=== PATIENT | female | born 1960 | race Caucasian/White ===

== ENCOUNTER 2017-11-01 07:16 | Emergency (ER) | payer MEDICAID, MEDICARE, SELFPAY ==
[2017-11-01 07:19] VITALS: BP 158/76; PULSE 82; RESP 20; TEMP 36.3; O2SAT 98; BMI 31.1
[2017-11-01 07:41] LABS: Bacteria 0 SEEN /hpf (None Seen); Mucous, Urine 0 SEEN /hpf (<or=2+); Red Blood Cells-Urine 0 SEEN /hpf (0-5)
[2017-11-01 07:51] LABS: Color, Urine Yellow (Yellow); Glucose, Dipstick Normal (Normal); Ketone-Dipstick Negative (Negative); Leukocyte Esterase-Dipstick Negative /ul (Negative); Nitrite-Dipstick Negative (Negative); Occult Blood-Urine Negative /ul (Negative); Protein-Dipstick Negative (Negative); Specific Gravity, Urine 1.015 (1.002-1.030); Urine Bilirubin Dipstick Negative (Negative); Urine Clarity Clear (Clear); Urine Urobilinogen Normal (Normal)
[2017-11-01 07:59] LABS: Squamous Epithelial Cells - UA 0-5 SEEN /hpf (5-10); White Blood Cells 0-5 SEEN /hpf (0-5)
--- NOTE | 2017-11-01 08:03 | CT_ITS ---
STUDY: CT ABDOMEN AND PELVIS WITHOUT CONTRAST REASON FOR EXAM: Female, 57 years old. Left-sided flank pain for one day. RADIATION DOSAGE (If Supplied By Facility): CTDIvol = ( 10.84 ) mGy, DLP = ( 495.73 ) mGycm TECHNIQUE: Transaxial images were obtained from the dome of the diaphragm to the symphysis pubis without oral contrast, and without intravenous contrast. Sagittal and coronal images were reconstructed. Individualized dose optimization techniques were used for this CT. COMPARISON: Prior comparison studies are not available for review at this time. FINDINGS: There is bilateral basilar dependent atelectasis. The visualized portions of the heart are within normal limits. Normal liver. The gallbladder is contracted. Normal spleen. Normal pancreas. Normal bilateral adrenal glands. Normal right kidney. Normal left kidney. Normal visualized stomach. There is no evidence for dilated bowel, ascites or pneumoperitoneum. Small bowel has a grossly normal appearance. Stool is visible throughout the colon with scattered colonic diverticula. There are surgical clips in the region of the appendix consistent with a prior appendectomy. Normal abdominal aorta. Normal inferior vena cava. There is borderline retroperitoneal lymphadenopathy with enlarged nodes no greater than 10mm in the short axis diameter. Urinary bladder is nondistended. There is absence of the uterus consistent with a prior hysterectomy. Normal abdominal wall. Normal osseous structures. CT/Abdomen/Pelvis without Cont IMPRESSION: No CT evidence of acute intra-abdominal disease. Electronically Signed: Stacey Yun MD at 8:50 EDT , Service support ,
[2017-11-01 08:15] LABS: Absolute Lymphocyte Count 0.98 X10^3/ul (0.83-4.51); Absolute Neutrophil Count 2.5 X10^3/uL (2.0-7.7); Basophil# 0.06 X10^3/uL; Basophil% 1.4 % (0-1); Hemoglobin 14.5 g/dl (12.0-15.0); Lymphocyte # 0.98 X10^3/ul (4.0); Lymphocyte % 22.9 % (19-41); Mean Corp Hgb Conc 33.7 g/gl (32-36); Mean Corpuscular Hgb 30.5 pg (27.0-32.0); Mean Corpuscular Volume 90.3 fL (81-99); Mean Platelet Vol. 9.1 fl (6.2-12.0); Monocyte# 0.38 X10^3/uL; Monocyte% 8.9 % (0-10); Neutrophil # 2.54 X10^3/uL (2.7-7.7); Neutrophil % 59.3 % (47-70); Platelet Count 190 K/mm3 (150-450); Red Blood Count 4.76 M/mm3 (4.2-5.4); White Blood Count 4.3 K/mm3 (4.4-11.0)
[2017-11-01 08:20] LABS: POSITIVE COUNT NO; POSITIVE DIFFERENTIAL NO; POSITIVE MORPHOLOGY NO
[2017-11-01 08:28] LABS: ALB/GLOB Ratio 1.4 RATIO (0.9-2.4); AST(SGOT) 15 U/L (15-37); Alanine Aminotransfer ALT/SGPT 22 U/L (13-56); Albumin, Serum 4.1 g/dL (3.2-5.0); Alkaline Phosphatase 115 U/L (45-117); Anion Gap 6 (5-15); BUN 15 mg/dL (7-18); Calcium,Total 8.4 mg/dL (8.5-10.1); Chloride 110 mmol/L (98-107); Creatinine, Serum 0.88 mg/dL (0.55-1.02); EST Glomerular Filtration Rate 70 mL/min (>60); Est Glom Filt Rate - Afr Amer 85 mL/min (>60); Estimated Creatinine Clearance 58.35 ml/min; Glucose 84 mg/dL (74-106); Potassium 3.6 mmol/L (3.5-5.1); Protein, Total 7.1 g/dL (6.4-8.2); Sodium Level 143 mmol/L (136-145)
--- NOTE | 2017-11-01 09:19 | ED.VISSUMM ---
- ER Visit Summary Date of Service: 11/01/17 Chief Complaint: Left flank pain History of Present Illness: The patient is a 57 F states she has a ball of fire in her back since yesterday. It has been constant for about 24 hours. Describes it as severe but not necessarily worse with movement but it does not feel good to move. She states that she has lupus in her kidney. When asked to explain what that means she then tells me that lupus is a blood disorder that can affect organs. Patient denies any history of renal cyst or kidney stones. She notes urinary frequency without dysuria or hematuria. No fevers. She denies any rashes in this area but states that she cannot see her back. Her doctors are at the [facility]. Physical Examination: Afebrile vital signs stable Gen: Well-nourished well-developed Head: Normocephalic atraumatic Eyes: Perrl EOMI ENT: TMs clear no rhinorrhea moist mucous membranes Neck: Supple no lymphadenopathy no JVD nontender CVS: Regular rate rhythm no murmurs normal S1-S2 Respiratory: No distress clear to auscultation bilaterally chest nontender Abdomen: Soft nontender nondistended normal bowel sounds no masses Back: Left flank tenderness to palpation no rashes seen Extremity: Nontender no edema Skin: Normal color no rash Neuro: alert orientated ?3 CN II-XII intact normal strength sensation reflexes gait cerebellar Psych: Normal affect normal mood Test Results: CBC chemistries negative. Urinalysis negative CT the flank negative Emergency Department Course and Treatment: Received a dose of morphine and Zofran. She is sleeping on repeat examination. Oars report is negative. I do not see anything to explain her pain at this time. With 24 hours of constant pain and negative labs I do not suspect a renal infarct. I do not see a need to repeat ct with contrast. I will write for the patient have OxyIR. She is to call her doctor's today and arrange early follow-up. Impression: 1. Left flank pain This note was generated with [employer] dictation software. It may contain incorrect words, spelling, and punctuation that were not noted in review of the chart prior to signing ED Disposition - Plan for ED Patient: Disposition: Home or Assisted Living Chief Complaint: Flank Pain Instructions: ED Flank Pain Uncertain Cause Prescriptions: Oxycodone [Oxyir] 5 - 10 mg PO Q6H PRN PRN 4 Days #20 tab PRN Reason: Pain Referrals: [facility] Doctor,Out of [Primary Care Provider] - (call today to arrange early follow up)
--- NOTE | 2017-11-01 09:24 | ED.DCSUM_ITS ---
- ER Visit Summary Date of Service: 11/01/17 Chief Complaint: Left flank pain History of Present Illness: The patient is a 57 F states she has a ball of fire in her back since yesterday. It has been constant for about 24 hours. Describes it as severe but not necessarily worse with movement but it does not feel good to move. She states that she has lupus in her kidney. When asked to explain what that means she then tells me that lupus is a blood disorder that can affect organs. Patient denies any history of renal cyst or kidney stones. She notes urinary frequency without dysuria or hematuria. No fevers. She denies any rashes in this area but states that she cannot see her back. Her doctors are at the [facility]. Physical Examination: Afebrile vital signs stable Gen: Well-nourished well-developed Head: Normocephalic atraumatic Eyes: Perrl EOMI ENT: TMs clear no rhinorrhea moist mucous membranes Neck: Supple no lymphadenopathy no JVD nontender CVS: Regular rate rhythm no murmurs normal S1-S2 Respiratory: No distress clear to auscultation bilaterally chest nontender Abdomen: Soft nontender nondistended normal bowel sounds no masses Back: Left flank tenderness to palpation no rashes seen Extremity: Nontender no edema Skin: Normal color no rash Neuro: alert orientated ?3 CN II-XII intact normal strength sensation reflexes gait cerebellar Psych: Normal affect normal mood Test Results: CBC chemistries negative. Urinalysis negative CT the flank negative Emergency Department Course and Treatment: Received a dose of morphine and Zofran. She is sleeping on repeat examination. Oars report is negative. I do not see anything to explain her pain at this time. With 24 hours of constant pain and negative labs I do not suspect a renal infarct. I do not see a need to repeat ct with contrast. I will write for the patient have OxyIR. She is to call her doctor's today and arrange early follow-up. Impression: 1. Left flank pain This note was generated with [employer] dictation software. It may contain incorrect words, spelling, and punctuation that were not noted in review of the chart prior to signing ED Disposition - Plan for ED Patient: Disposition: Home or Assisted Living Chief Complaint: Flank Pain Instructions: ED Flank Pain Uncertain Cause Prescriptions: Oxycodone [Oxyir] 5 - 10 mg PO Q6H PRN PRN 4 Days #20 tab PRN Reason: Pain Referrals: [facility] Doctor,Out of [Primary Care Provider] - (call today to arrange early follow up)
[2017-11-01 09:35] VITALS: BP 143/91; PULSE 69; RESP 15; O2SAT 97
== END 2017-11-01 09:39 | disposition home or self-care (01) ==
PROVIDERS: Emergency Provider Emergency Medicine
DX: R10.9 Unspecified abdominal pain (principal); Z79.899 Other long term (current) drug therapy
CPT/HCPCS: 74176; 80053; 81001; 85025; 99285; A4216; J2405

== ENCOUNTER 2017-12-30 10:30 | Emergency (ER) | payer MEDICARE, MEDICAID, SELFPAY ==
[2017-12-30 10:31] VITALS: BP 132/78; PULSE 115; RESP 20; TEMP 38.7; O2SAT 96; BMI 30.1
--- NOTE | 2017-12-30 11:08 | ED.VISSUMM ---
- ER Visit Summary Date of Service: 12/30/17 Chief Complaint: Rash History of Present Illness: The patient is a 57 F with a rash over her right posterior neck and anterior chest region also on the right. She developed pain 4 days ago and a rash 2 days ago. She has a fever. She has lupus and is on 2 different immune modulating agents. She does not have any neck pain other than the rash, she is able to bend her neck up and down. She has no vision changes. She has no headache or confusion or bizarre behavior. She has no chest pain or shortness of breath or cough. She has no urinary symptoms. No abdominal pain. The rash is itchy burning and intense. Physical Examination: Patient appears in some distress Heart is regular lungs are clear abdomen is soft and nontender neck is supple without any signs of meningismus. She has a vesicular rash consistent with herpes zoster posterior neck and anterior chest region. There is no face involvement. No eye involvement. No nose involvement. TMs are clear. Emergency Department Course and Treatment: Patient has herpes simplex zoster, her immune system is decreased secondary to her immune modulating agents want his Plaquenil and the other one she only takes once a month. She is to follow-up with her lupus doctor to see if she should get it again this month. Regardless she will be treated with acyclovir, Neurontin and analgesia. At this time she does not manifest any systemic symptoms, no signs of meningismus TM or eye involvement. She understands that if she feels worse needs to return. There is no signs of superinfection on her skin exam. Discharge stable condition Impression: Herpes zoster This note was generated with [employer] dictation software. It may contain incorrect words, spelling, and punctuation that were not noted in review of the chart prior to signing ED Disposition - Plan for ED Patient: Disposition: Home or Assisted Living Chief Complaint: Rash Instructions: Shingles (Herpes Zoster) Prescriptions: Oxycodone HCl/Acetaminophen [Percocet 5/325] 1 tab PO Q4H PRN PRN 3 Days #18 tab PRN Reason: Pain Acyclovir [Zovirax] 800 mg PO 5X/DAY #35 tab Gabapentin [Neurontin] 300 mg PO TID #90 cap Referrals: [facility] Doctor,Out of [Primary Care Provider] - 3-5 Days
== END 2017-12-30 11:43 | disposition home or self-care (01) ==
PROVIDERS: Emergency Provider Emergency Medicine
DX: B02.9 Zoster without complications (principal); M32.9 Systemic lupus erythematosus, unspecified; Z79.899 Other long term (current) drug therapy
CPT/HCPCS: 99282

== ENCOUNTER 2020-04-08 10:55 | Emergency (ER) | payer MEDICARE, MEDICAID, SELFPAY ==
[2020-04-08] VITALS (7 sets, daily range): BP systolic 141–191; BP diastolic 84–109; PULSE 64–70; RESP 12–20; TEMP 36.6; O2SAT 95–98; BMI 31.8
--- NOTE | 2020-04-08 10:59 | ED.RN ---
SON SEBASTIAN RAMIREZ--[phone]
--- NOTE | 2020-04-08 11:16 | RAD_ITS ---
STUDY: X-RAY CHEST REASON FOR EXAM: Female, 59 years old. Cough, SOB, muscle aches, fatigue TECHNIQUE: Single AP portable view of the chest. COMPARISON: None. FINDINGS: EKG electrodes are seen. Hyperinflation. Surgical sutures are seen in the right upper lobe. No acute abnormality is seen. There is no demonstrated pleural abnormality. Normal size heart. Normal mediastinum and brenda. Normal visualized pulmonary arteries. Normal visualized aortic arch and descending thoracic aorta. Normal visualized thoracic spine. Normal visualized ribs, clavicles, and shoulders. There is no demonstrated abnormality of the visualized soft tissue structures of the upper abdomen. RAD/Chest 1 View (Portable) IMPRESSION: No acute abnormality is seen. Electronically Signed: Ulices Quiroz, at 12:08 EST , Service support ,
--- NOTE | 2020-04-08 11:16 | EKG12_ITS ---
Test Reason : SOB Blood Pressure : / mmHG Vent. Rate : 064 BPM Atrial Rate : 064 BPM P-R Int : 136 ms QRS Dur : 086 ms QT Int : 432 ms P-R-T Axes : 038 038 053 degrees QTc Int : 445 ms Normal sinus rhythm Normal ECG Confirmed by MARINA PRASAD, BENTLEY ([id number]), restaurant expeditor CARA ZUÑIGA ([id number]) on 04/09/2020 2:11:35 PM Referred By: STANLEY/NINO Confirmed By:BENTLEY GRAY MD
--- NOTE | 2020-04-08 11:24 | ED.DCSUM_ITS ---
History of Present Illness Chief Complaint: Shortness of Breath Informant: Patient Narrative: Patient is a 59-year-old female with a past medical history of lupus who presents to the emergency department for cough, shortness of breath, body aches and loss of taste and smell. She does not know of any known positive coronavirus exposures but she does work at a [employer]. She was sent in by her PCP due to the increased work of breathing. Patient does have a former smoking history and quit 11 years ago. She does have bilateral leg swelling but states that this goes along with her lupus. No history of blood clots in her legs or lungs. She has not tried anything for her symptoms. Her symptoms have been going on for the past 4 days. She denies any chest pain. She did have vomiting and diarrhea 3 days ago but this since resolved. No abdominal pain. No fevers. Past Medical History - Allergies and Home Meds Allergies/Adverse Reactions: Allergies prednisone Allergy (Verified 04/08/20 10:58) Rash HIGH DOSES Primary Care Physician: Romeo Deshpande DO [NON CLINICAL AFFILIATE] - 3-5 Days if not [facility] Doctor,Out of [NON-STAFF] - Prior records reviewed: Yes Smoking Status: Never smoker Review of Systems All systems negative except as indicated General: Reports: Malaise. Denies: Chills, Fever, Sweats Eyes: Denies: Visual changes - bilaterally, Diplopia ENT: Denies: Rhinorrhea, Sore throat Cardiovascular: Denies: Chest pain, Palpitations Respiratory: Reports: Dyspnea, Cough, Sputum, Dyspnea on exertion Gastrointestinal: Denies: Abdominal pain, Nausea, Vomiting, Diarrhea Genitourinary: Denies: Dysuria, Hematuria, Frequency Musculoskeletal: Reports: Myalgias. Denies: Back pain, Extremity Pain Skin: Denies: Rash, Wounds Neurological: Denies: Headache, Weakness, Numbness Physical Exam Vital Signs/Narrative: Vital Signs Temp Pulse Resp BP Pulse Ox 04/08/20 10:55 98 F 70 20 H 158/84 H 98 Inital Vital Signs reviewed: Yes General: Well nourished, Well developed, No Acute Distress Head: Normocephalic, Atraumatic Eyes: Perrl, EOMI ENT: Moist mucous membranes, No rhinorrhea Neck: Supple, Nontender Cardiovascular: Regular rate, Regular rhythm, No murmurs Respiratory: CTA bilaterally, Chest nontender, - - Mild increased work of breathing. Able to speak in few word sentences. Abdomen: Soft, Nontender, Nondistended, Normal bowel sounds Back: Nontender, Normal Inspection Extremities: Nontender, No edema. Negative for: Calf Tenderness Skin: Normal color, No rash Neurological: Alert, Oriented x3, Cranial nerves II-XII grossly intact, Normal Strength, Normal Sensation Psychological: Normal affect, Normal Mood Diagnostic/Tx/Re-eval Chest X-Ray - ED: - - Single view chest x-ray interpreted by myself. Clear lung lynn bilaterally. No pleural effusions. Normal cardiac silhouette. Normal mediastinum. Agree with radiologist interpretation. - EKG Initial EKG Interpretation: - - Rate of 64 bpm normal sinus rhythm. Normal intervals. Normal axis. No ST elevations or depressions. No T wave abnormalities. - Medical Decision Making Patient presents to the emergency department for infectious symptoms including cough, shortness of breath, fatigue and body aches. He does have loss of taste and smell most likely has coronavirus infection. Will check basic lab work, EKG, chest x-ray and Covid swab given the fact she does have increased work of breathing. Will check ambulatory pulse ox. Patient's lab work did not reveal any significant acute abnormality. The antigen test was negative and will send for PCR as she is high probability of being positive given her symptoms. X-ray not reveal any acute cardiopulmonary abnormality. She did not desaturate on ambulatory pulse ox. Will recommend symptomatic treatment at home. Warning signs and symptoms which to return to the ED are reviewed. She understands and is agreeable this plan. She is to follow-up with her PCP. All questions answered. ED Disposition - Plan for ED Patient: Disposition: Home or Assisted Living Diagnosis: URI (upper respiratory infection), Cough, Dyspnea Instructions: Preventing the Spread of Infection Understanding Isolation Procedures, ED URI, Viral, No Abx (Adult) Prescriptions: Prednisone [Deltasone] 40 mg PO DAILY 4 Days #8 tab Transmission Status: Received by [id number] Referrals: [facility] Doctor,Out of [NON-STAFF] - Romeo Deshpande, [NON CLINICAL AFFILIATE] - 3-5 Days if not improving
[2020-04-08 11:47] LABS: Absolute Lymphocyte Count 1.08 X10^3/uL (0.83-4.51); Absolute Neutrophil Count 2.8 X10^3/uL (2.0-7.7); Basophil# 0.06 X10^3/uL; Basophil% 1.2 % (0-1); Eosinophil# 0.41 X10^3/uL; Eosinophils% 8.4 % (0-5); Hematocrit 40.7 % (37-47); Hemoglobin 13.8 g/dL (12.0-15.0); Lymphocyte # 1.08 X10^3/ul (4.0); Mean Corp Hgb Conc 33.9 g/dL (32-36); Mean Corpuscular Hgb 30.5 pg (27.0-32.0); Mean Corpuscular Volume 89.8 fL (81-99); Monocyte# 0.49 X10^3/uL; NRBC Flagged by Analyzer 0 % (0-5); Neutrophil # 2.84 X10^3/uL (2.7-7.7); Platelet Count 208 K/mm3 (150-450); RBC Distribution Width CV 12.3 % (11.6-14.6); RBC Distribution Width SD 40.5 fl (35.1-43.9); Red Blood Count 4.53 M/mm3 (4.2-5.4); White Blood Count 4.9 K/mm3 (4.4-11.0)
[2020-04-08 12:05] LABS: ALB/GLOB Ratio 1.3 RATIO (0.9-2.4); AST(SGOT) 9 U/L (15-37); Alanine Aminotransfer ALT/SGPT 26 U/L (13-56); Albumin, Serum 3.9 g/dL (3.2-5.0); Alkaline Phosphatase 100 U/L (45-117); Anion Gap 7 (5-15); BUN 16 mg/dL (7-18); BUN/Creat Ratio 18.1 RATIO (10-20); Calcium,Total 8.8 mg/dL (8.5-10.1); Chloride 107 mmol/L (98-107); Creatinine, Serum 0.88 mg/dL (0.55-1.02); EST Glomerular Filtration Rate 69 mL/min (>60); Est Glom Filt Rate - Afr Amer 84 mL/min (>60); Estimated Creatinine Clearance 56.94 ml/min; Glucose 86 mg/dL (74-106); Potassium 4.1 mmol/L (3.5-5.1); Protein, Total 6.9 g/dL (6.4-8.2); Sodium Level 141 mmol/L (136-145)
[2020-04-08 12:11] LABS: Lactic Acid 1.5 mmol/L (0.4-1.9)
[2020-04-08] MEDS: Ipratropium/Albuterol Sulfate 3 ML AMPUL.NEB INHALATION (14:01)
[2020-04-08] MEDS: predniSONE 20 MG Tablet 40 MG PO (14:31)
== END 2020-04-08 15:30 | disposition home or self-care (01) ==
PROVIDERS: Emergency Provider Emergency Medicine
DX: J06.9 Acute upper respiratory infection, unspecified (principal); R05 Cough; R06.00 Dyspnea, unspecified; M32.9 Systemic lupus erythematosus, unspecified; Z87.891 Personal history of nicotine dependence
CPT/HCPCS: 71045; 80053; 83605; 84484; 85025; 87426; 87635; 93005; 94640; 99285; A4216; U0003

== ENCOUNTER 2021-06-29 06:41 | Outpatient (CLI) | payer MEDICARE, MEDICAID, SELFPAY ==
--- NOTE | 2021-06-29 15:32 | PFTCOMP_ITS ---
COMPLETE PULMONARY FUNCTION TEST INTERPRETATION Brief HPI: Patient is a 60 year old female, currently under the care of Jacey Brooks, who presents to [facility] for complete pulmonary function tests secondary to diagnosis of dyspnea and lupus. Respiratory therapist reports good effort and reproducible results. Interpretation: Forced expiration spirometry shows no large airways obstructive ventilatory defect with an FEV1 of 95% predicted. There is no significant bronchodilator response by strict ATS criteria. Spirograms are of good quality and plateau slowly, indicating slowly emptying areas of the lungs. The respiratory flow volume loop shows decreased expiratory flow rates at high lung volumes consistent with small airways obstruction. Lung volumes by body plethysmography show a normal total lung capacity at 5.36 L, 114% predicted. All other lung volumes are within normal limits. Diffusion capacity by carbon monoxide is decreased at 61% predicted. The airway resistance is slightly elevated. No previous pulmonary function tests were available for review. Impression: Isolated reduction in diffusion capacity consistent with a pulmonary vascular disease. There is some stigmata of possible concomitant small airways disease
== END 2021-06-29 23:59 | disposition home or self-care (01) ==
PROVIDERS: Referring Provider Nurse Practitioner Adult Health; Visit Provider Nurse Practitioner Adult Health
DX: R06.02 Shortness of breath (principal)
CPT/HCPCS: 94060; 94726; 94729

== ENCOUNTER 2021-07-13 08:32 | Outpatient (CLI) | payer MEDICARE, MEDICAID, SELFPAY ==
--- NOTE | 2021-07-13 08:42 | EKG12_ITS ---
Test Reason : HYPERTENSION Blood Pressure : / mmHG Vent. Rate : 085 BPM Atrial Rate : 085 BPM P-R Int : 138 ms QRS Dur : 082 ms QT Int : 390 ms P-R-T Axes : 078 064 081 degrees QTc Int : 464 ms Normal sinus rhythm Normal ECG Confirmed by MARINA PRASAD, BENTLEY ([id number]), editorial director CARA ZUÑIGA ([id number]) on 07/14/2021 9:18:04 AM Referred By: [facility] Confirmed By:BENTLEY GRAY MD
== END 2021-07-13 23:59 | disposition home or self-care (01) ==
LOC: PSN 08:33
DX: I10 Essential (primary) hypertension (principal)
CPT/HCPCS: 93005

== ENCOUNTER 2021-09-22 12:13 | Emergency (ER) | payer MEDICARE, MEDICAID, SELFPAY ==
[2021-09-22 12:13] VITALS: BP 82/60; BP 96/83; PULSE 107; PULSE 94; RESP 18; RESP 20; TEMP 36.3; O2SAT 92; O2SAT 94; BMI 30.8
--- NOTE | 2021-09-22 12:26 | EDS_ITS ---
HPI <JOSÉ MIGUEL Berg - Last Filed: 09/22/21 15:08> History of Present Illness Chief Complaint: Allergic Reaction Narrative Narrative: 61-year-old female with history of lupus, hypertension presents to the emergency department with 1 hour of itching, feeling of skin burning. Patient had some blackberry jam, this is the only thing that was out of the ordinary for her today. She states within 20 minutes he developed full body itching, she states that this made her anxious, and she is itching all over. Patient denies any facial swelling, tongue swelling, difficulty breathing. Patient states that she is just having trouble dealing with a full body itching that is coming in waves as well as her skin feeling hot. PFSH <JOSÉ MIGUEL Berg - Last Filed: 09/22/21 15:08> [facility] Home Medications belimumab [Benlysta] 10 mg IV QWEEK 11/01/17 [History Last Taken Unknown] hydroxychloroquine 200 mg PO DAILYCM 11/01/17 [History Last Taken Unknown] duloxetine 20 mg PO DAILY 09/22/21 [History Last Taken Unknown] irbesartan 75 mg PO DAILY 09/22/21 [History Last Taken Unknown] levothyroxine 50 mcg PO DAILY 09/22/21 [History Last Taken Unknown] prednisone 50 mg PO DAILY #4 tab 09/22/21 [Rx Last Taken Unknown] rosuvastatin mg 09/22/21 [History Last Taken Unknown] Allergy/AdvReac Type Severity Reaction Status Date / Time prednisone Allergy Rash Verified 09/22/21 12:16 Social History Smoking Status: Never smoker ROS <JOSÉ MIGUEL Berg - Last Filed: 09/22/21 15:08> ROS ED ROS Narrative Constitutional: Negative for fever, chills, weight loss, weakness Eyes: Negative for vision loss, vision change, double vision ENT: Negative for any sore throat, ear pain, congestion Cardiovascular: Negative for any chest pain, tightness, palpitations, racing heartbeat Respiratory: Negative for any cough, sputum production, hemoptysis, shortness of breath, shortness of breath on exertion, orthopnea Gastrointestinal: Negative for any abdominal pain, nausea, vomiting, diarrhea, constipation, blood in stool, blood in vomit : Negative for any urinary frequency, incontinence, dysuria, retention, blood in urine Muscle skeletal: Negative for any muscle joint pain, stiffness, myalgias, arthralgias, neck pain, back pain Neurological: Negative for any headache, dizziness, syncope, numbness or tingling Skin: Negative for any rashes, lumps, abrasions, lacerations. Positive for feeling of itching Psychiatric: Negative for any depression, anxiety, stress, suicidal ideation, homicidal ideation Hematologic: Negative for any easy bruising, excessive bruising, easy bleeding Allergies: Negative for any eczema, hives, rash EXAM <JOSÉ MIGUEL Berg - Last Filed: 09/22/21 15:08> Physical Exam Narrative Exam Narrative: Vital signs reviewed. Patient arrives in no respiratory distress, patient is speaking complete senses. Patient is constantly moving all over the bed because she states she is itching so bad. I do not believe the patient is having a anaphylactic reaction however patient is itching full body. HEET: Head normocephalic atraumatic, TMs clear bilaterally. Posterior pharynx is clear, moist mucous membranes. Nares clear bilaterally. Neck: Supple with no lymphadenopathy or tenderness. No signs of meningismus, negative jolt sign. Negative for any stridor, negative for any swelling. Cardiac: Regular rate and rhythm no murmurs gallops or rubs, equal peripheral pulses bilaterally. Respiratory: Lungs clear to auscultation bilaterally. No chest tenderness. Patient is tachypneic however believes she is uncomfortable from the itching. Patient does not appear to be any respiratory stress. Lung sounds are clear. Negative for any stridor negative for any drooling. Abdomen: Soft, nontender, nondistended. No abdominal bruit or pulsatile masses. No hepatosplenomegaly Extremities: No peripheral edema, no signs of gross trauma or deformity. Active full range of motion of all extremities. Neuro: Cranial nerves II through XII intact, no focal neurological deficits. Skin: Clean dry and intact with no rash, purpura, petechiae, vesicles or pustules. Backslash flank: No CVA tenderness, no midline spinal tenderness, no deformity. Psych: Normal mood and affect. No SI, HI or acute psychosis. Const Vital Signs: 09/22/21 12:13 09/22/21 15:08 Temperature 97.4 F L 94 F L Temperature Source Temporal Pulse Rate 94 82 Respiratory Rate 18 16 Blood Pressure 82/60 L 119/72 Blood Pressure Mean 67 Pulse Ox 94 Oxygen Delivery Method Room Air Positive well nourished and well developed General Appearance ED: well developed <Dr. Jose L Pan DO - Last Filed: 09/22/21 15:50> Physical Exam Const Vital Signs: 09/22/21 12:13 09/22/21 15:08 Temperature 97.4 F L 94 F L Temperature Source Temporal Pulse Rate 94 82 Respiratory Rate 18 16 Blood Pressure 82/60 L 119/72 Blood Pressure Mean 67 Pulse Ox 94 Oxygen Delivery Method Room Air MDM <JOSÉ MIGUEL Berg - Last Filed: 09/22/21 15:08> [facility] Narrative Medical decision making narrative: Patient arrives in moderate distress secondary to full body itching, patient never had any respiratory, oral airway swelling. I believe patient was suffering from allergic reaction secondary to the entirety of her body, the itching, and eating blackberry jam. Patient did receive IV fluids, IV Solu-Medrol, Pepcid, Benadryl. Patient's blood pressure did drop however after IV fluids, patient's blood pressure remains normal. After 1 hour, patient felt much better, she was resting. Patient states that the itching is under control and she feels well enough for discharge. Patient be placed on a short course of steroids and instructed to follow-up outpatient. She is given strict return precautions to return for any worsening shortness of breath, angioedema etc. Patient stable for discharge. <Dr. Jose L Pan, - Last Filed: 09/22/21 15:50> [facility] Narrative Medical decision making narrative: This patient was seen with a PA/DIRECTOR OF STRATEGIC SOURCING Individually assessed they patient including history and physical. I have reviewed everything on the chart that is available and agree with the documentation provided by the PA/DIRECTOR OF STRATEGIC SOURCING including discussion about the assessment, treatment plan, discussion, and return precautions. Patient presenting with allergic reaction symptoms. She feels itchy all over. She is concerned that due to some jam that she ate. She does not have any allergy to this and has eaten this in the past. Patient given Solu-Medrol, Pepcid, Benadryl. After treatment she did have a transient drop in her blood pressure to 82/60. She was given a liter of IV fluids and on reevaluation her blood pressure had improved 119/72. Patient feels much better. I do not believe patient needs any further treatment at this time. She is given return precautions. Impression: 1. Allergic reaction 2. Transient hypotension Discharge Plan Triage Chief Complaint: Allergic Reaction ED Midlevel Provider: Emile Leung ED Provider: Jose L Pan Dx/Rx/DC Orders Clinical Impression: Allergic reaction Instructions: ED General Allergic Reactions Prescriptions: New prednisone 50 mg tablet 50 mg PO DAILY Qty: 4 RF: 0 No Action hydroxychloroquine 200 MG tablet 200 mg PO DAILYCM RF: 0 Benlysta 120 MG recon soln 10 mg IV QWEEK RF: 0 levothyroxine 50 mcg tablet 50 mcg PO DAILY RF: 0 irbesartan 75 mg tablet 75 mg PO DAILY RF: 0 rosuvastatin 5 mg tablet RF: 0 duloxetine 20 mg capsule,delayed release(DR/EC) 20 mg PO DAILY RF: 0 Primary Care Provider: [facility] Blanco Referrals: [facility] Blanco [Primary Care Provider] - Activity Restrictions/Additional Instructions: Please take prednisone for the next 4 days. Please return for any worsening symptoms Print Language: [place] Disposition Disposition: Home, Self Care Discharge Date/Time: 09/22/21 15:19
[2021-09-22] MEDS: DiphenhydrAMINE 50 MG/ML Syringe 25 MG IV (12:33)
[2021-09-22] MEDS: MethylPREDNISolone 125 MG/2 ML Vial IV (12:34)
[2021-09-22] MEDS: Ondansetron 4 MG/2 ML Vial IV (12:34)
[2021-09-22] MEDS: 0.9% Normal Saline 1,000 ML 1000 ML IV (12:40)
[2021-09-22] MEDS: Famotidine 200 MG/20 ML MDV 20 MG in 0.9% Normal Saline (Pres. free 8 ML 300 MG IV (13:11)
[2021-09-22 15:08] VITALS: BP 119/72; PULSE 82; RESP 16; TEMP 34.4
== END 2021-09-22 15:19 | disposition home or self-care (01) ==
PROVIDERS: Emergency Provider Student in an Organized Health Care Education/Training Program; Visit Provider Student in an Organized Health Care Education/Training Program
DX: T78.40XA Allergy, unspecified, initial encounter (principal); I10 Essential (primary) hypertension; I95.89 Other hypotension; Z79.899 Other long term (current) drug therapy; X58.XXXA Exposure to other specified factors, initial encounter
CPT/HCPCS: 96361; 96374; 96375; 99282; J7030; A4216; J2405; J3490

== ENCOUNTER 2021-12-28 16:49 | Emergency (ER) | payer MEDICARE, MEDICAID, SELFPAY ==
[2021-12-28 16:50] VITALS: BP 140/76; PULSE 96; RESP 18; TEMP 36.7; O2SAT 93; BMI 31.5
--- NOTE | 2021-12-28 17:07 | ED.VIS.LOWEX ---
HPI History of Present Illness Chief Complaint: Lower Extremity Injury Narrative Narrative: Patient comes in with right hip and groin pain after a fall. Patient was walking her dog. Pulled on her on the steps. She landed on her buttock on the steps. She slid down about 2 steps and then landed on her right hip area. Never hit her head. No loss of consciousness. This was a mechanical fall not syncope. She has hip pain on the right lateral aspect and a little bit in the groin. If she rests and lays down it is better. If she stands its worse. She is able to walk though. She denies any other injuries. She is not on blood thinners. PFSH PFSH Home Medications belimumab 120 mg intravenous solution (Benlysta) 10 mg IV QWEEK 11/01/17 [History Last Taken Unknown] hydroxychloroquine 200 mg tablet 200 mg PO DAILYCM 11/01/17 [History Last Taken Unknown] duloxetine 20 mg capsule,delayed release 20 mg PO DAILY 09/22/21 [History Last Taken Unknown] irbesartan 75 mg tablet 75 mg PO DAILY 09/22/21 [History Last Taken Unknown] levothyroxine 50 mcg tablet 50 mcg PO DAILY 09/22/21 [History Last Taken Unknown] prednisone 50 mg tablet 50 mg PO DAILY #4 tabs 09/22/21 [Rx Last Taken Unknown] rosuvastatin 5 mg tablet 5 mg PO DAILY 09/22/21 [History Last Taken Unknown] oxycodone-acetaminophen 5 mg-325 mg tablet (Percocet) 1 tab PO Q6H PRN pain 3 days #12 tabs 12/28/21 [Rx Last Taken Unknown] Allergy/AdvReac Type Severity Reaction Status Date / Time prednisone Allergy Rash Verified 12/28/21 16:52 Social History Smoking Status: Former smoker ROS ROS ED Constitutional Constitutional ED: Denies fever(s) Eyes Eyes: Denies change in vision ENT ENT ED: Denies sore throat Cardiovascular Cardiovascular: Denies chest pain Respiratory/Chest Respiratory/Chest: Denies dyspnea Gastrointestinal Gastrointestinal: Denies abdominal pain, constipation, diarrhea, nausea or vomiting Genitourinary Genitourinary ED: Denies dysuria or hematuria Musculoskeletal Musculoskeletal: Reports arthralgias; Denies back pain or neck pain Integumentary Denies Abrasions or rash Neurologic Neurologic: Denies headache(s), paresthesias or weakness Hematologic/Lymphatic Hematologic/Lymphatic: Denies easy bleeding or easy bruising Allergic/Immunologic Allergic/Immunologic ED: Denies urticaria EXAM Physical Exam Const Vital Signs: 12/28/21 16:50 Temperature 98.1 F Temperature Source Temporal Pulse Rate 96 Respiratory Rate 18 Blood Pressure 140/76 H Blood Pressure Mean 97 Pulse Ox 93 Oxygen Delivery Method Room Air Positive well nourished and well developed General Appearance ED: well developed HEENT Reports moist mucous membranes Chest Wall inspection of chest normal Resp normal respiratory effort and clear to auscultation bilaterally Cardio regular rate and regular rhythm GI non-tender and non-distended GI Narrative: Abdomen is completely benign. She gets tenderness down below the inguinal ligament on the right and at the anterior superior iliac spine on the right. Back/Spine no CVA tenderness Back/Spine Narrative: No thoracic or lumbar tenderness. Extremity normal to inspection Extremity Narrative: I can actually do internal and external rotation of the hip without any notable pain. However, lifting her legs off the bed actively does cause a fair amount of discomfort. No shortening or rotation noted. I do not see any bruising at developed including none near the anterior superior iliac spine which is her major area of pain. Neuro Sensorium / Orientation: alert Psych mental status grossly normal Skin no wounds MDM MDM MDM Narrative Medical decision making narrative: X-rays of the right hip looked at by me and read by radiology showed no acute process. Patient did not want oxycodone here as she is driving. I will write her some to go. She is mobile. I explained that if it still hurting in a week or so she may need repeat imaging. She should follow-up with her doctor for recheck. If she develops new symptoms, nausea vomiting weakness numbness tingling or any other complaints she should return. Radiography Diagnostic Testing: Clinical Impression(s) from Imaging Studies Hip/Pelvis X-Ray 12/28/21 17:15 IMPRESSION: Right hip intact. Probable surgical sutures bilaterally within the pelvis. Electronically Signed: Oumar Summers MD, ALPA at 17:32 EDT Reading Location ID and State: [facility] / OR Tel , Service support , Discharge Plan Triage Chief Complaint: Lower Extremity Injury ED Provider: Ted Martin Dx/Rx/DC Orders Clinical Impression: Contusion of right hip, Strain of muscle of right hip, Fall at home Instructions: ED Hip Contusion Prescriptions: New oxycodone-acetaminophen [Percocet] 5-325 mg tablet 1 tab PO Q6H PRN (Reason: pain) 3 Days Qty: 12 0RF No Action hydroxychloroquine 200 MG tablet 200 mg PO DAILYCM Benlysta 120 MG recon soln 10 mg IV QWEEK levothyroxine 50 mcg tablet 50 mcg PO DAILY irbesartan 75 mg tablet 75 mg PO DAILY rosuvastatin 5 mg tablet 5 mg PO DAILY duloxetine 20 mg capsule,delayed release(DR/EC) 20 mg PO DAILY prednisone 50 mg tablet 50 mg PO DAILY Qty: 4 0RF Primary Care Provider: [facility] Blanco Referrals: [facility] Beth Blanco [Primary Care Provider] - 1 Week if not improving Disposition Disposition: Home, Self Care
--- NOTE | 2021-12-28 17:15 | RAD_ITS ---
STUDY: X-RAY - PELVIS AND RIGHT HIP REASON FOR EXAM: Female, 61 years old. Trauma TECHNIQUE: 3 views of the pelvis and hip. COMPARISON: None. FINDINGS: There is a non-specific bowel gas pattern. Curvilinear density is seen in the right and left hemipelvis. Findings could represent surgical sutures. Correlation advised. Normal bilateral iliac wings, sacroiliac joints and visualized sacrum. Normal bilateral superior and inferior pubic rami. Normal pubic symphysis. Normal bilateral ischial tuberosities. Normal visualized femoral head. Normal acetabulum. Normal hip joint. RAD/HIP, UNI W/ Pelvis 2-3 Views IMPRESSION: Right hip intact. Probable surgical sutures bilaterally within the pelvis. Electronically Signed: Oumar Summers MD, ALPA at 17:32 EDT ,
[2021-12-28 18:45] VITALS: RESP 16
== END 2021-12-28 18:50 | disposition home or self-care (01) ==
PROVIDERS: Emergency Provider Emergency Medicine; Visit Provider Emergency Medicine
DX: S70.01XA Contusion of right hip, initial encounter (principal); S76.011A Strain of muscle, fascia and tendon of right hip, initial encounter; Z87.891 Personal history of nicotine dependence; Z79.899 Other long term (current) drug therapy; W10.9XXA Fall (on) (from) unspecified stairs and steps, initial encounter
CPT/HCPCS: 73502; 99282

== ENCOUNTER 2022-05-11 17:55 | Emergency (ER) | payer MEDICARE, MEDICAID, SELFPAY ==
[2022-05-11 17:57] VITALS: BP 144/105; PULSE 91; RESP 16; TEMP 36.4; O2SAT 98; BMI 32.5
[2022-05-11 18:49] VITALS: PULSE 88; RESP 18; RESP 20; O2SAT 96
[2022-05-11] MEDS: Ipratropium/Albuterol Sulfate 3 ML AMPUL.NEB INHALATION (18:49)
--- NOTE | 2022-05-11 18:51 | EDS_ITS ---
HPI HPI - URI History of Present Illness Chief Complaint: Cough Informant: patient Onset/Context/Timing Onset: Weeks (1) Context: Gradual Onset Timing: Continuous Quality: Cough, dyspnea with exertion Location: Chest Current Severity: Moderate Maximum Severity: Moderate Worsened by: - (Exertion) Relieved by: - (Right) Associated Symptoms Associated Symptoms: Positive for Nasal Congestion Narrative Narrative: Patient has had respiratory illness for about the past week. She states she has lupus in the lungs, and in the past week since she has been sick she has had dyspnea with exertion. She has an albuterol inhaler to use as needed, it has been helping some when she uses it. She denies any fevers, chills, headaches, sore throat, myalgias, chest pain. No GI symptoms. She has done several COVID tests at home they were both negative. She is vaccinated against it and influenza. She comes today primarily because her blood pressure was elevated at home, 168 systolic. She admits to taking Mucinex as a combination medication with a decongestant lately and she has hypertension, she is compliant with her medications. Prednisone is on her medication list currently but she does not take prednisone daily, that was a short duration burst she was given in the past for her lupus. ROS ROS ED Constitutional Constitutional ED: Denies chills or fever(s) ENT ENT ED: Reports hoarseness, nasal congestion, rhinorrhea and sore throat; Denies headache(s), loss taste/smell or sinus pressure Cardiovascular Cardiovascular: Denies chest pain, orthopnea or palpitations Respiratory/Chest Respiratory/Chest: Reports cough, dyspnea and dyspnea on exertion; Denies orthopnea Gastrointestinal Gastrointestinal: Denies abdominal pain, diarrhea, nausea or vomiting Genitourinary Genitourinary ED: Denies dysuria or hematuria Musculoskeletal Musculoskeletal: Denies myalgias or neck pain Integumentary Denies abscess or rash Neurologic Neurologic: Denies headache(s), paresthesias or weakness Psychiatric Psychiatric: Denies depression or suicidal thoughts Endocrine Endocrinology: Denies polydipsia or polyuria [facility] Medical History (Updated 05/11/22 @ 20:[address] Ronnell Maier MD) Hypertension Hypothyroid Lupus Home Medications belimumab 120 mg intravenous solution (Benlysta) 10 mg IV QWEEK 11/01/17 [History Last Taken Unknown] hydroxychloroquine 200 mg tablet 200 mg PO DAILYCM 11/01/17 [History Last Taken Unknown] duloxetine 20 mg capsule,delayed release 20 mg PO DAILY 09/22/21 [History Last Taken Unknown] irbesartan 75 mg tablet 75 mg PO DAILY 09/22/21 [History Last Taken Unknown] levothyroxine 50 mcg tablet 50 mcg PO DAILY 09/22/21 [History Last Taken Unknown] prednisone 50 mg tablet 50 mg PO DAILY #4 tabs 09/22/21 [Rx Last Taken Unknown] rosuvastatin 5 mg tablet 5 mg PO DAILY 09/22/21 [History Last Taken Unknown] oxycodone-acetaminophen 5 mg-325 mg tablet (Percocet) 1 tab PO Q6H PRN pain 3 days #12 tabs 12/28/21 [Rx Last Taken Unknown] prednisone 20 mg tablet 40 mg PO DAILY #10 TABLETS 05/11/22 [Rx Last Taken Unknown] Allergy/AdvReac Type Severity Reaction Status Date / Time prednisone Allergy Rash Verified 05/11/22 19:16 Social History Smoking Status: Former smoker EXAM Physical Exam Const Vital Signs: 05/11/22 17:57 05/11/22 18:49 05/11/22 18:49 Temperature 97.5 F L Temperature Source Temporal Pulse Rate 91 88 Respiratory Rate 16 18 20 H Respiratory Effort Normal Non-Labored Short of Breath Respiratory Depth Normal Respiratory Pattern Normal Normal Blood Pressure 144/105 H Blood Pressure Mean 118 Pulse Ox 98 96 Oxygen Delivery Method Room Air Room Air 05/11/22 19:14 05/11/22 19:14 05/11/22 19:17 Temperature 98.5 F 98.5 F Temperature Source Temporal Temporal Pulse Rate 85 88 Respiratory Rate 18 18 Respiratory Effort Normal Non-Labored Respiratory Depth Normal Respiratory Pattern Normal Blood Pressure 147/78 H 147/78 H Blood Pressure Mean 101 101 Pulse Ox 93 93 Oxygen Delivery Method Room Air Room Air Room Air 05/11/22 20:36 Temperature 98.4 F Temperature Source Temporal Pulse Rate 85 Respiratory Rate 18 Respiratory Effort Respiratory Depth Respiratory Pattern Blood Pressure 156/90 H Blood Pressure Mean 112 Pulse Ox 95 Oxygen Delivery Method Room Air Positive well nourished and well developed General Appearance ED: well developed and NAD HEENT Reports moist mucous membranes HEENT Narrative: Hoarse voice, no stridor normocephalic and atraumatic Face and Sinus: Negative for sinus tenderness Throat: Negative for posterior oropharynx abnormal Eyes PERRL and EOMs intact bilaterally Neck no lymphadenopathy, supple and no meningeal signs Resp normal respiratory effort and clear to auscultation bilaterally Cardio no murmurs Rate: regular rate Rhythm: regular rhythm GI non-tender and non-distended Auscultation: normoactive bowel sounds Extremity normal to inspection and full ROM Extremity Narrative: No edema Neuro oriented x3, CN's II-XII intact bilaterally and no sensory deficits noted Sensorium / Orientation: alert Motor Exam: strength 5/5 throughout Psych mental status grossly normal Skin Lesions: no lesions Rashes: no rashes MDM MDM MDM Narrative Medical decision making narrative: 2 view chest x-ray showing no signs of pneumonia or pleural effusion on my interpretation. Radiology in agreement. Influenza is negative. She was given a duo nebulizer treatment which did help her breathing. She is not hypoxic and I think stable for discharge home I do not think she needs antibiotics but I think prednisone would probably help her and she is in agreement. Is on her allergy list, she states she is not allergic to it, she just has bad side effects when she is on 50 mg or higher which I do not think she needs. She states she does fine on 40 so she will be started on that here. Radiography Diagnostic Testing: Clinical Impression(s) from Imaging Studies Chest X-Ray 05/11/22 19:26 IMPRESSION: No acute cardiopulmonary pathology. Electronically Signed: Smooth Mera MD at 19:59 EST Reading Location ID and State: [facility] / [place] , Service support , Discharge Plan Triage Chief Complaint: Cough ED Provider: Ronnell Maier Dx/Rx/DC Orders Clinical Impression: Acute bronchitis with wheezing, Lupus disease of lung Instructions: Acute Bronchitis Prescriptions: New prednisone 20 mg tablet 40 mg PO DAILY Qty: 10 0RF No Action hydroxychloroquine 200 MG tablet 200 mg PO DAILYCM Benlysta 120 MG recon soln 10 mg IV QWEEK levothyroxine 50 mcg tablet 50 mcg PO DAILY irbesartan 75 mg tablet 75 mg PO DAILY rosuvastatin 5 mg tablet 5 mg PO DAILY duloxetine 20 mg capsule,delayed release(DR/EC) 20 mg PO DAILY prednisone 50 mg tablet 50 mg PO DAILY Qty: 4 0RF oxycodone-acetaminophen [Percocet] 5-325 mg tablet 1 tab PO Q6H PRN (Reason: pain) 3 Days Qty: 12 0RF Primary Care Provider: [facility] [Primary [facility] Provider] - 1 Week if not improving Disposition Disposition: Home, Self Care
[2022-05-11 19:14] VITALS: BP 147/78; PULSE 85; PULSE 88; RESP 18; TEMP 36.9; O2SAT 93
[2022-05-11 19:17] VITALS: O2SAT 93
--- NOTE | 2022-05-11 19:26 | RAD_ITS ---
INDICATION: cough/sob EXAMINATION/TECHNIQUE: X-RAY - XR Chest 2 Views COMPARISON: April 08, 2020 FINDINGS: LINES/DEVICES: None. LUNGS: Surgical clips are seen within the right upper lobe. Lungs are clear of acute infiltration. There is no pleural effusion. No pneumothorax. MEDIASTINUM AND CARDIOVASCULAR STRUCTURES: Cardiac silhouette not enlarged. Central airways and mediastinal contour are unremarkable. BONES AND SOFT TISSUES: Unremarkable. No significant change since prior exam RAD/Chest PA and Lateral IMPRESSION: No acute cardiopulmonary pathology. Electronically Signed: Smooth Mera MD at 19:59 EST ,
[2022-05-11 20:36] VITALS: BP 156/90; PULSE 85; RESP 18; TEMP 36.9; O2SAT 95
--- NOTE | 2022-05-11 20:47 | ED.RN ---
PT STATES PREDNISONE IS OKAY FOR ME TO TAKE LONG IT IS UNDER 50 MG.
[2022-05-11 20:48] VITALS: BP 139/88; PULSE 86; RESP 18; O2SAT 95
[2022-05-11] MEDS: predniSONE 20 MG Tablet 40 MG PO (20:58)
== END 2022-05-11 21:00 | disposition home or self-care (01) ==
PROVIDERS: Emergency Provider Emergency Medicine; Visit Provider Emergency Medicine
DX: J20.9 Acute bronchitis, unspecified (principal); M32.9 Systemic lupus erythematosus, unspecified; Z87.891 Personal history of nicotine dependence
CPT/HCPCS: 71046; 87804; 94640; 99252; 99283; G0463

== ENCOUNTER → 2022-06-15 | Outpatient (CLI) | payer MEDICARE, MEDICAID, SELFPAY ==
--- NOTE | 2022-06-15 10:37 | RAD_ITS ---
STUDY: X-RAY CHEST REASON FOR EXAM: Female, 61 years old. CHEST PAIN COPD TECHNIQUE: XR Chest 2 Views COMPARISON: 05.11.2022 FINDINGS: There is no demonstrated pleural abnormality. Normal size heart. Normal mediastinum and brenda. Normal visualized pulmonary arteries. Normal visualized aortic arch and descending thoracic aorta. Normal visualized thoracic spine. Normal visualized ribs, clavicles, and shoulders. There is no demonstrated abnormality of the visualized soft tissue structures of the upper abdomen. RAD/Chest PA and Lateral IMPRESSION: There are no acute findings. Electronically Signed: Bryan Car MD at 19:27 EST ,
== END | disposition home or self-care (01) ==
LOC: RAD 10:36
PROVIDERS: Referring Provider Nurse Practitioner Family; Visit Provider Nurse Practitioner Family
DX: J44.1 Chronic obstructive pulmonary disease with (acute) exacerbation (principal)
CPT/HCPCS: 71046

== ENCOUNTER 2022-09-07 16:44 | Emergency (ER) | payer MEDICARE, MEDICAID, SELFPAY ==
[2022-09-07 16:45] VITALS: BP 153/98; PULSE 93; RESP 16; TEMP 36.4; O2SAT 99; BMI 31.8
--- NOTE | 2022-09-07 16:51 | ED.RN ---
AFTER SEEING BP READING IN TRIAGE, PT STATES I REALLY DON'T WANT TO BE SEEN, STATES SHE TOOK A DOSE OF BP MEDS 20 MIN [employer], FEELS LIKE IT'S KICKING IN RIGHT NOW. PT VOICES UNDERSTANDING TO RETURN FOR ANY CONCERNS OR CONTINUED HIGH READING.
== END 2022-09-07 17:55 | disposition left against medical advice (07) ==
LOC: ED 18:00
DX: Z53.21 Procedure and treatment not carried out due to patient leaving prior to being seen by health care provider (principal)

== ENCOUNTER → 2022-10-04 | Outpatient (CLI) | payer MEDICARE, MEDICAID, SELFPAY ==
--- NOTE | 2022-10-04 15:09 | BI_ITS ---
MAMMOGRAPHY - BILATERAL SCREENING REASON FOR EXAM: Female, 62 years old. Routine annual screening examination. PERTINENT HISTORY: Non-contributory. Remote right stereotactic breast biopsy. TECHNIQUE: Digital bilateral breast dilan (3D mammographic acquisition) in the CC and MLO projections. 2-D mediolateral oblique (MLO) and craniocaudad (CC) views of both breasts were obtained. CAD: Full Field Digital Mammography with Computer Added Detection was performed. COMPARISON: Comparison is made with prior outside examination dated October 03, 2021. FINDINGS: Breast Composition: There are scattered areas of fibroglandular density. There are no dominant masses or suspicious calcifications. Stable densely calcified nodule in the deep upper lateral aspect of the left breast suggestive of a calcified fibroadenoma. A tissue clip marker is seen in the deep slightly inferior central portion of the right breast. No other significant abnormalities are identified. There has been no significant change since the prior study. BI/SCRN MAMM (CAD)W/DILAN BILAT IMPRESSION: Stable bilateral screening mammogram. Yearly follow-up mammogram recommended. (A) ASSESSMENT CATEGORY: BIRADS Category 2: Benign. A letter regarding these results will be sent to the patient by the facility within 30 days. Approximately 10% of breast cancers are not detected by mammography. A normal mammogram should not delay biopsy of a clinically suspicious abnormality. [id number] Electronically Signed: Ulices Quiroz MD at 8:31 EDT ,
== END | disposition home or self-care (01) ==
PROVIDERS: Referring Provider Nurse Practitioner Family; Visit Provider Nurse Practitioner Family
DX: Z12.31 Encounter for screening mammogram for malignant neoplasm of breast (principal)
CPT/HCPCS: 77063; 77067

== ENCOUNTER → 2023-02-15 | Outpatient (CLI) | payer MEDICARE, MEDICAID, SELFPAY | END | disposition home or self-care (01) | LOC: EN 13:15 | PROVIDERS: Visit Provider Internal Medicine Gastroenterology | DX: Z00.00 Encounter for general adult medical examination without abnormal findings (principal) ==

== ENCOUNTER → 2023-07-02 | Outpatient (CLI) | payer MEDICARE, MEDICAID, SELFPAY ==
--- NOTE | 2023-07-02 17:23 | RAD_ITS ---
INDICATION: DYSPNEA EXAMINATION: Frontal and lateral views of the chest. COMPARISON: Chest x-ray June 15, 2022. FINDINGS: Frontal and lateral views of the chest were obtained. The cardiac silhouette is not enlarged. No confluent airspace disease. No pleural effusion or pneumothorax. Dextrocurvature of the thoracic spine. RAD/Chest PA and Lateral IMPRESSION: No acute pulmonary disease. Electronically Signed: Leo Johnson MD at 8:00 EST ,
[2023-07-02 18:08] LABS: BNP,B-Type NATRIURETIC PEPTIDE 42.3 pg/mL (0-100)
[2023-07-02 18:11] LABS: Anion Gap 5 (5-15); BUN 25 mg/dL (7-18); BUN/Creat Ratio 19.8 RATIO (10-20); Chloride 115 mmol/L (98-107); Creatinine, Serum 1.26 mg/dL (0.55-1.02); EST Glomerular Filtration Rate 46 mL/min (>60); Est Glom Filt Rate - Afr Amer 55 mL/min (>60); Glucose 94 mg/dL (74-106); Potassium 4.2 mmol/L (3.5-5.1); Sodium Level 142 mmol/L (136-145)
== END | disposition home or self-care (01) ==
LOC: LAB 17:14
PROVIDERS: Referring Provider Nurse Practitioner Family; Visit Provider Nurse Practitioner Family
DX: R06.00 Dyspnea, unspecified (principal)
CPT/HCPCS: 36415; 71046; 80048; 83880

== ENCOUNTER → 2023-07-13 | Outpatient (CLI) | payer MEDICARE, MEDICAID, SELFPAY ==
--- OUTSIDE RECORDS SUMMARY | 2023-07-13 20:01 | XMS RPT_ITS | CCD ---
Author Name Unknown Address [address] [facility] [address] [place] [address] Organization [facility] Care Team Providers Care Butt Maker Name Role Phone LORNA ODELL Attending Unavailable LORNA ODELL Primary Care Unavailable LORNA ODELL Referring Unavailable IMCA Referring Unavailable LORNA ODELL Primary Care Unavailable ZOIE PEDRO Attending Unavailable ADIEL AL ([facility]) Attending Unavailolga e LORNA ODELL Primary Care Unavailable ADIEL AL ([facility]) Referring Unavailabl e ZOIE PEDRO Attending Unavailable IMCA Referring Unavailable LORNA ODELL Primary Care Unavailable Tricia PRASAD, Yohana Unavailable Jose R PRASAD, Lorna Chorpa Primary Care Provider Janet Duke MD Unavailable Yohana Clarke MD Unavailable Jose R PRASAD, Lorna A Primary Care Provider Janet Duke MD Unavailable Cecilia HUYNH, Jacey K Primary Care Provider Cecilia HUYNH, Jacey K Primary Care Provider Lorna Odell MD Primary Care Provider Tricia PRASAD, Yohana Unavailable [phone] Janet Duke MD Unavailable Cecilia HUYNH, Jacey K Primary Care Provider Janet Duke MD Unavailable Ramesh PATEL, Erica Unavailable BROOKS, JACEY K Primary Care Unavailable DIBERNARDO, SUSANNA Attending Unavailable DIBERNARDO, SUSANNA Referring Unavailable BROOKS, JACEY K Primary Care Unavailable BROOKS, JACEY K Primary Care Unavailable DIBERNARDO, SUSANNA Referring Unavailable TRICIA, YOHANA Attending Unavailable BROOKS, JACEY K Primary Care Unavailable BROOKS, JACEY K Referring Unavailable BROOKS, JACEY K Primary Care Unavailable DIBERNARDO, SUSANNA Referring Unavailable BROOKS, JACEY K Primary Care Unavailable DIBERNARDO, SUSANNA Attending Unavailable TRICIA, YOHANA Referring Unavailable BROOKS, JACEY K Primary Care Unavailable BROOKS, JACEY K Primary Care Unavailable BROOKS, JACEY K Primary Care Unavailable DIBERNARDO, SUSANNA Referring Unavailable BROOKS, JACEY K Primary Care Unavailable DIBERNARDO, SUSANNA Referring Unavailable BROOKS, JACEY K Primary Care Unavailable SRIDEVI BUNDY M Referring Unavailable BROOKS, JACEY K Primary Care Unavailable TRICIA, YOHANA Attending Unavailable BROOKS, JACEY K Primary Care Unavailable JANET DUKE Referring Unavailable BROOKS, JACEY K Primary Care Unavailable BROOKS, JACEY K Primary Care Unavailable TRICIA, YOHANA Referring Unavailable Allergies Allergy Classification Reported Allergen(s) Allergy Type Date of Onset Reaction(s) Facility (20 sources) azaTHIOprine; Translations: [AZATHIOPRINE SODIUM] Drug Allergy [address] [facility] Repository (20 sources) Cefuroxime; Translations: [CEFUROXIME] Drug Allergy [address] [facility] Repository (20 sources) predniSONE; Translations: [PREDNISONE] Drug Allergy 2 Mental Status Change [facility] Repository (20 sources) sulfaSALAzine; Translations: [SULFASALAZINE] Drug Allergy [address] [facility] Repository (20 sources) METHOTREXATE ANALOGUES; Translations: [METHOTREXATE ANALOGUES] Propensity to adverse reactions (disorder) [address] [facility] Repository Medications Current Medications Medication Drug Class(es) Dates Sig (Normalized) Sig (Original) icosapent ethyl 1000 mg oral capsule (13 sources) Start: 12-04-2022 End: 08-06-2024 icosapent ethyl (VASCEPA) 1 gram capsule Take 2 capsules by mouth twice daily with meals. 120 capsule 11 12/04/2022 12/04/2023 Active Completed/Discontinued Medications Medication Drug Class(es) Dates Sig (Normalized) Sig (Original) [id number] 200 actuat albuterol 0.09 mg/actuat metered dose inhaler (20 sources) beta2-Adrenergic Agonist Start: 02-06-2021 take 2 puff(s) by inhalation every four hours as needed albuterol HFA (PROVENTIL HFA, VENTOLIN HFA) 90 mcg/actuation inhaler Inhale 2 Puffs as instructed every 4 hours as needed. 18 g 0 02/06/2021 Active Problems Active Problems Problem Classification Problem Date Documented Date Episodic/Chronic Anxiety disorders (20 sources) Generalized anxiety disorder; Translations: [Generalized anxiety disorder] Onset: 02-01-2018 02-01-2018 Chronic Chronic kidney disease (1 source) Chronic kidney disease; Translations: [Chronic kidney disease (CKD) stage G3a/A1, moderately decreased glomerular filtration rate (GFR) between 45-59 mL/min/1.73 square meter and albuminuria creatinine ratio less than 30 mg/g (HCC)] Onset: 02-27-2023 Chronic obstructive pulmonary disease and bronchiectasis (20 sources) Chronic obstructive lung disease; Translations: [Chronic obstructive pulmonary disease, unspecified] Onset: 01-06-2010 01-06-2010 Chronic Disorders of lipid metabolism (8 sources) Mixed hyperlipidemia; Translations: [Mixed hyperlipidemia] Onset: 12-07-2022 Chronic Essential hypertension (20 sources) Essential hypertension; Translations: [Essential (primary) hypertension] Onset: 11-08-2018 11-08-2018 Chronic Headache; including migraine (20 sources) Migraine; Translations: [Migraine, unspecified, not intractable, without status migrainosus] 12-22-2016 Chronic Mood disorders (20 sources) Depressive disorder; Translations: [Other specified depressive episodes] 12-22-2016 Chronic Other aftercare (20 sources) Drug therapy finding; Translations: [Other watermaster (current) drug therapy] Onset: 12-03-2011 09-24-2020 Episodic Other circulatory disease (1 source) Elevated blood pressure; Translations: [Elevated blood-pressure reading, without diagnosis of hypertension] Episodic Other endocrine disorders (20 sources) Hypoadrenalism; Translations: [Unspecified adrenocortical insufficiency] Onset: 12-22-2011 08-23-2018 Chronic Other injuries and conditions due to external causes (1 source) Finding of urine substance level; Translations: [Elevated urine levels of drugs, medicaments and biological substances] Episodic Other lower respiratory disease (20 sources) Snoring; Translations: [Snoring] 12-22-2016 Episodic Other nervous system disorders (20 sources) Chronic pain syndrome; Translations: [Chronic pain syndrome] Onset: 01-04-2017 01-04-2017 Chronic Other non-traumatic joint disorders (1 source) Ankle edema; Translations: [Effusion, right ankle] 12-25-2022 Episodic Other nutritional; endocrine; and metabolic disorders (1 source) Obese class I; Translations: [Obesity, unspecified] 12-04-2022 Chronic Other nutritional; endocrine; and metabolic disorders (1 source) Weight gain; Translations: [Abnormal weight gain] 12-25-2022 Episodic Other upper respiratory disease (20 sources) Seasonal allergy; Translations: [Other seasonal allergic rhinitis] 12-22-2016 Chronic Substance-related disorders (4 sources) Cocaine abuse; Translations: [Cocaine abuse, uncomplicated] Onset: 06-02-2023 06-02-2023 Chronic Systemic lupus erythematosus and connective tissue disorders (20 sources) Systemic lupus erythematosus; Translations: [Systemic lupus erythematosus, unspecified] Onset: 04-30-2009 08-23-2018 Chronic Thyroid disorders (2 sources) Acquired hypothyroidism; Translations: [Hypothyroidism, unspecified] Onset: 02-27-2023 Chronic Past or Other Problems Problem Classification Problem Date Documented Da te Episodic/Chronic Diabetes mellitus without complication (1 source) Glycosuria; Translations: [Glycosuria] Onset: 09-15-2022 Episodic Heart valve disorders (20 sources) Systolic murmur; Translations: [Cardiac murmur, unspecified] Onset: 09-23-2012 Episodic Immunizations and screening for infectious disease (20 sources) Antineutrophil cytoplasmic antibody positive; Translations: [Other specified abnormal immunological findings in serum] Onset: 09-24-2020 09-24-2020 Episodic Other aftercare (20 sources) Long-term current use of belimumab; Translations: [Other jail (current) drug therapy] Onset: 12-21-2021 Episodic Other bone disease and musculoskeletal deformities (20 sources) Osteopenia; Translations: [Other specified disorders of bone density and structure, unspecified site] Onset: 10-05-2010 10-05-2010 Episodic Other gastrointestinal disorders (20 sources) Dysphagia; Translations: [Dysphagia, unspecified] Onset: 11-07-2012 11-07-2012 Episodic Other non-traumatic joint disorders (1 source) Effusion, right ankle; Translations: [Ankle edema, bilateral] Onset: 01-05-2023 Episodic Other non-traumatic joint disorders (1 source) Effusion, left ankle; Translations: [Ankle edema, bilateral] Onset: 01-05-2023 Episodic Other nutritional; endocrine; and metabolic disorders (1 source) Abnormal weight gain; Translations: [Weight gain] Onset: 01-05-2023 Episodic Other skin disorders (20 sources) Disorder of skin of lower limb; Translations: [Disorder of the skin and subcutaneous tissue, unspecified] Onset: 12-21-2011 12-22-2016 Episodic Viral infection (20 sources) Condyloma acuminatum of the anogenital region; Translations: [Anogenital (venereal) warts] Onset: 08-28-2005 08-28-2005 Episodic Results Test Name Value Interpretation Reference Range Facil ity Vital Signs Date Time Vital Sign Value Performing Clinician Faci lity 05-29-2023 15:47-0500 Body height 160 cm Yohana Clarke MD Work Phone: [facility] 05-29-2023 15:47-0500 Body temperature 97.39 [degF] Yohana Clarke MD Work Phone: [facility] 05-29-2023 15:47-0500 Body weight 81.9 kg Yohana Clarke MD Work Phone: [facility] 05-29-2023 15:47-0500 Diastolic blood pressure 80 mm[Hg] Yohana Clarke MD Work Phone: [facility] 05-29-2023 15:47-0500 Heart rate 76 /min Yohana Clarke MD Work Phone: [facility] 05-29-2023 15:47-0500 Systolic blood pressure 143 mm[Hg] Yohana Clarke MD Work Phone: [facility] 12-04-2022 08:23-0400 Diastolic blood pressure 98 mm[Hg] Susanna Gresham METAL RIVETER[employer]CLOTH PRESSER Work Phone: [facility] 12-04-2022 08:23-0400 Systolic blood pressure 150 mm[Hg] Susanna Gresham METAL RIVETER.CLOTH PRESSER Work Phone: [facility] 12-04-2022 08:00-0400 Body weight 83.14 kg Susanna Gresham METAL RIVETER.CLOTH PRESSER Work Phone: [facility] 12-04-2022 08:00-0400 Heart rate 72 /min Susanna Gresham METAL RIVETER[employer]CLOTH PRESSER Work Phone: [facility] 08-28-2022 15:33-0400 Body height 160 cm Yohana Clarke MD Work Phone: [facility] 08-28-2022 15:33-0400 Body temperature 97.5 [degF] Yohana Clarke MD Work Phone: [facility] 08-28-2022 15:33-0400 Body weight 82.24 kg Yohana Clarke MD Work Phone: [facility] 08-28-2022 15:33-0400 Diastolic blood pressure 80 mm[Hg] Yohana Clarke MD Work Phone: [facility] 08-28-2022 15:33-0400 Heart rate 78 /min Yohana Clarke MD Work Phone: [facility] 08-28-2022 15:33-0400 Systolic blood pressure 136 mm[Hg] Yohana Clarke MD Work Phone: [facility] 12-20-2021 16:23-0400 Diastolic blood pressure 85 mm[Hg] Yohana Clarke MD Work Phone: [facility] 12-20-2021 16:23-0400 Heart rate 76 /min Yohana Clarke MD Work Phone: [facility] 12-20-2021 16:23-0400 Systolic blood pressure 140 mm[Hg] Yohana Clarke MD Work Phone: [facility] 10-12-2021 08:09-0400 Body height 160 cm Charlene Brezovec PA-C Work Phone: [facility] 10-12-2021 08:09-0400 Body temperature 97.9 [degF] Charlene Brezovec PA-C Work Phone: [facility] 10-12-2021 08:09-0400 Body weight 80.33 kg Charlene Brezovec PA-C Work Phone: [facility] 10-12-2021 08:09-0400 Diastolic blood pressure 93 mm[Hg] Charlene Brezovec PA-C Work Phone: [facility] 10-12-2021 08:09-0400 Heart rate 70 /min Charlene Brezovec PA-C Work Phone: [facility] 10-12-2021 08:09-0400 Systolic blood pressure 140 mm[Hg] Charlene Brezovec PA-C Work Phone: [facility] 09-14-2021 16:01-0400 Diastolic blood pressure 92 mm[Hg] Janet Duke MD Work Phone: [facility] 09-14-2021 16:01-0400 Heart rate 75 /min Janet Duke MD Work Phone: [facility] 09-14-2021 16:01-0400 Systolic blood pressure 155 mm[Hg] Janet Duke MD Work Phone: [facility] 09-14-2021 15:37-0400 Body height 160 cm Janet Duke MD Work Phone: [facility] 09-14-2021 15:37-0400 Body weight 79.65 kg Janet Duke MD Work Phone: [facility] Encounters Encounter Date Encounter Type Care Provider Facility Start: 07-09-2023 Specialty Pharmacy Nadia [facility] Procedures Date Procedure Procedure Detail Performing Clinician Start: 05-25-2023 Lipid 1996 panel - S danna or Plasma Nadia Jones [facility] Start: 02-27-2023 Lipid 1996 panel - S danna or Plasma Yohana Clarke MD Work Phone: Start: 08-24-2022 Lipid 1996 panel - S danna or Plasma Nadia Jones [facility] Start: 10-03-2021 Mammography Mammograph y Coordinator Start: 08-15-2021 Radex spine lumbosac ral 2/3 views [facility] Provider Start: 04-09-2017 Colonoscopy Asael hines [facility] Start: 04-09-2017 Mammography Asael Nuñezrobbiecheikh flora [facility] Plan of Treatment Date Care Activity Detail Author Start: 05-25-2028 Lipid panel Lipid Screening [facility] Start: 02-28-2028 Lipid 1996 panel - Serum or Plasma Lipid Screening [facility] Start: 2027 Lipid 1996 panel - Serum or Plasma Lipid Screening [facility] Start: 2027 LIPID SCREEN LIPID SCREEN [facility] Start: 05-29-2026 Diabetes Screening Diabetes Screening [facility] Start: 05-05-2026 LIPID SCREEN LIPID SCREEN [facility] Start: 02-27-2026 Diabetes Screening Diabetes Screening [facility] Start: 12-28-2025 Diabetes Screening Diabetes Screening [facility] Start: 12-07-2025 DIABETES SCREEN DIABETES SCREEN [facility] Start: 09-15-2025 DIABETES SCREEN DIABETES SCREEN [facility] Start: 08-28-2025 DIABETES SCREEN DIABETES SCREEN [facility] Start: 07-27-2025 DIABETES SCREEN DIABETES SCREEN [facility] Start: 02-23-2025 DIABETES SCREEN DIABETES SCREEN [facility] Start: 12-20-2024 DIABETES SCREEN DIABETES SCREEN [facility] Start: 09-30-2024 DIABETES SCREEN DIABETES SCREEN [facility] Start: 08-31-2024 DIABETES SCREEN DIABETES SCREEN [facility] Start: 05-17-2024 DIABETES SCREEN DIABETES SCREEN [facility] Start: 02-28-2023 End: 04-30-2023 Comprehensive metabolic 2000 panel - Serum or Plasma COMP METABOLIC PANEL Lab Routine Hyperlipidemia LDL goal <70 Expected: 02/28/2023, Expires: 04/30/2023 [facility] Work Phone: Immunizations Immunization Date Immunization Notes Care Provider Bekah wang 03-09-2020 influenza, injectabl e, quadrivalent, contains preservative Asael Marionakis [facility] 03-09-2020 influenza virus vaccine, unspecified formulation Nadia Jones [facility] 02-01-2018 influenza, injectabl e, quadrivalent, contains preservative Asael Girosakis [facility] 04-03-2017 influenza, injectabl e, quadrivalent, contains preservative Asael Girosakis [facility] 01-25-2016 influenza, injectabl e, quadrivalent, preservative free Asael Moser [facility] 01-25-2016 influenza, seasonal, injectable Asael Moser [facility] 04-29-2015 influenza, seasonal, injectable Asael Moser [facility] 01-30-2014 influenza, seasonal, injectable Asael Moser [facility] 02-19-2012 influenza virus vaccine, unspecified formulation Asael Moser [facility] 04-10-2011 tetanus toxoid, redu nancy diphtheria toxoid, and acellular pertussis vaccine, adsorbed Asael Moser [facility] 02-04-2011 influenza virus vaccine, unspecified formulation Asael Moser [facility] 02-10-2010 influenza virus vaccine, unspecified formulation Asael Moser [facility] 09-07-2009 pneumococcal polysaccharide vaccine, 23 valent Asael Moser [facility] Payers Date Payer Category Payer Medicare [id number] 2018 Medicaid [id number] 2018 Medicaid [employer] [id number] 2018-Present [phone] [address] [place] [address] Medicaid [id number] 2018 Medicare [id number] 2018 Medicare [id number] 2018 Medicare [id number] 1960 Unknown [id number] 1960 Unknown [id number] 1960 Unknown [id number] 1960 Unknown [id number] Unknown [id number] Social History Date Type Detail Facility Start: 07-18-2011 End: 12-20-2021 Tobacco smoking status NHIS Ex-smoker [facility] End: 05-26-2011 History of tobacco use Current smoker [facility] End: 05-26-2011 History of tobacco use Cigarette Smoker [facility] Start: 07-18-2011 End: 05-29-2023 Cigarettes smoked current (pack per day) - Reported 1.5 [facility] Start: 07-18-2011 End: 12-20-2021 Tobacco use and exposure Smokeless tobacco non-user [facility] Start: 05-23-2021 End: 05-29-2023 Alcohol intake Ex-drinker (finding) [facility] Start: 01-07-2019 End: 12-20-2021 Tobacco Comment 1.5 ppd, quit 2011 [facility] Start: 1960 Sex Assigned At Female [facility] Start: 06-04-2021 End: 12-20-2021 Exposure to SARS-CoV-2 (event) Not sure [facility] Start: 08-28-2022 End: 05-29-2023 Tobacco use panel [facility] Adult Depression Scr eening Assessment 3 [facility] Start: 12-04-2022 [facility] Clinical Notes 02-20-2013 to 07-09-2023 Salvador (Benefits Consultant)Janet - 07/09/2023 9:08 AM EDTTelephone Encounter - Ethan Hunt, CASTILLO - 06/22/2023 10:32 AM Janina Tavarez - 06/01/2023 12:51 PM Chika Dumas - 01/18/2023 1:04 PM EDT Note Date & Type Note Facility 07-09-2023 Note HNO ID: [id number] Author: NADIA JONES [facility] Service: ? Author Type: ? Type: Progress Notes Filed: 07/11/2023 12:49 Note Text: [facility] Specialty Refill Assessment Medication(s): Benlysta Patient's current medication list and adherence status to current therapy were reviewed by Specialty Pharmacy clinical pharmacist to identify any new drug interactions or non-compliance to therapy. Therapy continues to be appropriate for disease, patient response, and medical condition. Verification of therapeutic benefit and effectiveness with current therapy was completed. Adverse events, barriers in adherence, and side effects were assessed and addressed if applicable. Will proceed with refill with no changes in therapy - patient progressing towards achieving therapeutic goals based on medication-specific laboratory parameters, disease state markers and outcomes. Fatmata Jones, PharmD Clinical Pharmacist, [employer] [facility] ; Pool: P [facility] Pool #: [id number] W[employer] Specialist Assessment Patient confirmed: Yes Med/dose confirmed: Yes Missed doses: No Estimated days supply on hand: 1 Next cycle/dose due: 07/12/23 Copay amount: 0 Payment confirmed: Yes Delivery method: FedEx Signature required: Waived on patient request [facility] [place] [place] Delivery date: 07/13/23 Questions or concerns for the pharmacist?: No [facility] Visit Assessment - Inflammatory Conditions: Ivent complete: No Assessment to use: Refill Vaccination Assessment: Date of influenza vaccination reminder: 01/22/2023 Date of most recent vaccination assessment: 01/22/2023 Treatment Plan Information: Treatment Plan Information: Benlysta 200mg/mL autoinjector Inject 200mg (1 pen) under the skin one time a week. M32.9 Lupus Estimated Treatment Duration: Until loss of efficacy and/or no longer tolerated. Refill Assessment: Concurrent med therapy and DMARD screening: Yes Assessment of injection issues: Yes Screening for infection: Yes Adverse reactions and mitigation: Yes COPD monitoring (Orencia): N/A Assessment of efficacy: Yes Janet Franco CPhT [facility] [phone] [facility] 07-09-2023 History of Present illness Narrative [facility] Refill Assessment Medication(s): Benlysta Patient's current medication list and adherence status to current therapy were reviewed by Specialty Pharmacy clinical pharmacist to identify any new drug interactions or non-compliance to therapy. Therapy continues to be appropriate for disease, patient response, and medical condition. Verification of therapeutic benefit and effectiveness with current therapy was completed. Adverse events, barriers in adherence, and side effects were assessed and addressed if applicable. Will proceed with refill with no changes in therapy - patient progressing towards achieving therapeutic goals based on medication-specific laboratory parameters, disease state markers and outcomes. Wax Specialist Assessment Patient confirmed: Yes Med/dose confirmed: Yes Missed doses: No Estimated days supply on hand: 1 Next cycle/dose due: 07/12/23 Copay amount: 0 Payment confirmed: Yes Delivery method: FedEx Signature required: Waived on patient request Delivery address: [address] [place] [address]. [place], [place] Delivery date: 07/13/23 Questions or concerns for the pharmacist?: No [facility] Visit Assessment - Inflammatory Conditions: Assessment to use: Refill Vaccination Assessment: Date of influenza vaccination reminder: 01/22/2023 Date of most recent vaccination assessment: 01/22/2023 Treatment Plan Information: Treatment Plan Information: Benlysta 200mg/mL autoinjector Inject 200mg (1 pen) under the skin one time a week. M32.9 Lupus Estimated Treatment Duration: Until loss of efficacy and/or no longer tolerated. Janet Franco CPhT [facility] [phone] documented in this encounter [facility] 06-22-2023 Miscellaneous Notes PA for Benlysta initiated in [facility]. Ethan Hunt RN documented in this encounter [facility] 06-01-2023 Note HNO ID: [id number] Author: NADIA JONES [facility] Service: ? Author Type: ? Type: Progress Notes Filed: 06/05/2023 21:27 Note Text: [facility] Specialty Refill Assessment Medication(s): Benlysta Patient's current medication list and adherence status to current therapy were reviewed by Specialty Pharmacy clinical pharmacist to identify any new drug interactions or non-compliance to therapy. Therapy continues to be appropriate for disease, patient response, and medical condition. Verification of therapeutic benefit and effectiveness with current therapy was completed. Adverse events, barriers in adherence, and side effects were assessed and addressed if applicable. Will proceed with refill with no changes in therapy - patient progressing towards achieving therapeutic goals based on medication-specific laboratory parameters, disease state markers and outcomes. Last Rheum OV: 05/29/2023 (with Yohana Clarke) Recommendations: Will check labs. Continue current medications. Follow up: Please keep appointment in February 2024. Fatmata Jones, PharmD Clinical Pharmacist, [employer] [facility] ; Pool: P [facility] Pool #: [id number] W[employer] Specialist Assessment Patient confirmed: Yes Med/dose confirmed: Yes Missed doses: No Estimated days supply on hand: 2 Copay amount: 0 Payment confirmed: Yes Delivery method: FedEx Signature required: No Delivery address: [address] [place] [id number] Delivery date: 06/08/23 Questions or concerns for the pharmacist?: No [facility] Visit Assessment - Inflammatory Conditions: Ivent complete: No Assessment to use: Refill Vaccination Assessment: Date of influenza vaccination reminder: 01/22/2023 Date of most recent vaccination assessment: 01/22/2023 Treatment Plan Information: Treatment Plan Information: Benlysta 200mg/mL autoinjector Inject 200mg (1 pen) under the skin one time a week. M32.9 Lupus Estimated Treatment Duration: Until loss of efficacy and/or no longer tolerated. Refill Assessment: Concurrent med therapy and DMARD screening: Yes Assessment of injection issues: Yes Screening for infection: Yes Adverse reactions and mitigation: Yes COPD monitoring (Orencia): N/A Assessment of efficacy: Yes Janina Mike [facility] 06-01-2023 History of Present illness Narrative [facility] Refill Assessment Medication(s): Benlysta Patient's current medication list and adherence status to current therapy were reviewed by Specialty Pharmacy clinical pharmacist to identify any new drug interactions or non-compliance to therapy. Therapy continues to be appropriate for disease, patient response, and medical condition. Verification of therapeutic benefit and effectiveness with current therapy was completed. Adverse events, barriers in adherence, and side effects were assessed and addressed if applicable. Will proceed with refill with no changes in therapy - patient progressing towards achieving therapeutic goals based on medication-specific laboratory parameters, disease state markers and outcomes. Wax Specialist Assessment Patient confirmed: Yes Med/dose confirmed: Yes Missed doses: No Estimated days supply on hand: 2 Copay amount: 0 Payment confirmed: Yes Delivery method: FedEx Signature required: No Delivery address: [address] [place] [address], [place] [id number] Delivery date: 06/08/23 Questions or concerns for the pharmacist?: No [facility] Visit Assessment - Inflammatory Conditions: Assessment to use: Refill Vaccination Assessment: Date of influenza vaccination reminder: 01/22/2023 Date of most recent vaccination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 appointment in February 2024. lEsaibe Attestation: By signing my name below, ILinda, attest that this documentation has been prepared under the direction and in the presence of Yohana Clarke MD. Electronically Signed:andria Tinoco, May 28, 2023 10:37 PM IYohana MD, personally performed the services described in this documentation. All medical record entries made by the elsaiboumar were at my direction and in my presence. I have reviewed the chart and agree that the record reflects my personal performance and is accurate and complete 06/02/2023 9:52 PM I spent a total of 30 minutes on the date of the service which included preparing to see the patient, completing clinical documentation, obtaining and/or reviewing separately obtained history, counseling and educating the patient/family/caregiver, ordering medications, tests, or procedures, communicating with other HCPs (not separately reported), independently interpreting results (not separately reported), communicating results to the patient/family/caregiver and care coordination (not separately reported). Yohana Clarke MD documented in this encounter [facility] 04-27-2023 Note HNO ID: [id number] Author: NADIA JONES RPh Service: ? Author Type: ? Type: Progress Notes Filed: 05/04/2023 14:06 Note Text: [facility] Specialty Refill Assessment Medication(s): Benlysta Patient's current medication list and adherence status to current therapy were reviewed by Specialty Pharmacy clinical pharmacist to identify any new drug interactions or non-compliance to therapy. Therapy continues to be appropriate for disease, patient response, and medical condition. Verification of therapeutic benefit and effectiveness with current therapy was completed. Adverse events, barriers in adherence, and side effects were assessed and addressed if applicable. Will proceed with refill with no changes in therapy - patient progressing towards achieving therapeutic goals based on medication-specific laboratory parameters, disease state markers and outcomes. Patient has upcoming Rheum appointment on 05/29/23. Fatmata Jones PharmD Clinical Pharmacist, [employer] [facility] ; Pool: P [facility] Pool #: [id number] Wax Specialist Assessment Patient confirmed: Yes Med/dose confirmed: Yes Supplies needed: No supplies needed Missed doses: No Estimated days supply on hand: 2 Next cycle/dose due: 05/03/23 Copay amount: 0 Payment confirmed: Yes Delivery method: FedEx Signature required: Waived on patient request Delivery address: [address] [place] [address] Delivery date: 05/08/23 Questions or concerns for the pharmacist?: No [facility] Visit Assessment - Inflammatory Conditions: Ivent complete: No Assessment to use: Refill Vaccination Assessment: Date of influenza vaccination reminder: 01/22/2023 Date of most recent vaccination assessment: 01/22/2023 Treatment Plan Information: Treatment Plan Information: Benlysta 200mg/mL autoinjector Inject 200mg (1 pen) under the skin one time a week. M32.9 Lupus Estimated Treatment Duration: Until loss of efficacy and/or no longer tolerated. Refill Assessment: Concurrent med therapy and DMARD screening: Yes Assessment of injection issues: Yes Screening for infection: Yes Adverse reactions and mitigation: Yes COPD monitoring (Orencia): N/A Assessment of efficacy: Yes Crystal Quercioli (Benefits Consultant) [facility] 04-03-2023 Note HNO ID: [id number] Author: Janina Mike Service: ? Author Type: ? Type: Progress Notes Filed: 04/04/2023 6:49 AM Note Text: [facility]ty Refill Assessment Medication(s): Benlysta Patient's current medication list and adherence status to current therapy were reviewed by Specialty Pharmacy clinical pharmacist to identify any new drug interactions or non-compliance to therapy. Therapy continues to be appropriate for disease, patient response, and medical condition. Verification of therapeutic benefit and effectiveness with current therapy was completed. Adverse events, barriers in adherence, and side effects were assessed and addressed if applicable. Will proceed with refill with no changes in therapy - patient progressing towards achieving therapeutic goals based on medication-specific laboratory parameters, disease state markers and outcomes. Date of Yuko Gomez's last Rheumatology office visit: 08/28/22 Next appointment date: 04/13/23 Last labs: 02/27/23 Last TB test: TB Result Date Value Ref Range Status 09/22/2012 Indeterminate (A) NEGAT Final Fatmata Jones, ZoltanD Clinical Pharmacist, [employer] [facility] ; Pool: P [facility] Pool #: [id number] Wax Specialist Assessment Patient confirmed: Yes Med/dose confirmed: Yes Supplies needed: No supplies needed Missed doses: No Estimated days supply on hand: 1 Next cycle/dose due: 04/05/23 Copay amount: 0 Payment confirmed: Yes Delivery method: FedEx Signature required: No [facility] [address] [facility] [address] Delivery date: 04/05/23 Questions or concerns for the pharmacist?: No [facility] Visit Assessment - Inflammatory Conditions: Ivent complete: No Assessment to use: Refill Vaccination Assessment: Date of influenza vaccination reminder: 01/22/2023 Date of most recent vaccination assessment: 01/22/2023 Treatment Plan Information: Treatment Plan Information: Benlysta 200mg/mL autoinjector Inject 200mg (1 pen) under the skin one time a week. M32.9 Lupus Estimated Treatment Duration: Until loss of efficacy and/or no longer tolerated. Refill Assessment: Concurrent med therapy and DMARD screening: Yes Assessment of injection issues: Yes Screening for infection: Yes Adverse reactions and mitigation: Yes COPD monitoring (Orencia): N/A Assessment of efficacy: Yes Janina Mike [facility] 04-03-2023 History of Present illness Narrative [facility] Refill Assessment Medication(s): Benlysta Patient's current medication list and adherence status to current therapy were reviewed by Specialty Pharmacy clinical pharmacist to identify any new drug interactions or non-compliance to therapy. Therapy continues to be appropriate for disease, patient response, and medical condition. Verification of therapeutic benefit and effectiveness with current therapy was completed. Adverse events, barriers in adherence, and side effects were assessed and addressed if applicable. Will proceed with refill with no changes in therapy - patient progressing towards achieving therapeutic goals based on medication-specific laboratory parameters, disease state markers and outcomes. Wax Specialist Assessment Patient confirmed: Yes Med/dose confirmed: Yes Supplies needed: No supplies needed Missed doses: No Estimated days supply on hand: 1 Next cycle/dose due: 04/05/23 Copay amount: 0 Payment confirmed: Yes Delivery method: FedEx Signature required: No Delivery address: [facility] [address] [facility] [address] Delivery date: 04/05/23 Questions or concerns for the pharmacist?: No [facility] Visit Assessment - Inflammatory Conditions: Assessment to use: Refill Vaccination Assessment: Date of influenza vaccination reminder: 01/22/2023 Date of most recent vaccination assessment: 01/22/2023 Treatment Plan Information: Treatment Plan Information: Benlysta 200mg/mL autoinjector Inject 200mg (1 pen) under the skin one time a week. M32.9 Lupus Estimated Treatment Duration: Until loss of efficacy and/or no longer tolerated. Janina Mike documented in this encounter [facility] 04-02-2023 Miscellaneous Notes Patient needs refill of Benlysta 200mg/mL Date of Yuko Gomez's last Rheumatology office visit: 08/28/22 Next appointment date: 04/13/23 Last labs: 02/27/23 Last TB test: TB Result Date Value Ref Range Status 09/22/2012 Indeterminate (A) NEGAT Final Requested Prescriptions Pending Prescriptions Disp Refills belimumab (BENLYSTA) 200 mg/mL auto-injector 4 mL 4 Sig: Inject 200mg (1 pen) under the skin one time a week. Patient prefers: [facility] Thank you! Selene Reynaga PharmD Clinical Pharmacist, [employer] [facility] ; Pool: P [facility] Pool #: [id number] documented in this encounter [facility] 02-16-2023 Note HNO ID: [id number] Author: Chika Krishnan Service: ? Author Type: ? Type: Progress Notes Filed: 03/09/2023 1:49 PM Note Text: [facility] Refill Assessment Medication(s): Benlysta Patient's current medication list and adherence status to current therapy were reviewed by Specialty Pharmacy clinical pharmacist to identify any new drug interactions or non-compliance to therapy. Therapy continues to be appropriate for disease, patient response, and medical condition. Verification of therapeutic benefit and effectiveness with current therapy was completed. Adverse events, barriers in adherence, and side effects were assessed and addressed if applicable. Will proceed with refill with no changes in therapy - patient progressing towards achieving therapeutic goals based on medication-specific laboratory parameters, disease state markers and outcomes. Fatmata Jones PharmD Clinical Pharmacist, [employer] [facility] ; Pool: P [facility] Pool #: [id number] Wax Specialist Assessment Patient confirmed: Yes Med/dose confirmed: Yes Supplies needed: Alcohol swabs, Bandages Missed doses: No Estimated days supply on hand: 1 Next cycle/dose due: 03/08/23 Copay amount: 0 Payment confirmed: Yes Delivery method: FedEx Signature required: No Delivery address: [address] [place] [id number] Delivery date: 03/14/23 Questions or concerns for the pharmacist?: No [facility] Visit Assessment - Inflammatory Conditions: Ivent complete: No Assessment to use: Refill Vaccination Assessment: Date of influenza vaccination reminder: 01/22/2023 Date of most recent vaccination assessment: 01/22/2023 Treatment Plan Information: Treatment Plan Information: Benlysta 200mg/mL autoinjector Inject 200mg (1 pen) under the skin one time a week. M32.9 Lupus Estimated Treatment Duration: Until loss of efficacy and/or no longer tolerated. Refill Assessment: Concurrent med therapy and DMARD screening: Yes Assessment of injection issues: Yes Screening for infection: Yes Adverse reactions and mitigation: Yes COPD monitoring (Orencia): N/A Assessment of efficacy: Yes Chika Krishnan ([facility]) [facility] FAX: [facility] 01-18-2023 Note HNO ID: [id number] Author: Chika Krishnan Service: ? Author Type: ? Type: Progress Notes Filed: 01/22/2023 7:06 AM Note Text: [facility] Refill Assessment Medication(s): Benlysta Patient's current medication list and adherence status to current therapy were reviewed by Specialty Pharmacy clinical pharmacist to identify any new drug interactions or non-compliance to therapy. Therapy continues to be appropriate for disease, patient response, and medical condition. Verification of therapeutic benefit and effectiveness with current therapy was completed. Adverse events, barriers in adherence, and side effects were assessed and addressed if applicable. Will proceed with refill with no changes in therapy - patient progressing towards achieving therapeutic goals based on medication-specific laboratory parameters, disease state markers and outcomes. Fatmata Jones, ZoltanD Clinical Pharmacist, [employer] [facility] ; Pool: P [facility] Pool #: [id number] Wax Specialist Assessment Patient confirmed: Yes Med/dose confirmed: Yes Supplies needed: No supplies needed Estimated days supply on hand: 1 Next cycle/dose due: 01/25/23 Copay amount: 0 Payment confirmed: Yes Delivery method: FedEx Signature required: No Delivery address: [address] [place] [id number] Delivery date: 01/24/23 Questions or concerns for the pharmacist?: No [facility] Visit Assessment - Inflammatory Conditions: Ivent complete: No Assessment to use: Refill Vaccination Assessment: Annual influenza vaccination reminder: Yes Date of influenza vaccination reminder: 01/22/2023 Vaccination assessment completed: Yes Date of most recent vaccination assessment: 01/22/2023 Treatment Plan Information: Treatment Plan Information: Benlysta 200mg/mL autoinjector Inject 200mg (1 pen) under the skin one time a week. M32.9 Lupus Estimated Treatment Duration: Until loss of efficacy and/or no longer tolerated. Refill Assessment: Concurrent med therapy and DMARD screening: Yes Assessment of injection issues: Yes Screening for infection: Yes Adverse reactions and mitigation: Yes COPD monitoring (Orencia): N/A Assessment of efficacy: Yes Chika Krishnan ([facility]) [facility] FAX: [facility] 01-18-2023 History of Present illness Narrative [facility] Refill Assessment Medication(s): Benlysta Patient's current medication list and adherence status to current therapy were reviewed by Specialty Pharmacy clinical pharmacist to identify any new drug interactions or non-compliance to therapy. Therapy continues to be appropriate for disease, patient response, and medical condition. Verification of therapeutic benefit and effectiveness with current therapy was completed. Adverse events, barriers in adherence, and side effects were assessed and addressed if applicable. Will proceed with refill with no changes in therapy - patient progressing towards achieving therapeutic goals based on medication-specific laboratory parameters, disease state markers and outcomes. Wax Specialist Assessment Patient confirmed: Yes Med/dose confirmed: Yes Supplies needed: No supplies needed Estimated days supply on hand: 1 Next cycle/dose due: 01/25/23 Copay amount: 0 Payment confirmed: Yes Delivery method: FedEx Signature required: No Delivery address: [address] [place] [address] Delivery date: 01/24/23 Questions or concerns for the pharmacist?: No [facility] Visit Assessment - Inflammatory Conditions: Assessment to use: Refill Vaccination Assessment: Date of influenza vaccination reminder: 03/21/2022 Date of most recent vaccination assessment: 03/21/2022 Chika Krishnan ([facility]) [facility] FAX: documented in this encounter [facility] 12-25-2022 Note HNO ID: [id number] Author: Susanna Gresham APRN.CLOTH PRESSER Service: ? Author Type: Nurse Practitioner Type: Progress Notes Filed: 12/25/2022 4:40 PM Note Text: [facility] [place] Edwina Farias Department of Cardiovascular Medicine SECTION OF PREVENTIVE CARDIOLOGY TELEPHONE VISIT (audio only) PROGRESS NOTE This is a telephone encounter initiated for an established patient. The patient, parent or guardian is not originating from a related Evaluation AND Management service provided within the previous 7 days nor leading to an Evaluation AND Management service or procedure within the next 24 hours or soonest available appointment. I have communicated my name and active licensure. The patient's identity and physical location were verified at the time of this visit. Either the patient or their legal manufacturer representative has been informed of the risks and benefits of -- and alternatives to -- treatment through a remote evaluation and consents to proceed with the evaluation remotely. Yuko Gomez has consented to this telephone encounter. Persons Present: patient CURRENT MEDS: Current Outpatient Medications Medication Sig rosuvastatin (CRESTOR) 5 mg tablet Take 1 tablet by mouth once daily. hydrOXYchloroQUINE (PLAQUENIL) 200 mg tablet TAKE 2 TABLETS BY MOUTH ON EVEN DAYS AND TAKE ONE TABLET BY MOUTH EVERY DAY ON ODD DAYS irbesartan (AVAPRO) 300 mg tablet Take 1 tablet by mouth daily at bedtime. icosapent ethyl (VASCEPA) 1 gram capsule Take 2 capsules by mouth twice daily with meals. belimumab (BENLYSTA) 200 mg/mL Inject 200mg (1 pen) under the skin one time a week. TRELEGY ELLIPTA 100-62.5-25 mcg inhalation powder fluocinonide (LIDEX) 0.05 % gel Apply 1 application to affected area three times daily as needed. To arm DULoxetine (CYMBALTA) 20 mg capsule TAKE TWO CAPSULES BY MOUTH EVERY DAY ergocalciferol 50,000 unit capsule (VITAMIN D2, DRISDOL) Take 1 capsule by mouth one time a week. levothyroxine (SYNTHROID) 50 mcg tablet Take 1 tablet by mouth daily before breakfast. albuterol HFA (PROVENTIL HFA, VENTOLIN HFA) 90 mcg/actuation inhaler Inhale 2 Puffs as instructed every 4 hours as needed. hydrocortisone 2.5 % cream hydrOXYzine HCl (ATARAX) 25 mg tablet ferrous sulfate 325 mg (65 mg iron) tablet Take 1 tablet by mouth once daily. polyethylene glycol 3350 (MIRALAX, GLYCOLAX) 17 gram/dose powder Take by mouth as needed. Multivitamin ORAL capsule Take 1 capsule by mouth once daily. No current facility-administered medications for this visit. Chief Complaint/Reason: hypertension HPI: 62 year old female with history of hypertension, hyperlipidemia, SLE, RA lung involvement, lupus nephritis. Added on after mychart message with increased BPs at home: 15-169/100s On irbesartan 300 mg At PCP appointment today and BP 128/88. BP at home yesterday SBP 140s. Has not had cuff validated, 2 years old, upper arm cuff. Noticed ankle and foot swelling last night and woke up with it, did resolve by the afternoon. Reports a 5lb weight gain the last month, denies SOB or increased fatigue. PCP increased Cymbalta about a month ago, which she said could cause some fluid retention Chest pain: No Claudication: No SOB: No Orthopnea: No PND: No LE: noticed swelling before bed and woke up with swelling in legs and feet today, first time having swelling, decreased by afternoon Lightheadedness/dizziness: No Palpitations:No Bleeding/bruising: No Data Reviewed: Most recent labs Plan: The results of this assessment were discussed with the patient. We have mutually agreed upon the following plans and goals: Cardiovascular Disease (CVD)/LE: -foot and ankle swelling last night and waking up with swelling, did go down by the afternoon, one incident, 5lb weight gain in last month, denies SOB of increased fatigue, has been making dietary changes and decreasing salt in diet -echo 06/2020 EF 64%, no significant valvular abnormalities Plan: -NT pro BNP -echo Call our office with any new or worsening symptoms. Continue to follow with Dr. Duke Hypertension: Irbesartan was increased after last visit to 300 mg. Reported BPs at home were 159-169/100s. At PCP appointment today BP was 128/88. Cuff about 2 years old, has not had validated, upper arm cuff. -having BMP Sunday Current regimen: irbesartan 300 mg PLAN: -going to PCP office Sunday for BP check and have cuff validated- will mychart me with readings -if still elevated discussed adding on amlodipine (previously tolerated, but had episode of leg swelling last night) or chlorthalidone, await BMP results -BMP this week -Low sodium/DASH diet. [id number] mg per day -24 hour ambulatory BP monitoring- will consider for future if still uncontrolled -Continue efforts with diet, exercise and weight loss. HEALTH MAINTENANCE: Please follow-up with your Primary Card Physician and review yo (more content not included)... [facility] 12-25-2022 History of Present illness Narrative Images from the original note were not included. [facility] [place] Edwina Farias Department of Cardiovascular Medicine SECTION OF PREVENTIVE CARDIOLOGY TELEPHONE VISIT (audio only) PROGRESS NOTE This is a telephone encounter initiated for an established patient. The patient, parent or guardian is not originating from a related Evaluation & Management service provided within the previous 7 days nor leading to an Evaluation & Management service or procedure within the next 24 hours or soonest available appointment. I have communicated my name and active licensure. The patient's identity and physical location were verified at the time of this visit. Either the patient or their legal manufacturer representative has been informed of the risks and benefits of -- and alternatives to -- treatment through a remote evaluation and consents to proceed with the evaluation remotely. Yuko Gomez has consented to this telephone encounter. Persons Present: patient CURRENT MEDS: Current Outpatient Medications Medication Sig rosuvastatin (CRESTOR) 5 mg tablet Take 1 tablet by mouth once daily. hydrOXYchloroQUINE (PLAQUENIL) 200 mg tablet TAKE 2 TABLETS BY MOUTH ON EVEN DAYS AND TAKE ONE TABLET BY MOUTH EVERY DAY ON ODD DAYS irbesartan (AVAPRO) 300 mg tablet Take 1 tablet by mouth daily at bedtime. icosapent ethyl (VASCEPA) 1 gram capsule Take 2 capsules by mouth twice daily with meals. belimumab (BENLYSTA) 200 mg/mL Inject 200mg (1 pen) under the skin one time a week. TRELEGY ELLIPTA 100-62.5-25 mcg inhalation powder fluocinonide (LIDEX) 0.05 % gel Apply 1 application to affected area three times daily as needed. To arm DULoxetine (CYMBALTA) 20 mg capsule TAKE TWO CAPSULES BY MOUTH EVERY DAY ergocalciferol 50,000 unit capsule (VITAMIN D2, DRISDOL) Take 1 capsule by mouth one time a week. levothyroxine (SYNTHROID) 50 mcg tablet Take 1 tablet by mouth daily before breakfast. albuterol HFA (PROVENTIL HFA, VENTOLIN HFA) 90 mcg/actuation inhaler Inhale 2 Puffs as instructed every 4 hours as needed. hydrocortisone 2.5 % cream hydrOXYzine HCl (ATARAX) 25 mg tablet ferrous sulfate 325 mg (65 mg iron) tablet Take 1 tablet by mouth once daily. polyethylene glycol 3350 (MIRALAX, GLYCOLAX) 17 gram/dose powder Take by mouth as needed. Multivitamin ORAL capsule Take 1 capsule by mouth once daily. No current facility-administered medications for this visit. Chief Complaint/Reason: hypertension HPI: 62 year old female with history of hypertension, hyperlipidemia, SLE, RA lung involvement, lupus nephritis. Added on after [employer] message with increased BPs at home: 15-169/100s On irbesartan 300 mg At PCP appointment today and BP 128/88. BP at home yesterday SBP 140s. Has not had cuff validated, 2 years old, upper arm cuff. Noticed ankle and foot swelling last night and woke up with it, did resolve by the afternoon. Reports a 5lb weight gain the last month, denies SOB or increased fatigue. PCP increased Cymbalta about a month ago, which she said could cause some fluid retention Chest pain: No Claudication: No SOB: No Orthopnea: No PND: No LE: noticed swelling before bed and woke up with swelling in legs and feet today, first time having swelling, decreased by afternoon Lightheadedness/dizziness: No Palpitations:No Bleeding/bruising: No Data Reviewed: Most recent labs Plan: The results of this assessment were discussed with the patient. We have mutually agreed upon the following plans and goals: Cardiovascular Disease (CVD)/LE: -foot and ankle swelling last night and waking up with swelling, did go down by the afternoon, one incident, 5lb weight gain in last month, denies SOB of increased fatigue, has been making dietary changes and decreasing salt in diet -echo 06/2020 EF 64%, no significant valvular abnormalities Plan: -NT pro BNP -echo Call our office with any new or worsening symptoms. Continue to follow with Dr. Duke Hypertension: Irbesartan was increased after last visit to 300 mg. Reported BPs at home were 159-169/100s. At PCP appointment today BP was 128/88. Cuff about 2 years old, has not had validated, upper arm cuff. -having BMP Sunday Current regimen: irbesartan 300 mg PLAN: -going to PCP office Sunday for BP check and have cuff validated- will mychart me with readings -if still elevated discussed adding on amlodipine (previously tolerated, but had episode of leg swelling last night) or chlorthalidone, await BMP results -BMP this week -Low sodium/DASH diet. 5590-4936 mg per day -24 hour ambulatory BP monitoring- will consider for future if still uncontrolled -Continue efforts with diet, exercise and weight loss. HEALTH MAINTENANCE: Please follow-up with your Primary Card Physician and review your health maintenance to ensure it is up to date. MEDICATION CHANGES: none, pending labs Physicians and Nurse Practitioners work closely together in Preventive Cardiology. If at any time you would like to see a Physician for a visit, please let us know. Last visit with [facility] physician: Kapil 08/2021 Total Time Spent: 11-20 minutes Susanna Gresham APRN.CLOTH PRESSER documented in this encounter [facility] 12-25-2022 Note HNO ID: [id number] Author: Salvador (Benefits Consultant)Janet Service: ? Author Type: ? Type: Progress Notes Filed: 12/25/2022 11:16 AM Note Text: [facility] Refill Assessment Medication(s): Benlysta Patient's current medication list and adherence status to current therapy were reviewed by Specialty Pharmacy clinical pharmacist to identify any new drug interactions or non-compliance to therapy. Therapy continues to be appropriate for disease, patient response, and medical condition. Verification of therapeutic benefit and effectiveness with current therapy was completed. Adverse events, barriers in adherence, and side effects were assessed and addressed if applicable. Will proceed with refill with no changes in therapy - patient progressing towards achieving therapeutic goals based on medication-specific laboratory parameters, disease state markers and outcomes. Fatmata Jones, ZoltanD Clinical Pharmacist, [employer] [facility] ; Pool: P [facility] Pool #: [id number] Wax Specialist Assessment Patient confirmed: Yes Med/dose confirmed: Yes Missed doses: No Estimated days supply on hand: 1 Next cycle/dose due: 12/28/22 Copay amount: 0 Payment confirmed: Yes Delivery method: FedEx Signature required: Waived on patient request Delivery address: [address] [place], [place] Delivery date: 12/27/22 Questions or concerns for the pharmacist?: No [facility] Visit Assessment - Inflammatory Conditions: Ivent complete: No Assessment to use: Refill Vaccination Assessment: Date of influenza vaccination reminder: 03/21/2022 Date of most recent vaccination assessment: 03/21/2022 Refill Assessment: Concurrent med therapy and DMARD screening: Yes Assessment of injection issues: Yes Screening for infection: Yes Adverse reactions and mitigation: Yes COPD monitoring (Orencia): N/A Assessment of efficacy: Yes Janet Franco CPhT [facility] [phone] [facility] 12-25-2022 History of Present illness Narrative [facility] Refill Assessment Medication(s): Benlysta Patient's current medication list and adherence status to current therapy were reviewed by Specialty Pharmacy clinical pharmacist to identify any new drug interactions or non-compliance to therapy. Therapy continues to be appropriate for disease, patient response, and medical condition. Verification of therapeutic benefit and effectiveness with current therapy was completed. Adverse events, barriers in adherence, and side effects were assessed and addressed if applicable. Will proceed with refill with no changes in therapy - patient progressing towards achieving therapeutic goals based on medication-specific laboratory parameters, disease state markers and outcomes. Fatmata Jones PharmD Clinical Pharmacist, [employer] [facility] ; Pool: P [facility] Pool #: [id number] Wax Specialist Assessment Patient confirmed: Yes Med/dose confirmed: Yes Missed doses: No Estimated days supply on hand: 1 Next cycle/dose due: 12/28/22 Copay amount: 0 Payment confirmed: Yes Delivery method: FedEx Signature required: Waived on patient request Delivery address: [address] [place], [place] Delivery date: 12/27/22 Questions or concerns for the pharmacist?: No [facility] Visit Assessment - Inflammatory Conditions: Ivent complete: No Assessment to use: Refill Vaccination Assessment: Date of influenza vaccination reminder: 03/21/2022 Date of most recent vaccination assessment: 03/21/2022 Refill Assessment: Concurrent med therapy and DMARD screening: Yes Assessment of injection issues: Yes Screening for infection: Yes Adverse reactions and mitigation: Yes COPD monitoring (Orencia): N/A Assessment of efficacy: Yes Janet Franco CPhT [facility] [phone] documented in this encounter [facility] 12-18-2022 Miscellaneous Notes Call from patient requesting refill. Requested Prescriptions Pending Prescriptions Disp Refills rosuvastatin (CRESTOR) 5 mg tablet 90 tablet 3 Sig: Take 1 tablet by mouth once daily. Patient last seen 09/14/2021 next appt. 03/12/2023 Tessa Godoy documented in this encounter [facility] 12-08-2022 Miscellaneous Notes Addended by: SUSANNA GRESHAM on: 12/08/2022 02:04 PM Modules accepted: Orders documented in this encounter [facility] 12-04-2022 Note HNO ID: [id number] Author: Susanna Gresham APRN.CNP Service: ? Author Type: Nurse Practitioner Type: Progress Notes Filed: 12/04/2022 1:02 PM Note Text: [facility] [place] [facility] Department of Cardiovascular Medicine SECTION OF PREVENTIVE CARDIOLOGY 12/04/2022 Yuko Gomez CURRENT MEDS: Current Outpatient Medications Medication Sig belimumab (BENLYSTA) 200 mg/mL Inject 200mg (1 pen) under the skin one time a week. TRELEGY ELLIPTA 100-62.5-25 mcg inhalation powder fluocinonide (LIDEX) 0.05 % gel Apply 1 application to affected area three times daily as needed. To arm irbesartan (AVAPRO) 75 mg tablet Take 1 tablet by mouth once daily. hydrOXYchloroQUINE (PLAQUENIL) 200 mg tablet TAKE 2 TABLETS BY MOUTH ON EVEN DAYS AND TAKE ONE TABLET BY MOUTH EVERY DAY ON ODD DAYS DULoxetine (CYMBALTA) 20 mg capsule TAKE TWO CAPSULES BY MOUTH EVERY DAY rosuvastatin (CRESTOR) 5 mg tablet Take 1 tablet by mouth once daily. ergocalciferol 50,000 unit capsule (VITAMIN D2, DRISDOL) Take 1 capsule by mouth one time a week. levothyroxine (SYNTHROID) 50 mcg tablet Take 1 tablet by mouth daily before breakfast. albuterol HFA (PROVENTIL HFA, VENTOLIN HFA) 90 mcg/actuation inhaler Inhale 2 Puffs as instructed every 4 hours as needed. hydrocortisone 2.5 % cream hydrOXYzine HCl (ATARAX) 25 mg tablet ferrous sulfate 325 mg (65 mg iron) tablet Take 1 tablet by mouth once daily. polyethylene glycol 3350 (MIRALAX, GLYCOLAX) 17 gram/dose powder Take by mouth as needed. Multivitamin ORAL capsule Take 1 capsule by mouth once daily. No current facility-administered medications for this visit. ALLERGIES: ALLERGIES Allergen Reactions Ceftin [Cefuroxime] Itching Intense pruritis 4-5days in tx, no hives or rash Imuran [Azathioprin* Intolerance thrombocytopenia,neutropenia Methotrexate Analog* Hives Prednisone Mental Status Change in high doses patient becomes aggressive and mean Sulfasalazine Rash thrombocytopenia CHIEF COMPLAINT: Yuko Gomez is a 62 year old White female seen today. Patient presents with: Follow Up Hyperlipidemia High blood pressure HISTORY OF PRESENT CARDIOVASCULAR ILLNESS: 62 year old female with history of hypertension, hyperlipidemia, SLE, RA lung involvement, lupus nephritis. Patient presents for ongoing management of cardiovascular risk factors. Seen last year by Dr. Duke. Saw PCP a little over a month ago and reported that her BPs have been elevated around 179/114 so irbesartan was increased to 150 mg. Has not checked her BP since then, does have a home cuff that is new and upper arm. No repeat labs were drawn since increase of medication. Dietary indiscretion, eats sandwiches everyday and does not cook. Does not quantify sodium. Does some swimming for exercise but not consistent and no structured exercise. 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 PCP follows COPD Rheumatology follows SLE Has noticed brain fog recently, feels she is more depressed because not able to work, duloxetine was increased by PCP. Does not follow with psychiatry or see therapy. Has support from family. Chest pain: No Claudication: No SOB: yes, unchanged, from COPD, on trelegy Orthopnea: No PND: No LE: swelling towards the end of the day and from her Lupus Lightheadedness/dizziness: No Palpitations:No CARDIAC RISK FACTORS: History question Answer Diagnosis Date Comment Hypertension : Hypertension 2019 Exercise: One to two per week Family History of CAD: Negative walking 2-3 miles during course of work shift at [employer] denies limitations to activity other than mild lower extremity weakness Avg. Sleep Hours Per Night?: 7.5 STATIN INTOLERANCE: Adverse Effect History of Statin Intolerance:: Yes Current Statin Freq: Every Day Intolerance to Rosuvastatin: Yes 2019 Crestor 10 mg daily - dizziness/lightheadedness started 1.5 weeks after starting it. Symptoms resolved upon discontinuing Crestor. Crestor 5 mg every other day - nausea after 1-2 weeks. rosuvastatin 5 mg qday (2021-)--tolerated FAMILY AND SOCIAL HISTORY Lifestyle Tobacco Use: 1.5 packs/day, for 30 years. Quit 05/26/2011. Types: Cigarettes Alcohol Use: Not Currently PHYSICAL EXAMINATION Vital Signs and General Appearance BP 150/98 (BP Site: Left Arm, BP Position: Sitting) Pulse 72 Wt 83.1 kg (183 lb 4.8 oz) LMP (LMP Unknown) BMI 32.47 kg/m? BMI 32.47 kg/(m2) PHYSICAL EXAMINATION: General appearance: well appearing, alert, in no acute distress, and well-hydrated, well nourished Carotid Pulses: Left:2+, Right: 2+, Bruit: No Lungs: lungs clear to auscultation no wheezing or rhonchi Heart: regular rate and rythm without murmur, normal S1 and S2 Lower Extremities Pulses: Right Posterior Tibial: 2+, L (more content not included)... [facility] 12-04-2022 History of Present illness Narrative Images from the original note were not included. [facility] [place] [facility] Department of Cardiovascular Medicine SECTION OF PREVENTIVE CARDIOLOGY 12/04/2022 Yuko Gomez CURRENT MEDS: Current Outpatient Medications Medication Sig belimumab (BENLYSTA) 200 mg/mL Inject 200mg (1 pen) under the skin one time a week. TRELEGY ELLIPTA 100-62.5-25 mcg inhalation powder fluocinonide (LIDEX) 0.05 % gel Apply 1 application to affected area three times daily as needed. To arm irbesartan (AVAPRO) 75 mg tablet Take 1 tablet by mouth once daily. hydrOXYchloroQUINE (PLAQUENIL) 200 mg tablet TAKE 2 TABLETS BY MOUTH ON EVEN DAYS AND TAKE ONE TABLET BY MOUTH EVERY DAY ON ODD DAYS DULoxetine (CYMBALTA) 20 mg capsule TAKE TWO CAPSULES BY MOUTH EVERY DAY rosuvastatin (CRESTOR) 5 mg tablet Take 1 tablet by mouth once daily. ergocalciferol 50,000 unit capsule (VITAMIN D2, DRISDOL) Take 1 capsule by mouth one time a week. levothyroxine (SYNTHROID) 50 mcg tablet Take 1 tablet by mouth daily before breakfast. albuterol HFA (PROVENTIL HFA, VENTOLIN HFA) 90 mcg/actuation inhaler Inhale 2 Puffs as instructed every 4 hours as needed. hydrocortisone 2.5 % cream hydrOXYzine HCl (ATARAX) 25 mg tablet ferrous sulfate 325 mg (65 mg iron) tablet Take 1 tablet by mouth once daily. polyethylene glycol 3350 (MIRALAX, GLYCOLAX) 17 gram/dose powder Take by mouth as needed. Multivitamin ORAL capsule Take 1 capsule by mouth once daily. No current facility-administered medications for this visit. ALLERGIES: ALLERGIES Allergen Reactions Ceftin [Cefuroxime] Itching Intense pruritis 4-5days in tx, no hives or rash Imuran [Azathioprin* Intolerance thrombocytopenia,neutropenia Methotrexate Analog* Hives Prednisone Mental Status Change in high doses patient becomes aggressive and mean Sulfasalazine Rash thrombocytopenia CHIEF COMPLAINT: Yuko Gomez is a 62 year old White female seen today. Patient presents with: Follow Up Hyperlipidemia High blood pressure HISTORY OF PRESENT CARDIOVASCULAR ILLNESS: 62 year old female with history of hypertension, hyperlipidemia, SLE, RA lung involvement, lupus nephritis. Patient presents for ongoing management of cardiovascular risk factors. Seen last year by Dr. Duke. Saw PCP a little over a month ago and reported that her BPs have been elevated around 179/114 so irbesartan was increased to 150 mg. Has not checked her BP since then, does have a home cuff that is new and upper arm. No repeat labs were drawn since increase of medication. Dietary indiscretion, eats sandwiches everyday and does not cook. Does not quantify sodium. Does some swimming for exercise but not consistent and no structured exercise. 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 PCP follows COPD Rheumatology follows SLE Has noticed brain fog recently, feels she is more depressed because not able to work, duloxetine was increased by PCP. Does not follow with psychiatry or see therapy. Has support from family. 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 Sleep Hours Per Night?: 7.5 STATIN INTOLERANCE: Adverse Effect History of Statin Intolerance:: Yes Current Statin Freq: Every Day Intolerance to Rosuvastatin: Yes 2019 Crestor 10 mg daily - dizziness/lightheadedness started 1.5 weeks after starting it. Symptoms resolved upon discontinuing Crestor. Crestor 5 mg every other day - nausea after 1-2 weeks. rosuvastatin 5 mg qday (2021-present)--tolerated FAMILY AND SOCIAL HISTORY Lifestyle Tobacco Use: 1.5 packs/day, for 30 years. Quit 05/26/2011. Types: Cigarettes Alcohol Use: Not Currently PHYSICAL EXAMINATION Vital Signs and General Appearance BP 150/98 (BP Site: Left Arm, BP Position: Sitting) Pulse 72 Wt 83.1 kg (183 lb 4.8 oz) LMP (LMP Unknown) BMI 32.47 kg/m BMI 32.47 kg/(m^2) PHYSICAL EXAMINATION: General appearance: well appearing, alert, in no acute distress, and well-hydrated, well nourished Carotid Pulses: Left:2+, Right: 2+, Bruit: No Lungs: lungs clear to auscultation no wheezing or rhonchi Heart: regular rate and rythm without murmur, normal S1 and S2 Lower Extremities Pulses: Right Posterior Tibial: 2+, Left Posterior Tibial: 2+, Right Dorsalis Pedis: 2+, Left Dorsalis Pedis:2+, Edema: No significant edema Clinical Test Results Ejection Fraction: Ejection Fraction: Normal (>50%) Lab Results: Lipoprotein (a) Date Value Ref Range Status 05/05/2021 114 (H) <30 mg/dL Final Fib Clot Date Value Ref Range Status 09/24/2012 395 200 - 400 mg/dL Final Cholesterol, Total Date Value Ref Range Status 08/24/2022 137 <200 mg/dL Final Comment: <200 mg/dL, Desirable 200-239 mg/dL, Borderline high >239 mg/dL, High Triglyceride Date Value Ref Range Status 08/24/2022 322 (H) <150 mg/dL Final Comment: <150 mg/dL, Normal 150-199 mg/dL, Borderline high 200-499 mg/dL, High >499 mg/dL, Very high HDL Cholesterol Date Value Ref Range Status 08/24/2022 47 >39 mg/dL Final Comment: 40-59 mg/dL, Acceptable >59 mg/dL, High: Negative risk factor for coronary heart disease <40 mg/dL, Low: Positive risk factor for coronary heart disease LDL Cholesterol Date Value Ref Range Status 08/24/2022 26 <100 mg/dL Final Comment: <100 mg/dL, Optimal 100-129 mg/dL, Near optimal/above optimal 130-159 mg/dL, Borderline high 160-189 mg/dL, High >189 mg/dL, Very high Secondary prevention optimal LDL Cholesterol levels are recommended to be < 70 mg/dL Hemoglobin A1C Date Value Ref Range Status 09/15/2022 5.1 4.3 - 5.6 % Final Comment: [place] Diabetes Association guidelines indicate that patients with HgbA1c in the range 5.7-6.4% are at increased risk for development of diabetes, and intervention by lifestyle modification may be beneficial. HgbA1c greater or equal to 6.5% is considered diagnostic of diabetes. ALT Date Value Ref Range Status 08/28/2022 16 7 - 38 U/L Final Glucose Date Value Ref Range Status 08/28/2022 99 74 - 99 mg/dL Final Comment: The [place] Diabetes Association (ADA) provides guidance for cutoff values for fasting glucose and random glucose. The ADA defines fasting as no caloric intake for at least 8 hours. Fasting plasma glucose results between 100 to 125 mg/dL indicate increased risk for diabetes (prediabetes). Fasting plasma glucose results greater than or equal to 126 mg/dL meet the criteria for diagnosis of diabetes. In the absence of unequivocal hyperglycemia, results should be confirmed by repeat testing. In a patient with classic symptoms of hyperglycemia or hyperglycemic crisis, random plasma glucose results greater than or equal to 200 mg/dL meet the criteria for diagnosis of diabetes. Reference: Standards of Medical Care in Diabetes 2016, [place] Diabetes Association. Diabetes Care. 2016.39(Suppl 1). TSH Date Value Ref Range Status 12/01/2022 4.760 (H) 0.270 - 4.200 mIU/L Final Albumin/Creat Ratio Date Value Ref Range Status 07/27/2022 34 (H) <30 mg/g Final Comment: Adult Male and Female Nephrotic Criteria: <30 mg/g is considered normal to mildly increased 30-300 mg/g is considered moderately increased >300 mg/g is considered severely increased KDIGO. (2013). KDIGO 2012 Clinical Practice Guideline for the Evaluation and Management of Chronic Kidney Disease. Official Journal of the International Society of Nephrology, 3(1), 1-150. Creatinine Date Value Ref Range Status 08/28/2022 1.30 (H) 0.58 - 0.96 mg/dL Final Potassium Date Value Ref Range Status 08/28/2022 4.3 3.7 - 5.1 mmol/L Final NT Pro BNP Date Value Ref Range Status 09/23/2020 87 <125 pg/mL Final Patient Entered Questionnaire Scores PHQ-9 08/24/2022 04/08/2019 11/04/2018 Score 8 17 8 PROMIS Global Health - (T-Scores - the mean of general population = 50. Five points is a clinically meaningful difference.) 08/24/2022 12/13/2021 05/17/2021 Physical T-Score 39.8 32.4 32.4 Mental T-Score 38.8 41.1 33.8 IMPRESSION: In summary, Ms. Gomez is a 62 year old female who was referred to the [facility] because of Hypertension and Dyslipidemia PLAN: The results of this assessment were discussed with the patient. We have mutually agreed upon the following plans and goals: Cardiovascular Disease (CVD): -primary prevention, no new symptoms of concern today -has SOB that is unchanged and related to COPD, follows with PCP and is on trelegy Call our office with any new or worsening symptoms. Continue to follow with Dr. Duke Hyperlipidemia: LDL goal <70. On rosuvastatin 5 mg, tolerating well. TG elevated. Cholesterol, Total (mg/dL) Date Value 08/24/2022 137 05/05/2021 177 06/07/2020 197 HDL Cholesterol (mg/dL) Date Value 08/24/2022 47 05/05/2021 49 06/07/2020 48 LDL Cholesterol (mg/dL) Date Value 08/24/2022 26 05/05/2021 96 06/07/2020 97 Triglyceride (mg/dL) Date Value 08/24/2022 322 05/05/2021 161 06/07/2020 261 PLAN: -continue rosuvastatin 5 mg -start Vascepa 2 g BID -recheck labs in 3 months Anti-platelet / Anti-coagulant: N/A Hypertension: Irbesartan was increased at PCP appt about a month ago for BP averaging 170s/100. Elevated in office today 140-150/98-100. Current regimen: irbesartan 150 mg PLAN: -check BMP and screen for aldosterone/renin -if BMP stable will increase irbesartan to 300 mg -Home blood pressure monitoring, [facility] -Low sodium/DASH diet. 5645-6895 mg per day -24 hour ambulatory BP monitoring- will consider for future if still uncontrolled -Continue efforts with diet, exercise and weight loss. Exercise: Does occasional swimming for exercises, but not structured routine. Has a stationary bike at home. PLAN: -Increase exercise frequency and duration as tolerating -Exercise prescription for weight loss and guidelines with having SOB from COPD -AHA recommends 150 minutes of moderately intense activity per week Nutrition: Eating sandwiches everyday with lunch meat, does not quantify sodium, isha not cook, finds it hard to since lives alone and only cooking for one person. BMI 32.47 kg/(m^2) PLAN: -We discussed the cardiovascular benefits of a Mediterranean dietary pattern. This includes plenty of whole or plant based foods-fruit, vegetables, whole grains, and nuts. It also includes choosing monounsaturated fat from olive oil, olives, nuts, and avocado. [place]-3 fats are another heart healthy fat found in tuna, salmon, flaxseed, and walnuts. Limit foods high in sodium, saturated fat, and cholesterol. -Recommend BMI less than 27 -Lowfat, low cholesterol diet -Low sodium diet - Declined dietitian Depressive Mood: PCP increased duloxetine. Feels more depressed lately since unable to work. She has family support. Does not follow with pysch or see therapist. Additional resources offered for psychiatry in our department, but prefers to wait and revisit at follow up appt HEALTH MAINTENANCE: Please follow-up with your Primary Card Physician and review your health maintenance to ensure it is up to date. Follow up: 3 months with repeat labs Possibly 1 month if BP still uncontrolled MEDICATION CHANGES: none, pending labs If BMP stable, will increase irbesartan to 300 mg Physicians and Nurse Practitioners work closely together in Preventive Cardiology. If at any time you would like to see a Physician for a visit, please let us know. Last visit with [facility] physician: Kapil 08/2021 AMBULATORY PATIENT EDUCATION Topic: Education on risk factors and medications. Instruction Provided To: Patient Cognitive Ability: Alert/Oriented Barriers: None Motivation to Learn: Interested Methods of Instruction: Verbal instruction and/or handouts. Patient Leans Best By: Multiple Methods Patient Verbalized: Understanding I personally spent 35 minutes in total time involved in the management and care of this patient. Susanna Gresham APRN.BRENDAN documented in this encounter [facility] 12-01-2022 Miscellaneous Notes Spoke with patient, reminder given for upcoming appointment on 12/04/22 and need to have lab work completed prior to visit. Selena Viera Ma documented in this encounter [facility] 11-17-2022 Note HNO ID: [id number] Author: Krista Sanchez Service: ? Author Type: ? Type: Progress Notes Filed: 11/27/2022 9:58 AM Note Text: [facility] Refill Assessment Medication(s): Benlysta Patient's current medication list and adherence status to current therapy were reviewed by Specialty Pharmacy clinical pharmacist to identify any new drug interactions or non-compliance to therapy. Therapy continues to be appropriate for disease, patient response, and medical condition. Verification of therapeutic benefit and effectiveness with current therapy was completed. Adverse events, barriers in adherence, and side effects were assessed and addressed if applicable. Will proceed with refill with no changes in therapy - patient progressing towards achieving therapeutic goals based on medication-specific laboratory parameters, disease state markers and outcomes. Fatmata Jones PharmD Clinical Pharmacist, [employer] [facility] ; Pool: P [facility] Pool #: [id number] Wax Specialist Assessment Patient confirmed: Yes Med/dose confirmed: Yes Supplies needed: No supplies needed Missed doses: No Estimated days supply on hand: 6 (one on hand for next dose) Next cycle/dose due: 11/30/22 Copay amount: 0 Payment confirmed: Yes Delivery method: FedEx Signature required: Waived on patient request Delivery address: [address] [place] [address] Delivery date: 11/29/22 Questions or concerns for the pharmacist?: No [facility] Visit Assessment - Inflammatory Conditions: Ivent complete: No Assessment to use: Refill Vaccination Assessment: Date of influenza vaccination reminder: 03/21/2022 Date of most recent vaccination assessment: 03/21/2022 Refill Assessment: Concurrent med therapy and DMARD screening: Yes Assessment of injection issues: Yes Screening for infection: Yes Adverse reactions and mitigation: Yes COPD monitoring (Orencia): N/A Assessment of efficacy: Yes Krista Sanchez CPhT [facility] Special[facility] Pharmacy, Inflammatory P: [phone] F: [phone] [facility] 11-15-2022 Note HNO ID: [id number] Author: Krista Sanchez Service: ? Author Type: ? Type: Progress Notes Filed: 11/15/2022 10:32 AM Note Text: [facility] has been servicing patient for refills of Benlysta. Benefits investigation was conducted, indicating that a prior authorization renewal is required by patients plan with [employer]. Encounter will be updated once prior authorization has been submitted by [facility]. Krista Sanchez CPhT [facility], Inflammatory P: [phone] F: [phone] [facility] 11-15-2022 Note HNO ID: [id number] Author: Rashid (Benefits Consultant)Janina Service: ? Author Type: ? Type: Progress Notes Filed: 11/16/2022 3:10 PM Note Text: Benlysta PA renewal was initiated and pending review. Plan Name: [employer] Plan Agent/Duncan: CMM / [id number] Phone/ / - Case: [id number] Timeline: urgent Janina Mike CPhT, Worldwide Chief Creative Officer, Inflammatory/Allergy [facility] P: [phone] F: [phone] [facility] 11-15-2022 Note HNO ID: [id number] Author: Rashid HaywoodBenefits ConsultantJanina Castellano Service: ? Author Type: ? Type: Progress Notes Filed: 11/17/2022 9:18 AM Note Text: [facility] has been servicing patient for cycles/refills of Benlysta. Plan Name: [employer] Phone/ / - PA reference number: [id number] Approval Dates: 10/17/22 through 11/16/23 [facility] will continue to service order accordingly. Janina Mike CPhT, Worldwide Chief Creative Officer, Inflammatory/Allergy [facility] P: [phone] F: [phone] [facility] 11-15-2022 History of Present illness Narrative [facility] has been servicing patient for refills of Benlysta. Benefits investigation was conducted, indicating that a prior authorization renewal is required by patients plan with [employer]. Encounter will be updated once prior authorization has been submitted by [facility]. Krista Sanchez CPhT [facility], Inflammatory P: [phone] F: [phone] documented in this encounter [facility] 10-23-2022 Note HNO ID: [id number] Author: Janina Mike (Photoblog) Service: ? Author Type: ? Type: Progress Notes Filed: 10/23/2022 2:19 PM Note Text: [facility] Refill Assessment Medication(s): Benlysta Patient's current medication list and adherence status to current therapy were reviewed by Specialty Pharmacy clinical pharmacist to identify any new drug interactions or non-compliance to therapy. Therapy continues to be appropriate for disease, patient response, and medical condition. Verification of therapeutic benefit and effectiveness with current therapy was completed. Adverse events, barriers in adherence, and side effects were assessed and addressed if applicable. Will proceed with refill with no changes in therapy - patient progressing towards achieving therapeutic goals based on medication-specific laboratory parameters, disease state markers and outcomes. Fatmata Jones, ZoltanD Clinical Pharmacist, [employer] [facility] ; Pool: P [facility] Pool #: [id number] Wax Specialist Assessment Patient confirmed: Yes Med/dose confirmed: Yes Supplies needed: No supplies needed Missed doses: No Estimated days supply on hand: 1 Copay amount: 0 Payment confirmed: Yes Delivery method: FedEx Signature required: No Delivery address: [address] [place] [address] Delivery date: 10/25/22 Questions or concerns for the pharmacist?: No [facility] Visit Assessment - Inflammatory Conditions: Ivent complete: No Assessment to use: Refill Vaccination Assessment: Date of influenza vaccination reminder: 03/21/2022 Date of most recent vaccination assessment: 03/21/2022 Refill Assessment: Concurrent med therapy and DMARD screening: Yes Assessment of injection issues: Yes Screening for infection: Yes Adverse reactions and mitigation: Yes COPD monitoring (Orencia): N/A Assessment of efficacy: Yes Janina Mike (Benefits Consultant) [facility] 10-23-2022 History of Present illness Narrative [facility] Assessment Medication(s): Benlysta Patient's current medication list and adherence status to current therapy were reviewed by Specialty Pharmacy clinical pharmacist to identify any new drug interactions or non-compliance to therapy. Therapy continues to be appropriate for disease, patient response, and medical condition. Verification of therapeutic benefit and effectiveness with current therapy was completed. Adverse events, barriers in adherence, and side effects were assessed and addressed if applicable. Will proceed with refill with no changes in therapy - patient progressing towards achieving therapeutic goals based on medication-specific laboratory parameters, disease state markers and outcomes. Fatmata Jones PharmD Clinical Pharmacist, [employer] [facility] ; Pool: P [facility] Pool #: [id number] Wax Specialist Assessment Patient confirmed: Yes Med/dose confirmed: Yes Supplies needed: No supplies needed Missed doses: No Estimated days supply on hand: 1 Copay amount: 0 Payment confirmed: Yes Delivery method: FedEx Signature required: No Delivery address: [address] [place] [address], [place] [address] Delivery date: 10/25/22 Questions or concerns for the pharmacist?: No [facility] Visit Assessment - Inflammatory Conditions: Ivent complete: No Assessment to use: Refill Vaccination Assessment: Date of influenza vaccination reminder: 03/21/2022 Date of most recent vaccination assessment: 03/21/2022 Refill Assessment: Concurrent med therapy and DMARD screening: Yes Assessment of injection issues: Yes Screening for infection: Yes Adverse reactions and mitigation: Yes COPD monitoring (Orencia): N/A Assessment of efficacy: Yes Janina Mike (Benefits Consultant) documented in this encounter [facility] 10-16-2022 Miscellaneous Notes Patient needs refill of Benlysta Date of patients last office visit: 08/28/22 Next appointment date: 05/29/23 Last labs: 08/28/22 Requested Prescriptions Pending Prescriptions Disp Refills belimumab (BENLYSTA) 200 mg/mL 4 mL 4 Sig: Inject 200mg (1 pen) under the skin one time a week. Patient prefers: [facility] Thank you! Fatmata Jones PharmD Clinical Pharmacist, Biologics, Neurology, and Hepatology [facility] ; Pool: P [facility] Pool #: [id number] documented in this encounter [facility] 09-22-2022 Note HNO ID: [id number] Author: Nemo Ortiz Service: ? Author Type: ? Type: Progress Notes Filed: 09/26/2022 8:35 PM Note Text: [facility] Refill Assessment Medication(s): Benlysta Patient's current medication list and adherence status to current therapy were reviewed by Specialty Pharmacy clinical pharmacist to identify any new drug interactions or non-compliance to therapy. Therapy continues to be appropriate for disease, patient response, and medical condition. Verification of therapeutic benefit and effectiveness with current therapy was completed. Adverse events, barriers in adherence, and side effects were assessed and addressed if applicable. Will proceed with refill with no changes in therapy - patient progressing towards achieving therapeutic goals based on medication-specific laboratory parameters, disease state markers and outcomes. Last Rheum OV: 08/28/2022 (with Yohana Clarke) Recommendations: Will check labs. Continue current medications, including hydroxychloroquine (204 100 mg on alternate days) and belimumab 200 mg subcutaneous injection weekly. Please continue annual Plaquenil eye exam. Fatmata Jones, ZoltanD Clinical Pharmacist, [employer] [facility] ; Pool: P [facility] Pool #: [id number] Wax Specialist Assessment Patient confirmed: Yes Med/dose confirmed: Yes Supplies needed: No supplies needed Missed doses: No Estimated days supply on hand: 1 Next cycle/dose due: 09/28/22 Copay amount: 0 Payment confirmed: Yes Delivery method: FedEx Signature required: Waived on patient request Delivery address: [address] [place] [address] Delivery date: 09/28/22 Questions or concerns for the pharmacist?: No [facility] Visit Assessment - Inflammatory Conditions: Ivent complete: No Assessment to use: Refill Vaccination Assessment: Date of influenza vaccination reminder: 03/21/2022 Date of most recent vaccination assessment: 03/21/2022 Refill Assessment: Concurrent med therapy and DMARD screening: Yes Assessment of injection issues: Yes Screening for infection: Yes Adverse reactions and mitigation: Yes COPD monitoring (Orencia): N/A Assessment of efficacy: Yes Nemo Ortiz CPhT Financial Adviser, Specialty Pharmacy [facility] [id number] [place] [address] Email:[email or web address] [facility] 08-27-2022 Note HNO ID: [id number] Author: Yohana Clarke MD Service: ? Author Type: Physician Type: Progress Notes Filed: 08/29/2022 6:35 AM Note Text: Ms. Yuko Gomez is a 62-year-old female who presents today for continued evaluation and management of systemic lupus erythematosus. 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 Pertinent updates since her last visit with me: Ms. Yuko Gomez was last seen on December 20, 2021. Her condition is reasonably stable. She continues to be on Benlysta injections every week. It has kept her lupus under reasonable control. She has not had any major lupus related problems since her last visit. She denies any history of significant joint pain or morning stiffness, pleurisy, pericarditis, renal disease, or central nervous system involvement from lupus. However, she has severe fatigue which is an ongoing problem for her. She has elevated creatinine (1.17) in June 2022. She has chronic kidney disease (was told that it is stage II) given 10 years ago. It is thought that her renal function, though impaired, is stable. For her lupus she continues to be on belimumab (Benlysta) 200 mg subcutaneous injection weekly and hydroxychloroquine (Plaquenil) 200 mg and 400 mg on alternate days. She just had her Plaquenil eye exam about 6 weeks ago ([facility]). There was no evidence of Plaquenil retinal toxicity. She still gets intermittent oral ulcers, for which she uses topical Lidex. It takes care of her oral ulcers. She needs a refill today. She complains of shortness of breath. Had primary care provider prescribes Trelegy Ellipta, which is helping her. She has quit smoking in 2010 (12 years ago). Recent Blood Work and Pertinent Serology: Component Latest Ref Rng AND Units 07/27/2022 08/24/2022 Glucose 74 - 99 mg/dL 80 BUN 7 - 21 mg/dL 21 Creatinine 0.58 - 0.96 mg/dL 1.17 (H) Sodium 136 - 144 mmol/L 141 Potassium 3.7 - 5.1 mmol/L 4.3 Chloride 97 - 105 mmol/L 106 (H) CO2 22 - 30 mmol/L 25 Anion Gap 9 - 18 mmol/L 10 Calcium 8.5 - 10.2 mg/dL 9.5 eGFR >=60 mL/min/1.73mA? 53 (L) Cholesterol, Total <200 mg/dL 137 Triglyceride <150 mg/dL 322 (H) HDL Cholesterol >39 mg/dL 47 Non HDL Cholesterol <130 mg/dL 90 Fasting Time hrs 12 VLDL Cholesterol <30 mg/dL 64 (H) TC:HDL Ratio <5.10 2.91 LDL Cholesterol <100 mg/dL 26 LDL:HDL Ratio <2.54 0.55 Creatinine, Ur Random (UCRR) 20.0 - 300.0 mg/dL 243.5 Albumin, Urine Random mg/L 82.7 Albumin/Creat Ratio <30 mg/g 34 (H) Proteinase 3 Antibody <1.0 AI <0.2 Myeloperoxidase AutoAb <1.0 AI 1.2 (H) ALT 7 - 38 U/L 11 TSH 0.270 - 4.200 mIU/L 2.960 Free T4 0.9 - 1.7 ng/dL 1.2 Component Creatinine Latest Ref Rng AND Units 0.58 - 0.96 mg/dL 08/05/2009 0.77 09/02/2009 0.69 (L) 02/07/2010 0.71 03/14/2010 0.66 (L) 04/26/2010 0.82 07/04/2010 0.75 10/05/2010 0.85 01/04/2011 1.27 04/10/2011 1.22 08/15/2011 0.84 09/04/2011 1.02 09/19/2011 0.89 11/15/2011 0.80 11/17/2011 0.83 11/27/2011 0.98 12/04/2011 0.92 12/19/2011 1.12 12/21/2011 1.03 12/22/2011 0.74 12/23/2011 0.76 12/24/2011 0.80 12/25/2011 0.90 01/31/2012 0.94 02/07/2012 1.08 02/19/2012 0.91 03/04/2012 0.90 04/12/2012 0.95 05/21/2012 0.99 06/20/2012 1.06 07/25/2012 1.23 08/08/2012 1.23 08/26/2012 1.05 09/20/2012 1.13 09/22/2012 1.28 09/23/2012 1.39 09/24/2012 1.31 09/25/2012 1.11 09/26/2012 1.21 09/27/2012 1.00 09/28/2012 1.03 09/29/2012 0.99 10/05/2012 1.09 10/10/2012 1.05 10/17/2012 1.08 10/28/2012 1.02 11/06/2012 1.27 11/28/2012 1.21 12/09/2012 1.08 12/19/2012 1.15 12/26/2012 1.19 01/02/2013 1.09 01/16/2013 1.20 01/24/2013 1.16 01/29/2013 1.19 02/05/2013 1.01 02/13/2013 1.14 02/19/2013 1.06 02/26/2013 1.04 03/05/2013 1.13 03/11/2013 1.07 03/25/2013 0.99 04/03/2013 1.50 (H) 04/04/2013 1.08 04/14/2013 1.22 04/21/2013 1.26 05/19/2013 1.04 06/06/2013 1.06 06/13/2013 0.99 07/03/2013 0.95 08/01/2013 0.99 08/08/2013 1.03 08/15/2013 0.95 08/19/2013 0.99 09/04/2013 1.27 09/11/2013 Specimen collected in wrong container type. 09/23/2013 0.99 09/30/2013 1.09 10/08/2013 1.09 10/24/2013 1.07 10/28/2013 1.08 11/19/2013 1.10 11/27/2013 1.22 12/12/2013 1.08 12/30/2013 1.01 01/15/2014 1.06 01/30/2014 (more content not included)... [facility] 08-27-2022 History of Present illness Narrative Ms. Yuko Gomez is a 62-year-old female who presents today for continued evaluation and management of systemic lupus erythematosus. 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 Pertinent updates since her last visit with me: Ms. Yuko Gomez was last seen on December 20, 2021. Her condition is reasonably stable. She continues to be on Benlysta injections every week. It has kept her lupus under reasonable control. She has not had any major lupus related problems since her last visit. She denies any history of significant joint pain or morning stiffness, pleurisy, pericarditis, renal disease, or central nervous system involvement from lupus. However, she has severe fatigue which is an ongoing problem for her. She has elevated creatinine (1.17) in June 2022. She has chronic kidney disease (was told that it is stage II) given 10 years ago. It is thought that her renal function, though impaired, is stable. For her lupus she continues to be on belimumab (Benlysta) 200 mg subcutaneous injection weekly and hydroxychloroquine (Plaquenil) 200 mg and 400 mg on alternate days. She just had her Plaquenil eye exam about 6 weeks ago ([facility]). There was no evidence of Plaquenil retinal toxicity. She still gets intermittent oral ulcers, for which she uses topical Lidex. It takes care of her oral ulcers. She needs a refill today. She complains of shortness of breath. Had primary care provider prescribes Trelegy Ellipta, which is helping her. She has quit smoking in 2010 (12 years ago). Recent Blood Work and Pertinent Serology: Component Latest Ref Rng & Units 07/27/2022 08/24/2022 Glucose 74 - 99 mg/dL 80 BUN 7 - 21 mg/dL 21 Creatinine 0.58 - 0.96 mg/dL 1.17 (H) Sodium 136 - 144 mmol/L 141 Potassium 3.7 - 5.1 mmol/L 4.3 Chloride 97 - 105 mmol/L 106 (H) CO2 22 - 30 mmol/L 25 Anion Gap 9 - 18 mmol/L 10 Calcium 8.5 - 10.2 mg/dL 9.5 eGFR >=60 mL/min/1.73m 53 (L) Cholesterol, Total <200 mg/dL 137 Triglyceride <150 mg/dL 322 (H) HDL Cholesterol >39 mg/dL 47 Non HDL Cholesterol <130 mg/dL 90 Fasting Time hrs 12 VLDL Cholesterol <30 mg/dL 64 (H) TC:HDL Ratio <5.10 2.91 LDL Cholesterol <100 mg/dL 26 LDL:HDL Ratio <2.54 0.55 Creatinine, Ur Random (UCRR) 20.0 - 300.0 mg/dL 243.5 Albumin, Urine Random mg/L 82.7 Albumin/Creat Ratio <30 mg/g 34 (H) Proteinase 3 Antibody <1.0 AI <0.2 Myeloperoxidase AutoAb <1.0 AI 1.2 (H) ALT 7 - 38 U/L 11 TSH 0.270 - 4.200 mIU/L 2.960 Free T4 0.9 - 1.7 ng/dL 1.2 Component Creatinine Latest Ref Rng & Units 0.58 - 0.96 mg/dL 08/05/2009 0.77 09/02/2009 0.69 (L) 02/07/2010 0.71 03/14/2010 0.66 (L) 04/26/2010 0.82 07/04/2010 0.75 10/05/2010 0.85 01/04/2011 1.27 04/10/2011 1.22 08/15/2011 0.84 09/04/2011 1.02 09/19/2011 0.89 11/15/2011 0.80 11/17/2011 0.83 11/27/2011 0.98 12/04/2011 0.92 12/19/2011 1.12 12/21/2011 1.03 12/22/2011 0.74 12/23/2011 0.76 12/24/2011 0.80 12/25/2011 0.90 01/31/2012 0.94 02/07/2012 1.08 02/19/2012 0.91 03/04/2012 0.90 04/12/2012 0.95 05/21/2012 0.99 06/20/2012 1.06 07/25/2012 1.23 08/08/2012 1.23 08/26/2012 1.05 09/20/2012 1.13 09/22/2012 1.28 09/23/2012 1.39 09/24/2012 1.31 09/25/2012 1.11 09/26/2012 1.21 09/27/2012 1.00 09/28/2012 1.03 09/29/2012 0.99 10/05/2012 1.09 10/10/2012 1.05 10/17/2012 1.08 10/28/2012 1.02 11/06/2012 1.27 11/28/2012 1.21 12/09/2012 1.08 12/19/2012 1.15 12/26/2012 1.19 01/02/2013 1.09 01/16/2013 1.20 01/24/2013 1.16 01/29/2013 1.19 02/05/2013 1.01 02/13/2013 1.14 02/19/2013 1.06 02/26/2013 1.04 03/05/2013 1.13 03/11/2013 1.07 03/25/2013 0.99 04/03/2013 1.50 (H) 04/04/2013 1.08 04/14/2013 1.22 04/21/2013 1.26 05/19/2013 1.04 06/06/2013 1.06 06/13/2013 0.99 07/03/2013 0.95 08/01/2013 0.99 08/08/2013 1.03 08/15/2013 0.95 08/19/2013 0.99 09/04/2013 1.27 09/11/2013 Specimen collected in wrong container type. 09/23/2013 0.99 09/30/2013 1.09 10/08/2013 1.09 10/24/2013 1.07 10/28/2013 1.08 11/19/2013 1.10 11/27/2013 1.22 12/12/2013 1.08 12/30/2013 1.01 01/15/2014 1.06 01/30/2014 1.03 02/16/2014 1.06 02/26/2014 1.06 03/31/2014 1.03 04/14/2014 1.05 05/07/2014 1.15 05/19/2014 1.04 08/06/2014 1.01 09/15/2014 1.09 10/08/2014 1.12 11/06/2014 1.07 12/09/2014 0.97 01/16/2015 1.10 04/29/2015 1.01 06/15/2015 1.02 07/13/2015 1.02 08/17/2015 0.87 10/20/2015 0.92 11/19/2015 1.13 12/22/2015 1.01 03/27/2016 1.06 (H) 06/13/2016 0.97 (H) 10/06/2016 0.93 12/12/2016 0.96 (H) 03/12/2017 1.04 (H) 05/29/2017 0.88 08/02/2017 0.92 10/24/2017 0.87 12/19/2017 0.84 02/14/2018 0.79 05/14/2018 0.79 08/23/2018 0.93 11/04/2018 0.89 04/01/2019 0.76 12/01/2019 0.82 12/30/2019 0.82 03/04/2020 1.15 (H) 03/09/2020 1.02 (H) 06/07/2020 0.99 (H) 08/16/2020 1.33 (H) 09/23/2020 1.09 (H) 05/05/2021 0.89 05/17/2021 0.90 08/31/2021 1.09 (H) 09/30/2021 1.33 (H) 12/01/2021 1.00 (H) 12/20/2021 1.15 (H) 02/23/2022 1.09 (H) 07/27/2022 1.17 (H) Current Outpatient Medications Medication Sig TRELEGY ELLIPTA 100-62.5-25 mcg inhalation powder irbesartan (AVAPRO) 75 mg tablet Take 1 tablet by mouth once daily. hydrOXYchloroQUINE (PLAQUENIL) 200 mg tablet TAKE 2 TABLETS BY MOUTH ON EVEN DAYS AND TAKE ONE TABLET BY MOUTH EVERY DAY ON ODD DAYS belimumab (BENLYSTA) 200 mg/mL Inject 200mg (1 pen) under the skin one time a week. DULoxetine (CYMBALTA) 20 mg capsule TAKE TWO CAPSULES BY MOUTH EVERY DAY rosuvastatin (CRESTOR) 5 mg tablet Take 1 tablet by mouth once daily. ergocalciferol 50,000 unit capsule (VITAMIN D2, DRISDOL) Take 1 capsule by mouth one time a week. levothyroxine (SYNTHROID) 50 mcg tablet Take 1 tablet by mouth daily before breakfast. fluocinonide (LIDEX) 0.05 % gel Apply 1 application to affected area three times daily as needed. To arm albuterol HFA (PROVENTIL HFA, VENTOLIN HFA) 90 mcg/actuation inhaler Inhale 2 Puffs as instructed every 4 hours as needed. hydrocortisone 2.5 % cream Use as directed hydrOXYzine HCl (ATARAX) 25 mg tablet Use as needed ferrous sulfate 325 mg (65 mg iron) tablet Take 1 tablet by mouth once daily. polyethylene glycol 3350 (MIRALAX, GLYCOLAX) 17 gram/dose powder Take by mouth as needed. Multivitamin ORAL capsule Take 1 capsule by mouth once daily. Review of Systems CONSTITUTION: Negative for: Fever and Recent weight change HEENT: Positive for: Mouth sores and Dry mouth Negative for: Nosebleeds and Trouble swallowing RESPIRATORY: Positive for: Shortness of breath Negative for: Cough and Pain with breathing GASTROINTESTINAL: Negative for: Melena, Diarrhea, Heartburn and Abdominal pain MUSCULOSKELETAL: Positive for: Arthralgias, Muscle weakness, Joint swelling and Morning Joint Stiffness Negative for: Myalgias NEUROLOGICAL: Positive for: Numbness and Memory loss Negative for: Headaches SKIN: Positive for: Nail changes Negative for: Rash, Skin changes and Hair loss EYES: Negative for: Eye pain, Eye redness, Eye dryness and visual disturbance CARDIOVASCULAR: Negative for: Chest pain and Leg swelling GENITOURINARY: Negative for: Dysuria and Hematuria HEMATOLOGIC/LYMPHATIC: Negative for: Swollen glands PAST MEDICAL HISTORY Diagnosis Date Chronic obstructive pulmonary disease (COPD) (FORM[facility]) Not diagnosed with PFT's. Depressive disorder, not elsewhere classified Essential hypertension Fracture Hemoptysis 09/22/2012 Right VATS lung biopsy, right VATS wedge resection x3. Plan: - continue Bactrim DS qMWF for PCP prophylaxis - Albuterol/ipratropium nebs prn - Regular diet - f/u bx results . Hypertension 2019 Hypothyroidism Kidney disease lupus nephritis Lupus (systemic lupus erythematosus) ([facility]) 04/2009 Lupus (systemic lupus erythematosus) ([facility]) 04/30/2009 Lupus disease of the lung 09/28/2012 Migraine headache Neutropenia ([facility]) 12/20/2011 WBC count 1.08 on presentation on 12/20/11 Likely secondary to Imuran initiation about 3 weeks ago. Neutropenic precautions for ANC < 500 today. Discussed with Heme; they can see her as an outpatient. Resolved at time of discharge; thought secondary to Imuran. Repeat CBC 1 day after discharge. PNA (pneumonia) 12/20/2011 CAP pna Initially treated with ceftriaxone / azithro, now on levofloxacin, as it is less likely to cause leukopenia. Treating for 10-14 days; CXR 4-6 weeks after discharge to document resolution. Seasonal allergies Skin lesion of left leg 12/21/2011 1 cm hyperkeratotic plaque on left elias Derm does not believe this is related to SLE or infection Snoring Systemic lupus ([facility]) 2009 PAST SURGICAL HISTORY Procedure Laterality Date SALPINGO-OOPHORECTOMY COMPL/PRTL UNI/BI SPX Salpingo-oophorectomy B/L TOTAL ABDOMINAL HYSTERECT W/WO RMVL TUBE OVARY 1996 Hysterectomy, ЕКАТЕРИНА WEDGE RESECT LUNG 2013 Social History Tobacco Use Smoking status: Former Packs/day: 1.50 Years: 30.00 Pack years: 45.00 Types: Cigarettes Quit date: 05/26/2011 Years since quittin.2 Smokeless tobacco: Never Tobacco comments: 1.5 ppd, quit 2012 Vaping Use Vaping Use: Never used Substance Use Topics Alcohol use: Not Currently Drug use: No FAMILY HISTORY Problem Relation Age of Onset Hypertension Mother Ischemic Heart Disease Mother stroke age late 60's, [place] age 70's Diabetes Mother COPD Mother age 75 COPD other (Depression/Anxiety) Mother Ischemic Heart Disease Maternal Grandmother CAD age 70's? Diabetes Maternal Grandmother other (Other) Maternal Grandmother other (udguc-6-mgujnuncpms deficiency) Son Cataract Father other (Parkinsons) Father Physical Exam: Vitals: BP 136/80 Pulse 78 Temp 36.4 C (97.5 F) (Temporal) Ht 160 cm (5' 3 ) Wt 82.2 kg (181 lb 4.8 oz) LMP (LMP Unknown) BMI 32.12 kg/m General appearance: Well appearing, alert, in no acute distress, well-hydrated, well nourished. Skin: No malar rash, truncal rash, discoid rash, alopecia, or oral ulcers seen today. Head: Normocephalic, no masses, lesions, tenderness or abnormalities Eyes: Anicteric sclera. Pupils are equally round and reactive to light. Extraocular movements are intact. Ears: External ears normal, canals clear Nose/Sinuses: Nares normal, septum midline, mucosa normal, no drainage or sinus tenderness Oropharynx: Lips, mucosa, and tongue normal, teeth and gums normal, oropharynx normal Neck: Supple, no adenopathy; thyroid symmetric, normal size, no bruits Back: Normal exam Lungs: lungs clear to auscultation. No wheezing, rhonchi, rales Heart: RRR without murmur, gallop, or rubs. No ectopy Abdomen: Normal abdominal exam, Abdomen soft, non-tender. Bowel sounds normal. No masses, organomegaly Extremities: No deformities, edema, skin discoloration, clubbing or cyanosis. Good capillary refill. Musculoskeletal: No active clinical synovitis or joint deformity detected today. Peripheral pulses: Normal Neuro: Gait normal. Reflexes normal and symmetric. Sensation grossly intact. Assessment: Systemic lupus erythematosus -under reasonable control on Benlysta 200 mg subcutaneous injection weekly and Plaquenil 300 mg (average) daily Azotemia (impaired kidney function) - stable Recommendations: Will check labs. Continue current medications, including hydroxychloroquine (204 100 mg on alternate days) and belimumab 200 mg subcutaneous injection weekly. Please continue annual Plaquenil eye exam. Refilled Lidex. Follow up in 6 months. I spent a total of 30 minutes on the date of the service which included preparing to see the patient, completing clinical documentation, obtaining and/or reviewing separately obtained history, counseling and educating the patient/family/caregiver, ordering medications, tests, or procedures, communicating with other HCPs (not separately reported), independently interpreting results (not separately reported), communicating results to the patient/family/caregiver and care coordination (not separately reported). Yohana Clarke MD documented in this encounter [facility] 08-24-2022 Note HNO ID: [id number] Author: Dang Tavarez (Benefits Consultant) Service: ? Author Type: ? Type: Progress Notes Filed: 08/24/2022 2:12 PM Note Text: [facility] Refill Assessment Medication(s): benlysta Patient's current medication list and adherence status to current therapy were reviewed by Specialty Pharmacy clinical pharmacist to identify any new drug interactions or non-compliance to therapy. Therapy continues to be appropriate for disease, patient response, and medical condition. Verification of therapeutic benefit and effectiveness with current therapy was completed. Adverse events, barriers in adherence, and side effects were assessed and addressed if applicable. Will proceed with refill with no changes in therapy - patient progressing towards achieving therapeutic goals based on medication-specific laboratory parameters, disease state markers and outcomes. Wax Specialist Assessment Patient confirmed: Yes Med/dose confirmed: Yes Supplies needed: Alcohol swabs, Bandages Missed doses: No Estimated days supply on hand: 2 Next cycle/dose due: 08/24/22 Copay amount: 0 Copay form of payment: Credit card on file Payment confirmed: Yes Delivery method: FedEx Signature required: No Delivery address: [address] [place], [place] Delivery date: 08/29/22 Questions or concerns for the pharmacist?: No [facility] Visit Assessment - Inflammatory Conditions: Assessment to use: Refill Vaccination Assessment: Date of influenza vaccination reminder: 03/21/2022 Date of most recent vaccination assessment: 03/21/2022 Refill Assessment: Concurrent med therapy and DMARD screening: Yes Assessment of injection issues: Yes Screening for infection: Yes Adverse reactions and mitigation: Yes COPD monitoring (Orencia): N/A Assessment of efficacy: Yes Dang Danyellech (Benefits Consultant) ALLERGIES Allergen Reactions Ceftin [Cefuroxime] Itching Intense pruritis 4-5days in tx, no hives or rash Imuran [Azathioprin* Intolerance thrombocytopenia,neutropenia Methotrexate Analog* Hives Prednisone Mental Status Change in high doses patient becomes aggressive and mean Sulfasalazine Rash thrombocytopenia Layla Carrizales [facility] Clinical Pharmacist, Hepatology AND HCV [facility] P: ; F: Pool: P [facility] 08-24-2022 History of Present illness Narrative [facility] Refill Assessment Medication(s): benlysta Patient's current medication list and adherence status to current therapy were reviewed by Specialty Pharmacy clinical pharmacist to identify any new drug interactions or non-compliance to therapy. Therapy continues to be appropriate for disease, patient response, and medical condition. Verification of therapeutic benefit and effectiveness with current therapy was completed. Adverse events, barriers in adherence, and side effects were assessed and addressed if applicable. Will proceed with refill with no changes in therapy - patient progressing towards achieving therapeutic goals based on medication-specific laboratory parameters, disease state markers and outcomes. Wax Specialist Assessment Patient confirmed: Yes Med/dose confirmed: Yes Supplies needed: Alcohol swabs, Bandages Missed doses: No Estimated days supply on hand: 2 Next cycle/dose due: 08/24/22 Copay amount: 0 Copay form of payment: Credit card on file Payment confirmed: Yes Delivery method: FedEx Signature required: No Delivery address: [facility] [address] [place], [place] Delivery date: 08/29/22 Questions or concerns for the pharmacist?: No [facility] Visit Assessment - Inflammatory Conditions: Assessment to use: Refill Vaccination Assessment: Date of influenza vaccination reminder: 03/21/2022 Date of most recent vaccination assessment: 03/21/2022 Refill Assessment: Concurrent med therapy and DMARD screening: Yes Assessment of injection issues: Yes Screening for infection: Yes Adverse reactions and mitigation: Yes COPD monitoring (Orencia): N/A Assessment of efficacy: Yes Dang Tavarez (Benefits Consultant) ALLERGIES Allergen Reactions Ceftin [Cefuroxime] Itching Intense pruritis 4-5days in tx, no hives or rash Imuran [Azathioprin* Intolerance thrombocytopenia,neutropenia Methotrexate Analog* Hives Prednisone Mental Status Change in high doses patient becomes aggressive and mean Sulfasalazine Rash thrombocytopenia Layla Carrizales RPh Clinical Pharmacist, Hepatology & HCV [facility] P: ; F: Pool: P [facility] documented in this encounter [facility] 08-11-2022 Miscellaneous Notes eRx irbesartan 75 mg qday #90, R 1 sent to pharmacy reminder to pt to make followup appt Recent Labs 05/05/21 1457 06/07/20 1059 03/04/20 1622 12/01/19 1406 CHOL 177 197 195 193 TG 161* 261* 207* 203* HDL 49 48 46 46 LDL 96 97 108* 106* Creatinine Date Value Ref Range Status 07/27/2022 1.17 (H) 0.58 - 0.96 mg/dL Final 02/23/2022 1.09 (H) 0.58 - 0.96 mg/dL Final 12/20/2021 1.15 (H) 0.58 - 0.96 mg/dL Final 12/01/2021 1.00 (H) 0.58 - 0.96 mg/dL Final ALT Date Value Ref Range Status 12/20/2021 18 7 - 38 U/L Final order for followup lipids, labs placed August 11, 2022 Patient Contact Number: [phone] Patient last seen within the last year: Yes Last office visit: 09-14-[address] Duke Next appt: note: NO SHOW 03-14-22 Reason For Call: Medication Issue/Question: Physician: Janet Duke MD Patient was informed that non-urgent calls may be returned within the next three business days. Yes Olya Nino documented in this encounter [facility] 08-01-2022 Note HNO ID: [id number] Author: Janina Mike (Photoblog) Service: ? Author Type: ? Type: Progress Notes Filed: 08/01/2022 4:22 PM Note Text: [facility] Refill Assessment Medication(s): Benlysta Patient's current medication list and adherence status to current therapy were reviewed by Specialty Pharmacy clinical pharmacist to identify any new drug interactions or non-compliance to therapy. Therapy continues to be appropriate for disease, patient response, and medical condition. Verification of therapeutic benefit and effectiveness with current therapy was completed. Adverse events, barriers in adherence, and side effects were assessed and addressed if applicable. Will proceed with refill with no changes in therapy - patient progressing towards achieving therapeutic goals based on medication-specific laboratory parameters, disease state markers and outcomes. Zoltan IglesiasD Clinical Pharmacist, Biologics [facility] ; Pool: P [facility] Pool #: [id number] Wax Specialist Assessment Patient confirmed: Yes Med/dose confirmed: Yes Supplies needed: No supplies needed Missed doses: No Estimated days supply on hand: 1 Next cycle/dose due: 08/03/22 Copay amount: 0 Payment confirmed: Yes Delivery method: FedEx Signature required: No [facility] [address] Delivery date: 08/04/22 Questions or concerns for the pharmacist?: No [facility] Visit Assessment - Inflammatory Conditions: Ivent complete: No Assessment to use: Refill Vaccination Assessment: Date of influenza vaccination reminder: 03/21/2022 Date of most recent vaccination assessment: 03/21/2022 Refill Assessment: Concurrent med therapy and DMARD screening: Yes Assessment of injection issues: Yes Screening for infection: Yes Adverse reactions and mitigation: Yes COPD monitoring (Orencia): N/A Assessment of efficacy: Yes Janina Mike (Photoblog) [facility] 08-01-2022 History of Present illness Narrative [facility] Refill Assessment Medication(s): Benlysta Patient's current medication list and adherence status to current therapy were reviewed by Specialty Pharmacy clinical pharmacist to identify any new drug interactions or non-compliance to therapy. Therapy continues to be appropriate for disease, patient response, and medical condition. Verification of therapeutic benefit and effectiveness with current therapy was completed. Adverse events, barriers in adherence, and side effects were assessed and addressed if applicable. Will proceed with refill with no changes in therapy - patient progressing towards achieving therapeutic goals based on medication-specific laboratory parameters, disease state markers and outcomes. Wax Specialist Assessment Patient confirmed: Yes Med/dose confirmed: Yes Supplies needed: No supplies needed Missed doses: No Estimated days supply on hand: 1 Next cycle/dose due: 08/03/22 Copay amount: 0 Payment confirmed: Yes Delivery method: FedEx Signature required: No Delivery address: [facility] [address] , [place] [id number] Delivery date: 08/04/22 Questions or concerns for the pharmacist?: No [facility] Visit Assessment - Inflammatory Conditions: Assessment to use: Refill Vaccination Assessment: Date of influenza vaccination reminder: 03/21/2022 Date of most recent vaccination assessment: 03/21/2022 Janina Mike (Benefits Consultant) documented in this encounter [facility] 07-04-2022 Miscellaneous Notes Most recent Rheumatology visit: 12/20/2021 (with Yohana Clarke) Recent Office Visits - This Specialty 12/20/2021 Other forms of systemic lupus erythematosus, unspecified organ involvement status (HCC) Rheumatology Yohana Clarke MD 10/12/2021 Other systemic lupus erythematosus with other organ involvement (HCC) Rheumatology Charlene Segura PA-C 05/17/2021 Lupus (HCC) Rheumatology Yohana Clarke MD Upcoming Rheumatology Appointments - Next 365 Days Visit Type Date Time Department [facility] 08/28/2022 4:00 PM [facility] MAIN A50 Last Ophthalmology Check for Plaquenil (Hydroxychloroquine) Last OCT Macula Exam OCT MACULA CIRRUS OU (BOTH EYES) Exam End: 10/18/2020 10:19 AM (Final result) Narrative: Date of Procedure 10/18/2020. Wax Specialist Information Machine Stapler: KIKO. Start time: 10:19 AM. Stop time: 10:19 AM. Interpretation Right Eye Normal foveal contour. Left Eye Normal foveal contour. Last Visual Field Exam VISUAL FIELD 10-2 OU (BOTH EYES) Exam End: 10/18/2020 10:11 AM (Final result) Narrative: Date of Procedure 10/18/2020. Wax Specialist Information Machine Stapler: YULISSA. Start time: 9:47 AM. Stop time: 10:11 AM. Reliability Right Eye Good. Left Eye Poor. Interpretation Left Eye Non-specific defect. CBC: None on file in the last 6 months Vitamin D: Vitamin D Latest Ref Rng & Units 05/17/2021 02/23/2022 VITAMIN D 25 HYDROXY 31.0 - 80.0 ng/mL 13.5(L) - VIT D1, 25 DIHYDROXY 19.9 - 79.3 pg/mL - 43.3 LFT: CMP Latest Ref Rng & Units 12/20/2021 02/23/2022 SODIUM 136 - 144 mmol/L 141 140 SODIUM, MICHELL 132 - 148 mmol/L - - SODIUM, MICHELL 132 - 148 mmol/L - - POTASSIUM 3.7 - 5.1 mmol/L 4.6 4.3 POTASSIUM, MICHELL 3.5 - 5.0 mmol/L - - CHLORIDE 97 - 105 mmol/L 107(H) 105 CHLORIDE, MICHELL 98 - 110 mmol/L - - CO2 22 - 30 mmol/L 21(L) 22 CO2, MICHELL 23.0 - 32.0 mmol/L - - GLUCOSE 74 - 99 mg/dL 90 96 GLUCOSE, MICHELL 65 - 100 mg/dL - - BUN 7 - 21 mg/dL 24(H) 27(H) BUN, MICHELL 10 - 25 mg/dL - - CREATININE 0.58 - 0.96 mg/dL 1.15(H) 1.09(H) CREATININE, MICHELL 0.7 - 1.4 mg/dL - - CALCIUM, MICHELL 8.5 - 10.5 mg/dL - - CALCIUM, TOTAL 8.5 - 10.2 mg/dL 9.9 9.9 AST 13 - 35 U/L 17 - AST, MICHELL 7 - 40 U/L - - ALT 7 - 38 U/L 18 - ALT, MICHELL 0 - 45 U/L - - ALKALINE PHOSPHATASE 34 - 123 U/L 100 - Creatinine: Creatinine Latest Ref Rng & Units 12/20/2021 02/23/2022 CREAT 0.58 - 0.96 mg/dL 1.15(H) 1.09(H) NTX 14.4 - 75.0 nM/mM Creat - - ESR/CRP: None on file in the last 6 months Uric Acid: None on file in the last 6 months Open Standing (Multiple Instance) Lab Orders None Open Future (Single Instance) Lab Orders None Patient had eye exam on 03-27. Called [place] at [phone] for them to fax us the office note. See scanned docs for the office note. documented in this encounter [facility] 06-07-2022 History of Present illness Narrative [facility] Refill Assessment Medication(s): Benlysta Patient's current medication list and adherence status to current therapy were reviewed by Specialty Pharmacy clinical pharmacist to identify any new drug interactions or non-compliance to therapy. Therapy continues to be appropriate for disease, patient response, and medical condition. Verification of therapeutic benefit and effectiveness with current therapy was completed. Adverse events, barriers in adherence, and side effects were assessed and addressed if applicable. Will proceed with refill with no changes in therapy - patient progressing towards achieving therapeutic goals based on medication-specific laboratory parameters, disease state markers and outcomes. Wax Specialist Assessment Patient confirmed: Yes Med/dose confirmed: Yes Supplies needed: Alcohol swabs Missed doses: No Estimated days supply on hand: 1 Next cycle/dose due: 06/08/22 Copay amount: 0 Payment confirmed: Yes Delivery method: FedEx Signature required: No Delivery address: [address] [place] [address] Delivery date: 06/14/22 Questions or concerns for the pharmacist?: No [facility] Visit Assessment - Inflammatory Conditions: Assessment to use: Refill Vaccination Assessment: Date of influenza vaccination reminder: 03/21/2022 Date of most recent vaccination assessment: 03/21/2022 Jennifer Alberto CPhT [facility] [phone] documented in this encounter [facility] 06-02-2022 Miscellaneous Notes Patient needs refill of Benlysta Date of patients last office visit: 12/20/21 Next appointment date: 08/28/22 Last labs: 02/23/22 Requested Prescriptions Pending Prescriptions Disp Refills belimumab (BENLYSTA) 200 mg/mL 4 mL 4 Sig: Inject 200mg (1 pen) under the skin one time a week. Patient prefers: [facility] Thank you! Fatmata Jones, PharmD Clinical Pharmacist, Biologics, Neurology, and Hepatology [facility] ; Pool: P [facility] Pool #: [id number] documented in this encounter [facility] 04-12-2022 Miscellaneous Notes Most recent Rheumatology visit: 12/20/2021 (with Yohana Clarke) Recent Office Visits - This Specialty 12/20/2021 Other forms of systemic lupus erythematosus, unspecified organ involvement status (HCC) Rheumatology Yohana Clarke MD 10/12/2021 Other systemic lupus erythematosus with other organ involvement (HCC) Rheumatology Charlene Segura PA-C 05/17/2021 Lupus (HCC) Rheumatology Yohana Clarke MD Upcoming Rheumatology Appointments - Next 365 Days Visit Type Date Time Department [facility] Last Ophthalmology Check for Plaquenil (Hydroxychloroquine) Last OCT Macula Exam OCT MACULA CIRRUS OU (BOTH EYES) Exam End: 10/18/2020 10:19 AM (Final result) Narrative: Date of Procedure 10/18/2020. Wax Specialist Information Machine Stapler: KIKO. Start time: 10:19 AM. Stop time: 10:19 AM. Interpretation Right Eye Normal foveal contour. Left Eye Normal foveal contour. Last Visual Field Exam VISUAL FIELD 10-2 OU (BOTH EYES) Exam End: 10/18/2020 10:11 AM (Final result) Narrative: Date of Procedure 10/18/2020. Wax Specialist Information Machine Stapler: YULISSA. Start time: 9:47 AM. Stop time: 10:11 AM. Reliability Right Eye Good. Left Eye Poor. Interpretation Left Eye Non-specific defect. CBC: CBC Latest Ref Rng & Units 12/01/2021 12/20/2021 WBC 3.70 - 11.00 k/uL 5.39 7.12 HGB 11.7 - 14.7 g/dL - - HEMOGLOBIN 11.5 - 15.5 g/dL 13.8 14.8 HEMOGLOBIN TOTAL, WHOLE BLOOD 11.5 - 15.5 g/dL - - HEMOGLOBIN, MICHELL 12.0 - 16.0 g/dL - - HEMATOCRIT 36.0 - 46.0 % 40.7 44.0 PLATELETS 150 - 400 k/uL 190 242 ABS NEUT (ANC) 1.45 - 7.50 k/uL 3.03 4.38 ABS NEUT, MICHELL 2 - 8 k/uL - - ABS LYMP, MICHELL 1 - 6 k/uL - - ABS LYMPH 1.00 - 4.00 k/uL 1.13 1.45 Vitamin D: Vitamin D Latest Ref Rng & Units 05/17/2021 02/23/2022 VITAMIN D 25 HYDROXY 31.0 - 80.0 ng/mL 13.5(L) - VIT D1, 25 DIHYDROXY 19.9 - 79.3 pg/mL - 43.3 LFT: CMP Latest Ref Rng & Units 12/20/2021 02/23/2022 SODIUM 136 - 144 mmol/L 141 140 SODIUM, MICHELL 132 - 148 mmol/L - - SODIUM, MICHELL 132 - 148 mmol/L - - POTASSIUM 3.7 - 5.1 mmol/L 4.6 4.3 POTASSIUM, MICHELL 3.5 - 5.0 mmol/L - - CHLORIDE 97 - 105 mmol/L 107(H) 105 CHLORIDE, MICHELL 98 - 110 mmol/L - - CO2 22 - 30 mmol/L 21(L) 22 CO2, MICHELL 23.0 - 32.0 mmol/L - - GLUCOSE 74 - 99 mg/dL 90 96 GLUCOSE, MICHELL 65 - 100 mg/dL - - BUN 7 - 21 mg/dL 24(H) 27(H) BUN, MICHELL 10 - 25 mg/dL - - CREATININE 0.58 - 0.96 mg/dL 1.15(H) 1.09(H) CREATININE, MICHELL 0.7 - 1.4 mg/dL - - CALCIUM, MICHELL 8.5 - 10.5 mg/dL - - CALCIUM, TOTAL 8.5 - 10.2 mg/dL 9.9 9.9 AST 13 - 35 U/L 17 - AST, MICHELL 7 - 40 U/L - - ALT 7 - 38 U/L 18 - ALT, MICHELL 0 - 45 U/L - - ALKALINE PHOSPHATASE 34 - 123 U/L 100 - Creatinine: Creatinine Latest Ref Rng & Units 12/20/2021 02/23/2022 CREAT 0.58 - 0.96 mg/dL 1.15(H) 1.09(H) NTX 14.4 - 75.0 nM/mM Creat - - ESR/CRP: ESR, WSR Latest Ref Rng & Units 12/01/2021 12/20/2021 WSR 0 - 20 mm/hr 8 13 SED RATE, MICHELL 0 - 20 mm/hr - - CRP Latest Ref Rng & Units 12/01/2021 12/20/2021 CRP <0.9 mg/dL <0.3 <0.3 Uric Acid: None on file in the last 6 months Open Standing (Multiple Instance) Lab Orders None Open Future (Single Instance) Lab Orders Expected Expires Ordered LIPID PANEL BASIC [SQLIPB] 03/07/22 05/07/22 03/07/22 Auth. provider: Tammy Su APRN.CNP Assoc. diagnoses: Hyperlipidemia, unspecified hyperlipidemia type ALT/SGPT [SQALT] 03/07/22 05/07/22 03/07/22 Auth. provider: Tamym Su APRN.CNP Assoc. diagnoses: Hyperlipidemia, unspecified hyperlipidemia type BASIC METABOLIC PNL [SQBMP] 03/07/22 05/07/22 03/07/22 Auth. provider: Tammy Su APRN.CNP Assoc. diagnoses: Hyperlipidemia, unspecified hyperlipidemia type Requested Prescriptions Pending Prescriptions Disp Refills DULoxetine (CYMBALTA) 20 mg capsule [Pharmacy Med Name: DULOXETINE HCL 20MG CPEP] 180 capsule 3 Sig: TAKE TWO CAPSULES BY MOUTH EVERY DAY Thank you, Elizabeth Conway RN documented in this encounter [facility] 03-15-2022 History of Present illness Narrative [facility] Specialty Refill Assessment Medication(s): Benlysta Patient's current medication list and adherence status to current therapy were reviewed by Specialty Pharmacy clinical pharmacist to identify any new drug interactions or non-compliance to therapy. Therapy continues to be appropriate for disease, patient response, and medical condition. Verification of therapeutic benefit and effectiveness with current therapy was completed. Adverse events, barriers in adherence, and side effects were assessed and addressed if applicable. Will proceed with refill with no changes in therapy - patient progressing towards achieving therapeutic goals based on medication-specific laboratory parameters, disease state markers and outcomes. Wax Specialist Assessment Patient confirmed: Yes Med/dose confirmed: Yes Supplies needed: (bandages) Missed doses: Yes Count of missed doses: 1 Reason for missed doses: pt forgot Estimated days supply on hand: 14 Copay amount: 0 Copay form of payment: Credit card on file Payment confirmed: Yes Delivery method: FedEx Signature required: No Delivery address: [address] [place] [address] Delivery date: 03/28/22 Questions or concerns for the pharmacist?: No [facility] Visit Assessment - Inflammatory Conditions: Assessment to use: Refill Vaccination Assessment: Date of influenza vaccination reminder: 12/27/2021 Date of most recent vaccination assessment: 12/27/2021 Krista Sanchez CPhT [facility] Specialty Pharmacy, Inflammatory P: [phone] F: [phone] documented in this encounter [facility] 01-18-2022 History of Present illness Narrative [facility] Specialty Refill Assessment Medication(s): Benlysta Patient's current medication list and adherence status to current therapy were reviewed by Specialty Pharmacy clinical pharmacist to identify any new drug interactions or non-compliance to therapy. Therapy continues to be appropriate for disease, patient response, and medical condition. Verification of therapeutic benefit and effectiveness with current therapy was completed. Adverse events, barriers in adherence, and side effects were assessed and addressed if applicable. Will proceed with refill with no changes in therapy - patient progressing towards achieving therapeutic goals based on medication-specific laboratory parameters, disease state markers and outcomes. Wax Specialist Assessment Patient confirmed: Yes Missed doses: No Estimated days supply on hand: 1 Next cycle/dose due: 01/19/22 Copay amount: 0 Payment confirmed: Yes Delivery method: FedEx Signature required: No Delivery address: [facility] [address] [place], [place] Delivery date: 01/24/22 Questions or concerns for the pharmacist?: No [facility] Visit Assessment - Inflammatory Conditions: Assessment to use: Refill Vaccination Assessment: Date of influenza vaccination reminder: 12/27/2021 Date of most recent vaccination assessment: 12/27/2021 Janet Franco CPhT [facility] [phone] documented in this encounter [facility] 01-09-2022 Miscellaneous Notes Most recent Rheumatology visit: 12/20/2021 (with Yohana Clarke) Recent Office Visits - This Specialty 12/20/2021 Other forms of systemic lupus erythematosus, unspecified organ involvement status (HCC) Rheumatology Yohana Clarke MD 10/12/2021 Other systemic lupus erythematosus with other organ involvement (HCC) Rheumatology Charlene Segura PA-C 05/17/2021 Lupus (HCC) Rheumatology Yohana Clarke MD Upcoming Rheumatology Appointments - Next 365 Days No appointments to display Last Ophthalmology Check for Plaquenil (Hydroxychloroquine) Last OCT Macula Exam OCT MACULA CIRRUS OU (BOTH EYES) Exam End: 10/18/2020 10:19 AM (Final result) Narrative: Date of Procedure 10/18/2020. Wax Specialist Information Machine Stapler: [email or web address]. Start time: 10:19 AM. Stop time: 10:19 AM. Interpretation Right Eye Normal foveal contour. Left Eye Normal foveal contour. Last Visual Field Exam VISUAL FIELD 10-2 OU (BOTH EYES) Exam End: 10/18/2020 10:11 AM (Final result) Narrative: Date of Procedure 10/18/2020. Wax Specialist Information Machine Stapler: [email or web address]. Start time: 9:47 AM. Stop time: 10:11 AM. Reliability Right Eye Good. Left Eye Poor. Interpretation Left Eye Non-specific defect. CBC: CBC Latest Ref Rng & Units 12/01/2021 12/20/2021 WBC 3.70 - 11.00 k/uL 5.39 7.12 HGB 11.7 - 14.7 g/dL - - HEMOGLOBIN 11.5 - 15.5 g/dL 13.8 14.8 HEMOGLOBIN TOTAL, WHOLE BLOOD 11.5 - 15.5 g/dL - - HEMOGLOBIN, MICHELL 12.0 - 16.0 g/dL - - HEMATOCRIT 36.0 - 46.0 % 40.7 44.0 PLATELETS 150 - 400 k/uL 190 242 ABS NEUT (ANC) 1.45 - 7.50 k/uL 3.03 4.38 ABS NEUT, MICHELL 2 - 8 k/uL - - ABS LYMP, MICHELL 1 - 6 k/uL - - ABS LYMPH 1.00 - 4.00 k/uL 1.13 1.45 Vitamin D: None on file in the last 6 months LFT: CMP Latest Ref Rng & Units 12/01/2021 12/20/2021 SODIUM 136 - 144 mmol/L 141 141 SODIUM, MICHELL 132 - 148 mmol/L - - SODIUM, MICHELL 132 - 148 mmol/L - - POTASSIUM 3.7 - 5.1 mmol/L 4.4 4.6 POTASSIUM, MICHELL 3.5 - 5.0 mmol/L - - CHLORIDE 97 - 105 mmol/L 110(H) 107(H) CHLORIDE, MICHELL 98 - 110 mmol/L - - CO2 22 - 30 mmol/L 21(L) 21(L) CO2, MICHELL 23.0 - 32.0 mmol/L - - GLUCOSE 74 - 99 mg/dL 95 90 GLUCOSE, MICHELL 65 - 100 mg/dL - - BUN 7 - 21 mg/dL 13 24(H) BUN, MICHELL 10 - 25 mg/dL - - CREATININE 0.58 - 0.96 mg/dL 1.00(H) 1.15(H) CREATININE, MICHELL 0.7 - 1.4 mg/dL - - CALCIUM, MICHELL 8.5 - 10.5 mg/dL - - CALCIUM, TOTAL 8.5 - 10.2 mg/dL 8.6 9.9 AST 13 - 35 U/L 14 17 AST, MICHELL 7 - 40 U/L - - ALT 7 - 38 U/L 13 18 ALT, MICHELL 0 - 45 U/L - - ALKALINE PHOSPHATASE 34 - 123 U/L 99 100 Creatinine: Creatinine Latest Ref Rng & Units 12/01/2021 12/20/2021 CREAT 0.58 - 0.96 mg/dL 1.00(H) 1.15(H) NTX 14.4 - 75.0 nM/mM Creat - - ESR/CRP: ESR, WSR Latest Ref Rng & Units 12/01/2021 12/20/2021 WSR 0 - 20 mm/hr 8 13 SED RATE, MICHELL 0 - 20 mm/hr - - CRP Latest Ref Rng & Units 12/01/2021 12/20/2021 CRP <0.9 mg/dL <0.3 <0.3 Uric Acid: None on file in the last 6 months Open Standing (Multiple Instance) Lab Orders None Open Future (Single Instance) Lab Orders None Requested Prescriptions Pending Prescriptions Disp Refills DULoxetine (CYMBALTA) 20 mg capsule 180 capsule 3 Jesenia Britt RN documented in this encounter [facility] 12-21-2021 History of Present illness Narrative [facility] Specialty Refill Assessment Medication(s): Benlysta Patient's current medication list and adherence status to current therapy were reviewed by Specialty Pharmacy clinical pharmacist to identify any new drug interactions or non-compliance to therapy. Therapy continues to be appropriate for disease, patient response, and medical condition. Verification of therapeutic benefit and effectiveness with current therapy was completed. Adverse events, barriers in adherence, and side effects were assessed and addressed if applicable. Will proceed with refill with no changes in therapy - patient progressing towards achieving therapeutic goals based on medication-specific laboratory parameters, disease state markers and outcomes. [facility] Visit Assessment - Inflammatory Conditions: Assessment to use: Refill Non-Clinical Assessment: Patient confirmed: Yes Med/dose confirmed: Yes Missed doses: No Estimated days supply on hand: 1 Next cycle/dose due: 12/22/2021 Copay amount: 0 Payment confirmed: Yes Address confirmed: Yes Delivery method: FedEx Delivery address: [address] [place], [place] Delivery date: 12/28/2021 Patient has questions: No Janet Franco CPhT [facility] [phone] documented in this encounter [facility] 12-21-2021 Miscellaneous Notes Patient is in need of a new prescription as follows: Requested Prescriptions Pending Prescriptions Disp Refills belimumab (BENLYSTA) 200 mg/mL 4 mL 4 Sig: Inject 200mg (1 pen) under the skin one time a week. Last office visit yesterday Please review and advise. Bryan Joseph RPh documented in this encounter [facility] 12-20-2021 History of Present illness Narrative Ms. Yuko Gomez is a 61-year-old female who presents today for continued evaluation and management of systemic lupus erythematosus. PCP: [facility] [address] [place] [address] PROBLEM LIST WARTS CONDYLOMA ACUMINATUM Sle (Systemic Lupus Erythematosus) (Hcc) Copd (Chronic Obstructive Pulmonary Disease) ([facility]) Osteopenia Long-Term Use of Plaquenil Adrenal Insufficiency (Hcc) Systolic Murmur Dysphagia Depressive Disorder, Not Elsewhere Classified Lupus (Systemic Lupus Erythematosus) ([facility]) Migraine Headache Seasonal Allergies Skin Lesion of Left Leg Snoring Chronic Pain Syndrome [place]on (Generalized Anxiety Disorder) Essential Hypertension Lupus (Hcc) Perinuclear Anti-Neutrophil Cytoplasmic Antibodies (P-Anca) Positive Chief Complaint: Continued evaluation and management of systemic lupus erythematosus. UPDATE: Ms. Yuko Gomez was last seen on May 17, 2021 Her lupus is under reasonable control with a combination of hydroxychloroquine and belimumab (Benlysta). On most days her joint pains are under control. She denies any rashes, but some oral ulcers intermittently. The oral ulcers are painful (oral ulcers are usually painless and lupus). She was told that she has an abnormal urine analysis, showing blood and protein. Hence she is being referred to a reclamation worker in [place], [place]. She has to make an appointment to see this reclamation worker. Component Latest Ref Rng & Units 08/02/2017 10/24/2017 02/14/2018 05/14/2018 11/04/2018 Color Yellow Yellow Yellow Yellow Yellow Yellow Clarity Clear Clear Clear Clear Clear Cloudy (A) Glucose, Urine Negative mg/dL Negative Negative Negative Negative Negative Bilirubin, Urine Negative Negative Negative Negative Negative Negative Ketones, Urine Negative Negative Negative Negative Negative Negative Specific [place], Ur 1.005 - 1.030 1.021 1.023 1.020 1.016 1.018 Hemoglobin/Blood,Ur Negative Negative Negative Negative Negative Negative pH, Urine 4.5 - 8.0 5.0 5.0 6.0 5.0 6.0 Protein, Urine Negative mg/dL Negative Negative Negative Negative Negative Urobilinogen Normal Normal Normal Normal Normal Normal Nitrites Negative Negative Negative Negative Positive (A) Negative Leukest Negative Negative Negative Negative 1+ (A) 2+ (A) WBC, Urine 0 - 5 /HPF 11-25 (A) 6-10 (A) RBC, Urine 0 - 3 /HPF 0-3 0-3 She denies any hair loss. 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 She has received the COVID-vaccine ([employer]). However, she has not received any COVID booster yet. She denies any other notable symptoms today; she states that she is taking all medications compliantly with no notable side effect or changes; she feels that her current rheumatologic condition is well managed at this time. Patient does not feel that she needs to increase, decrease or otherwise adjust her therapy at this time; she states she would be willing to do so if other findings during her visit today indicated a needed adjustment in her treatment. Pertinent updates since her last visit with me: Rheum 10/12/21 ASSESSMENT & PLAN Yuko Gomez is a pleasant 61 year old White female who presents on 10/12/2021 for an in-person visit for follow-up of SLE. SLE very well controlled on hydroxychloroquine and belimumab. History of lupus nephritis class III treated with IVMP and PO cyclophosphamide. Patient recently having issues with optimizing thyroid and BP management. Having transient dizziness when she changes positions also blurriness in her left eye periphery occasionally. Dizziness has caused her to fall off the toilet and fall in the shower before. She has osteopenia on recent DEXA, FRAX major osteoporotic 11% and hip fracture 1.9%. PLAN: 1. Other systemic lupus erythematosus with other organ involvement (HCC) - ICD9: 710.0, ICD10: M32.19 (primary diagnosis) - COMP METABOLIC PANEL - C3 COMPLEMENT BLD - DNA AB DS + CONF BLD - C4 COMPLEMENT BLD - CBC + DIFF - C-REACTIVE PROTEIN (CRP) - SED RATE WESTERGREN - PROTEIN CREATININE RATIO - URINALYSIS, DIPSTICK ONLY - continue current medications - patient may be without belimumab for 3 weeks, hopefully not, if she flares, can give Medrol dose pack 2. Long-term use of Plaquenil - ICD9: V58.69, ICD10: Z79.899 - needs updated JAN, patient aware and will schedule 3. Acquired hypothyroidism - ICD9: 244.9, ICD10: E03.9 - TSH done 12 days ago elevated, patient will make PCP aware so levothyroxine dose can be adjusted accordingly 4. Transient elevated blood pressure - ICD9: 796.2, ICD10: R03.0 - BP fluctuates - patient is to continue monitoring BP at home - explained to patient to sit for 10-15 minutes with uncrossed legs prior to taking BP - next appointment with cardiology is in 6 months, suggested if BP remains uncontrolled once thyroid levels are within normal range then get in sooner with cardiology 5. Osteopenia of left hip - ICD9: 733.90, ICD10: M85.852 - FRAX score does not require tx but will message Dr. Gotti about her thoughts since patient is having falls - no chronic steroid use - not a current smoker but lives with tobacco smokers Follow-up with Dr. Clarke in April Charlene Segura PA-C Cardio 09/14/21 IMPRESSION: 61 year old female jamie last seen by myself in 12/2018 for initial consultation on referral from Rheumatology Dr. Clarke for hypertension management, primary prevention in setting of SLE. Since the initial visit, pt has followed regularly in [facility] with AMANDA Su and AMANDA Bundy, last VV 04/2021. Since the last visit, pt denied significant interim medical events 1. SLE, lupus nephritis, RA lung involvement (2009)--on hydroxychloroquine 200-400 qday, belimimab (Benlysta) injection 2. ?COPD; smoking 1.5 ppd quit 2011 3. hypertension (2018)(initial consult 12/2018)--elevated BP's noted over past few yrs, not formally diagnosed as hypertension until this year; never previously treated. 12/2018 initiation irbesartan 75 qday 08/2021 on amlodipine 2.5 qday; irbesartan previously on 300 mg qday, however recent orthostasis, low BP's associated with dizziness; d/c'ed amlodipine 4. lipids--baseline TC 190-210, LDL 90-120's, HDL 30-50's, never treated Adverse Effect History of Statin Intolerance:: Yes Current Statin Freq: Every Day Intolerance to Rosuvastatin: Yes 2019 Crestor 10 mg daily - dizziness/lightheadedness started 1.5 weeks after starting it. Symptoms resolved upon discontinuing Crestor. Crestor 5 mg every other day - nausea after 1-2 weeks. rosuvastatin 5 mg qday (2021-present)--tolerated 04/2021 TC 177/LDL 96 ?prior to re-trial of rosuvastatin PLAN: 1. again reviewed principles of high risk primary prevention (SLE), role of lifestyle and statin therapy, goal LDL < 70 2. check updated lipids on rosuvastatin 5 3. ok to stay off amlodipine; resume irbesartan 75 mg qday 4. encouraged low fat diet, exercise, weight loss 5. RTC 6 mos recheck Janet Duke MD Recent Blood Work and Pertinent Serology: Component Latest Ref Rng & Units 12/01/2021 WBC 3.70 - 11.00 k/uL 5.39 RBC 3.90 - 5.20 m/uL 4.54 Hemoglobin 11.5 - 15.5 g/dL 13.8 Hematocrit 36.0 - 46.0 % 40.7 MCV 80.0 - 100.0 fL 89.6 MCH 26.0 - 34.0 pg 30.4 MCHC 30.5 - 36.0 g/dL 33.9 RDW-CV 11.5 - 15.0 % 11.9 Platelet Count 150 - 400 k/uL 190 MPV 9.0 - 12.7 fL 9.0 Neut% % 56.1 Abs Neut (ANC) 1.45 - 7.50 k/uL 3.03 Lymph% % 21.0 Abs Lymph 1.00 - 4.00 k/uL 1.13 [place]% % 10.4 Abs [place] <0.87 k/uL 0.56 Eosin% % 10.6 Abs Eosin <0.46 k/uL 0.57 (H) Baso% % 1.5 Abs Baso <0.11 k/uL 0.08 Immature Gran % % 0.4 IMMATURE GRANS (ABS) <0.10 k/uL <0.03 NRBC /100 WBC 0.0 Absolute nRBC <0.01 k/uL <0.01 DTYPE Auto Protein, Total 6.3 - 8.0 g/dL 6.5 Albumin 3.9 - 4.9 g/dL 4.5 Calcium 8.5 - 10.2 mg/dL 8.6 Bilirubin, Total 0.2 - 1.3 mg/dL 0.3 Alkaline Phosphatase 34 - 123 U/L 99 AST 13 - 35 U/L 14 ALT 7 - 38 U/L 13 Glucose 74 - 99 mg/dL 95 BUN 7 - 21 mg/dL 13 Creatinine 0.58 - 0.96 mg/dL 1.00 (H) Sodium 136 - 144 mmol/L 141 Potassium 3.7 - 5.1 mmol/L 4.4 Chloride 97 - 105 mmol/L 110 (H) CO2 22 - 30 mmol/L 21 (L) Anion Gap 9 - 18 mmol/L 10 eGFR >=60 mL/min/1.73m 64 C3 86 - 166 mg/dL 91 DNA Antibody w/Confirmation <30 IU/mL 19.45 C4 13 - 46 mg/dL 30 CRP <0.9 mg/dL <0.3 WSR 0 - 20 mm/hr 8 TSH 0.270 - 4.200 mIU/L 1.200 Current Outpatient Medications Medication Sig ergocalciferol 50,000 unit capsule (VITAMIN D2, DRISDOL) Take 1 capsule by mouth one time a week. levothyroxine (SYNTHROID) 50 mcg tablet Take 1 tablet by mouth daily before breakfast. rosuvastatin (CRESTOR) 5 mg tablet Take 1 tablet by mouth once daily. irbesartan (AVAPRO) 75 mg tablet Take 1 tablet by mouth once daily. hydrOXYchloroQUINE (PLAQUENIL) 200 mg tablet TAKE 2 TABLETS BY MOUTH ON EVEN DAYS AND TAKE ONE TABLET BY MOUTH EVERY DAY ON ODD DAYS belimumab (BENLYSTA) 200 mg/mL Inject 200mg (1 pen) under the skin one time a week. fluocinonide (LIDEX) 0.05 % gel Apply 1 application to affected area three times daily as needed. To arm DULoxetine (CYMBALTA) 20 mg capsule TAKE TWO CAPSULES BY MOUTH ONCE DAILY albuterol HFA (PROVENTIL HFA, VENTOLIN HFA) 90 mcg/actuation inhaler Inhale 2 Puffs as instructed every 4 hours as needed. hydrocortisone 2.5 % cream Use as directed hydrOXYzine HCl (ATARAX) 25 mg tablet Use as necessary ferrous sulfate (IRON) 325 mg (65 mg iron) tablet Take 1 tablet by mouth once daily. polyethylene glycol 3350 (MIRALAX) 17 gram/dose powder Take by mouth as needed. Multivitamin ORAL capsule Take 1 capsule by mouth once daily. Review of Systems CONSTITUTION: Positive for: Recent weight change Negative for: Fever HEENT: Positive for: Mouth sores and Dry mouth Negative for: Nosebleeds and Trouble swallowing RESPIRATORY: Positive for: Shortness of breath Negative for: Cough and Pain with breathing GASTROINTESTINAL: Positive for: Abdominal pain Negative for: Melena, Diarrhea and Heartburn MUSCULOSKELETAL: Positive for: Arthralgias, Myalgias, Muscle weakness, Joint swelling and Morning Joint Stiffness NEUROLOGICAL: Positive for: Headaches, Numbness and Memory loss SKIN: Negative for: Rash, Skin changes, Hair loss and Nail changes EYES: Positive for: Visual disturbance Negative for: Eye pain, Eye redness and Eye dryness CARDIOVASCULAR: Positive for: Leg swelling Negative for: Chest pain GENITOURINARY: Negative for: Dysuria and Hematuria HEMATOLOGIC/LYMPHATIC: Negative for: Swollen glands PAST MEDICAL HISTORY Diagnosis Date Chronic obstructive pulmonary disease (COPD) ([facility]) Not diagnosed with PFT's. Depressive disorder, not elsewhere classified Essential hypertension Fracture Hemoptysis 09/22/2012 Right VATS lung biopsy, right VATS wedge resection x3. Plan: - continue Bactrim DS qMWF for PCP prophylaxis - Albuterol/ipratropium nebs prn - Regular diet - f/u bx results . Hypertension 2019 Hypothyroidism Kidney disease lupus nephritis Lupus (systemic lupus erythematosus) ([facility]) 04/2009 Lupus (systemic lupus erythematosus) ([facility]) 04/30/2009 Lupus disease of the lung 09/28/2012 Migraine headache Neutropenia (HCC) 12/20/2011 WBC count 1.08 on presentation on 12/20/11 Likely secondary to Imuran initiation about 3 weeks ago. Neutropenic precautions for ANC < 500 today. Discussed with Heme; they can see her as an outpatient. Resolved at time of discharge; thought secondary to Imuran. Repeat CBC 1 day after discharge. PNA (pneumonia) 12/20/2011 CAP pna Initially treated with ceftriaxone / azithro, now on levofloxacin, as it is less likely to cause leukopenia. Treating for 10-14 days; CXR 4-6 weeks after discharge to document resolution. Seasonal allergies Skin lesion of left leg 12/21/2011 1 cm hyperkeratotic plaque on left elias Derm does not believe this is related to SLE or infection Snoring Systemic lupus ([facility]) 2009 PAST SURGICAL HISTORY Procedure Laterality Date SALPINGO-OOPHORECTOMY COMPL/PRTL UNI/BI SPX Salpingo-oophorectomy B/L TOTAL ABDOMINAL HYSTERECT W/WO RMVL TUBE OVARY 1996 Hysterectomy, ЕКАТЕРИНА WEDGE RESECT LUNG 2012 Social History Tobacco Use Smoking status: Former Packs/day: 1.50 Years: 30.00 Pack years: 45.00 Types: Cigarettes Quit date: 05/26/2011 Years since quittin.5 Smokeless tobacco: Never Tobacco comments: 1.5 ppd, quit 2011 Vaping Use Vaping Use: Never used Substance Use Topics Alcohol use: Not Currently Drug use: No FAMILY HISTORY Problem Relation Age of Onset Hypertension Mother Ischemic Heart Disease Mother stroke age late 60's, [place] age 70's Diabetes Mother COPD Mother age 75 COPD other (Depression/Anxiety) Mother Ischemic Heart Disease Maternal Grandmother CAD age 70's? Diabetes Maternal Grandmother other (Other) Maternal Grandmother other (icuxn-2-vehpkjisoee deficiency) Son Cataract Father other (Parkinsons) Father Physical Exam: Vitals: BP 140/85 Pulse 76 LMP (LMP Unknown) General appearance: Well appearing, alert, in no acute distress, well-hydrated, well nourished. Skin: Skin color, texture, turgor normal, no suspicious rashes or lesions today Head: Normocephalic, no masses, lesions, tenderness or abnormalities Eyes: Anicteric sclera. Pupils are equally round and reactive to light. Extraocular movements are intact. Ears: External ears normal, canals clear Nose/Sinuses: Nares normal, septum midline, mucosa normal, no drainage or sinus tenderness Oropharynx: Lips, mucosa, and tongue normal, teeth and gums normal, oropharynx normal Neck: Supple, no adenopathy; thyroid symmetric, normal size, no bruits Back: Normal exam Lungs: lungs clear to auscultation. No wheezing, rhonchi, rales Heart: RRR without murmur, gallop, or rubs. No ectopy Abdomen: Normal abdominal exam, Abdomen soft, non-tender. Bowel sounds normal. No masses, organomegaly Extremities: No deformities, edema, skin discoloration, clubbing or cyanosis. Good capillary refill. Musculoskeletal: No joint swelling, deformity, or tenderness today Peripheral pulses: Normal Neuro: Gait normal. Reflexes normal and symmetric. Sensation grossly intact. Assessment: Systemic lupus erythematosus (controlled on hydroxychloroquine and Benlysta) Fatigue Brain fog Impaired sleep quality and quantity Abnormal urinalysis BMI today is 31.37 kg/m Recommendations: Will check labs. Continue current medications. Patient will forward me the results and recommendations from the nephrology visit in [place]. Follow up in 6 months. Scribe Attestation: By signing my name below, I, Garima Fay, attest that this documentation has been prepared under the direction and in the presence of Yohana Clarke MD. Electronically Signed:andria Perez, December 20, 2021 11:34 AM IYohana MD, personally performed the services described in this documentation. All medical record entries made by the scribe were at my direction and in my presence. I have reviewed the chart and agree that the record reflects my personal performance and is accurate and complete 12/20/2021 4:41 PM I spent a total of 30 minutes on the date of the service which included preparing to see the patient, completing clinical documentation, obtaining and/or reviewing separately obtained history, counseling and educating the patient/family/caregiver, ordering medications, tests, or procedures, communicating with other HCPs (not separately reported), independently interpreting results (not separately reported), communicating results to the patient/family/caregiver and care coordination (not separately reported). Yohana Clarke MD documented in this encounter [facility] 10-12-2021 History of Present illness Narrative Images from the original note were not included. Rheumatology Outpatient Clinic [place] Patient [place] Date of Service: 10/12/2021 Patient: Yuko Gomez Medical Record: [id number] Primary Care Physician: Lorna Odell MD Last Rheumatology visit: 05/17/2021 (with Yohana Clarke) SUBJECTIVE HISTORY OF PRESENT ILLNESS SLE - diagnosed ~ 2009 (+CHANA, dsDNA, crithidia, chromatin, p-ANCA, skin, oral ulcers, arthritis, leukopenia, proteinuria) had renal biopsy 01/2011 showing Class II mesangial proliferative, pulmonary capillaritis (BAL and open lung Bx 09/09) treated with IVMP and 3 months of PO cytoxan. No specific treatment was recommended for her renal disease at time of renal biopsy Treatment:Received 4 weekly doses of RTX in December 2013 to reduce steroid therapy HCQ 200 mg BID Methylprednisolone 8 mg BID Benlysta 04/2015 due to fatigue, joint pain and dependence on medrol. Weaned off Medrol summer 2015. Transitioned to SQ Benlysta February 2018 INTERVAL HISTORY Yuko Gomez is a 61 year old White female with a PMH of adrenal insufficiency, systolic murmur, hypertension, generalized anxiety disorder, depression, dysphagia, osteopenia, COPD who presents on 10/12/2021 for an in-person visit for follow-up of SLE. Patient begin visit by telling me that a year ago she stated to have issues with her blood pressure. Elevated blood pressure so she started to see cardiology, she was start on irbesartan 300mg and amlodipine 2.5mg. Then, 3 months ago, she discovered that she has hypothyroidism. She was started on levothyroxine by her PCP. Since thyroid medication was started, her BP dropped and she was having dizziness which caused her to fall a few times. Amlodipine was discontinued and irbesartan dose has been decreased to 75mg. She continues to have fluctuations in her BP and continues to have occasional dizziness. She also notes blurred vision in the periphery of her left eye sometimes. Sometime the blurriness and dizziness go together and other times not. BP elevated today, 140/93, but patient states she has not taken her BP medication yet today. As far as her lupus goes, she is doing well. However, there may be an issue with her belimumab. She has been without power now for a few days and the 3 beliumumab pens she has may not be damaged. Insurance may replace these but she is not sure yet. Patient is also on hydroxychloroquine. OCT needs up dated soon, last on was 10/18/2020. Patient not chronically on steroids, takes Medrol dose pack as needed for flares. Review of Systems for autoimmune rheumatic diseases (Lupus/MCTD/PSS) (+)Fatigue (-)Fever: night sweats, thinks related to BP (-)Rash (+)Photosensitivity: stays out of the sun, SPF if she is (-)Alopecia (+)Mucosal Ulcers (-)Sicca symptoms (-)Raynaud's (-)Lymphadenopathy (-)GERD (+)Bowel:(constipation) (+)Cognitive difficulties: brain fog (-)Seizure (-)Emotional problems (+)Visual Disturbances- blurriness in left eye periphery (-)Headache (-)CVA (-)Vasculitis (+)Arthritis (+)Arthralgias: knees, wrists, fingers (+)Myalgias: deep ache (+)Muscle weakness (-)Hematuria (-)Proteinuria (+)Pleurisy- stable (-)Pericarditis- 10-12 years ago (-)Thrombocytopenia (-)Chest pain (+)Trouble breathing/SOB: albuterol prn which is not often (+)Leukopenia (-)Thrombotic events (-)Miscarriages Denies nose bleeds, hemoptysis, hematuria, ear pain, hearing loss Bone health: patient supplements 3,000IU vitamin D and 600mg calcium daily. She denies history of fracture, family history of osteoporosis, parents breaking a hip, smoking. Patient quit smoking 12 years ago but does live in a house with active tobacco users. Current Outpatient Medications on File Prior to Visit Medication Sig levothyroxine (SYNTHROID) 50 mcg tablet Take 1 tablet by mouth daily before breakfast. rosuvastatin (CRESTOR) 5 mg tablet Take 1 tablet by mouth once daily. irbesartan (AVAPRO) 75 mg tablet Take 1 tablet by mouth once daily. hydrOXYchloroQUINE (PLAQUENIL) 200 mg tablet TAKE 2 TABLETS BY MOUTH ON EVEN DAYS AND TAKE ONE TABLET BY MOUTH EVERY DAY ON ODD DAYS belimumab (BENLYSTA) 200 mg/mL Inject 200mg (1 pen) under the skin one time a week. fluocinonide (LIDEX) 0.05 % gel Apply 1 application to affected area three times daily as needed. To arm DULoxetine (CYMBALTA) 20 mg capsule TAKE TWO CAPSULES BY MOUTH ONCE DAILY albuterol HFA (PROVENTIL HFA, VENTOLIN HFA) 90 mcg/actuation inhaler Inhale 2 Puffs as instructed every 4 hours as needed. hydrocortisone 2.5 % cream hydrOXYzine HCl (ATARAX) 25 mg tablet ferrous sulfate (IRON) 325 mg (65 mg iron) tablet Take 1 tablet by mouth once daily. polyethylene glycol 3350 (MIRALAX) 17 gram/dose powder Take by mouth as needed. Multivitamin ORAL capsule Take 1 capsule by mouth once daily. No current facility-administered medications on file prior to visit. Last Ophthalmology Check for Plaquenil (Hydroxychloroquine) Last OCT Macula Exam OCT MACULA CIRRUS OU (BOTH EYES) Exam End: 10/18/2020 10:19 AM (Final result) Narrative: Date of Procedure 10/18/2020. Wax Specialist Information Machine Stapler: KIKO. Start time: 10:19 AM. Stop time: 10:19 AM. Interpretation Right Eye Normal foveal contour. Left Eye Normal foveal contour. Complete Results Last Visual Field Exam VISUAL FIELD 10-2 OU (BOTH EYES) Exam End: 10/18/2020 10:11 AM (Final result) Narrative: Date of Procedure 10/18/2020. Wax Specialist Information Machine Stapler: YULISSA. Start time: 9:47 AM. Stop time: 10:11 AM. Reliability Right Eye Good. Left Eye Poor. Interpretation Left Eye Non-specific defect. Complete Results Review of Systems CONSTITUTION: Negative for: Weight loss or gain, Fever. Chills, Night sweats HEENT: Negative for: Nosebleeds, Mouth sores, Trouble swallowing, Dry mouth RESPIRATORY: Positive for: Shortness of breath Negative for: Cough and Pain with breathing GASTROINTESTINAL: Negative for: Melena, Diarrhea, Abdominal pain, Heartburn, MUSCULOSKELETAL: Positive for: Arthralgias, Myalgias, Muscle weakness and Joint swelling Negative for: Morning Joint Stiffness NEUROLOGICAL: Positive for: Memory loss Negative for: Headaches and Numbness SKIN: Negative for: Rashes, Sun sensitive rashes, Skin color changes, Hair loss, Nail changes EYES: Positive for: Visual disturbance Negative for: Eye pain, Eye redness and Eye dryness CARDIOVASCULAR: Negative for: Chest pain, Leg swelling, Arrhythmia, Presyncope GENITOURINARY: Negative for: Dysuria, Hematuria, Ulceration HEMATOLOGIC/LYMPHATIC: Negative for: Swollen glands All other reviewed and negative other than HPI. PAST MEDICAL HISTORY Diagnosis Date Chronic obstructive pulmonary disease (COPD) ([facility]) Not diagnosed with PFT's. Depressive disorder, not elsewhere classified Essential hypertension Fracture Hemoptysis 09/22/2012 Right VATS lung biopsy, right VATS wedge resection x3. Plan: - continue Bactrim DS qMWF for PCP prophylaxis - Albuterol/ipratropium nebs prn - Regular diet - f/u bx results . Hypertension 2018 Hypothyroidism Kidney disease lupus nephritis Lupus (systemic lupus erythematosus) ([facility]) 04/2009 Lupus (systemic lupus erythematosus) ([facility]) 04/30/2009 Lupus disease of the lung 09/28/2012 Migraine headache Neutropenia ([facility]) 12/20/2011 WBC count 1.08 on presentation on 12/20/11 Likely secondary to Imuran initiation about 3 weeks ago. Neutropenic precautions for ANC < 500 today. Discussed with Heme; they can see her as an outpatient. Resolved at time of discharge; thought secondary to Imuran. Repeat CBC 1 day after discharge. PNA (pneumonia) 12/20/2011 CAP pna Initially treated with ceftriaxone / azithro, now on levofloxacin, as it is less likely to cause leukopenia. Treating for 10-14 days; CXR 4-6 weeks after discharge to document resolution. Seasonal allergies Skin lesion of left leg 12/21/2011 1 cm hyperkeratotic plaque on left elias Derm does not believe this is related to SLE or infection Snoring Systemic lupus ([facility]) 2009 PAST SURGICAL HISTORY Procedure Laterality Date SALPINGO-OOPHORECTOMY COMPL/PRTL UNI/BI SPX Salpingo-oophorectomy B/L TOTAL ABDOMINAL HYSTERECT W/WO RMVL TUBE OVARY 1995 Hysterectomy, ЕКАТЕРИНА WEDGE RESECT LUNG 2013 FAMILY HISTORY Problem Relation Age of Onset Hypertension Mother Ischemic Heart Disease Mother stroke age late 60's, [place] age 70's Diabetes Mother COPD Mother age 75 COPD other (Depression/Anxiety) Mother Ischemic Heart Disease Maternal Grandmother CAD age 70's? Diabetes Maternal Grandmother other (Other) Maternal Grandmother other ([id number] deficiency) Son Cataract Father other (Parkinsons) Father Social History Tobacco Use Smoking status: Former Smoker Packs/day: 1.50 Years: 30.00 Pack years: 45.00 Types: Cigarettes Quit date: 05/26/2011 Years since quittin.3 Smokeless tobacco: Never Used Tobacco comment: 1.5 ppd, quit 2011 Vaping Use Vaping Use: Never used Substance Use Topics Alcohol use: Not Currently Drug use: No PAIN EVALUATION No data found in the last 1 encounters. PROMIS Assessments PROMIS Assessments 08/23/2018 04/08/2019 05/17/2021 Physical Health Percentile 10.38 % 10.38 % 4 % Mental Health Percentile 18.67 % 33.72 % 5 % Pain Score 7 8 2 Pain Interference Percentile - - 4 % Fatigue Percentile - - 1 % Physical Function Percentile - - 7 % RAPID 3 Duncan Activities of Daily Living No Data Dress self? - Get in and out of bed? - Walk outdoors? - Wash and dry body? - Get in and out of car? - RAPID 3 Disease Activity Weighed Score Levels: 0 - 1: Near Remission 1.3 - 2.0: Low Severity 2.3 - 4.0: Moderate Severity 4.3 - 10.0: High Severity RAPID-3 Weighed Score 08/23/2018 11/04/2018 04/08/2019 RAPID 3 Weighed Score 5.2 3.8 4.4 OBJECTIVE BP 140/93 Pulse 70 Temp (Src) 97.9 (Temporal) Ht 5' 3 (1.60m) Wt 177 lb 1.6 oz (80.3kg) BMI 31.38 kg/(m^2). Physical Exam Constitutional: General: She is not in acute distress. Appearance: Normal appearance. She is not ill-appearing, toxic-appearing or diaphoretic. HENT: Head: Normocephalic and atraumatic. Eyes: Extraocular Movements: Extraocular movements intact. Conjunctiva/sclera: Conjunctivae normal. Neurological: Mental Status: She is alert and oriented to person, place, and time. Psychiatric: Behavior: Behavior normal. Weight 10/12/2021 09/14/2021 02/06/2021 09/23/2020 06/08/2020 WEIGHT 177 lb 1.6 oz 175 lb 9.6 oz 178 lb 179 lb 177 lb 3.2 oz Some recent data might be hidden Blood Pressure 10/12/2021 09/14/2021 02/06/2021 09/23/2020 06/08/2020 Systolic 140 155 132 136 104 Diastolic 93 92 84 88 70 Some recent data might be hidden LABS CBC Latest Ref Rng & Units 08/16/2020 09/23/2020 05/17/2021 WBC 3.70 - 11.00 k/uL 5.38 5.84 2.80(L) HGB 11.7 - 14.7 g/dL - - - HEMOGLOBIN 11.5 - 15.5 g/dL 14.0 13.6 14.2 HEMOGLOBIN TOTAL, WHOLE BLOOD 11.5 - 15.5 g/dL - - - HEMOGLOBIN, MICHELL 12.0 - 16.0 g/dL - - - HEMATOCRIT 36.0 - 46.0 % 42.7 42.4 43.1 PLATELETS 150 - 400 k/uL 225 208 173 ABS NEUT (ANC) 1.45 - 7.50 k/uL 2.94 3.59 1.31(L) ABS NEUT, MICHELL 2 - 8 k/uL - - - ABS LYMP, MICHELL 1 - 6 k/uL - - - ABS LYMPH 1.00 - 4.00 k/uL 1.12 1.06 0.76(L) CMP Latest Ref Rng & Units 05/17/2021 08/31/2021 09/30/2021 SODIUM 136 - 144 mmol/L 140 143 142 SODIUM, MICHELL 132 - 148 mmol/L - - - SODIUM, MICHELL 132 - 148 mmol/L - - - POTASSIUM 3.7 - 5.1 mmol/L 4.6 4.4 4.5 POTASSIUM, MICHELL 3.5 - 5.0 mmol/L - - - CHLORIDE 97 - 105 mmol/L 109(H) 111(H) 107(H) CHLORIDE, MICHELL 98 - 110 mmol/L - - - CO2 22 - 30 mmol/L 19(L) 22 22 CO2, MICHELL 23.0 - 32.0 mmol/L - - - GLUCOSE 74 - 99 mg/dL 97 136(H) 89 GLUCOSE, MICHELL 65 - 100 mg/dL - - - BUN 7 - 21 mg/dL 15 26(H) 24(H) BUN, MICHELL 10 - 25 mg/dL - - - CREATININE 0.58 - 0.96 mg/dL 0.90 1.09(H) 1.33(H) CREATININE, MICHELL 0.7 - 1.4 mg/dL - - - CALCIUM, MICHELL 8.5 - 10.5 mg/dL - - - CALCIUM, TOTAL 8.5 - 10.2 mg/dL 9.2 9.2 9.6 AST 13 - 35 U/L 17 - - AST, MICHELL 7 - 40 U/L - - - ALT 7 - 38 U/L 17 - - ALT, MICHELL 0 - 45 U/L - - - ALKALINE PHOSPHATASE 34 - 123 U/L 97 - - ESR, WSR Latest Ref Rng & Units 03/09/2020 08/16/2020 05/17/2021 WSR 0 - 20 mm/hr 8 12 10 SED RATE, MICHELL 0 - 20 mm/hr - - - CRP Latest Ref Rng & Units 08/16/2020 05/17/2021 08/15/2021 CRP <0.9 mg/dL 0.9(H) <0.3 <0.3 C3, C4 Latest Ref Rng & Units 11/04/2018 03/09/2020 08/16/2020 C3 86 - 166 mg/dL 94 97 96 C4 13 - 46 mg/dL 27 25 29 CK Latest Ref Rng & Units 06/07/2020 05/05/2021 08/15/2021 CK 42 - 196 U/L 70 46 57 RF and CCP Latest Ref Rng & Units 04/26/2009 05/03/2009 04/12/2012 RHEUMATOID FACTOR <20 IU/mL 7 - 8 CCP ANTIBODY, IGG Units - <15 - Hepatitis Screen Latest Ref Rng & Units 05/10/2009 03/13/2012 04/12/2012 HEPBCOTOL NEGAT Negative Negative - HEPSABQ NEGAT Positive(A) Positive(A) - HEPCABEIA NEGAT Negative Negative Negative HBSAGR NEGAT Negative Negative Negative TB Screen Latest Ref Rng & Units 12/20/2011 09/22/2012 TBGINT - A valid QuantiFERON result cannot be determined. Patient sample showed insufficient response to control stimulant. This can be seen in patients with drug or disease induced immunosuppression, but can also be caused by inadequate shaking of samples at time of collection. If clinically indicated, suggest recollecting sample with sufficient agitation. A valid QuantiFERON result cannot be determined. Patient sample showed insufficient response to control stimulant. This can be seen in patients with drug or disease induced immunosuppression, but can also be caused by inadequate shaking of samples at time of collection. If clinically indicated, suggest recollecting sample with sufficient agitation. TBGRES NEGAT Indeterminate(A) Indeterminate(A) Antibodies Latest Ref Rng & Units 09/23/2020 05/05/2021 05/17/2021 CHANA Negative - Negative - CHANA BY EIA <1.5 OD Ratio - - - CHANA TITER Negative - Negative - CHANA PATTERN - - Not applicable for negative result. - DSDNA AUTOABS - - - - DNA ANTIBODY <30 IU/mL - - - DNA ANTIBODY W/CONFIRMATION <30 IU/mL - - 16 TALENT DEVELOPMENT DIRECTOR ANTIBODY <1.0 AI - - - SSA ANTIBODY <1.0 AI - - - SSB ANTIBODY <1.0 AI - - - JEAN-PAUL 1 ANTIBODY <1.0 AI - - - RIBOSOMAL TALENT DEVELOPMENT DIRECTOR <1.0 AI - - - SM ANTIBODY <1.0 AI - - - SCLERODERMA AB, IGG <1.0 AI - - - CENTROMERE AB <1.0 AI - - - CHROMATIN ANTIBODY <1.0 AI - - - PT SEC 9.7 - 13.0 sec 10.1 10.1 - PT INR 0.9 - 1.3 0.9 1.0 - PTT 23.0 - 32.4 sec - 26.4 - PLATELET NEUT Negative - Negative - DRVVT SCREEN 32.0 - 45.7 sec - 44.5 - DRVVT CONFIRM RATIO <1.32 - 1.26 - DRVVT 1 TO 1 MIX 32.0 - 45.7 sec - 39.5 - HEX PHASE SCREEN 34.0 - 51.8 sec - 40.9 - HEX PHASE CONFIRM 34.2 - 47.9 sec - 37.7 - HEX PHASE DELTA <7.1 delta sec - 3.2 - APTT SCREEN 24.0 - 35.1 sec 26.8 31.1 - IMMEDIATE PTT 1 TO 1 MIX <33.2 sec - - - INCUBATED PTT 1 TO 1 MIX <35.0 sec - - - THROMBIN TIME <18.6 sec <16.8 <16.8 - ANTI XA INHIB ASSAY - - - - CARDIOLIPIN AB, IGG <15.0 GPL - <9.0 - CARDIOLIPIN AB, IGM <12.5 MPL - <9.0 - CARDIOLIPIN AB, IGA <12.0 APL - <9.0 - ANCA Latest Ref Rng & Units 09/23/2012 05/05/2021 05/17/2021 ANTI-NEUTROPHIL AB - - - - MYELOPEROXIDASE ANTIBODY (MPO) <1.0 AI 28(H) 1.2(H) 1.2(H) PROTEINASE-3 ANTIBODY <1.0 AI 6 <0.2 <0.2 P-ANCA FLUORESCENCE Negative Positive(A) Positive(A) Positive(A) C-ANCA FLUORESCENCE Negative Negative Negative Negative PANCA <1.0 AI 28(H) 1.2(H) 1.2(H) CANCA <1.0 AI 6 <0.2 <0.2 Urinalysis Latest Ref Rng & Units 03/09/2020 08/16/2020 09/23/2020 PROTEIN, URINE Negative Negative 2+(A) Negative PROTEIN UA (POCT) Neg mg/dL - - - RBC, URINE 0 - 3 /HPF - 0-3 0-3 PROTEIN/CREATININE RATIO <0.2 - - - TPMT amd G6PD 11/17/2011 TPMT GENETICS View results in Scanned Documents link when available. IMAGING XR Bilateral Hands 05/14/2018 IMPRESSION: MODERATE DEGENERATIVE CHANGES Mild to moderate degenerative changes at multiple IP joints and first CMC joints, most prominent in the left second digit index finger DIP joint, with joint space narrowing marginal osteophytes and subchondral sclerosis. No erosions. No fractures. No focal soft tissue abnormalities. No other significant abnormality. XR Chest 02/07/2021 IMPRESSION: Blunting of the right costophrenic angle due to pleural fluid or pleural thickening. Lines, tubes, and devices: None. Lungs and pleura: Stable blunting of the right costophrenic angle. No confluent infiltrate or pneumothorax. Cardiomediastinal silhouette: Normal cardiomediastinal silhouette. Bones and soft tissues: Unremarkable. DXA 10/03/2021 IMPRESSION: THE LOWEST T-SCORE IS -2.4 IN THE LEFT HIP 1) DIAGNOSIS (based on BMD alone): OSTEOPENIA ASSESSMENT & PLAN Yuko K Hodapp is a pleasant 61 year old White female who presents on 10/12/2021 for an in-person visit for follow-up of SLE. SLE very well controlled on hydroxychloroquine and belimumab. History of lupus nephritis class III treated with IVMP and PO cyclophosphamide. Patient recently having issues with optimizing thyroid and BP management. Having transient dizziness when she changes positions also blurriness in her left eye periphery occasionally. Dizziness has caused her to fall off the toilet and fall in the shower before. She has osteopenia on recent DEXA, FRAX major osteoporotic 11% and hip fracture 1.9%. PLAN: 1. Other systemic lupus erythematosus with other organ involvement (HCC) - ICD9: 710.0, ICD10: M32.19 (primary diagnosis) - COMP METABOLIC PANEL - C3 COMPLEMENT BLD - DNA AB DS + CONF BLD - C4 COMPLEMENT BLD - CBC + DIFF - C-REACTIVE PROTEIN (CRP) - SED RATE WESTERGREN - PROTEIN CREATININE RATIO - URINALYSIS, DIPSTICK ONLY - continue current medications - patient may be without belimumab for 3 weeks, hopefully not, if she flares, can give Medrol dose pack 2. Long-term use of Plaquenil - ICD9: V58.69, ICD10: Z79.899 - needs updated JAN, patient aware and will schedule 3. Acquired hypothyroidism - ICD9: 244.9, ICD10: E03.9 - TSH done 12 days ago elevated, patient will make PCP aware so levothyroxine dose can be adjusted accordingly 4. Transient elevated blood pressure - ICD9: 796.2, ICD10: R03.0 - BP fluctuates - patient is to continue monitoring BP at home - explained to patient to sit for 10-15 minutes with uncrossed legs prior to taking BP - next appointment with cardiology is in 6 months, suggested if BP remains uncontrolled once thyroid levels are within normal range then get in sooner with cardiology 5. Osteopenia of left hip - ICD9: 733.90, ICD10: M85.852 - FRAX score does not require tx but will message Dr. Gotti about her thoughts since patient is having falls - no chronic steroid use - not a current smoker but lives with tobacco smokers Follow-up with Dr. Clarke in April Charlene Segura PA-C Rheumatology Date: October 12, 2021 CC: Dr. Clarke Medical Decision Making: Problems: Low: Stable chronic illness Moderate: 1+ chronic illnesses with change Risk: Moderate: Moderate risk from testing/treatment Medical Decision Making Level: 4 - Moderate documented in this encounter [facility] 10-03-2021 Miscellaneous Notes October 03, 2021 PID: [id number] Yuko Hylton Paula [address] [place] [address] Dear Ms. Gomez, We are pleased to inform you that the results of your recent breast imaging exam on 10/03/2021 are normal. Your mammogram demonstrates that you have dense breast tissue, which could hide abnormalities. Dense breast tissue, in and of itself, is a relatively common condition. Therefore, this information is not provided to cause undue concern; rather, it is to ra ise your awareness and promote discussion with your health care provider regarding the presence of dense breast tissue in addition to other risk factors. Early detection of cancer is very important. We also understand recommendations regarding breast cancer screening are controversial. Please discuss with your primary care provider which strategy is best for you and whether a mammogram is right for you. Your imaging studies and report will be kept on file at [facility] as part of your permanent medical record and are available for your continuing care. Thank you for allowing us to help in meeting your health care needs. Sincerely, Dr. Hester Interpreting Radiologist [facility] (Normal over 40) documented in this encounter [facility] 09-30-2021 Miscellaneous Notes Pt reports that she was on Amlodipine and irbesartan 300 mg daily. Her BP decreased after her thyroid became better controlled so BP regimen was decreased. At last visit she was taking Irbesartan 1/2 of a 300 mg tab. She had been having low readings so the dose was reduced to 75 mg. Pt went to the ED on 09/22 for itching, allergic reaction and her BP was 82/60. She was dizzy. Her lupus can also also cause itching. She was on irbesartan 75 mg at the time. Repeat labs are in process. Cr slightly elevated on 08/31/21, 1.09. She does not have a lot of sodium in her diet. Her BP machine is a new, brachial cuff. She has only been taking her BP at home for 2 days. SBP yesterday and today was 150's. Irbesartan is taken at 8-10am. She takes it 2 hours after synthroid. BP is checked at 12-1pm Low BP's have been happening for a month. PLAN: -Pt has had both high and low BP's in the last month. She only started checking her BP at home 2 days ago. Increase home monitoring and keep a log. -Continue Irbesartan at current dose of 75 mg. If BP increases over the weekend, can increase Irbesartan to 75 mg twice daily. -Telephone visit on Sunday at 10:45am with Reyna Bundy. Pt will upload her BP log to [employer] for review. Pt expressed agreement and understanding of plan. Tammy Su APRN.BRENDAN BP 155/92 at last visit on 09/14/21 Irbesartan 75 mg daily was started. Phoned Pt and left voice mail requesting return call. Would next increase Irbesartan to 150 mg daily. Tammy Su APRN.BRENDAN September 30, 2021 Patient Contact Number: [phone] Patient last seen within the last year: Yes Date of last office visit: 09/14/21 Reason For Call: Blood Pressure Changes Patient reporting elevated BPs since PCP made medication changes. BPs are constant in 150/90 range Patient taking 75mg irbesartan Seeking direction on changes or adjustments Physician: Janet Duke MD Pss documented in this encounter [facility] 09-29-2021 History of Present illness Narrative [facility] Refill Assessment Medication(s): Benlysta Therapy continues to be appropriate for disease, patient response, and medical condition. Verification of therapeutic benefit and effectiveness with current therapy. Adverse events, barriers in adherence, and side effects assessed and addressed. Will proceed with refill with no changes. [facility] Visit Assessment - Inflammatory Conditions: Assessment to use: Refill Non-Clinical Assessment: Patient confirmed: Yes Med/dose confirmed: Yes Missed doses: No Estimated days supply on hand: 1 Next cycle/dose due: 09/29/2021 Copay amount: 0 Payment confirmed: Yes Address confirmed: Yes Delivery method: FedEx Delivery address: [address] [place], [place] Delivery date: 10/05/2021 Patient has questions: No Vaccination Assessment: Date of influenza vaccination reminder: 01/21/2021 Date of most recent vaccination assessment: 01/21/2021 Janet Franco CPhT [facility] [phone] documented in this encounter [facility] 09-14-2021 History of Present illness Narrative Images from the original note were not included. [facility] [place] Edwina Farias Department of Cardiovascular Medicine SECTION OF PREVENTIVE CARDIOLOGY Yuko Gomez 09/14/2021 CHIEF COMPLAINT: Patient presents with: Follow Up HISTORY OF PRESENT CARDIOVASCULAR ILLNESS: Yuko Gomez is a 61 year old female who presents for routine followup. --Since the last visit, pt denied significant interim medical events, other than... from telephone call 08/31/2021-- Patient calling at the direction of her PCP to report BP medication changes made by PCP today. Patient went to PCP with dizziness and loss of balance. BP taken while in office: 120/80 laying down 100/68 sitting up 94/68 standing PCP directed to stop amlodipine and decrease irbesartan by 1/2 Denies chest pain, shortness of breath, dyspnea on exertion, activity limitations, PND, orthopnea, LE edema, palpitations or history of syncope or near-syncope. CARDIAC RISK FACTORS: History question Answer Diagnosis Date Comment Hypertension : Hypertension 2019 Not specified Exercise: One to two per week Family History of CAD: Negative walking 2-3 miles during course of work shift at [employer] denies limitations to activity other than mild lower extremity weakness Avg. Sleep Hours Per Night?: 7.5 STATIN INTOLERANCE: Adverse Effect History of Statin Intolerance:: Yes Current Statin Freq: Every Day Intolerance to Rosuvastatin: Yes 2019 Crestor 10 mg daily - dizziness/lightheadedness started 1.5 weeks after starting it. Symptoms resolved upon discontinuing Crestor. Crestor 5 mg every other day - nausea after 1-2 weeks. rosuvastatin 5 mg qday (2021-present)--tolerated USE OF PCSK9 INHIBITORS: CARDIOVASCULAR DISEASE HISTORY: Valve Disease: Arrhythmias: HEART FAILURE/CARDIOMYOPATHY: RELATED DISEASE HISTORY: History question Answer Diagnosis Date Comment Kidney diease : Kidney disease lupus nephritis Psychiatric Disease : History question Answer Diagnosis Date Comment SLE : Systemic lupus (FORM[facility]) 2009 PAST MEDICAL HISTORY: PAST MEDICAL HISTORY Diagnosis Date Chronic obstructive pulmonary disease (COPD) (FORM[facility]) Not diagnosed with PFT's. Depressive disorder, not elsewhere classified Essential hypertension Fracture Hemoptysis 09/22/2012 Right VATS lung biopsy, right VATS wedge resection x3. Plan: - continue Bactrim DS qMWF for PCP prophylaxis - Albuterol/ipratropium nebs prn - Regular diet - f/u bx results . Hypertension 2019 Hypothyroidism Kidney disease lupus nephritis Lupus (systemic lupus erythematosus) (FORM[facility]) 04/2009 Lupus (systemic lupus erythematosus) ([facility]) 04/30/2009 Lupus disease of the lung 09/28/2012 Migraine headache Neutropenia (HCC) 12/20/2011 WBC count 1.08 on presentation on 12/20/11 Likely secondary to Imuran initiation about 3 weeks ago. Neutropenic precautions for ANC < 500 today. Discussed with Heme; they can see her as an outpatient. Resolved at time of discharge; thought secondary to Imuran. Repeat CBC 1 day after discharge. PNA (pneumonia) 12/20/2011 CAP pna Initially treated with ceftriaxone / azithro, now on levofloxacin, as it is less likely to cause leukopenia. Treating for 10-14 days; CXR 4-6 weeks after discharge to document resolution. Seasonal allergies Skin lesion of left leg 12/21/2011 1 cm hyperkeratotic plaque on left elias Derm does not believe this is related to SLE or infection Snoring Systemic lupus (HCC) 2009 CURRENT MEDS: Current Outpatient Medications Medication Sig rosuvastatin (CRESTOR) 5 mg tablet Take 1 tablet by mouth twice per week. Will advance to daily as tolerated hydrOXYchloroQUINE (PLAQUENIL) 200 mg tablet TAKE 2 TABLETS BY MOUTH ON EVEN DAYS AND TAKE ONE TABLET BY MOUTH EVERY DAY ON ODD DAYS belimumab (BENLYSTA) 200 mg/mL Inject 200mg (1 pen) under the skin one time a week. fluocinonide (LIDEX) 0.05 % gel Apply 1 application to affected area three times daily as needed. To arm DULoxetine (CYMBALTA) 20 mg capsule TAKE TWO CAPSULES BY MOUTH ONCE DAILY albuterol HFA (PROVENTIL HFA, VENTOLIN HFA) 90 mcg/actuation inhaler Inhale 2 Puffs as instructed every 4 hours as needed. hydrocortisone 2.5 % cream hydrOXYzine HCl (ATARAX) 25 mg tablet ferrous sulfate (IRON) 325 mg (65 mg iron) tablet Take 1 tablet by mouth once daily. polyethylene glycol 3350 (MIRALAX) 17 gram/dose powder Take by mouth as needed. Multivitamin ORAL capsule Take 1 capsule by mouth once daily. levothyroxine (SYNTHROID) 50 mcg tablet Take 1 tablet by mouth daily before breakfast. irbesartan (AVAPRO) 300 mg tablet Take 1 tablet by mouth once daily. (Patient not taking: Reported on 09/14/2021 ) No current facility-administered medications for this visit. ALLERGIES: ALLERGIES Allergen Reactions Ceftin [Cefuroxime] Itching Intense pruritis 4-5days in tx, no hives or rash Imuran [Azathioprin* Intolerance thrombocytopenia,neutropenia Methotrexate Analog* Hives Prednisone Mental Status Change in high doses patient becomes aggressive and mean Sulfasalazine Rash thrombocytopenia FAMILY HISTORY: FAMILY HISTORY Problem Relation Age of Onset Hypertension Mother Ischemic Heart Disease Mother stroke age late 60's, [place] age 70's Diabetes Mother COPD Mother age 75 COPD other (Depression/Anxiety) Mother Ischemic Heart Disease Maternal Grandmother CAD age 70's? 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) Years Of Education Completed: 14 years Marital Status: with 2 children Tobacco use in the last year: No Alcohol Use: Not Currently REVIEW OF SYSTEMS: positives appear in bold denies fevers, chills, heat/cold intolerance, cough, abdominal pain, change in bowel movements, extremity weakness or numbness PHYSICAL EXAMINATION: BP 155/92 (BP Site: Right Arm, BP Position: Sitting, BP Cuff Size: Regular Adult) Pulse 75 Ht 160 cm (5' 3 ) Wt 79.7 kg (175 lb 9.6 oz) LMP (LMP Unknown) BMI 31.11 kg/m Gen: pleasant WDWN WF, NARD HEENT: PERRL, conj pink, OP benign neck: 2+ carotids, no bruits, JVP 7 chest: CTA B CV: RRR normal S1, S2 abd: soft, NTND, normal BS's ext: no edema; 2+ DP/PT pulses neuro: alert, oriented X 3; normal gait CLINICAL TESTING RESULTS: EKG January 07, 2019--NSR [address] change, QTc 482 echo 06/2020-- CONCLUSIONS: - Technically difficult exam due to body habitus. - Exam indication: Shortness of Breath - The left ventricle is normal in size. There is mild concentric left ventricular hypertrophy. Left ventricular systolic function is normal. EF = 64 5% (2D biplane) Grade I left ventricular diastolic dysfunction. - The right ventricle is normal in size. Right ventricular systolic function is normal. - Estimated right ventricular systolic pressure is not reported due to an insufficient tricuspid regurgitation signal. Estimated right atrial pressure is 3 mmHg based on IVC assessment. - There are no significant valvular abnormalities. - Exam was compared with the prior echocardiographic exam performed on 09/24/12. CIRILO WINSTON's 06/2020-- IMPRESSION Of note: Patient did not complete full exercise protocol. Had onset of symptoms at 30 seconds, stopped walking at 1min 30sec. RIGHT SIDE Resting right ankle brachial index: 1.26 Post exercise right ankle brachial index: 1.16 Normal ankle brachial index at rest in the right leg. Right ankle: Normal at rest. No significant change in pressure and/or ankle-brachial index with exercise. LEFT SIDE Resting left ankle brachial index: 1.31 Post exercise left ankle brachial index: 1.22 Normal ankle brachial index at rest in the left leg. Left ankle: Normal at rest. No significant change in pressure and/or ankle-brachial index with exercise. echo 08/2012-- CONCLUSIONS: Technically difficult parasternal images. - Exam indication: Heart murmur - The left ventricle is normal in size. Left ventricular systolic function is normal. EF = 55 5% (visual est.) Baseline left ventricular diastolic function is normal. - The right ventricle is normal in size. Right ventricular systolic function is normal. - The left atrial cavity is severely dilated. - Mild MR. - Mild TR. - Prior echocardiogram performed on 12/22/2011 with no significant change. echo 11/2011-- CONCLUSIONS: - Exam indication: H/o Pericarditis - The left ventricle is normal in size. Left ventricular systolic function is normal. EF = 57 5% (2D biplane) - The right ventricle is normal in size. Right ventricular systolic function is normal. - The left atrial cavity is moderately dilated. - There are no significant valvular abnormalities. - There is moderate (2+) mitral valve regurgitation. - There is moderate (2+) tricuspid valve regurgitation. - No prior echocardiographic exam available for comparison. LABS: Component Latest Ref Rng & Units 12/01/2019 03/04/2020 06/07/2020 05/05/2021 Triglyceride <150 mg/dL 203 (H) 207 (H) 261 (H) 161 (H) Cholesterol, Total <200 mg/dL 193 195 197 177 HDL Cholesterol >39 mg/dL 46 46 48 49 VLDL Cholesterol <30 mg/dL 41 (H) 41 (H) 52 (H) 32 (H) LDL Cholesterol <100 mg/dL 106 (H) 108 (H) 97 96 Fasting Time hrs 12 10 12 10 TC:HDL Ratio <5.10 4.20 4.24 4.10 3.61 LDL:HDL Ratio <2.54 2.30 2.35 2.02 1.96 Non HDL Cholesterol <130 mg/dL 147 (H) 149 (H) 149 (H) 128 Hemoglobin (g/dL) Date Value 05/17/2021 14.2 Hematocrit (%) Date Value 05/17/2021 43.1 WBC (k/uL) Date Value 05/17/2021 2.80 Platelet Count Date Value Ref Range Status 05/17/2021 173 150 - 400 k/uL Final Creatinine Date Value Ref Range Status 08/31/2021 1.09 (H) 0.58 - 0.96 mg/dL Final 05/17/2021 0.90 0.58 - 0.96 mg/dL Final 05/05/2021 0.89 0.58 - 0.96 mg/dL Final 09/23/2020 1.09 (H) 0.58 - 0.96 mg/dL Final AST Date Value Ref Range Status 05/17/2021 17 13 - 35 U/L Final ALT Date Value Ref Range Status 05/17/2021 17 7 - 38 U/L Final Glucose (mg/dL) Date Value 08/31/2021 136 05/17/2021 97 05/05/2021 88 09/23/2020 82 08/16/2020 97 06/07/2020 97 Hemoglobin A1C (%) Date Value 06/06/2013 5.3 TSH Date Value Ref Range Status 08/31/2021 3.580 0.270 - 4.200 mIU/L Final SF 36 Quality of Life Assessment: Physical Component Summary: 31.8 Mental Component Summary: 54.6 Interested in learning about research?: Yes AMBULATORY PATIENT EDUCATION Topic: Hyperlipidemia, Hypertension, Exercise, Nutrition, Weight Loss and Novel Risk Markers Instruction Provided To: Patient Barriers: None Motivation to Learn: Interested Methods of Instruction: Verbal instruction and/or handouts. Patient Leans Best By: Multiple Methods Patient Verbalized: Understanding IMPRESSION: 61 year old female jamie last seen by myself in 12/2018 for initial consultation on referral from Rheumatology Dr. Clarke for hypertension management, primary prevention in setting of SLE. Since the initial visit, pt has followed regularly in Prevention with AMANDA Su and AMANDA Bundy, last VV 04/2021. Since the last visit, pt denied significant interim medical events 1. SLE, lupus nephritis, RA lung involvement (2009)--on hydroxychloroquine 200-400 qday, belimimab (Benlysta) injection 2. ?COPD; smoking 1.5 ppd quit 2011 3. hypertension (2018)(initial consult 12/2018)--elevated BP's noted over past few yrs, not formally diagnosed as hypertension until this year; never previously treated. 12/2018 initiation irbesartan 75 qday 08/2021 on amlodipine 2.5 qday; irbesartan previously on 300 mg qday, however recent orthostasis, low BP's associated with dizziness; d/c'ed amlodipine 4. lipids--baseline TC 190-210, LDL 90-120's, HDL 30-50's, never treated Adverse Effect History of Statin Intolerance:: Yes Current Statin Freq: Every Day Intolerance to Rosuvastatin: Yes 2020 Crestor 10 mg daily - dizziness/lightheadedness started 1.5 weeks after starting it. Symptoms resolved upon discontinuing Crestor. Crestor 5 mg every other day - nausea after 1-2 weeks. rosuvastatin 5 mg qday (2021-present)--tolerated 04/2021 TC 177/LDL 96 ?prior to re-trial of rosuvastatin PLAN: 1. again reviewed principles of high risk primary prevention (SLE), role of lifestyle and statin therapy, goal LDL < 70 2. check updated lipids on rosuvastatin 5 3. ok to stay off amlodipine; resume irbesartan 75 mg qday 4. encouraged low fat diet, exercise, weight loss 5. RTC 6 mos recheck Janet Duke MD Department of Cardiovascular Medicine documented in this encounter [facility] 08-31-2021 Miscellaneous Notes Call from patient requesting refill. Pending Prescriptions Disp Refills ROSUVASTATIN 5 MG TABLET 90 tablet 3 Sig: Take 1 tablet by mouth twice per week. Will advance to daily as tolerated GENIE: No Patient last seen Apr 2021 Marianna Vinson Pss documented in this encounter [facility] 08-31-2021 Miscellaneous Notes Most recent Rheumatology visit: 05/17/2021 (with Yohana Clarke) Upcoming Rheumatology Appointments - Next 365 Days Visit Type Date Time Department [facility] 11/18/2021 1:30 PM RHEU MAIN A50 Last Ophthalmology Check for Plaquenil (Hydroxychloroquine) Last OCT Macula Exam OCT MACULA CIRRUS OU (BOTH EYES) Exam End: 10/18/2020 10:19 AM (Final result) Narrative: Date of Procedure 10/18/2020. Wax Specialist Information Machine Stapler: KIKO. Start time: 10:19 AM. Stop time: 10:19 AM. Interpretation Right Eye Normal foveal contour. Left Eye Normal foveal contour. Complete Results Last Visual Field Exam VISUAL FIELD 10-2 OU (BOTH EYES) Exam End: 10/18/2020 10:11 AM (Final result) Narrative: Date of Procedure 10/18/2020. Wax Specialist Information Machine Stapler: YULISSA. Start time: 9:47 AM. Stop time: 10:11 AM. Reliability Right Eye Good. Left Eye Poor. Interpretation Left Eye Non-specific defect. Complete Results CBC: CBC Latest Ref Rng & Units 09/23/2020 05/17/2021 WBC 3.70 - 11.00 k/uL 5.84 2.80(L) HGB 11.7 - 14.7 g/dL - - HEMOGLOBIN 11.5 - 15.5 g/dL 13.6 14.2 HEMOGLOBIN TOTAL, WHOLE BLOOD 11.5 - 15.5 g/dL - - HEMOGLOBIN, MICHELL 12.0 - 16.0 g/dL - - HEMATOCRIT 36.0 - 46.0 % 42.4 43.1 PLATELETS 150 - 400 k/uL 208 173 ABS NEUT (ANC) 1.45 - 7.50 k/uL 3.59 1.31(L) ABS NEUT, MICHELL 2 - 8 k/uL - - ABS LYMP, MICHELL 1 - 6 k/uL - - ABS LYMPH 1.00 - 4.00 k/uL 1.06 0.76(L) Vitamin D: Vitamin D Latest Ref Rng & Units 03/09/2020 05/17/2021 VITAMIN D 25 HYDROXY 31.0 - 80.0 ng/mL 18.7(L) 13.5(L) LFT: CMP Latest Ref Rng & Units 05/05/2021 05/17/2021 SODIUM 136 - 144 mmol/L 142 140 SODIUM, MICHELL 132 - 148 mmol/L - - SODIUM, MICHELL 132 - 148 mmol/L - - POTASSIUM 3.7 - 5.1 mmol/L 4.4 4.6 POTASSIUM, MICHELL 3.5 - 5.0 mmol/L - - CHLORIDE 97 - 105 mmol/L 110(H) 109(H) CHLORIDE, MICHELL 98 - 110 mmol/L - - CO2 22 - 30 mmol/L 21(L) 19(L) CO2, MICHELL 23.0 - 32.0 mmol/L - - GLUCOSE 74 - 99 mg/dL 88 97 GLUCOSE, MICHELL 65 - 100 mg/dL - - BUN 7 - 21 mg/dL 14 15 BUN, MICHELL 10 - 25 mg/dL - - CREATININE 0.58 - 0.96 mg/dL 0.89 0.90 CREATININE, MICHELL 0.7 - 1.4 mg/dL - - CALCIUM, MICHELL 8.5 - 10.5 mg/dL - - CALCIUM, TOTAL 8.5 - 10.2 mg/dL 9.5 9.2 AST 13 - 35 U/L - 17 AST, MICHELL 7 - 40 U/L - - ALT 7 - 38 U/L 13 17 ALT, MICHELL 0 - 45 U/L - - ALKALINE PHOSPHATASE 34 - 123 U/L - 97 Creatinine: Creatinine Latest Ref Rng & Units 05/05/2021 05/17/2021 CREAT 0.58 - 0.96 mg/dL 0.89 0.90 NTX 14.4 - 75.0 nM/mM Creat - - ESR/CRP: ESR, WSR Latest Ref Rng & Units 08/16/2020 05/17/2021 WSR 0 - 20 mm/hr 12 10 SED RATE, MICHELL 0 - 20 mm/hr - - CRP Latest Ref Rng & Units 05/17/2021 08/15/2021 CRP <0.9 mg/dL <0.3 <0.3 Uric Acid: None on file in the last 6 months Open Standing (Multiple Instance) Lab Orders None Open Future (Single Instance) Lab Orders Expected Expires Ordered T3 FREE BLD [SQFREET3] 07/11/21 09/10/21 07/11/21 Auth. provider: Jacey Brooks CNP Assoc. diagnoses: Unspecified hypothyroidism T4 FREE/FREE THYROX [SQFT4] 07/11/21 09/10/21 07/11/21 Auth. provider: Jacey Brooks CNP Assoc. diagnoses: Unspecified hypothyroidism TSH BLD [SQTSH] 07/11/21 09/10/21 07/11/21 Auth. provider: Jacey Brooks CNP Assoc. diagnoses: Unspecified hypothyroidism THYROID PEROXIDASE ANTIBODY BLOOD [SQMICRO] 07/11/21 09/10/21 07/11/21 Auth. provider: Jacey Brooks CNP Assoc. diagnoses: Unspecified hypothyroidism documented in this encounter [facility] 08-31-2021 History of Present illness Narrative [facility] Refill Assessment Medication(s): Benlysta Therapy continues to be appropriate for disease, patient response, and medical condition. Verification of therapeutic benefit and effectiveness with current therapy. Adverse events, barriers in adherence, and side effects assessed and addressed. Will proceed with refill with no changes. [facility] Visit Assessment - Inflammatory Conditions: Assessment to use: Refill Non-Clinical Assessment: Patient confirmed: Yes Med/dose confirmed: Yes Supplies needed: No Missed doses: No Estimated days supply on hand: 1 Next cycle/dose due: 09/01/2021 Copay amount: 0 Payment confirmed: Yes Address confirmed: Yes Delivery method: FedEx Delivery address: [address] [facility] [address] [facility] [address] Delivery date: 09/07/2021 Patient has questions: No Additional questions, comments, concerns: No sig. Doses on , has one syringe on hand for 5/5 dose and then prefers refill be delivered on Thursday 09/07. Vaccination Assessment: Date of influenza vaccination reminder: 01/21/2021 Date of most recent vaccination assessment: 01/21/2021 Lyubov Martinez RPh documented in this encounter [facility] 08-15-2021 History of Present illness Narrative Radiology Service Progress Note PATIENT NAME: Yuko Gomez DATE OF SERVICE: August 15, 2021 TIME: 9:59 AM PATIENT IDENTITY VERIFICATION COMPLETED USING TWO (2) IDENTIFIERS: Name and Date of confirmed by patient verbally. FALL SCREENING: Has the patient had 2 falls in the last year or 1 fall with injury or currently using an Ambulatory Assistive Device (Walker, Cane, Wheelchair, Crutches, etc.)? No PATIENT GENDER DATA: Female. status: : No status: NO. PATIENT RELEVANT IMPLANT DATA REVIEWED: Not Applicable RADIOLOGY DEPARTMENT: General X-ray: Exam(s) Completed: Spine X-Ray(s): Lumbar AP / LAT / L5-S1 PERIPHERAL IV DATA: Not applicable SIGNED BY: RT Jonathan(R) August 15, 2021 9:59 AM documented in this encounter [facility] 08-03-2021 History of Present illness Narrative [facility] Refill Assessment Medication(s): Benlysta Therapy continues to be appropriate for disease, patient response, and medical condition. Verification of therapeutic benefit and effectiveness with current therapy. Adverse events, barriers in adherence, and side effects assessed and addressed. Will proceed with refill with no changes. [facility] Visit Assessment - Inflammatory Conditions: Assessment to use: Refill Non-Clinical Assessment: Patient confirmed: Yes Med/dose confirmed: Yes Missed doses: No Estimated days supply on hand: 1 Next cycle/dose due: 08/04/2021 Copay amount: 0 Payment confirmed: Yes Address confirmed: Yes Delivery method: FedEx Delivery address: [address] [place] [address] Delivery date: 08/10/2021 Patient has questions: No Vaccination Assessment: Date of influenza vaccination reminder: 01/21/2021 Date of most recent vaccination assessment: 01/21/2021 Janet Franco CPhT [facility] [phone] documented in this encounter [facility] 04-09-2020 Note HNO ID: [id number] Author: Kaci Stephenson Service: ? Author Type: [employer] Tanker Driver Type: Progress Notes Filed: 04/09/2020 1:17 PM Note Text: ED Follow Up: Patient discharged from [facility] ED on 04/08/20 1. How are you feeling since your ED visit? Improved. BP increased- has message in with bolt machine operator. Advised to go to ED if symptoms worsen. Have your symptoms improved or resolved? Yes 2. Were you prescribed any medications while in the ED or advised to stop any medication? Yes - If yes, were you able to fill your prescriptions? Yes -if stopped medication, what was the medication? n/a 3. Were you advised to schedule a follow up appointment with your provider? Yes - If no, Do you feel like you need an appointment scheduled? Not applicable - If yes, Do you need this scheduled now or has this already been scheduled? No 4. Were you able to contact the office or supervisor dimension warehouse provider prior to your ED visit? Yes 5. Is there anything else I can do for you today? No [facility] 04-09-2020 Note Patient Outreach ([facility]) YUKO GOMEZ ([id number]) 1960 F Date Time Provider Department 04/09/20 LORNA ODELL During your visit today, we recorded the following information about you: Kaci Stephenson CMA 04/09/2020 9:36 AM Signed ED Follow Up: Patient discharged from [facility] ED on 04/08/20. Left message to call the office. ARELY Turcios 04/09/2020 9:47 AM Signed Patient returned call to office. She may be reached at [phone] Thank you Yanira Stephenson CMA 04/09/2020 1:17 PM Signed ED Follow Up: Patient discharged from [facility] ED on 04/08/20 1. How are you feeling since your ED visit? Improved. BP increased- has message in with bolt machine operator. Advised to go to ED if symptoms worsen. Have your symptoms improved or resolved? Yes 2. Were you prescribed any medications while in the ED or advised to stop any medication? Yes - If yes, were you able to fill your prescriptions? Yes -if stopped medication, what was the medication? n/a 3. Were you advised to schedule a follow up appointment with your provider? Yes - If no, Do you feel like you need an appointment scheduled? Not applicable - If yes, Do you need this scheduled now or has this already been scheduled? No 4. Were you able to contact the office or supervisor dimension warehouse provider prior to your ED visit? Yes 5. Is there anything else I can do for you today? No Allergies As of Date: 04/09/2020 Noted Allergy Reaction CEFTIN (CEFUROXIME) 04/06/2009 9 - Itching Comments: Intense pruritis 4-5days in tx, no hives or rash IMURAN (AZATHIOPRINE SODIUM) 08/26/2012 5 - Intolerance Comments: thrombocytopenia,neutropenia METHOTREXATE ANALOGUES 02/09/2011 4 - Hives PREDNISONE 11/27/2011 1 - Mental Status Change Comments: in high doses patient becomes aggressive and mean SULFASALAZINE 08/27/2013 2 - Rash Comments: thrombocytopenia Date Reviewed: 03/14/2020 Reviewed by: Tammy Su - Fully Assessed Reason for Visit: Transition Of Care [4074] Cmt: Michell ED Prescriptions as of 04/09/2020 Sig: ROSUVASTATIN 5 MG TABLET Take 1 tablet by mouth once p* DULOXETINE 20 MG CAPSULE,MELLISSA* Take 2 capsules by mouth once* HYDROXYCHLOROQUINE 200 MG TAB* Take 2 tablets on even days a* BENLYSTA 200 MG/ML SUBCUTANEO* Inject 200mg (1 pen) under th* IRBESARTAN 300 MG TABLET Take 1 tablet by mouth once d* HYDROCORTISONE 2.5 % TOPICAL * HYDROXYZINE HCL 25 MG TABLET FERROUS SULFATE 325 MG (65 MG* Take 1 tablet by mouth once d* KETOCONAZOLE 2 % SHAMPOO ZOLPIDEM 5 MG TABLET Take 1 tablet by mouth at bed* ALBUTEROL SULFATE HFA 90 MCG/* Inhale 2 Puffs as instructed * FLUOCINONIDE 0.05 % TOPICAL G* Apply 1 application to affect* POLYETHYLENE GLYCOL 3350 17 G* Take by mouth as needed. 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 Elevated antinuclear antibody (CHANA) level [R76.*04/28/2009 06/12/2014 More... SLE (systemic lupus erythematosus) (HCC) [M32.9]08/05/2009 More... COPD (Chronic Obstructive Pulmonary Disease) [J*01/06/2010 Neutropenia associated with autoimmune disease *02/18/2010 08/23/2018 Proteinuria [R80.9] 03/16/2010 08/23/2018 Osteopenia [M85.80] 10/05/2010 Steroid long-term use [EHS1281] 10/05/2010 08/23/2018 Anemia [D64.9] 12/16/2010 08/23/2018 More... Encounter for long-term (current) use of other *12/03/2011 06/12/2014 SUMMARY [V999.95] 12/20/2011 09/27/2012 More... Neutropenia (HCC) [D70.9] 12/20/2011 06/12/2014 More... PNA (pneumonia) [J18.9] 12/20/2011 06/12/2014 More... Urinary retention vs. urgency [R33.9] 12/20/2011 12/22/2011 More... Abdominal pain [R10.9] 12/20/2011 06/12/2014 More... Back pain [M54.9] 12/20/2011 06/12/2014 More... Skin lesion of left leg [L98.9] 12/21/2011 06/12/2014 More... Adrenal insufficiency (HCC) [E27.40] 12/22/2011 DVT prophylaxis [Z29.9] 12/23/2011 09/27/2012 More... Glomerulitis [N05.9] 07/29/2012 08/23/2018 Flank pain [R10.9] 09/22/2012 09/27/2012 More... Hemoptysis [R04.2] 09/22/2012 06/12/2014 More... Systolic murmur [R01.1] 09/23/2012 More... Lung nodule [R91.1] 09/26/2012 09/27/2012 More... DISPOSITION AND FOLLOW-UP [V999.01] 09/27/2012 09/28/2012 More... Depressive disorder [F32.9] 09/27/2012 08/23/2018 More... SUMMARY [V999.95] 09/27/2012 06/12/2014 More... Lupus disease of the lung [M32.13] 09/28/2012 08/23/2018 Dysphagia [R13.10] 11/07/2012 Cough [R05] 02/20/2013 06/12/2014 Sinusitis, acute [J01.90] 02/20/2013 06/12/2014 Chronic obstructive pulmonary disease (COPD) (H* 08/23/2018 Depressive disorder, not elsewhere classified [* Fracture [T14.8XXA] more content not included)... [facility] 04-09-2020 Note HNO ID: [id number] Author: Yanira Mai Service: ? Author Type: ? Type: Progress Notes Filed: 04/09/2020 9:47 AM Note Text: Patient returned call to office. She may be reached at [phone] Thank you Yanira Mai [facility] 04-09-2020 Note HNO ID: [id number] Author: [facility]aci [facility]En[facility] Health [facility] Service: ? Author Type: [employer] Type: Progress Notes Filed: 04/09/2020 9:36 AM Note Text: ED Follow Up: Patient discharged from [facility] ED on 04/08/20. Left message to call the office. Kaci Stephenson [facility] 04-08-2020 Note HNO ID: [id number] Author: Buddy Parr (Construction Rigger Brendan) BRENDAN Stanley Service: ? Author Type: Nurse Practitioner Type: Progress Notes Filed: 04/08/2020 10:28 AM Note Text: AMBULATORY TELEPHONE VISIT Yuko Gomez has consented to this telephone encounter. Persons Present: patient Chief Complaint/Reason: SOB, covid-19 concern HPI: Pt states she became really sick Sunday with nausea, vomiting, fatigue, sore throat, no smell/taste, breathing labored at rest, SOB, wheezing. Pt does have hx of Lupus, COPD. She does have Albuterol inhaler at home, has not been improving symptoms ( using 2-3 times per day). 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 She is former smoker, quit 11 years ago. While talking to pt on phone breathing is labored. Advised pt to go to ER for further evaluation. She states she will have someone drive her to ER [place]. Data Reviewed: No new labs Assessment: (R06.02) SOB (shortness of breath) (primary encounter diagnosis) (R06.4) Labored breathing Plan: - due to symptoms, labored breathing over phone I advised pt that she needs to go to ER for further workup and assesment. Pt states that she will go to [facility] ER after phone call. I called [place] [facility] and advised them of pt arrival. Pt agreeable to plan. Total Time Spent: 15 minutes Buddy Stanley APRN.[facility] documented as of this encounter (statuses as of 08/03/2021) [facility]10-24-2013 History of Past illness Narrative* Problem Noted Date Resolved Date Cough 02/20/2013 06/12/2014 Sinusitis, acute 02/20/2013 06/12/2014 Lupus disease of the lung 09/28/20122018 DISPOSITION AND FOLLOW-UP 09/27/20122012 Overview: Yuko Lino is single and lives in [place], [place]. At this time, we anticipate that the patient will be discharged home once clinically stable Plan: - Discuss needs with patient. - Collaborate with Case management to facilitate DC process - Will continue to evaluate during the post op period. . Depressive disorder 09/27/2012 08/23/2018 Overview: PMH of depressive disorder. Patient takes Lexapro 10mg daily Plan - resume Lexapro . SUMMARY 09/27/2012 06/12/2014 Overview: 52 year old female with SLE who came in for hemoptysis. Lung nodule 09/26/2012 09/27/2012 Overview: s/p Right VATS lung biopsy of nodules in RUL, RML, RLL. 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 Cr now 1.28 - 09/23: renal US negative - 09/23: pt states flank pain resolved - 09/24: UA 3+ blood, urine csx negative Plan: - pain control Hemoptysis 09/22/2012 06/12/2014 Overview: Right VATS lung biopsy, right VATS wedge resection x3. Plan: - continue Bactrim DS qMWF for PCP prophylaxis - Albuterol/ipratropium nebs prn - Regular diet - f/u bx results . Hemoptysis 09/22/2012 08/23/2018 Overview: Right VATS lung biopsy, right VATS wedge resection x3. Plan: - continue Bactrim DS qMWF for PCP prophylaxis - Albuterol/ipratropium nebs prn - Regular diet - f/u bx results . Glomerulitis 07/29/2012 08/23/2018 DVT prophylaxis 12/23/2011 09/27/2012 Overview: Heparin SC BID Skin lesion of left leg 12/21/2011 06/12/19 15 Overview: 1 cm hyperkeratotic plaque on left elias Derm does not believe this is related to SLE or infection SUMMARY 12/20/2011 09/27/2012 Overview: 51 yo F with recent diagnosis SLE who presents with 3 day hx of hemoptysis. Pt initally presented to OSH, CXR found bilat. Pneumonia, started on levoquin. Recent hx of travel with bilat LE edema. CT chest w/ contrast 09/22 showed no acute PE w/o exclusion of pulm infarct. Neutropenia 12/20/2011 06/12/2014 Overview: WBC count 1.08 on presentation on 12/20/11 Likely secondary to Imuran initiation about 3 weeks ago. Neutropenic precautions for ANC < 500 today. Discussed with Heme; they can see her as an outpatient. Resolved at time of discharge; thought secondary to Imuran. Repeat CBC 1 day after discharge. PNA (pneumonia) 12/20/2011 06/12/2014 Overview: CAP pna Initially treated with ceftriaxone / azithro, now on levofloxacin, as it is less likely to cause leukopenia. Treating for 10-14 days; CXR 4-6 weeks after discharge to document resolution. Urinary retention vs. urgency 12/20/2011 Overview: Bladder scan showed 65 cc of urine Pt voiding currently UA showed hematuria and proteinuria (chronic issue) U Cx NGTD Abdominal pain 12/20/2011 06/12/2014 Overview: Last BM 5 days ago. KUB shows large amount of stool in colon. Improved - Colace, lactulose Resolved at time of discharge. Back pain 12/20/2011 06/12/2014 Overview: Upper back pain/posterior shoulder pain Most likely related to PNA XR spine normal Much improved Neutropenia 12/20/2011 08/23/2018 Overview: WBC count 1.08 on presentation on 12/20/11 Likely secondary to Imuran initiation about 3 weeks ago. Neutropenic precautions for ANC < 500 today. Discussed with Heme; they can see her as an outpatient. Resolved at time of discharge; thought secondary to Imuran. Repeat CBC 1 day after discharge. PNA (pneumonia) 12/20/2011 08/23/2018 Overview: CAP pna Initially treated with ceftriaxone / azithro, now on levofloxacin, as it is less likely to cause leukopenia. Treating for 10-14 days; CXR 4-6 weeks after discharge to document resolution. Anemia 12/16/2010 08/23/2018 Overview: Haptoglobin nl, ferritin high, LDH nl, retic count nl, Kingsley negative - unlikely hemolytic anemia Stable at time of discharge; labs to be rechecked and followed. Steroid long-term use 10/05/2010 08/23/2018 Proteinuria 03/16/2010 08/23/2018 Neutropenia associated with autoimmune disease 1 08/23/2018 Elevated antinuclear antibody (CHANA) level 200806/12/2014 Overview: 04/26/2009 CHANA by EIA: 5.3 (H) Polyarthralgia 04/27/2009 06/12/2014 Overview: CHANA 5.3 on 04/26/09 RF neg on 04/26/09 Depressive disorder, not elsewhere classified 06/12/2014 Chronic obstructive pulmonary disease (COPD) 08/23/2018 Fracture 08/23/2018 documented as of this encounter (statuses as of 08/16/2021) [facility] History of Past illness Narrative* Problem Noted Date Resolved Date Cough 02/20/2013 06/12/2014 Sinusitis, acute 02/20/2013 06/12/2014 Lupus disease of the lung 09/28/20122018 DISPOSITION AND FOLLOW-UP 09/27/20122012 Overview: Yuko Lino is single and lives in [place], [place]. At this time, we anticipate that the patient will be discharged home once clinically stable Plan: - Discuss needs with patient. - Collaborate with Case management to facilitate DC process - Will continue to evaluate during the post op period. . Depressive disorder 09/27/2012 08/23/2018 Overview: PMH of depressive disorder. Patient takes Lexapro 10mg daily Plan - resume Lexapro . SUMMARY 09/27/2012 06/12/2014 Overview: 52 year old female with SLE who came in for hemoptysis. Lung nodule 09/26/2012 09/27/2012 Overview: s/p Right VATS lung biopsy of nodules in RUL, RML, RLL. 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 Cr now 1.28 - 09/23: renal US negative - 09/23: pt states flank pain resolved - 09/24: UA 3+ blood, urine csx negative Plan: - pain control Hemoptysis 09/22/2012 06/12/2014 Overview: Right VATS lung biopsy, right VATS wedge resection x3. Plan: - continue Bactrim DS qMWF for PCP prophylaxis - Albuterol/ipratropium nebs prn - Regular diet - f/u bx results . Hemoptysis 09/22/2012 08/23/2018 Overview: Right VATS lung biopsy, right VATS wedge resection x3. Plan: - continue Bactrim DS qMWF for PCP prophylaxis - Albuterol/ipratropium nebs prn - Regular diet - f/u bx results . Glomerulitis 07/29/2012 08/23/2018 DVT prophylaxis 12/23/2011 09/27/2012 Overview: Heparin SC BID Skin lesion of left leg 12/21/2011 06/12/19 15 Overview: 1 cm hyperkeratotic plaque on left elias Derm does not believe this is related to SLE or infection SUMMARY 12/20/2011 09/27/2012 Overview: 51 yo F with recent diagnosis SLE who presents with 3 day hx of hemoptysis. Pt initally presented to OSH, CXR found bilat. Pneumonia, started on levoquin. Recent hx of travel with bilat LE edema. CT chest w/ contrast 09/22 showed no acute PE w/o exclusion of pulm infarct. Neutropenia 12/20/2011 06/12/2014 Overview: WBC count 1.08 on presentation on 12/20/11 Likely secondary to Imuran initiation about 3 weeks ago. Neutropenic precautions for ANC < 500 today. Discussed with Heme; they can see her as an outpatient. Resolved at time of discharge; thought secondary to Imuran. Repeat CBC 1 day after discharge. PNA (pneumonia) 12/20/2011 06/12/2014 Overview: CAP pna Initially treated with ceftriaxone / azithro, now on levofloxacin, as it is less likely to cause leukopenia. Treating for 10-14 days; CXR 4-6 weeks after discharge to document resolution. Urinary retention vs. urgency 12/20/2011 Overview: Bladder scan showed 65 cc of urine Pt voiding currently UA showed hematuria and proteinuria (chronic issue) U Cx NGTD Abdominal pain 12/20/2011 06/12/2014 Overview: Last BM 5 days ago. KUB shows large amount of stool in colon. Improved - Colace, lactulose Resolved at time of discharge. Back pain 12/20/2011 06/12/2014 Overview: Upper back pain/posterior shoulder pain Most likely related to PNA XR spine normal Much improved Neutropenia 12/20/2011 08/23/2018 Overview: WBC count 1.08 on presentation on 12/20/11 Likely secondary to Imuran initiation about 3 weeks ago. Neutropenic precautions for ANC < 500 today. Discussed with Heme; they can see her as an outpatient. Resolved at time of discharge; thought secondary to Imuran. Repeat CBC 1 day after discharge. PNA (pneumonia) 12/20/2011 08/23/2018 Overview: CAP pna Initially treated with ceftriaxone / azithro, now on levofloxacin, as it is less likely to cause leukopenia. Treating for 10-14 days; CXR 4-6 weeks after discharge to document resolution. Anemia 12/16/2010 08/23/2018 Overview: Haptoglobin nl, ferritin high, LDH nl, retic count nl, Kingsley negative - unlikely hemolytic anemia Stable at time of discharge; labs to be rechecked and followed. Steroid long-term use 10/05/2010 08/23/2018 Proteinuria 03/16/2010 08/23/2018 Neutropenia associated with autoimmune disease 1 08/23/2018 Elevated antinuclear antibody (CHANA) level 200806/12/2014 Overview: 04/26/2009 CHANA by EIA: 5.3 (H) Polyarthralgia 04/27/2009 06/12/2014 Overview: CHANA 5.3 on 04/26/09 RF neg on 04/26/09 Depressive disorder, not elsewhere classified 06/12/2014 Chronic obstructive pulmonary disease (COPD) 08/23/2018 Fracture 08/23/2018 documented as of this encounter (statuses as of 08/31/2021) [facility] History of Past illness Narrative* Problem Noted Date Resolved Date Cough 02/20/2013 06/12/2014 Sinusitis, acute 02/20/2013 06/12/2014 Lupus disease of the lung 09/28/20122018 DISPOSITION AND FOLLOW-UP 09/27/20122012 Overview: Yuko Lino is single and lives in [place], [place]. At this time, we anticipate that the patient will be discharged home once clinically stable Plan: - Discuss needs with patient. - Collaborate with Case management to facilitate DC process - Will continue to evaluate during the post op period. . Depressive disorder 09/27/2012 08/23/2018 Overview: PMH of depressive disorder. Patient takes Lexapro 10mg daily Plan - resume Lexapro . SUMMARY 09/27/2012 06/12/2014 Overview: 52 year old female with SLE who came in for hemoptysis. Lung nodule 09/26/2012 09/27/2012 Overview: s/p Right VATS lung biopsy of nodules in RUL, RML, RLL. 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 Cr now 1.28 - 09/23: renal US negative - 09/23: pt states flank pain resolved - 09/24: UA 3+ blood, urine csx negative Plan: - pain control Hemoptysis 09/22/2012 06/12/2014 Overview: Right VATS lung biopsy, right VATS wedge resection x3. Plan: - continue Bactrim DS qMWF for PCP prophylaxis - Albuterol/ipratropium nebs prn - Regular diet - f/u bx results . Hemoptysis 09/22/2012 08/23/2018 Overview: Right VATS lung biopsy, right VATS wedge resection x3. Plan: - continue Bactrim DS qMWF for PCP prophylaxis - Albuterol/ipratropium nebs prn - Regular diet - f/u bx results . Glomerulitis 07/29/2012 08/23/2018 DVT prophylaxis 12/23/2011 09/27/2012 Overview: Heparin SC BID Skin lesion of left leg 12/21/2011 06/12/19 15 Overview: 1 cm hyperkeratotic plaque on left elias Derm does not believe this is related to SLE or infection SUMMARY 12/20/2011 09/27/2012 Overview: 51 yo F with recent diagnosis SLE who presents with 3 day hx of hemoptysis. Pt initally presented to OSH, CXR found bilat. Pneumonia, started on levoquin. Recent hx of travel with bilat LE edema. CT chest w/ contrast 09/22 showed no acute PE w/o exclusion of pulm infarct. Neutropenia 12/20/2011 06/12/2014 Overview: WBC count 1.08 on presentation on 12/20/11 Likely secondary to Imuran initiation about 3 weeks ago. Neutropenic precautions for ANC < 500 today. Discussed with Heme; they can see her as an outpatient. Resolved at time of discharge; thought secondary to Imuran. Repeat CBC 1 day after discharge. PNA (pneumonia) 12/20/2011 06/12/2014 Overview: CAP pna Initially treated with ceftriaxone / azithro, now on levofloxacin, as it is less likely to cause leukopenia. Treating for 10-14 days; CXR 4-6 weeks after discharge to document resolution. Urinary retention vs. urgency 12/20/2011 Overview: Bladder scan showed 65 cc of urine Pt voiding currently UA showed hematuria and proteinuria (chronic issue) U Cx NGTD Abdominal pain 12/20/2011 06/12/2014 Overview: Last BM 5 days ago. KUB shows large amount of stool in colon. Improved - Colace, lactulose Resolved at time of discharge. Back pain 12/20/2011 06/12/2014 Overview: Upper back pain/posterior shoulder pain Most likely related to PNA XR spine normal Much improved Neutropenia 12/20/2011 08/23/2018 Overview: WBC count 1.08 on presentation on 12/20/11 Likely secondary to Imuran initiation about 3 weeks ago. Neutropenic precautions for ANC < 500 today. Discussed with Heme; they can see her as an outpatient. Resolved at time of discharge; thought secondary to Imuran. Repeat CBC 1 day after discharge. PNA (pneumonia) 12/20/2011 08/23/2018 Overview: CAP pna Initially treated with ceftriaxone / azithro, now on levofloxacin, as it is less likely to cause leukopenia. Treating for 10-14 days; CXR 4-6 weeks after discharge to document resolution. Anemia 12/16/2010 08/23/2018 Overview: Haptoglobin nl, ferritin high, LDH nl, retic count nl, Kingsley negative - unlikely hemolytic anemia Stable at time of discharge; labs to be rechecked and followed. Steroid long-term use 10/05/2010 08/23/2018 Proteinuria 03/16/2010 08/23/2018 Neutropenia associated with autoimmune disease 1 08/23/2018 Elevated antinuclear antibody (CHANA) level 200806/12/2014 Overview: 04/26/2009 CHANA by EIA: 5.3 (H) Polyarthralgia 04/27/2009 06/12/2014 Overview: CHANA 5.3 on 04/26/09 RF neg on 04/26/09 Depressive disorder, not elsewhere classified 06/12/2014 Chronic obstructive pulmonary disease (COPD) 08/23/2018 Fracture 08/23/2018 documented as of this encounter (statuses as of 08/31/2021) [facility] History of Past illness Narrative* Problem Noted Date Resolved Date Cough 02/20/2013 06/12/2014 Sinusitis, acute 02/20/2013 06/12/2014 Lupus disease of the lung 09/28/20122018 DISPOSITION AND FOLLOW-UP 09/27/20122012 Overview: Yuko Lino is single and lives in [place], [place]. At this time, we anticipate that the patient will be discharged home once clinically stable Plan: - Discuss needs with patient. - Collaborate with Case management to facilitate DC process - Will continue to evaluate during the post op period. . Depressive disorder 09/27/2012 08/23/2018 Overview: PMH of depressive disorder. Patient takes Lexapro 10mg daily Plan - resume Lexapro . SUMMARY 09/27/2012 06/12/2014 Overview: 52 year old female with SLE who came in for hemoptysis. Lung nodule 09/26/2012 09/27/2012 Overview: s/p Right VATS lung biopsy of nodules in RUL, RML, RLL. 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 Cr now 1.28 - 09/23: renal US negative - 09/23: pt states flank pain resolved - 09/24: UA 3+ blood, urine csx negative Plan: - pain control Hemoptysis 09/22/2012 06/12/2014 Overview: Right VATS lung biopsy, right VATS wedge resection x3. Plan: - continue Bactrim DS qMWF for PCP prophylaxis - Albuterol/ipratropium nebs prn - Regular diet - f/u bx results . Hemoptysis 09/22/2012 08/23/2018 Overview: Right VATS lung biopsy, right VATS wedge resection x3. Plan: - continue Bactrim DS qMWF for PCP prophylaxis - Albuterol/ipratropium nebs prn - Regular diet - f/u bx results . Glomerulitis 07/29/2012 08/23/2018 DVT prophylaxis 12/23/2011 09/27/2012 Overview: Heparin SC BID Skin lesion of left leg 12/21/2011 06/12/19 15 Overview: 1 cm hyperkeratotic plaque on left elias Derm does not believe this is related to SLE or infection SUMMARY 12/20/2011 09/27/2012 Overview: 51 yo F with recent diagnosis SLE who presents with 3 day hx of hemoptysis. Pt initally presented to OSH, CXR found bilat. Pneumonia, started on levoquin. Recent hx of travel with bilat LE edema. CT chest w/ contrast 09/22 showed no acute PE w/o exclusion of pulm infarct. Neutropenia 12/20/2011 06/12/2014 Overview: WBC count 1.08 on presentation on 12/20/11 Likely secondary to Imuran initiation about 3 weeks ago. Neutropenic precautions for ANC < 500 today. Discussed with Heme; they can see her as an outpatient. Resolved at time of discharge; thought secondary to Imuran. Repeat CBC 1 day after discharge. PNA (pneumonia) 12/20/2011 06/12/2014 Overview: CAP pna Initially treated with ceftriaxone / azithro, now on levofloxacin, as it is less likely to cause leukopenia. Treating for 10-14 days; CXR 4-6 weeks after discharge to document resolution. Urinary retention vs. urgency 12/20/2011 Overview: Bladder scan showed 65 cc of urine Pt voiding currently UA showed hematuria and proteinuria (chronic issue) U Cx NGTD Abdominal pain 12/20/2011 06/12/2014 Overview: Last BM 5 days ago. KUB shows large amount of stool in colon. Improved - Colace, lactulose Resolved at time of discharge. Back pain 12/20/2011 06/12/2014 Overview: Upper back pain/posterior shoulder pain Most likely related to PNA XR spine normal Much improved Neutropenia 12/20/2011 08/23/2018 Overview: WBC count 1.08 on presentation on 12/20/11 Likely secondary to Imuran initiation about 3 weeks ago. Neutropenic precautions for ANC < 500 today. Discussed with Heme; they can see her as an outpatient. Resolved at time of discharge; thought secondary to Imuran. Repeat CBC 1 day after discharge. PNA (pneumonia) 12/20/2011 08/23/2018 Overview: CAP pna Initially treated with ceftriaxone / azithro, now on levofloxacin, as it is less likely to cause leukopenia. Treating for 10-14 days; CXR 4-6 weeks after discharge to document resolution. Anemia 12/16/2010 08/23/2018 Overview: Haptoglobin nl, ferritin high, LDH nl, retic count nl, Kingsley negative - unlikely hemolytic anemia Stable at time of discharge; labs to be rechecked and followed. Steroid long-term use 10/05/2010 08/23/2018 Proteinuria 03/16/2010 08/23/2018 Neutropenia associated with autoimmune disease 1 08/23/2018 Elevated antinuclear antibody (CHANA) level 200806/12/2014 Overview: 04/26/2009 CHANA by EIA: 5.3 (H) Polyarthralgia 04/27/2009 06/12/2014 Overview: CHANA 5.3 on 04/26/09 RF neg on 04/26/09 Depressive disorder, not elsewhere classified 06/12/2014 Chronic obstructive pulmonary disease (COPD) 08/23/2018 Fracture 08/23/2018 documented as of this encounter (statuses as of 09/02/2021) [facility] History of Past illness Narrative* Problem Noted Date Resolved Date Cough 02/20/2013 06/12/2014 Sinusitis, acute 02/20/2013 06/12/2014 Lupus disease of the lung 09/28/20122018 DISPOSITION AND FOLLOW-UP 09/27/20122012 Overview: Yuko Lino is single and lives in [place], [place]. At this time, we anticipate that the patient will be discharged home once clinically stable Plan: - Discuss needs with patient. - Collaborate with Case management to facilitate DC process - Will continue to evaluate during the post op period. . Depressive disorder 09/27/2012 08/23/2018 Overview: PMH of depressive disorder. Patient takes Lexapro 10mg daily Plan - resume Lexapro . SUMMARY 09/27/2012 06/12/2014 Overview: 52 year old female with SLE who came in for hemoptysis. Lung nodule 09/26/2012 09/27/2012 Overview: s/p Right VATS lung biopsy of nodules in RUL, RML, RLL. 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 Cr now 1.28 - 09/23: renal US negative - 09/23: pt states flank pain resolved - 09/24: UA 3+ blood, urine csx negative Plan: - pain control Hemoptysis 09/22/2012 06/12/2014 Overview: Right VATS lung biopsy, right VATS wedge resection x3. Plan: - continue Bactrim DS qMWF for PCP prophylaxis - Albuterol/ipratropium nebs prn - Regular diet - f/u bx results . Hemoptysis 09/22/2012 08/23/2018 Overview: Right VATS lung biopsy, right VATS wedge resection x3. Plan: - continue Bactrim DS qMWF for PCP prophylaxis - Albuterol/ipratropium nebs prn - Regular diet - f/u bx results . Glomerulitis 07/29/2012 08/23/2018 DVT prophylaxis 12/23/2011 09/27/2012 Overview: Heparin SC BID Skin lesion of left leg 12/21/2011 06/12/19 15 Overview: 1 cm hyperkeratotic plaque on left elias Derm does not believe this is related to SLE or infection SUMMARY 12/20/2011 09/27/2012 Overview: 51 yo F with recent diagnosis SLE who presents with 3 day hx of hemoptysis. Pt initally presented to OSH, CXR found bilat. Pneumonia, started on levoquin. Recent hx of travel with bilat LE edema. CT chest w/ contrast 09/22 showed no acute PE w/o exclusion of pulm infarct. Neutropenia 12/20/2011 06/12/2014 Overview: WBC count 1.08 on presentation on 12/20/11 Likely secondary to Imuran initiation about 3 weeks ago. Neutropenic precautions for ANC < 500 today. Discussed with Heme; they can see her as an outpatient. Resolved at time of discharge; thought secondary to Imuran. Repeat CBC 1 day after discharge. PNA (pneumonia) 12/20/2011 06/12/2014 Overview: CAP pna Initially treated with ceftriaxone / azithro, now on levofloxacin, as it is less likely to cause leukopenia. Treating for 10-14 days; CXR 4-6 weeks after discharge to document resolution. Urinary retention vs. urgency 12/20/2011 Overview: Bladder scan showed 65 cc of urine Pt voiding currently UA showed hematuria and proteinuria (chronic issue) U Cx NGTD Abdominal pain 12/20/2011 06/12/2014 Overview: Last BM 5 days ago. KUB shows large amount of stool in colon. Improved - Colace, lactulose Resolved at time of discharge. Back pain 12/20/2011 06/12/2014 Overview: Upper back pain/posterior shoulder pain Most likely related to PNA XR spine normal Much improved Neutropenia 12/20/2011 08/23/2018 Overview: WBC count 1.08 on presentation on 12/20/11 Likely secondary to Imuran initiation about 3 weeks ago. Neutropenic precautions for ANC < 500 today. Discussed with Heme; they can see her as an outpatient. Resolved at time of discharge; thought secondary to Imuran. Repeat CBC 1 day after discharge. PNA (pneumonia) 12/20/2011 08/23/2018 Overview: CAP pna Initially treated with ceftriaxone / azithro, now on levofloxacin, as it is less likely to cause leukopenia. Treating for 10-14 days; CXR 4-6 weeks after discharge to document resolution. Anemia 12/16/2010 08/23/2018 Overview: Haptoglobin nl, ferritin high, LDH nl, retic count nl, Kingsley negative - unlikely hemolytic anemia Stable at time of discharge; labs to be rechecked and followed. Steroid long-term use 10/05/2010 08/23/2018 Proteinuria 03/16/2010 08/23/2018 Neutropenia associated with autoimmune disease 1 08/23/2018 Elevated antinuclear antibody (CHANA) level 200806/12/2014 Overview: 04/26/2009 CHANA by EIA: 5.3 (H) Polyarthralgia 04/27/2009 06/12/2014 Overview: CHANA 5.3 on 04/26/09 RF neg on 04/26/09 Depressive disorder, not elsewhere classified 06/12/2014 Chronic obstructive pulmonary disease (COPD) 08/23/2018 Fracture 08/23/2018 documented as of this encounter (statuses as of 09/29/2021) [facility]10-24-2013 History of Past illness Narrative* Problem Noted Date Resolved Date Cough 02/20/2013 06/12/2014 Sinusitis, acute 02/20/2013 06/12/2014 Lupus disease of the lung 09/28/20122018 DISPOSITION AND FOLLOW-UP 09/27/20122012 Overview: Yuko Lino is single and lives in [place], [place]. At this time, we anticipate that the patient will be discharged home once clinically stable Plan: - Discuss needs with patient. - Collaborate with Case management to facilitate DC process - Will continue to evaluate during the post op period. . Depressive disorder 09/27/2012 08/23/2018 Overview: PMH of depressive disorder. Patient takes Lexapro 10mg daily Plan - resume Lexapro . SUMMARY 09/27/2012 06/12/2014 Overview: 52 year old female with SLE who came in for hemoptysis. Lung nodule 09/26/2012 09/27/2012 Overview: s/p Right VATS lung biopsy of nodules in RUL, RML, RLL. 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 Cr now 1.28 - 09/23: renal US negative - 09/23: pt states flank pain resolved - 09/24: UA 3+ blood, urine csx negative Plan: - pain control Hemoptysis 09/22/2012 06/12/2014 Overview: Right VATS lung biopsy, right VATS wedge resection x3. Plan: - continue Bactrim DS qMWF for PCP prophylaxis - Albuterol/ipratropium nebs prn - Regular diet - f/u bx results . Hemoptysis 09/22/2012 08/23/2018 Overview: Right VATS lung biopsy, right VATS wedge resection x3. Plan: - continue Bactrim DS qMWF for PCP prophylaxis - Albuterol/ipratropium nebs prn - Regular diet - f/u bx results . Glomerulitis 07/29/2012 08/23/2018 DVT prophylaxis 12/23/2011 09/27/2012 Overview: Heparin SC BID Skin lesion of left leg 12/21/2011 06/12/19 15 Overview: 1 cm hyperkeratotic plaque on left elias Derm does not believe this is related to SLE or infection SUMMARY 12/20/2011 09/27/2012 Overview: 51 yo F with recent diagnosis SLE who presents with 3 day hx of hemoptysis. Pt initally presented to OSH, CXR found bilat. Pneumonia, started on levoquin. Recent hx of travel with bilat LE edema. CT chest w/ contrast 09/22 showed no acute PE w/o exclusion of pulm infarct. Neutropenia 12/20/2011 06/12/2014 Overview: WBC count 1.08 on presentation on 12/20/11 Likely secondary to Imuran initiation about 3 weeks ago. Neutropenic precautions for ANC < 500 today. Discussed with Heme; they can see her as an outpatient. Resolved at time of discharge; thought secondary to Imuran. Repeat CBC 1 day after discharge. PNA (pneumonia) 12/20/2011 06/12/2014 Overview: CAP pna Initially treated with ceftriaxone / azithro, now on levofloxacin, as it is less likely to cause leukopenia. Treating for 10-14 days; CXR 4-6 weeks after discharge to document resolution. Urinary retention vs. urgency 12/20/2011 Overview: Bladder scan showed 65 cc of urine Pt voiding currently UA showed hematuria and proteinuria (chronic issue) U Cx NGTD Abdominal pain 12/20/2011 06/12/2014 Overview: Last BM 5 days ago. KUB shows large amount of stool in colon. Improved - Colace, lactulose Resolved at time of discharge. Back pain 12/20/2011 06/12/2014 Overview: Upper back pain/posterior shoulder pain Most likely related to PNA XR spine normal Much improved Neutropenia 12/20/2011 08/23/2018 Overview: WBC count 1.08 on presentation on 12/20/11 Likely secondary to Imuran initiation about 3 weeks ago. Neutropenic precautions for ANC < 500 today. Discussed with Heme; they can see her as an outpatient. Resolved at time of discharge; thought secondary to Imuran. Repeat CBC 1 day after discharge. PNA (pneumonia) 12/20/2011 08/23/2018 Overview: CAP pna Initially treated with ceftriaxone / azithro, now on levofloxacin, as it is less likely to cause leukopenia. Treating for 10-14 days; CXR 4-6 weeks after discharge to document resolution. Anemia 12/16/2010 08/23/2018 Overview: Haptoglobin nl, ferritin high, LDH nl, retic count nl, Kingsley negative - unlikely hemolytic anemia Stable at time of discharge; labs to be rechecked and followed. Steroid long-term use 10/05/2010 08/23/2018 Proteinuria 03/16/2010 08/23/2018 Neutropenia associated with autoimmune disease 1 08/23/2018 Elevated antinuclear antibody (CHANA) level 200806/12/2014 Overview: 04/26/2009 CHANA by EIA: 5.3 (H) Polyarthralgia 04/27/2009 06/12/2014 Overview: CHANA 5.3 on 04/26/09 RF neg on 04/26/09 Depressive disorder, not elsewhere classified 06/12/2014 Chronic obstructive pulmonary disease (COPD) 08/23/2018 Fracture 08/23/2018 documented as of this encounter (statuses as of 09/30/2021) [facility]10-24-2013 History of Past illness Narrative* Problem Noted Date Resolved Date Cough 02/20/2013 06/12/2014 Sinusitis, acute 02/20/2013 06/12/2014 Lupus disease of the lung 09/28/20122018 DISPOSITION AND FOLLOW-UP 09/27/20122012 Overview: Yuko Lino is single and lives in [place], [place]. At this time, we anticipate that the patient will be discharged home once clinically stable Plan: - Discuss needs with patient. - Collaborate with Case management to facilitate DC process - Will continue to evaluate during the post op period. . Depressive disorder 09/27/2012 08/23/2018 Overview: PMH of depressive disorder. Patient takes Lexapro 10mg daily Plan - resume Lexapro . SUMMARY 09/27/2012 06/12/2014 Overview: 52 year old female with SLE who came in for hemoptysis. Lung nodule 09/26/2012 09/27/2012 Overview: s/p Right VATS lung biopsy of nodules in RUL, RML, RLL. 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 Cr now 1.28 - 09/23: renal US negative - 09/23: pt states flank pain resolved - 09/24: UA 3+ blood, urine csx negative Plan: - pain control Hemoptysis 09/22/2012 06/12/2014 Overview: Right VATS lung biopsy, right VATS wedge resection x3. Plan: - continue Bactrim DS qMWF for PCP prophylaxis - Albuterol/ipratropium nebs prn - Regular diet - f/u bx results . Hemoptysis 09/22/2012 08/23/2018 Overview: Right VATS lung biopsy, right VATS wedge resection x3. Plan: - continue Bactrim DS qMWF for PCP prophylaxis - Albuterol/ipratropium nebs prn - Regular diet - f/u bx results . Glomerulitis 07/29/2012 08/23/2018 DVT prophylaxis 12/23/2011 09/27/2012 Overview: Heparin SC BID Skin lesion of left leg 12/21/2011 06/12/19 15 Overview: 1 cm hyperkeratotic plaque on left elias Derm does not believe this is related to SLE or infection SUMMARY 12/20/2011 09/27/2012 Overview: 51 yo F with recent diagnosis SLE who presents with 3 day hx of hemoptysis. Pt initally presented to OSH, CXR found bilat. Pneumonia, started on levoquin. Recent hx of travel with bilat LE edema. CT chest w/ contrast 09/22 showed no acute PE w/o exclusion of pulm infarct. Neutropenia 12/20/2011 06/12/2014 Overview: WBC count 1.08 on presentation on 12/20/11 Likely secondary to Imuran initiation about 3 weeks ago. Neutropenic precautions for ANC < 500 today. Discussed with Heme; they can see her as an outpatient. Resolved at time of discharge; thought secondary to Imuran. Repeat CBC 1 day after discharge. PNA (pneumonia) 12/20/2011 06/12/2014 Overview: CAP pna Initially treated with ceftriaxone / azithro, now on levofloxacin, as it is less likely to cause leukopenia. Treating for 10-14 days; CXR 4-6 weeks after discharge to document resolution. Urinary retention vs. urgency 12/20/2011 Overview: Bladder scan showed 65 cc of urine Pt voiding currently UA showed hematuria and proteinuria (chronic issue) U Cx NGTD Abdominal pain 12/20/2011 06/12/2014 Overview: Last BM 5 days ago. KUB shows large amount of stool in colon. Improved - Colace, lactulose Resolved at time of discharge. Back pain 12/20/2011 06/12/2014 Overview: Upper back pain/posterior shoulder pain Most likely related to PNA XR spine normal Much improved Neutropenia 12/20/2011 08/23/2018 Overview: WBC count 1.08 on presentation on 12/20/11 Likely secondary to Imuran initiation about 3 weeks ago. Neutropenic precautions for ANC < 500 today. Discussed with Heme; they can see her as an outpatient. Resolved at time of discharge; thought secondary to Imuran. Repeat CBC 1 day after discharge. PNA (pneumonia) 12/20/2011 08/23/2018 Overview: CAP pna Initially treated with ceftriaxone / azithro, now on levofloxacin, as it is less likely to cause leukopenia. Treating for 10-14 days; CXR 4-6 weeks after discharge to document resolution. Anemia 12/16/2010 08/23/2018 Overview: Haptoglobin nl, ferritin high, LDH nl, retic count nl, Kingsley negative - unlikely hemolytic anemia Stable at time of discharge; labs to be rechecked and followed. Steroid long-term use 10/05/2010 08/23/2018 Proteinuria 03/16/2010 08/23/2018 Neutropenia associated with autoimmune disease 1 08/23/2018 Elevated antinuclear antibody (CHANA) level 200806/12/2014 Overview: 04/26/2009 CHANA by EIA: 5.3 (H) Polyarthralgia 04/27/2009 06/12/2014 Overview: CHANA 5.3 on 04/26/09 RF neg on 04/26/09 Depressive disorder, not elsewhere classified 06/12/2014 Chronic obstructive pulmonary disease (COPD) 08/23/2018 Fracture 08/23/2018 documented as of this encounter (statuses as of 10/05/2021) [facility]10[facility] History of Past illness Narrative* Problem Noted Date Resolved Date Cough 02/20/2013 06/12/2014 Sinusitis, acute 02/20/2013 06/12/2014 Lupus disease of the lung 09/28/20122018 DISPOSITION AND FOLLOW-UP 09/27/20122012 Overview: Yuko Lino is single and lives in [place], [place]. At this time, we anticipate that the patient will be discharged home once clinically stable Plan: - Discuss needs with patient. - Collaborate with Case management to facilitate DC process - Will continue to evaluate during the post op period. . Depressive disorder 09/27/2012 08/23/2018 Overview: PMH of depressive disorder. Patient takes Lexapro 10mg daily Plan - resume Lexapro . SUMMARY 09/27/2012 06/12/2014 Overview: 52 year old female with SLE who came in for hemoptysis. Lung nodule 09/26/2012 09/27/2012 Overview: s/p Right VATS lung biopsy of nodules in RUL, RML, RLL. 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 Cr now 1.28 - 09/23: renal US negative - 09/23: pt states flank pain resolved - 09/24: UA 3+ blood, urine csx negative Plan: - pain control Hemoptysis 09/22/2012 06/12/2014 Overview: Right VATS lung biopsy, right VATS wedge resection x3. Plan: - continue Bactrim DS qMWF for PCP prophylaxis - Albuterol/ipratropium nebs prn - Regular diet - f/u bx results . Hemoptysis 09/22/2012 08/23/2018 Overview: Right VATS lung biopsy, right VATS wedge resection x3. Plan: - continue Bactrim DS qMWF for PCP prophylaxis - Albuterol/ipratropium nebs prn - Regular diet - f/u bx results . Glomerulitis 07/29/2012 08/23/2018 DVT prophylaxis 12/23/2011 09/27/2012 Overview: Heparin SC BID Skin lesion of left leg 12/21/2011 06/12/19 15 Overview: 1 cm hyperkeratotic plaque on left elias Derm does not believe this is related to SLE or infection SUMMARY 12/20/2011 09/27/2012 Overview: 51 yo F with recent diagnosis SLE who presents with 3 day hx of hemoptysis. Pt initally presented to OSH, CXR found bilat. Pneumonia, started on levoquin. Recent hx of travel with bilat LE edema. CT chest w/ contrast 09/22 showed no acute PE w/o exclusion of pulm infarct. Neutropenia 12/20/2011 06/12/2014 Overview: WBC count 1.08 on presentation on 12/20/11 Likely secondary to Imuran initiation about 3 weeks ago. Neutropenic precautions for ANC < 500 today. Discussed with Heme; they can see her as an outpatient. Resolved at time of discharge; thought secondary to Imuran. Repeat CBC 1 day after discharge. PNA (pneumonia) 12/20/2011 06/12/2014 Overview: CAP pna Initially treated with ceftriaxone / azithro, now on levofloxacin, as it is less likely to cause leukopenia. Treating for 10-14 days; CXR 4-6 weeks after discharge to document resolution. Urinary retention vs. urgency 12/20/2011 Overview: Bladder scan showed 65 cc of urine Pt voiding currently UA showed hematuria and proteinuria (chronic issue) U Cx NGTD Abdominal pain 12/20/2011 06/12/2014 Overview: Last BM 5 days ago. KUB shows large amount of stool in colon. Improved - Colace, lactulose Resolved at time of discharge. Back pain 12/20/2011 06/12/2014 Overview: Upper back pain/posterior shoulder pain Most likely related to PNA XR spine normal Much improved Neutropenia 12/20/2011 08/23/2018 Overview: WBC count 1.08 on presentation on 12/20/11 Likely secondary to Imuran initiation about 3 weeks ago. Neutropenic precautions for ANC < 500 today. Discussed with Heme; they can see her as an outpatient. Resolved at time of discharge; thought secondary to Imuran. Repeat CBC 1 day after discharge. PNA (pneumonia) 12/20/2011 08/23/2018 Overview: CAP pna Initially treated with ceftriaxone / azithro, now on levofloxacin, as it is less likely to cause leukopenia. Treating for 10-14 days; CXR 4-6 weeks after discharge to document resolution. Anemia 12/16/2010 08/23/2018 Overview: Haptoglobin nl, ferritin high, LDH nl, retic count nl, Kingsley negative - unlikely hemolytic anemia Stable at time of discharge; labs to be rechecked and followed. Steroid long-term use 10/05/2010 08/23/2018 Proteinuria 03/16/2010 08/23/2018 Neutropenia associated with autoimmune disease 1 08/23/2018 Elevated antinuclear antibody (CHANA) level 200806/12/2014 Overview: 04/26/2009 CHANA by EIA: 5.3 (H) Polyarthralgia 04/27/2009 06/12/2014 Overview: CHANA 5.3 on 04/26/09 RF neg on 04/26/09 Depressive disorder, not elsewhere classified 06/12/2014 Chronic obstructive pulmonary disease (COPD) 08/23/2018 Fracture 08/23/2018 documented as of this encounter (statuses as of 10/12/2021) [facility] History of Past illness Narrative* Problem Noted Date Resolved Date Cough 02/20/2013 06/12/2014 Sinusitis, acute 02/20/2013 06/12/2014 Lupus disease of the lung 09/28/20122018 DISPOSITION AND FOLLOW-UP 09/27/20122012 Overview: Yuko Lino is single and lives in [place], [place]. At this time, we anticipate that the patient will be discharged home once clinically stable Plan: - Discuss needs with patient. - Collaborate with Case management to facilitate DC process - Will continue to evaluate during the post op period. . Depressive disorder 09/27/2012 08/23/2018 Overview: PMH of depressive disorder. Patient takes Lexapro 10mg daily Plan - resume Lexapro . SUMMARY 09/27/2012 06/12/2014 Overview: 52 year old female with SLE who came in for hemoptysis. Lung nodule 09/26/2012 09/27/2012 Overview: s/p Right VATS lung biopsy of nodules in RUL, RML, RLL. 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 Cr now 1.28 - 09/23: renal US negative - 09/23: pt states flank pain resolved - 09/24: UA 3+ blood, urine csx negative Plan: - pain control Hemoptysis 09/22/2012 06/12/2014 Overview: Right VATS lung biopsy, right VATS wedge resection x3. Plan: - continue Bactrim DS qMWF for PCP prophylaxis - Albuterol/ipratropium nebs prn - Regular diet - f/u bx results . Hemoptysis 09/22/2012 08/23/2018 Overview: Right VATS lung biopsy, right VATS wedge resection x3. Plan: - continue Bactrim DS qMWF for PCP prophylaxis - Albuterol/ipratropium nebs prn - Regular diet - f/u bx results . Glomerulitis 07/29/2012 08/23/2018 DVT prophylaxis 12/23/2011 09/27/2012 Overview: Heparin SC BID Skin lesion of left leg 12/21/2011 06/12/19 15 Overview: 1 cm hyperkeratotic plaque on left elias Derm does not believe this is related to SLE or infection SUMMARY 12/20/2011 09/27/2012 Overview: 51 yo F with recent diagnosis SLE who presents with 3 day hx of hemoptysis. Pt initally presented to OSH, CXR found bilat. Pneumonia, started on levoquin. Recent hx of travel with bilat LE edema. CT chest w/ contrast 09/22 showed no acute PE w/o exclusion of pulm infarct. Neutropenia 12/20/2011 06/12/2014 Overview: WBC count 1.08 on presentation on 12/20/11 Likely secondary to Imuran initiation about 3 weeks ago. Neutropenic precautions for ANC < 500 today. Discussed with Heme; they can see her as an outpatient. Resolved at time of discharge; thought secondary to Imuran. Repeat CBC 1 day after discharge. PNA (pneumonia) 12/20/2011 06/12/2014 Overview: CAP pna Initially treated with ceftriaxone / azithro, now on levofloxacin, as it is less likely to cause leukopenia. Treating for 10-14 days; CXR 4-6 weeks after discharge to document resolution. Urinary retention vs. urgency 12/20/2011 Overview: Bladder scan showed 65 cc of urine Pt voiding currently UA showed hematuria and proteinuria (chronic issue) U Cx NGTD Abdominal pain 12/20/2011 06/12/2014 Overview: Last BM 5 days ago. KUB shows large amount of stool in colon. Improved - Colace, lactulose Resolved at time of discharge. Back pain 12/20/2011 06/12/2014 Overview: Upper back pain/posterior shoulder pain Most likely related to PNA XR spine normal Much improved Neutropenia 12/20/2011 08/23/2018 Overview: WBC count 1.08 on presentation on 12/20/11 Likely secondary to Imuran initiation about 3 weeks ago. Neutropenic precautions for ANC < 500 today. Discussed with Heme; they can see her as an outpatient. Resolved at time of discharge; thought secondary to Imuran. Repeat CBC 1 day after discharge. PNA (pneumonia) 12/20/2011 08/23/2018 Overview: CAP pna Initially treated with ceftriaxone / azithro, now on levofloxacin, as it is less likely to cause leukopenia. Treating for 10-14 days; CXR 4-6 weeks after discharge to document resolution. Anemia 12/16/2010 08/23/2018 Overview: Haptoglobin nl, ferritin high, LDH nl, retic count nl, Kingsley negative - unlikely hemolytic anemia Stable at time of discharge; labs to be rechecked and followed. Steroid long-term use 10/05/2010 08/23/2018 Proteinuria 03/16/2010 08/23/2018 Neutropenia associated with autoimmune disease 1 08/23/2018 Elevated antinuclear antibody (CHANA) level 200806/12/2014 Overview: 04/26/2009 CHANA by EIA: 5.3 (H) Polyarthralgia 04/27/2009 06/12/2014 Overview: CHANA 5.3 on 04/26/09 RF neg on 04/26/09 Depressive disorder, not elsewhere classified 06/12/2014 Chronic obstructive pulmonary disease (COPD) 08/23/2018 Fracture 08/23/2018 documented as of this encounter (statuses as of 10/12/2021) [facility] History of Past illness Narrative* Problem Noted Date Resolved Date Cough 02/20/2013 06/12/2014 Sinusitis, acute 02/20/2013 06/12/2014 Lupus disease of the lung 09/28/20122018 DISPOSITION AND FOLLOW-UP 09/27/20122012 Overview: Yuko Lino is single and lives in [place], [place]. At this time, we anticipate that the patient will be discharged home once clinically stable Plan: - Discuss needs with patient. - Collaborate with Case management to facilitate DC process - Will continue to evaluate during the post op period. . Depressive disorder 09/27/2012 08/23/2018 Overview: PMH of depressive disorder. Patient takes Lexapro 10mg daily Plan - resume Lexapro . SUMMARY 09/27/2012 06/12/2014 Overview: 52 year old female with SLE who came in for hemoptysis. Lung nodule 09/26/2012 09/27/2012 Overview: s/p Right VATS lung biopsy of nodules in RUL, RML, RLL. 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 Cr now 1.28 - 09/23: renal US negative - 09/23: pt states flank pain resolved - 09/24: UA 3+ blood, urine csx negative Plan: - pain control Hemoptysis 09/22/2012 06/12/2014 Overview: Right VATS lung biopsy, right VATS wedge resection x3. Plan: - continue Bactrim DS qMWF for PCP prophylaxis - Albuterol/ipratropium nebs prn - Regular diet - f/u bx results . Hemoptysis 09/22/2012 08/23/2018 Overview: Right VATS lung biopsy, right VATS wedge resection x3. Plan: - continue Bactrim DS qMWF for PCP prophylaxis - Albuterol/ipratropium nebs prn - Regular diet - f/u bx results . Glomerulitis 07/29/2012 08/23/2018 DVT prophylaxis 12/23/2011 09/27/2012 Overview: Heparin SC BID Skin lesion of left leg 12/21/2011 06/12/19 15 Overview: 1 cm hyperkeratotic plaque on left elias Derm does not believe this is related to SLE or infection SUMMARY 12/20/2011 09/27/2012 Overview: 51 yo F with recent diagnosis SLE who presents with 3 day hx of hemoptysis. Pt initally presented to OSH, CXR found bilat. Pneumonia, started on levoquin. Recent hx of travel with bilat LE edema. CT chest w/ contrast 09/22 showed no acute PE w/o exclusion of pulm infarct. Neutropenia 12/20/2011 06/12/2014 Overview: WBC count 1.08 on presentation on 12/20/11 Likely secondary to Imuran initiation about 3 weeks ago. Neutropenic precautions for ANC < 500 today. Discussed with Heme; they can see her as an outpatient. Resolved at time of discharge; thought secondary to Imuran. Repeat CBC 1 day after discharge. PNA (pneumonia) 12/20/2011 06/12/2014 Overview: CAP pna Initially treated with ceftriaxone / azithro, now on levofloxacin, as it is less likely to cause leukopenia. Treating for 10-14 days; CXR 4-6 weeks after discharge to document resolution. Urinary retention vs. urgency 12/20/2011 Overview: Bladder scan showed 65 cc of urine Pt voiding currently UA showed hematuria and proteinuria (chronic issue) U Cx NGTD Abdominal pain 12/20/2011 06/12/2014 Overview: Last BM 5 days ago. KUB shows large amount of stool in colon. Improved - Colace, lactulose Resolved at time of discharge. Back pain 12/20/2011 06/12/2014 Overview: Upper back pain/posterior shoulder pain Most likely related to PNA XR spine normal Much improved Neutropenia 12/20/2011 08/23/2018 Overview: WBC count 1.08 on presentation on 12/20/11 Likely secondary to Imuran initiation about 3 weeks ago. Neutropenic precautions for ANC < 500 today. Discussed with Heme; they can see her as an outpatient. Resolved at time of discharge; thought secondary to Imuran. Repeat CBC 1 day after discharge. PNA (pneumonia) 12/20/2011 08/23/2018 Overview: CAP pna Initially treated with ceftriaxone / azithro, now on levofloxacin, as it is less likely to cause leukopenia. Treating for 10-14 days; CXR 4-6 weeks after discharge to document resolution. Anemia 12/16/2010 08/23/2018 Overview: Haptoglobin nl, ferritin high, LDH nl, retic count nl, Kingsley negative - unlikely hemolytic anemia Stable at time of discharge; labs to be rechecked and followed. Steroid long-term use 10/05/2010 08/23/2018 Proteinuria 03/16/2010 08/23/2018 Neutropenia associated with autoimmune disease 1 08/23/2018 Elevated antinuclear antibody (CHANA) level 200806/12/2014 Overview: 04/26/2009 CHANA by EIA: 5.3 (H) Polyarthralgia 04/27/2009 06/12/2014 Overview: CHANA 5.3 on 04/26/09 RF neg on 04/26/09 Depressive disorder, not elsewhere classified 06/12/2014 Chronic obstructive pulmonary disease (COPD) 08/23/2018 Fracture 08/23/2018 documented as of this encounter (statuses as of 10/27/2021) [facility]10-24-2013 History of Past illness Narrative* Problem Noted Date Resolved Date Cough 02/20/2013 06/12/2014 Sinusitis, acute 02/20/2013 06/12/2014 Lupus disease of the lung 09/28/20122018 DISPOSITION AND FOLLOW-UP 09/27/20122012 Overview: Yuko Lino is single and lives in [place], [place]. At this time, we anticipate that the patient will be discharged home once clinically stable Plan: - Discuss needs with patient. - Collaborate with Case management to facilitate DC process - Will continue to evaluate during the post op period. . Depressive disorder 09/27/2012 08/23/2018 Overview: PMH of depressive disorder. Patient takes Lexapro 10mg daily Plan - resume Lexapro . SUMMARY 09/27/2012 06/12/2014 Overview: 52 year old female with SLE who came in for hemoptysis. Lung nodule 09/26/2012 09/27/2012 Overview: s/p Right VATS lung biopsy of nodules in RUL, RML, RLL. 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 Cr now 1.28 - 09/23: renal US negative - 09/23: pt states flank pain resolved - 09/24: UA 3+ blood, urine csx negative Plan: - pain control Hemoptysis 09/22/2012 06/12/2014 Overview: Right VATS lung biopsy, right VATS wedge resection x3. Plan: - continue Bactrim DS qMWF for PCP prophylaxis - Albuterol/ipratropium nebs prn - Regular diet - f/u bx results . Hemoptysis 09/22/2012 08/23/2018 Overview: Right VATS lung biopsy, right VATS wedge resection x3. Plan: - continue Bactrim DS qMWF for PCP prophylaxis - Albuterol/ipratropium nebs prn - Regular diet - f/u bx results . Glomerulitis 07/29/2012 08/23/2018 DVT prophylaxis 12/23/2011 09/27/2012 Overview: Heparin SC BID Skin lesion of left leg 12/21/2011 06/12/19 15 Overview: 1 cm hyperkeratotic plaque on left elias Derm does not believe this is related to SLE or infection SUMMARY 12/20/2011 09/27/2012 Overview: 51 yo F with recent diagnosis SLE who presents with 3 day hx of hemoptysis. Pt initally presented to OSH, CXR found bilat. Pneumonia, started on levoquin. Recent hx of travel with bilat LE edema. CT chest w/ contrast 09/22 showed no acute PE w/o exclusion of pulm infarct. Neutropenia 12/20/2011 06/12/2014 Overview: WBC count 1.08 on presentation on 12/20/11 Likely secondary to Imuran initiation about 3 weeks ago. Neutropenic precautions for ANC < 500 today. Discussed with Heme; they can see her as an outpatient. Resolved at time of discharge; thought secondary to Imuran. Repeat CBC 1 day after discharge. PNA (pneumonia) 12/20/2011 06/12/2014 Overview: CAP pna Initially treated with ceftriaxone / azithro, now on levofloxacin, as it is less likely to cause leukopenia. Treating for 10-14 days; CXR 4-6 weeks after discharge to document resolution. Urinary retention vs. urgency 12/20/2011 Overview: Bladder scan showed 65 cc of urine Pt voiding currently UA showed hematuria and proteinuria (chronic issue) U Cx NGTD Abdominal pain 12/20/2011 06/12/2014 Overview: Last BM 5 days ago. KUB shows large amount of stool in colon. Improved - Colace, lactulose Resolved at time of discharge. Back pain 12/20/2011 06/12/2014 Overview: Upper back pain/posterior shoulder pain Most likely related to PNA XR spine normal Much improved Neutropenia 12/20/2011 08/23/2018 Overview: WBC count 1.08 on presentation on 12/20/11 Likely secondary to Imuran initiation about 3 weeks ago. Neutropenic precautions for ANC < 500 today. Discussed with Heme; they can see her as an outpatient. Resolved at time of discharge; thought secondary to Imuran. Repeat CBC 1 day after discharge. PNA (pneumonia) 12/20/2011 08/23/2018 Overview: CAP pna Initially treated with ceftriaxone / azithro, now on levofloxacin, as it is less likely to cause leukopenia. Treating for 10-14 days; CXR 4-6 weeks after discharge to document resolution. Anemia 12/16/2010 08/23/2018 Overview: Haptoglobin nl, ferritin high, LDH nl, retic count nl, Kingsley negative - unlikely hemolytic anemia Stable at time of discharge; labs to be rechecked and followed. Steroid long-term use 10/05/2010 08/23/2018 Proteinuria 03/16/2010 08/23/2018 Neutropenia associated with autoimmune disease 1 08/23/2018 Elevated antinuclear antibody (CHANA) level 200806/12/2014 Overview: 04/26/2009 CHANA by EIA: 5.3 (H) Polyarthralgia 04/27/2009 06/12/2014 Overview: CHANA 5.3 on 04/26/09 RF neg on 04/26/09 Depressive disorder, not elsewhere classified 06/12/2014 Chronic obstructive pulmonary disease (COPD) 08/23/2018 Fracture 08/23/2018 documented as of this encounter (statuses as of 11/15/2021) [facility]10-24-2013 History of Past illness Narrative* Problem Noted Date Resolved Date Cough 02/20/2013 06/12/2014 Sinusitis, acute 02/20/2013 06/12/2014 Lupus disease of the lung 09/28/20122018 DISPOSITION AND FOLLOW-UP 09/27/20122012 Overview: Yuko Lino is single and lives in [place], [place]. At this time, we anticipate that the patient will be discharged home once clinically stable Plan: - Discuss needs with patient. - Collaborate with Case management to facilitate DC process - Will continue to evaluate during the post op period. . Depressive disorder 09/27/2012 08/23/2018 Overview: PMH of depressive disorder. Patient takes Lexapro 10mg daily Plan - resume Lexapro . SUMMARY 09/27/2012 06/12/2014 Overview: 52 year old female with SLE who came in for hemoptysis. Lung nodule 09/26/2012 09/27/2012 Overview: s/p Right VATS lung biopsy of nodules in RUL, RML, RLL. 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 Cr now 1.28 - 09/23: renal US negative - 09/23: pt states flank pain resolved - 09/24: UA 3+ blood, urine csx negative Plan: - pain control Hemoptysis 09/22/2012 06/12/2014 Overview: Right VATS lung biopsy, right VATS wedge resection x3. Plan: - continue Bactrim DS qMWF for PCP prophylaxis - Albuterol/ipratropium nebs prn - Regular diet - f/u bx results . Hemoptysis 09/22/2012 08/23/2018 Overview: Right VATS lung biopsy, right VATS wedge resection x3. Plan: - continue Bactrim DS qMWF for PCP prophylaxis - Albuterol/ipratropium nebs prn - Regular diet - f/u bx results . Glomerulitis 07/29/2012 08/23/2018 DVT prophylaxis 12/23/2011 09/27/2012 Overview: Heparin SC BID Skin lesion of left leg 12/21/2011 06/12/19 15 Overview: 1 cm hyperkeratotic plaque on left elias Derm does not believe this is related to SLE or infection SUMMARY 12/20/2011 09/27/2012 Overview: 51 yo F with recent diagnosis SLE who presents with 3 day hx of hemoptysis. Pt initally presented to OSH, CXR found bilat. Pneumonia, started on levoquin. Recent hx of travel with bilat LE edema. CT chest w/ contrast 09/22 showed no acute PE w/o exclusion of pulm infarct. Neutropenia 12/20/2011 06/12/2014 Overview: WBC count 1.08 on presentation on 12/20/11 Likely secondary to Imuran initiation about 3 weeks ago. Neutropenic precautions for ANC < 500 today. Discussed with Heme; they can see her as an outpatient. Resolved at time of discharge; thought secondary to Imuran. Repeat CBC 1 day after discharge. PNA (pneumonia) 12/20/2011 06/12/2014 Overview: CAP pna Initially treated with ceftriaxone / azithro, now on levofloxacin, as it is less likely to cause leukopenia. Treating for 10-14 days; CXR 4-6 weeks after discharge to document resolution. Urinary retention vs. urgency 12/20/2011 Overview: Bladder scan showed 65 cc of urine Pt voiding currently UA showed hematuria and proteinuria (chronic issue) U Cx NGTD Abdominal pain 12/20/2011 06/12/2014 Overview: Last BM 5 days ago. KUB shows large amount of stool in colon. Improved - Colace, lactulose Resolved at time of discharge. Back pain 12/20/2011 06/12/2014 Overview: Upper back pain/posterior shoulder pain Most likely related to PNA XR spine normal Much improved Neutropenia 12/20/2011 08/23/2018 Overview: WBC count 1.08 on presentation on 12/20/11 Likely secondary to Imuran initiation about 3 weeks ago. Neutropenic precautions for ANC < 500 today. Discussed with Heme; they can see her as an outpatient. Resolved at time of discharge; thought secondary to Imuran. Repeat CBC 1 day after discharge. PNA (pneumonia) 12/20/2011 08/23/2018 Overview: CAP pna Initially treated with ceftriaxone / azithro, now on levofloxacin, as it is less likely to cause leukopenia. Treating for 10-14 days; CXR 4-6 weeks after discharge to document resolution. Anemia 12/16/2010 08/23/2018 Overview: Haptoglobin nl, ferritin high, LDH nl, retic count nl, Kingsley negative - unlikely hemolytic anemia Stable at time of discharge; labs to be rechecked and followed. Steroid long-term use 10/05/2010 08/23/2018 Proteinuria 03/16/2010 08/23/2018 Neutropenia associated with autoimmune disease 1 08/23/2018 Elevated antinuclear antibody (CHANA) level 200806/12/2014 Overview: 04/26/2009 CHANA by EIA: 5.3 (H) Polyarthralgia 04/27/2009 06/12/2014 Overview: CHANA 5.3 on 04/26/09 RF neg on 04/26/09 Depressive disorder, not elsewhere classified 06/12/2014 Chronic obstructive pulmonary disease (COPD) 08/23/2018 Fracture 08/23/2018 documented as of this encounter (statuses as of 11/24/2021) [facility]10[facility] History of Past illness Narrative* Problem Noted Date Resolved Date Cough 02/20/2013 06/12/2014 Sinusitis, acute 02/20/2013 06/12/2014 Lupus disease of the lung 09/28/20122018 DISPOSITION AND FOLLOW-UP 09/27/20122012 Overview: Yuko Lino is single and lives in [place], [place]. At this time, we anticipate that the patient will be discharged home once clinically stable Plan: - Discuss needs with patient. - Collaborate with Case management to facilitate DC process - Will continue to evaluate during the post op period. . Depressive disorder 09/27/2012 08/23/2018 Overview: PMH of depressive disorder. Patient takes Lexapro 10mg daily Plan - resume Lexapro . SUMMARY 09/27/2012 06/12/2014 Overview: 52 year old female with SLE who came in for hemoptysis. Lung nodule 09/26/2012 09/27/2012 Overview: s/p Right VATS lung biopsy of nodules in RUL, RML, RLL. 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 Cr now 1.28 - 09/23: renal US negative - 09/23: pt states flank pain resolved - 09/24: UA 3+ blood, urine csx negative Plan: - pain control Hemoptysis 09/22/2012 06/12/2014 Overview: Right VATS lung biopsy, right VATS wedge resection x3. Plan: - continue Bactrim DS qMWF for PCP prophylaxis - Albuterol/ipratropium nebs prn - Regular diet - f/u bx results . Hemoptysis 09/22/2012 08/23/2018 Overview: Right VATS lung biopsy, right VATS wedge resection x3. Plan: - continue Bactrim DS qMWF for PCP prophylaxis - Albuterol/ipratropium nebs prn - Regular diet - f/u bx results . Glomerulitis 07/29/2012 08/23/2018 DVT prophylaxis 12/23/2011 09/27/2012 Overview: Heparin SC BID Skin lesion of left leg 12/21/2011 06/12/19 15 Overview: 1 cm hyperkeratotic plaque on left elias Derm does not believe this is related to SLE or infection SUMMARY 12/20/2011 09/27/2012 Overview: 51 yo F with recent diagnosis SLE who presents with 3 day hx of hemoptysis. Pt initally presented to OSH, CXR found bilat. Pneumonia, started on levoquin. Recent hx of travel with bilat LE edema. CT chest w/ contrast 09/22 showed no acute PE w/o exclusion of pulm infarct. Neutropenia 12/20/2011 06/12/2014 Overview: WBC count 1.08 on presentation on 12/20/11 Likely secondary to Imuran initiation about 3 weeks ago. Neutropenic precautions for ANC < 500 today. Discussed with Heme; they can see her as an outpatient. Resolved at time of discharge; thought secondary to Imuran. Repeat CBC 1 day after discharge. PNA (pneumonia) 12/20/2011 06/12/2014 Overview: CAP pna Initially treated with ceftriaxone / azithro, now on levofloxacin, as it is less likely to cause leukopenia. Treating for 10-14 days; CXR 4-6 weeks after discharge to document resolution. Urinary retention vs. urgency 12/20/2011 Overview: Bladder scan showed 65 cc of urine Pt voiding currently UA showed hematuria and proteinuria (chronic issue) U Cx NGTD Abdominal pain 12/20/2011 06/12/2014 Overview: Last BM 5 days ago. KUB shows large amount of stool in colon. Improved - Colace, lactulose Resolved at time of discharge. Back pain 12/20/2011 06/12/2014 Overview: Upper back pain/posterior shoulder pain Most likely related to PNA XR spine normal Much improved Neutropenia 12/20/2011 08/23/2018 Overview: WBC count 1.08 on presentation on 12/20/11 Likely secondary to Imuran initiation about 3 weeks ago. Neutropenic precautions for ANC < 500 today. Discussed with Heme; they can see her as an outpatient. Resolved at time of discharge; thought secondary to Imuran. Repeat CBC 1 day after discharge. PNA (pneumonia) 12/20/2011 08/23/2018 Overview: CAP pna Initially treated with ceftriaxone / azithro, now on levofloxacin, as it is less likely to cause leukopenia. Treating for 10-14 days; CXR 4-6 weeks after discharge to document resolution. Anemia 12/16/2010 08/23/2018 Overview: Haptoglobin nl, ferritin high, LDH nl, retic count nl, Kingsley negative - unlikely hemolytic anemia Stable at time of discharge; labs to be rechecked and followed. Steroid long-term use 10/05/2010 08/23/2018 Proteinuria 03/16/2010 08/23/2018 Neutropenia associated with autoimmune disease 1 08/23/2018 Elevated antinuclear antibody (CHANA) level 200806/12/2014 Overview: 04/26/2009 CHANA by EIA: 5.3 (H) Polyarthralgia 04/27/2009 06/12/2014 Overview: CHANA 5.3 on 04/26/09 RF neg on 04/26/09 Depressive disorder, not elsewhere classified 06/12/2014 Chronic obstructive pulmonary disease (COPD) 08/23/2018 Fracture 08/23/2018 documented as of this encounter (statuses as of 12/21/2021) [facility] History of Past illness Narrative* Problem Noted Date Resolved Date Cough 02/20/2013 06/12/2014 Sinusitis, acute 02/20/2013 06/12/2014 Lupus disease of the lung 09/28/20122018 DISPOSITION AND FOLLOW-UP 09/27/20122012 Overview: Yuko Lino is single and lives in [place], [place]. At this time, we anticipate that the patient will be discharged home once clinically stable Plan: - Discuss needs with patient. - Collaborate with Case management to facilitate DC process - Will continue to evaluate during the post op period. . Depressive disorder 09/27/2012 08/23/2018 Overview: PMH of depressive disorder. Patient takes Lexapro 10mg daily Plan - resume Lexapro . SUMMARY 09/27/2012 06/12/2014 Overview: 52 year old female with SLE who came in for hemoptysis. Lung nodule 09/26/2012 09/27/2012 Overview: s/p Right VATS lung biopsy of nodules in RUL, RML, RLL. 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 Cr now 1.28 - 09/23: renal US negative - 09/23: pt states flank pain resolved - 09/24: UA 3+ blood, urine csx negative Plan: - pain control Hemoptysis 09/22/2012 06/12/2014 Overview: Right VATS lung biopsy, right VATS wedge resection x3. Plan: - continue Bactrim DS qMWF for PCP prophylaxis - Albuterol/ipratropium nebs prn - Regular diet - f/u bx results . Hemoptysis 09/22/2012 08/23/2018 Overview: Right VATS lung biopsy, right VATS wedge resection x3. Plan: - continue Bactrim DS qMWF for PCP prophylaxis - Albuterol/ipratropium nebs prn - Regular diet - f/u bx results . Glomerulitis 07/29/2012 08/23/2018 DVT prophylaxis 12/23/2011 09/27/2012 Overview: Heparin SC BID Skin lesion of left leg 12/21/2011 06/12/19 15 Overview: 1 cm hyperkeratotic plaque on left elias Derm does not believe this is related to SLE or infection SUMMARY 12/20/2011 09/27/2012 Overview: 51 yo F with recent diagnosis SLE who presents with 3 day hx of hemoptysis. Pt initally presented to OSH, CXR found bilat. Pneumonia, started on levoquin. Recent hx of travel with bilat LE edema. CT chest w/ contrast 09/22 showed no acute PE w/o exclusion of pulm infarct. Neutropenia 12/20/2011 06/12/2014 Overview: WBC count 1.08 on presentation on 12/20/11 Likely secondary to Imuran initiation about 3 weeks ago. Neutropenic precautions for ANC < 500 today. Discussed with Heme; they can see her as an outpatient. Resolved at time of discharge; thought secondary to Imuran. Repeat CBC 1 day after discharge. PNA (pneumonia) 12/20/2011 06/12/2014 Overview: CAP pna Initially treated with ceftriaxone / azithro, now on levofloxacin, as it is less likely to cause leukopenia. Treating for 10-14 days; CXR 4-6 weeks after discharge to document resolution. Urinary retention vs. urgency 12/20/2011 Overview: Bladder scan showed 65 cc of urine Pt voiding currently UA showed hematuria and proteinuria (chronic issue) U Cx NGTD Abdominal pain 12/20/2011 06/12/2014 Overview: Last BM 5 days ago. KUB shows large amount of stool in colon. Improved - Colace, lactulose Resolved at time of discharge. Back pain 12/20/2011 06/12/2014 Overview: Upper back pain/posterior shoulder pain Most likely related to PNA XR spine normal Much improved Neutropenia 12/20/2011 08/23/2018 Overview: WBC count 1.08 on presentation on 12/20/11 Likely secondary to Imuran initiation about 3 weeks ago. Neutropenic precautions for ANC < 500 today. Discussed with Heme; they can see her as an outpatient. Resolved at time of discharge; thought secondary to Imuran. Repeat CBC 1 day after discharge. PNA (pneumonia) 12/20/2011 08/23/2018 Overview: CAP pna Initially treated with ceftriaxone / azithro, now on levofloxacin, as it is less likely to cause leukopenia. Treating for 10-14 days; CXR 4-6 weeks after discharge to document resolution. Anemia 12/16/2010 08/23/2018 Overview: Haptoglobin nl, ferritin high, LDH nl, retic count nl, Kingsley negative - unlikely hemolytic anemia Stable at time of discharge; labs to be rechecked and followed. Steroid long-term use 10/05/2010 08/23/2018 Proteinuria 03/16/2010 08/23/2018 Neutropenia associated with autoimmune disease 1 08/23/2018 Elevated antinuclear antibody (CHANA) level 200806/12/2014 Overview: 04/26/2009 CHANA by EIA: 5.3 (H) Polyarthralgia 04/27/2009 06/12/2014 Overview: CHANA 5.3 on 04/26/09 RF neg on 04/26/09 Depressive disorder, not elsewhere classified 06/12/2014 Chronic obstructive pulmonary disease (COPD) 08/23/2018 Fracture 08/23/2018 documented as of this encounter (statuses as of 12/21/2021) [facility] History of Past illness Narrative* Problem Noted Date Resolved Date Cough 02/20/2013 06/12/2014 Sinusitis, acute 02/20/2013 06/12/2014 Lupus disease of the lung 09/28/20122018 DISPOSITION AND FOLLOW-UP 09/27/20122012 Overview: Yuko Lino is single and lives in [place], [place]. At this time, we anticipate that the patient will be discharged home once clinically stable Plan: - Discuss needs with patient. - Collaborate with Case management to facilitate DC process - Will continue to evaluate during the post op period. . Depressive disorder 09/27/2012 08/23/2018 Overview: PMH of depressive disorder. Patient takes Lexapro 10mg daily Plan - resume Lexapro . SUMMARY 09/27/2012 06/12/2014 Overview: 52 year old female with SLE who came in for hemoptysis. Lung nodule 09/26/2012 09/27/2012 Overview: s/p Right VATS lung biopsy of nodules in RUL, RML, RLL. 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 Cr now 1.28 - 09/23: renal US negative - 09/23: pt states flank pain resolved - 09/24: UA 3+ blood, urine csx negative Plan: - pain control Hemoptysis 09/22/2012 06/12/2014 Overview: Right VATS lung biopsy, right VATS wedge resection x3. Plan: - continue Bactrim DS qMWF for PCP prophylaxis - Albuterol/ipratropium nebs prn - Regular diet - f/u bx results . Hemoptysis 09/22/2012 08/23/2018 Overview: Right VATS lung biopsy, right VATS wedge resection x3. Plan: - continue Bactrim DS qMWF for PCP prophylaxis - Albuterol/ipratropium nebs prn - Regular diet - f/u bx results . Glomerulitis 07/29/2012 08/23/2018 DVT prophylaxis 12/23/2011 09/27/2012 Overview: Heparin SC BID Skin lesion of left leg 12/21/2011 06/12/19 15 Overview: 1 cm hyperkeratotic plaque on left elias Derm does not believe this is related to SLE or infection SUMMARY 12/20/2011 09/27/2012 Overview: 51 yo F with recent diagnosis SLE who presents with 3 day hx of hemoptysis. Pt initally presented to OSH, CXR found bilat. Pneumonia, started on levoquin. Recent hx of travel with bilat LE edema. CT chest w/ contrast 09/22 showed no acute PE w/o exclusion of pulm infarct. Neutropenia 12/20/2011 06/12/2014 Overview: WBC count 1.08 on presentation on 12/20/11 Likely secondary to Imuran initiation about 3 weeks ago. Neutropenic precautions for ANC < 500 today. Discussed with Heme; they can see her as an outpatient. Resolved at time of discharge; thought secondary to Imuran. Repeat CBC 1 day after discharge. PNA (pneumonia) 12/20/2011 06/12/2014 Overview: CAP pna Initially treated with ceftriaxone / azithro, now on levofloxacin, as it is less likely to cause leukopenia. Treating for 10-14 days; CXR 4-6 weeks after discharge to document resolution. Urinary retention vs. urgency 12/20/2011 Overview: Bladder scan showed 65 cc of urine Pt voiding currently UA showed hematuria and proteinuria (chronic issue) U Cx NGTD Abdominal pain 12/20/2011 06/12/2014 Overview: Last BM 5 days ago. KUB shows large amount of stool in colon. Improved - Colace, lactulose Resolved at time of discharge. Back pain 12/20/2011 06/12/2014 Overview: Upper back pain/posterior shoulder pain Most likely related to PNA XR spine normal Much improved Neutropenia 12/20/2011 08/23/2018 Overview: WBC count 1.08 on presentation on 12/20/11 Likely secondary to Imuran initiation about 3 weeks ago. Neutropenic precautions for ANC < 500 today. Discussed with Heme; they can see her as an outpatient. Resolved at time of discharge; thought secondary to Imuran. Repeat CBC 1 day after discharge. PNA (pneumonia) 12/20/2011 08/23/2018 Overview: CAP pna Initially treated with ceftriaxone / azithro, now on levofloxacin, as it is less likely to cause leukopenia. Treating for 10-14 days; CXR 4-6 weeks after discharge to document resolution. Anemia 12/16/2010 08/23/2018 Overview: Haptoglobin nl, ferritin high, LDH nl, retic count nl, Kingsley negative - unlikely hemolytic anemia Stable at time of discharge; labs to be rechecked and followed. Steroid long-term use 10/05/2010 08/23/2018 Proteinuria 03/16/2010 08/23/2018 Neutropenia associated with autoimmune disease 1 08/23/2018 Elevated antinuclear antibody (CHANA) level 200806/12/2014 Overview: 04/26/2009 CHANA by EIA: 5.3 (H) Polyarthralgia 04/27/2009 06/12/2014 Overview: CHANA 5.3 on 04/26/09 RF neg on 04/26/09 Depressive disorder, not elsewhere classified 06/12/2014 Chronic obstructive pulmonary disease (COPD) 08/23/2018 Fracture 08/23/2018 documented as of this encounter (statuses as of 12/22/2021) [facility]10-24-2013 History of Past illness Narrative* Problem Noted Date Resolved Date Cough 02/20/2013 06/12/2014 Sinusitis, acute 02/20/2013 06/12/2014 Lupus disease of the lung 09/28/20122018 DISPOSITION AND FOLLOW-UP 09/27/20122012 Overview: Yuko Lino is single and lives in [place], [place]. At this time, we anticipate that the patient will be discharged home once clinically stable Plan: - Discuss needs with patient. - Collaborate with Case management to facilitate DC process - Will continue to evaluate during the post op period. . Depressive disorder 09/27/2012 08/23/2018 Overview: PMH of depressive disorder. Patient takes Lexapro 10mg daily Plan - resume Lexapro . SUMMARY 09/27/2012 06/12/2014 Overview: 52 year old female with SLE who came in for hemoptysis. Lung nodule 09/26/2012 09/27/2012 Overview: s/p Right VATS lung biopsy of nodules in RUL, RML, RLL. 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 Cr now 1.28 - 09/23: renal US negative - 09/23: pt states flank pain resolved - 09/24: UA 3+ blood, urine csx negative Plan: - pain control Hemoptysis 09/22/2012 06/12/2014 Overview: Right VATS lung biopsy, right VATS wedge resection x3. Plan: - continue Bactrim DS qMWF for PCP prophylaxis - Albuterol/ipratropium nebs prn - Regular diet - f/u bx results . Hemoptysis 09/22/2012 08/23/2018 Overview: Right VATS lung biopsy, right VATS wedge resection x3. Plan: - continue Bactrim DS qMWF for PCP prophylaxis - Albuterol/ipratropium nebs prn - Regular diet - f/u bx results . Glomerulitis 07/29/2012 08/23/2018 DVT prophylaxis 12/23/2011 09/27/2012 Overview: Heparin SC BID Skin lesion of left leg 12/21/2011 06/12/19 15 Overview: 1 cm hyperkeratotic plaque on left elias Derm does not believe this is related to SLE or infection SUMMARY 12/20/2011 09/27/2012 Overview: 51 yo F with recent diagnosis SLE who presents with 3 day hx of hemoptysis. Pt initally presented to OSH, CXR found bilat. Pneumonia, started on levoquin. Recent hx of travel with bilat LE edema. CT chest w/ contrast 09/22 showed no acute PE w/o exclusion of pulm infarct. Neutropenia 12/20/2011 06/12/2014 Overview: WBC count 1.08 on presentation on 12/20/11 Likely secondary to Imuran initiation about 3 weeks ago. Neutropenic precautions for ANC < 500 today. Discussed with Heme; they can see her as an outpatient. Resolved at time of discharge; thought secondary to Imuran. Repeat CBC 1 day after discharge. PNA (pneumonia) 12/20/2011 06/12/2014 Overview: CAP pna Initially treated with ceftriaxone / azithro, now on levofloxacin, as it is less likely to cause leukopenia. Treating for 10-14 days; CXR 4-6 weeks after discharge to document resolution. Urinary retention vs. urgency 12/20/2011 Overview: Bladder scan showed 65 cc of urine Pt voiding currently UA showed hematuria and proteinuria (chronic issue) U Cx NGTD Abdominal pain 12/20/2011 06/12/2014 Overview: Last BM 5 days ago. KUB shows large amount of stool in colon. Improved - Colace, lactulose Resolved at time of discharge. Back pain 12/20/2011 06/12/2014 Overview: Upper back pain/posterior shoulder pain Most likely related to PNA XR spine normal Much improved Neutropenia 12/20/2011 08/23/2018 Overview: WBC count 1.08 on presentation on 12/20/11 Likely secondary to Imuran initiation about 3 weeks ago. Neutropenic precautions for ANC < 500 today. Discussed with Heme; they can see her as an outpatient. Resolved at time of discharge; thought secondary to Imuran. Repeat CBC 1 day after discharge. PNA (pneumonia) 12/20/2011 08/23/2018 Overview: CAP pna Initially treated with ceftriaxone / azithro, now on levofloxacin, as it is less likely to cause leukopenia. Treating for 10-14 days; CXR 4-6 weeks after discharge to document resolution. Anemia 12/16/2010 08/23/2018 Overview: Haptoglobin nl, ferritin high, LDH nl, retic count nl, Kingsley negative - unlikely hemolytic anemia Stable at time of discharge; labs to be rechecked and followed. Steroid long-term use 10/05/2010 08/23/2018 Proteinuria 03/16/2010 08/23/2018 Neutropenia associated with autoimmune disease 1 08/23/2018 Elevated antinuclear antibody (CHANA) level 200806/12/2014 Overview: 04/26/2009 CHANA by EIA: 5.3 (H) Polyarthralgia 04/27/2009 06/12/2014 Overview: CHANA 5.3 on 04/26/09 RF neg on 04/26/09 Depressive disorder, not elsewhere classified 06/12/2014 Chronic obstructive pulmonary disease (COPD) 08/23/2018 Fracture 08/23/2018 documented as of this encounter (statuses as of 01/09/2022) [facility]10-24-2013 History of Past illness Narrative* Problem Noted Date Resolved Date Cough 02/20/2013 06/12/2014 Sinusitis, acute 02/20/2013 06/12/2014 Lupus disease of the lung 09/28/20122018 DISPOSITION AND FOLLOW-UP 09/27/20122012 Overview: Yuko Lino is single and lives in [place], [place]. At this time, we anticipate that the patient will be discharged home once clinically stable Plan: - Discuss needs with patient. - Collaborate with Case management to facilitate DC process - Will continue to evaluate during the post op period. . Depressive disorder 09/27/2012 08/23/2018 Overview: PMH of depressive disorder. Patient takes Lexapro 10mg daily Plan - resume Lexapro . SUMMARY 09/27/2012 06/12/2014 Overview: 52 year old female with SLE who came in for hemoptysis. Lung nodule 09/26/2012 09/27/2012 Overview: s/p Right VATS lung biopsy of nodules in RUL, RML, RLL. 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 Cr now 1.28 - 09/23: renal US negative - 09/23: pt states flank pain resolved - 09/24: UA 3+ blood, urine csx negative Plan: - pain control Hemoptysis 09/22/2012 06/12/2014 Overview: Right VATS lung biopsy, right VATS wedge resection x3. Plan: - continue Bactrim DS qMWF for PCP prophylaxis - Albuterol/ipratropium nebs prn - Regular diet - f/u bx results . Hemoptysis 09/22/2012 08/23/2018 Overview: Right VATS lung biopsy, right VATS wedge resection x3. Plan: - continue Bactrim DS qMWF for PCP prophylaxis - Albuterol/ipratropium nebs prn - Regular diet - f/u bx results . Glomerulitis 07/29/2012 08/23/2018 DVT prophylaxis 12/23/2011 09/27/2012 Overview: Heparin SC BID Skin lesion of left leg 12/21/2011 06/12/19 15 Overview: 1 cm hyperkeratotic plaque on left elias Derm does not believe this is related to SLE or infection SUMMARY 12/20/2011 09/27/2012 Overview: 51 yo F with recent diagnosis SLE who presents with 3 day hx of hemoptysis. Pt initally presented to OSH, CXR found bilat. Pneumonia, started on levoquin. Recent hx of travel with bilat LE edema. CT chest w/ contrast 09/22 showed no acute PE w/o exclusion of pulm infarct. Neutropenia 12/20/2011 06/12/2014 Overview: WBC count 1.08 on presentation on 12/20/11 Likely secondary to Imuran initiation about 3 weeks ago. Neutropenic precautions for ANC < 500 today. Discussed with Heme; they can see her as an outpatient. Resolved at time of discharge; thought secondary to Imuran. Repeat CBC 1 day after discharge. PNA (pneumonia) 12/20/2011 06/12/2014 Overview: CAP pna Initially treated with ceftriaxone / azithro, now on levofloxacin, as it is less likely to cause leukopenia. Treating for 10-14 days; CXR 4-6 weeks after discharge to document resolution. Urinary retention vs. urgency 12/20/2011 Overview: Bladder scan showed 65 cc of urine Pt voiding currently UA showed hematuria and proteinuria (chronic issue) U Cx NGTD Abdominal pain 12/20/2011 06/12/2014 Overview: Last BM 5 days ago. KUB shows large amount of stool in colon. Improved - Colace, lactulose Resolved at time of discharge. Back pain 12/20/2011 06/12/2014 Overview: Upper back pain/posterior shoulder pain Most likely related to PNA XR spine normal Much improved Neutropenia 12/20/2011 08/23/2018 Overview: WBC count 1.08 on presentation on 12/20/11 Likely secondary to Imuran initiation about 3 weeks ago. Neutropenic precautions for ANC < 500 today. Discussed with Heme; they can see her as an outpatient. Resolved at time of discharge; thought secondary to Imuran. Repeat CBC 1 day after discharge. PNA (pneumonia) 12/20/2011 08/23/2018 Overview: CAP pna Initially treated with ceftriaxone / azithro, now on levofloxacin, as it is less likely to cause leukopenia. Treating for 10-14 days; CXR 4-6 weeks after discharge to document resolution. Anemia 12/16/2010 08/23/2018 Overview: Haptoglobin nl, ferritin high, LDH nl, retic count nl, Kingsley negative - unlikely hemolytic anemia Stable at time of discharge; labs to be rechecked and followed. Steroid long-term use 10/05/2010 08/23/2018 Proteinuria 03/16/2010 08/23/2018 Neutropenia associated with autoimmune disease 1 08/23/2018 Elevated antinuclear antibody (CHANA) level 200806/12/2014 Overview: 04/26/2009 CHANA by EIA: 5.3 (H) Polyarthralgia 04/27/2009 06/12/2014 Overview: CHANA 5.3 on 04/26/09 RF neg on 04/26/09 Depressive disorder, not elsewhere classified 06/12/2014 Chronic obstructive pulmonary disease (COPD) 08/23/2018 Fracture 08/23/2018 documented as of this encounter (statuses as of 01/18/2022) [facility]10-[facility] History of Past illness Narrative* Problem Noted Date Resolved Date Cough 02/20/2013 06/12/2014 Sinusitis, acute 02/20/2013 06/12/2014 Lupus disease of the lung 09/28/20122018 DISPOSITION AND FOLLOW-UP 09/27/20122012 Overview: Yuko Lino is single and lives in [place], [place]. At this time, we anticipate that the patient will be discharged home once clinically stable Plan: - Discuss needs with patient. - Collaborate with Case management to facilitate DC process - Will continue to evaluate during the post op period. . Depressive disorder 09/27/2012 08/23/2018 Overview: PMH of depressive disorder. Patient takes Lexapro 10mg daily Plan - resume Lexapro . SUMMARY 09/27/2012 06/12/2014 Overview: 52 year old female with SLE who came in for hemoptysis. Lung nodule 09/26/2012 09/27/2012 Overview: s/p Right VATS lung biopsy of nodules in RUL, RML, RLL. 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 Cr now 1.28 - 09/23: renal US negative - 09/23: pt states flank pain resolved - 09/24: UA 3+ blood, urine csx negative Plan: - pain control Hemoptysis 09/22/2012 06/12/2014 Overview: Right VATS lung biopsy, right VATS wedge resection x3. Plan: - continue Bactrim DS qMWF for PCP prophylaxis - Albuterol/ipratropium nebs prn - Regular diet - f/u bx results . Hemoptysis 09/22/2012 08/23/2018 Overview: Right VATS lung biopsy, right VATS wedge resection x3. Plan: - continue Bactrim DS qMWF for PCP prophylaxis - Albuterol/ipratropium nebs prn - Regular diet - f/u bx results . Glomerulitis 07/29/2012 08/23/2018 DVT prophylaxis 12/23/2011 09/27/2012 Overview: Heparin SC BID Skin lesion of left leg 12/21/2011 06/12/19 15 Overview: 1 cm hyperkeratotic plaque on left elias Derm does not believe this is related to SLE or infection SUMMARY 12/20/2011 09/27/2012 Overview: 51 yo F with recent diagnosis SLE who presents with 3 day hx of hemoptysis. Pt initally presented to OSH, CXR found bilat. Pneumonia, started on levoquin. Recent hx of travel with bilat LE edema. CT chest w/ contrast 09/22 showed no acute PE w/o exclusion of pulm infarct. Neutropenia 12/20/2011 06/12/2014 Overview: WBC count 1.08 on presentation on 12/20/11 Likely secondary to Imuran initiation about 3 weeks ago. Neutropenic precautions for ANC < 500 today. Discussed with Heme; they can see her as an outpatient. Resolved at time of discharge; thought secondary to Imuran. Repeat CBC 1 day after discharge. PNA (pneumonia) 12/20/2011 06/12/2014 Overview: CAP pna Initially treated with ceftriaxone / azithro, now on levofloxacin, as it is less likely to cause leukopenia. Treating for 10-14 days; CXR 4-6 weeks after discharge to document resolution. Urinary retention vs. urgency 12/20/2011 Overview: Bladder scan showed 65 cc of urine Pt voiding currently UA showed hematuria and proteinuria (chronic issue) U Cx NGTD Abdominal pain 12/20/2011 06/12/2014 Overview: Last BM 5 days ago. KUB shows large amount of stool in colon. Improved - Colace, lactulose Resolved at time of discharge. Back pain 12/20/2011 06/12/2014 Overview: Upper back pain/posterior shoulder pain Most likely related to PNA XR spine normal Much improved Neutropenia 12/20/2011 08/23/2018 Overview: WBC count 1.08 on presentation on 12/20/11 Likely secondary to Imuran initiation about 3 weeks ago. Neutropenic precautions for ANC < 500 today. Discussed with Heme; they can see her as an outpatient. Resolved at time of discharge; thought secondary to Imuran. Repeat CBC 1 day after discharge. PNA (pneumonia) 12/20/2011 08/23/2018 Overview: CAP pna Initially treated with ceftriaxone / azithro, now on levofloxacin, as it is less likely to cause leukopenia. Treating for 10-14 days; CXR 4-6 weeks after discharge to document resolution. Anemia 12/16/2010 08/23/2018 Overview: Haptoglobin nl, ferritin high, LDH nl, retic count nl, Kingsley negative - unlikely hemolytic anemia Stable at time of discharge; labs to be rechecked and followed. Steroid long-term use 10/05/2010 08/23/2018 Proteinuria 03/16/2010 08/23/2018 Neutropenia associated with autoimmune disease 1 08/23/2018 Elevated antinuclear antibody (CHANA) level 200806/12/2014 Overview: 04/26/2009 CHANA by EIA: 5.3 (H) Polyarthralgia 04/27/2009 06/12/2014 Overview: CHANA 5.3 on 04/26/09 RF neg on 04/26/09 Depressive disorder, not elsewhere classified 06/12/2014 Chronic obstructive pulmonary disease (COPD) 08/23/2018 Fracture 08/23/2018 documented as of this encounter (statuses as of 03/08/2022) [facility] History of Past illness Narrative* Problem Noted Date Resolved Date Cough 02/20/2013 06/12/2014 Sinusitis, acute 02/20/2013 06/12/2014 Lupus disease of the lung 09/28/20122018 DISPOSITION AND FOLLOW-UP 09/27/20122012 Overview: Yuko Lino is single and lives in [place], [place]. At this time, we anticipate that the patient will be discharged home once clinically stable Plan: - Discuss needs with patient. - Collaborate with Case management to facilitate DC process - Will continue to evaluate during the post op period. . Depressive disorder 09/27/2012 08/23/2018 Overview: PMH of depressive disorder. Patient takes Lexapro 10mg daily Plan - resume Lexapro . SUMMARY 09/27/2012 06/12/2014 Overview: 52 year old female with SLE who came in for hemoptysis. Lung nodule 09/26/2012 09/27/2012 Overview: s/p Right VATS lung biopsy of nodules in RUL, RML, RLL. 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 Cr now 1.28 - 09/23: renal US negative - 09/23: pt states flank pain resolved - 09/24: UA 3+ blood, urine csx negative Plan: - pain control Hemoptysis 09/22/2012 06/12/2014 Overview: Right VATS lung biopsy, right VATS wedge resection x3. Plan: - continue Bactrim DS qMWF for PCP prophylaxis - Albuterol/ipratropium nebs prn - Regular diet - f/u bx results . Hemoptysis 09/22/2012 08/23/2018 Overview: Right VATS lung biopsy, right VATS wedge resection x3. Plan: - continue Bactrim DS qMWF for PCP prophylaxis - Albuterol/ipratropium nebs prn - Regular diet - f/u bx results . Glomerulitis 07/29/2012 08/23/2018 DVT prophylaxis 12/23/2011 09/27/2012 Overview: Heparin SC BID Skin lesion of left leg 12/21/2011 06/12/19 15 Overview: 1 cm hyperkeratotic plaque on left elias Derm does not believe this is related to SLE or infection SUMMARY 12/20/2011 09/27/2012 Overview: 51 yo F with recent diagnosis SLE who presents with 3 day hx of hemoptysis. Pt initally presented to OSH, CXR found bilat. Pneumonia, started on levoquin. Recent hx of travel with bilat LE edema. CT chest w/ contrast 09/22 showed no acute PE w/o exclusion of pulm infarct. Neutropenia 12/20/2011 06/12/2014 Overview: WBC count 1.08 on presentation on 12/20/11 Likely secondary to Imuran initiation about 3 weeks ago. Neutropenic precautions for ANC < 500 today. Discussed with [facility]; they can see her as an outpatient. Resolved at time of discharge; thought secondary to Imuran. Repeat CBC 1 day after discharge. PNA (pneumonia) 12/20/2011 06/12/2014 Overview: CAP pna Initially treated with ceftriaxone / azithro, now on levofloxacin, as it is less likely to cause leukopenia. Treating for 10-14 days; CXR 4-6 weeks after discharge to document resolution. Urinary retention vs. urgency 12/20/2011 Overview: Bladder scan showed 65 cc of urine Pt voiding currently UA showed hematuria and proteinuria (chronic issue) U Cx NGTD Abdominal pain 12/20/2011 06/12/2014 Overview: Last BM 5 days ago. KUB shows large amount of stool in colon. Improved - Colace, lactulose Resolved at time of discharge. Back pain 12/20/2011 06/12/2014 Overview: Upper back pain/posterior shoulder pain Most likely related to PNA XR spine normal Much improved Neutropenia 12/20/2011 08/23/2018 Overview: WBC count 1.08 on presentation on 12/20/11 Likely secondary to Imuran initiation about 3 weeks ago. Neutropenic precautions for ANC < 500 today. Discussed with Heme; they can see her as an outpatient. Resolved at time of discharge; thought secondary to Imuran. Repeat CBC 1 day after discharge. PNA (pneumonia) 12/20/2011 08/23/2018 Overview: CAP pna Initially treated with ceftriaxone / azithro, now on levofloxacin, as it is less likely to cause leukopenia. Treating for 10-14 days; CXR 4-6 weeks after discharge to document resolution. Anemia 12/16/2010 08/23/2018 Overview: Haptoglobin nl, ferritin high, LDH nl, retic count nl, Kingsley negative - unlikely hemolytic anemia Stable at time of discharge; labs to be rechecked and followed. Steroid long-term use 10/05/2010 08/23/2018 Proteinuria 03/16/2010 08/23/2018 Neutropenia associated with autoimmune disease 1 08/23/2018 Elevated antinuclear antibody (CHANA) level 200806/12/2014 Overview: 04/26/2009 CHANA by EIA: 5.3 (H) Polyarthralgia 04/27/2009 06/12/2014 Overview: CHANA 5.3 on 04/26/09 RF neg on 04/26/09 Depressive disorder, not elsewhere classified 06/12/2014 Chronic obstructive pulmonary disease (COPD) 08/23/2018 Fracture 08/23/2018 documented as of this encounter (statuses as of 03/15/2022) [facility] History of Past illness Narrative* Problem Noted Date Resolved Date Cough 02/20/2013 06/12/2014 Sinusitis, acute 02/20/2013 06/12/2014 Lupus disease of the lung 09/28/20122018 DISPOSITION AND FOLLOW-UP 09/27/20122012 Overview: Yuko Lino is single and lives in [place], [place]. At this time, we anticipate that the patient will be discharged home once clinically stable Plan: - Discuss needs with patient. - Collaborate with Case management to facilitate DC process - Will continue to evaluate during the post op period. . Depressive disorder 09/27/2012 08/23/2018 Overview: PMH of depressive disorder. Patient takes Lexapro 10mg daily Plan - resume Lexapro . SUMMARY 09/27/2012 06/12/2014 Overview: 52 year old female with SLE who came in for hemoptysis. Lung nodule 09/26/2012 09/27/2012 Overview: s/p Right VATS lung biopsy of nodules in RUL, RML, RLL. 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 Cr now 1.28 - 09/23: renal US negative - 09/23: pt states flank pain resolved - 09/24: UA 3+ blood, urine csx negative Plan: - pain control Hemoptysis 09/22/2012 06/12/2014 Overview: Right VATS lung biopsy, right VATS wedge resection x3. Plan: - continue Bactrim DS qMWF for PCP prophylaxis - Albuterol/ipratropium nebs prn - Regular diet - f/u bx results . Hemoptysis 09/22/2012 08/23/2018 Overview: Right VATS lung biopsy, right VATS wedge resection x3. Plan: - continue Bactrim DS qMWF for PCP prophylaxis - Albuterol/ipratropium nebs prn - Regular diet - f/u bx results . Glomerulitis 07/29/2012 08/23/2018 DVT prophylaxis 12/23/2011 09/27/2012 Overview: Heparin SC BID Skin lesion of left leg 12/21/2011 06/12/19 15 Overview: 1 cm hyperkeratotic plaque on left elias Derm does not believe this is related to SLE or infection SUMMARY 12/20/2011 09/27/2012 Overview: 51 yo F with recent diagnosis SLE who presents with 3 day hx of hemoptysis. Pt initally presented to OSH, CXR found bilat. Pneumonia, started on levoquin. Recent hx of travel with bilat LE edema. CT chest w/ contrast 09/22 showed no acute PE w/o exclusion of pulm infarct. Neutropenia 12/20/2011 06/12/2014 Overview: WBC count 1.08 on presentation on 12/20/11 Likely secondary to Imuran initiation about 3 weeks ago. Neutropenic precautions for ANC < 500 today. Discussed with Heme; they can see her as an outpatient. Resolved at time of discharge; thought secondary to Imuran. Repeat CBC 1 day after discharge. PNA (pneumonia) 12/20/2011 06/12/2014 Overview: CAP pna Initially treated with ceftriaxone / azithro, now on levofloxacin, as it is less likely to cause leukopenia. Treating for 10-14 days; CXR 4-6 weeks after discharge to document resolution. Urinary retention vs. urgency 12/20/2011 Overview: Bladder scan showed 65 cc of urine Pt voiding currently UA showed hematuria and proteinuria (chronic issue) U Cx NGTD Abdominal pain 12/20/2011 06/12/2014 Overview: Last BM 5 days ago. KUB shows large amount of stool in colon. Improved - Colace, lactulose Resolved at time of discharge. Back pain 12/20/2011 06/12/2014 Overview: Upper back pain/posterior shoulder pain Most likely related to PNA XR spine normal Much improved Neutropenia 12/20/2011 08/23/2018 Overview: WBC count 1.08 on presentation on 12/20/11 Likely secondary to Imuran initiation about 3 weeks ago. Neutropenic precautions for ANC < 500 today. Discussed with Heme; they can see her as an outpatient. Resolved at time of discharge; thought secondary to Imuran. Repeat CBC 1 day after discharge. PNA (pneumonia) 12/20/2011 08/23/2018 Overview: CAP pna Initially treated with ceftriaxone / azithro, now on levofloxacin, as it is less likely to cause leukopenia. Treating for 10-14 days; CXR 4-6 weeks after discharge to document resolution. Anemia 12/16/2010 08/23/2018 Overview: Haptoglobin nl, ferritin high, LDH nl, retic count nl, Kingsley negative - unlikely hemolytic anemia Stable at time of discharge; labs to be rechecked and followed. Steroid long-term use 10/05/2010 08/23/2018 Proteinuria 03/16/2010 08/23/2018 Neutropenia associated with autoimmune disease 1 08/23/2018 Elevated antinuclear antibody (CHANA) level 200806/12/2014 Overview: 04/26/2009 CHANA by EIA: 5.3 (H) Polyarthralgia 04/27/2009 06/12/2014 Overview: CHANA 5.3 on 04/26/09 RF neg on 04/26/09 Depressive disorder, not elsewhere classified 06/12/2014 Chronic obstructive pulmonary disease (COPD) 08/23/2018 Fracture 08/23/2018 documented as of this encounter (statuses as of 04/07/2022) [facility]10-24-2013 History of Past illness Narrative* Problem Noted Date Resolved Date Cough 02/20/2013 06/12/2014 Sinusitis, acute 02/20/2013 06/12/2014 Lupus disease of the lung 09/28/20122018 DISPOSITION AND FOLLOW-UP 09/27/20122012 Overview: Yuko Lino is single and lives in [place], [place]. At this time, we anticipate that the patient will be discharged home once clinically stable Plan: - Discuss needs with patient. - Collaborate with Case management to facilitate DC process - Will continue to evaluate during the post op period. . Depressive disorder 09/27/2012 08/23/2018 Overview: PMH of depressive disorder. Patient takes Lexapro 10mg daily Plan - resume Lexapro . SUMMARY 09/27/2012 06/12/2014 Overview: 52 year old female with SLE who came in for hemoptysis. Lung nodule 09/26/2012 09/27/2012 Overview: s/p Right VATS lung biopsy of nodules in RUL, RML, RLL. 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 Cr now 1.28 - 09/23: renal US negative - 09/23: pt states flank pain resolved - 09/24: UA 3+ blood, urine csx negative Plan: - pain control Hemoptysis 09/22/2012 06/12/2014 Overview: Right VATS lung biopsy, right VATS wedge resection x3. Plan: - continue Bactrim DS qMWF for PCP prophylaxis - Albuterol/ipratropium nebs prn - Regular diet - f/u bx results . Hemoptysis 09/22/2012 08/23/2018 Overview: Right VATS lung biopsy, right VATS wedge resection x3. Plan: - continue Bactrim DS qMWF for PCP prophylaxis - Albuterol/ipratropium nebs prn - Regular diet - f/u bx results . Glomerulitis 07/29/2012 08/23/2018 DVT prophylaxis 12/23/2011 09/27/2012 Overview: Heparin SC BID Skin lesion of left leg 12/21/2011 06/12/19 15 Overview: 1 cm hyperkeratotic plaque on left elias Derm does not believe this is related to SLE or infection SUMMARY 12/20/2011 09/27/2012 Overview: 51 yo F with recent diagnosis SLE who presents with 3 day hx of hemoptysis. Pt initally presented to OSH, CXR found bilat. Pneumonia, started on levoquin. Recent hx of travel with bilat LE edema. CT chest w/ contrast 09/22 showed no acute PE w/o exclusion of pulm infarct. Neutropenia 12/20/2011 06/12/2014 Overview: WBC count 1.08 on presentation on 12/20/11 Likely secondary to Imuran initiation about 3 weeks ago. Neutropenic precautions for ANC < 500 today. Discussed with Heme; they can see her as an outpatient. Resolved at time of discharge; thought secondary to Imuran. Repeat CBC 1 day after discharge. PNA (pneumonia) 12/20/2011 06/12/2014 Overview: CAP pna Initially treated with ceftriaxone / azithro, now on levofloxacin, as it is less likely to cause leukopenia. Treating for 10-14 days; CXR 4-6 weeks after discharge to document resolution. Urinary retention vs. urgency 12/20/2011 Overview: Bladder scan showed 65 cc of urine Pt voiding currently UA showed hematuria and proteinuria (chronic issue) U Cx NGTD Abdominal pain 12/20/2011 06/12/2014 Overview: Last BM 5 days ago. KUB shows large amount of stool in colon. Improved - Colace, lactulose Resolved at time of discharge. Back pain 12/20/2011 06/12/2014 Overview: Upper back pain/posterior shoulder pain Most likely related to PNA XR spine normal Much improved Neutropenia 12/20/2011 08/23/2018 Overview: WBC count 1.08 on presentation on 12/20/11 Likely secondary to Imuran initiation about 3 weeks ago. Neutropenic precautions for ANC < 500 today. Discussed with Heme; they can see her as an outpatient. Resolved at time of discharge; thought secondary to Imuran. Repeat CBC 1 day after discharge. PNA (pneumonia) 12/20/2011 08/23/2018 Overview: CAP pna Initially treated with ceftriaxone / azithro, now on levofloxacin, as it is less likely to cause leukopenia. Treating for 10-14 days; CXR 4-6 weeks after discharge to document resolution. Anemia 12/16/2010 08/23/2018 Overview: Haptoglobin nl, ferritin high, LDH nl, retic count nl, Kingsley negative - unlikely hemolytic anemia Stable at time of discharge; labs to be rechecked and followed. Steroid long-term use 10/05/2010 08/23/2018 Proteinuria 03/16/2010 08/23/2018 Neutropenia associated with autoimmune disease 1 08/23/2018 Elevated antinuclear antibody (CHANA) level 200806/12/2014 Overview: 04/26/2009 CHANA by EIA: 5.3 (H) Polyarthralgia 04/27/2009 06/12/2014 Overview: CHANA 5.3 on 04/26/09 RF neg on 04/26/09 Depressive disorder, not elsewhere classified 06/12/2014 Chronic obstructive pulmonary disease (COPD) 08/23/2018 Fracture 08/23/2018 documented as of this encounter (statuses as of 04/12/2022) [facility]10-24-2013 History of Past illness Narrative* Problem Noted Date Resolved Date Cough 02/20/2013 06/12/2014 Sinusitis, acute 02/20/2013 06/12/2014 Lupus disease of the lung 09/28/20122018 DISPOSITION AND FOLLOW-UP 09/27/20122012 Overview: Yuko Lino is single and lives in [place], [place]. At this time, we anticipate that the patient will be discharged home once clinically stable Plan: - Discuss needs with patient. - Collaborate with Case management to facilitate DC process - Will continue to evaluate during the post op period. . Depressive disorder 09/27/2012 08/23/2018 Overview: PMH of depressive disorder. Patient takes Lexapro 10mg daily Plan - resume Lexapro . SUMMARY 09/27/2012 06/12/2014 Overview: 52 year old female with SLE who came in for hemoptysis. Lung nodule 09/26/2012 09/27/2012 Overview: s/p Right VATS lung biopsy of nodules in RUL, RML, RLL. 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 Cr now 1.28 - 09/23: renal US negative - 09/23: pt states flank pain resolved - 09/24: UA 3+ blood, urine csx negative Plan: - pain control Hemoptysis 09/22/2012 06/12/2014 Overview: Right VATS lung biopsy, right VATS wedge resection x3. Plan: - continue Bactrim DS qMWF for PCP prophylaxis - Albuterol/ipratropium nebs prn - Regular diet - f/u bx results . Hemoptysis 09/22/2012 08/23/2018 Overview: Right VATS lung biopsy, right VATS wedge resection x3. Plan: - continue Bactrim DS qMWF for PCP prophylaxis - Albuterol/ipratropium nebs prn - Regular diet - f/u bx results . Glomerulitis 07/29/2012 08/23/2018 DVT prophylaxis 12/23/2011 09/27/2012 Overview: Heparin SC BID Skin lesion of left leg 12/21/2011 06/12/19 15 Overview: 1 cm hyperkeratotic plaque on left elias Derm does not believe this is related to SLE or infection SUMMARY 12/20/2011 09/27/2012 Overview: 51 yo F with recent diagnosis SLE who presents with 3 day hx of hemoptysis. Pt initally presented to OSH, CXR found bilat. Pneumonia, started on levoquin. Recent hx of travel with bilat LE edema. CT chest w/ contrast 09/22 showed no acute PE w/o exclusion of pulm infarct. Neutropenia 12/20/2011 06/12/2014 Overview: WBC count 1.08 on presentation on 12/20/11 Likely secondary to Imuran initiation about 3 weeks ago. Neutropenic precautions for ANC < 500 today. Discussed with Heme; they can see her as an outpatient. Resolved at time of discharge; thought secondary to Imuran. Repeat CBC 1 day after discharge. PNA (pneumonia) 12/20/2011 06/12/2014 Overview: CAP pna Initially treated with ceftriaxone / azithro, now on levofloxacin, as it is less likely to cause leukopenia. Treating for 10-14 days; CXR 4-6 weeks after discharge to document resolution. Urinary retention vs. urgency 12/20/2011 Overview: Bladder scan showed 65 cc of urine Pt voiding currently UA showed hematuria and proteinuria (chronic issue) U Cx NGTD Abdominal pain 12/20/2011 06/12/2014 Overview: Last BM 5 days ago. KUB shows large amount of stool in colon. Improved - Colace, lactulose Resolved at time of discharge. Back pain 12/20/2011 06/12/2014 Overview: Upper back pain/posterior shoulder pain Most likely related to PNA XR spine normal Much improved Neutropenia 12/20/2011 08/23/2018 Overview: WBC count 1.08 on presentation on 12/20/11 Likely secondary to Imuran initiation about 3 weeks ago. Neutropenic precautions for ANC < 500 today. Discussed with Heme; they can see her as an outpatient. Resolved at time of discharge; thought secondary to Imuran. Repeat CBC 1 day after discharge. PNA (pneumonia) 12/20/2011 08/23/2018 Overview: CAP pna Initially treated with ceftriaxone / azithro, now on levofloxacin, as it is less likely to cause leukopenia. Treating for 10-14 days; CXR 4-6 weeks after discharge to document resolution. Anemia 12/16/2010 08/23/2018 Overview: Haptoglobin nl, ferritin high, LDH nl, retic count nl, Kingsley negative - unlikely hemolytic anemia Stable at time of discharge; labs to be rechecked and followed. Steroid long-term use 10/05/2010 08/23/2018 Proteinuria 03/16/2010 08/23/2018 Neutropenia associated with autoimmune disease 1 08/23/2018 Elevated antinuclear antibody (CHANA) level 200806/12/2014 Overview: 04/26/2009 CHANA by EIA: 5.3 (H) Polyarthralgia 04/27/2009 06/12/2014 Overview: CHANA 5.3 on 04/26/09 RF neg on 04/26/09 Depressive disorder, not elsewhere classified 06/12/2014 Chronic obstructive pulmonary disease (COPD) 08/23/2018 Fracture 08/23/2018 documented as of this encounter (statuses as of 06/02/2022) [facility] History of Past illness Narrative* Problem Noted Date Resolved Date Cough 02/20/2013 06/12/2014 Sinusitis, acute 02/20/2013 06/12/2014 Lupus disease of the lung 09/28/20122018 DISPOSITION AND FOLLOW-UP 09/27/20122012 Overview: Yuko Lino is single and lives in [place], [place]. At this time, we anticipate that the patient will be discharged home once clinically stable Plan: - Discuss needs with patient. - Collaborate with Case management to facilitate DC process - Will continue to evaluate during the post op period. . Depressive disorder 09/27/2012 08/23/2018 Overview: PMH of depressive disorder. Patient takes Lexapro 10mg daily Plan - resume Lexapro . SUMMARY 09/27/2012 06/12/2014 Overview: 52 year old female with SLE who came in for hemoptysis. Lung nodule 09/26/2012 09/27/2012 Overview: s/p Right VATS lung biopsy of nodules in RUL, RML, RLL. 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 Cr now 1.28 - 09/23: renal US negative - 09/23: pt states flank pain resolved - 09/24: UA 3+ blood, urine csx negative Plan: - pain control Hemoptysis 09/22/2012 06/12/2014 Overview: Right VATS lung biopsy, right VATS wedge resection x3. Plan: - continue Bactrim DS qMWF for PCP prophylaxis - Albuterol/ipratropium nebs prn - Regular diet - f/u bx results . Hemoptysis 09/22/2012 08/23/2018 Overview: Right VATS lung biopsy, right VATS wedge resection x3. Plan: - continue Bactrim DS qMWF for PCP prophylaxis - Albuterol/ipratropium nebs prn - Regular diet - f/u bx results . Glomerulitis 07/29/2012 08/23/2018 DVT prophylaxis 12/23/2011 09/27/2012 Overview: Heparin SC BID Skin lesion of left leg 12/21/2011 06/12/19 15 Overview: 1 cm hyperkeratotic plaque on left eilas Derm does not believe this is related to SLE or infection SUMMARY 12/20/2011 09/27/2012 Overview: 51 yo F with recent diagnosis SLE who presents with 3 day hx of hemoptysis. Pt initally presented to OSH, CXR found bilat. Pneumonia, started on levoquin. Recent hx of travel with bilat LE edema. CT chest w/ contrast 09/22 showed no acute PE w/o exclusion of pulm infarct. Neutropenia 12/20/2011 06/12/2014 Overview: WBC count 1.08 on presentation on 12/20/11 Likely secondary to Imuran initiation about 3 weeks ago. Neutropenic precautions for ANC < 500 today. Discussed with Heme; they can see her as an outpatient. Resolved at time of discharge; thought secondary to Imuran. Repeat CBC 1 day after discharge. PNA (pneumonia) 12/20/2011 06/12/2014 Overview: CAP pna Initially treated with ceftriaxone / azithro, now on levofloxacin, as it is less likely to cause leukopenia. Treating for 10-14 days; CXR 4-6 weeks after discharge to document resolution. Urinary retention vs. urgency 12/20/2011 Overview: Bladder scan showed 65 cc of urine Pt voiding currently UA showed hematuria and proteinuria (chronic issue) U Cx NGTD Abdominal pain 12/20/2011 06/12/2014 Overview: Last BM 5 days ago. KUB shows large amount of stool in colon. Improved - Colace, lactulose Resolved at time of discharge. Back pain 12/20/2011 06/12/2014 Overview: Upper back pain/posterior shoulder pain Most likely related to PNA XR spine normal Much improved Neutropenia 12/20/2011 08/23/2018 Overview: WBC count 1.08 on presentation on 12/20/11 Likely secondary to Imuran initiation about 3 weeks ago. Neutropenic precautions for ANC < 500 today. Discussed with Heme; they can see her as an outpatient. Resolved at time of discharge; thought secondary to Imuran. Repeat CBC 1 day after discharge. PNA (pneumonia) 12/20/2011 08/23/2018 Overview: CAP pna Initially treated with ceftriaxone / azithro, now on levofloxacin, as it is less likely to cause leukopenia. Treating for 10-14 days; CXR 4-6 weeks after discharge to document resolution. Anemia 12/16/2010 08/23/2018 Overview: Haptoglobin nl, ferritin high, LDH nl, retic count nl, Knigsley negative - unlikely hemolytic anemia Stable at time of discharge; labs to be rechecked and followed. Steroid long-term use 10/05/2010 08/23/2018 Proteinuria 03/16/2010 08/23/2018 Neutropenia associated with autoimmune disease 1 08/23/2018 Elevated antinuclear antibody (CHANA) level 200806/12/2014 Overview: 04/26/2009 CHANA by EIA: 5.3 (H) Polyarthralgia 04/27/2009 06/12/2014 Overview: CHANA 5.3 on 04/26/09 RF neg on 04/26/09 Depressive disorder, not elsewhere classified 06/12/2014 Chronic obstructive pulmonary disease (COPD) 08/23/2018 Fracture 08/23/2018 documented as of this encounter (statuses as of 06/07/2022) [facility] History of Past illness Narrative* Problem Noted Date Resolved Date Cough 02/20/2013 06/12/2014 Sinusitis, acute 02/20/2013 06/12/2014 Lupus disease of the lung 09/28/20122018 DISPOSITION AND FOLLOW-UP 09/27/20122012 Overview: Yuko Lino is single and lives in [place], [place]. At this time, we anticipate that the patient will be discharged home once clinically stable Plan: - Discuss needs with patient. - Collaborate with Case management to facilitate DC process - Will continue to evaluate during the post op period. . Depressive disorder 09/27/2012 08/23/2018 Overview: PMH of depressive disorder. Patient takes Lexapro 10mg daily Plan - resume Lexapro . SUMMARY 09/27/2012 06/12/2014 Overview: 52 year old female with SLE who came in for hemoptysis. Lung nodule 09/26/2012 09/27/2012 Overview: s/p Right VATS lung biopsy of nodules in RUL, RML, RLL. 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 Cr now 1.28 - 09/23: renal US negative - 09/23: pt states flank pain resolved - 09/24: UA 3+ blood, urine csx negative Plan: - pain control Hemoptysis 09/22/2012 06/12/2014 Overview: Right VATS lung biopsy, right VATS wedge resection x3. Plan: - continue Bactrim DS qMWF for PCP prophylaxis - Albuterol/ipratropium nebs prn - Regular diet - f/u bx results . Hemoptysis 09/22/2012 08/23/2018 Overview: Right VATS lung biopsy, right VATS wedge resection x3. Plan: - continue Bactrim DS qMWF for PCP prophylaxis - Albuterol/ipratropium nebs prn - Regular diet - f/u bx results . Glomerulitis 07/29/2012 08/23/2018 DVT prophylaxis 12/23/2011 09/27/2012 Overview: Heparin SC BID Skin lesion of left leg 12/21/2011 06/12/19 15 Overview: 1 cm hyperkeratotic plaque on left elias Derm does not believe this is related to SLE or infection SUMMARY 12/20/2011 09/27/2012 Overview: 51 yo F with recent diagnosis SLE who presents with 3 day hx of hemoptysis. Pt initally presented to OSH, CXR found bilat. Pneumonia, started on levoquin. Recent hx of travel with bilat LE edema. CT chest w/ contrast 09/22 showed no acute PE w/o exclusion of pulm infarct. Neutropenia 12/20/2011 06/12/2014 Overview: WBC count 1.08 on presentation on 12/20/11 Likely secondary to Imuran initiation about 3 weeks ago. Neutropenic precautions for ANC < 500 today. Discussed with Heme; they can see her as an outpatient. Resolved at time of discharge; thought secondary to Imuran. Repeat CBC 1 day after discharge. PNA (pneumonia) 12/20/2011 06/12/2014 Overview: CAP pna Initially treated with ceftriaxone / azithro, now on levofloxacin, as it is less likely to cause leukopenia. Treating for 10-14 days; CXR 4-6 weeks after discharge to document resolution. Urinary retention vs. urgency 12/20/2011 Overview: Bladder scan showed 65 cc of urine Pt voiding currently UA showed hematuria and proteinuria (chronic issue) U Cx NGTD Abdominal pain 12/20/2011 06/12/2014 Overview: Last BM 5 days ago. KUB shows large amount of stool in colon. Improved - Colace, lactulose Resolved at time of discharge. Back pain 12/20/2011 06/12/2014 Overview: Upper back pain/posterior shoulder pain Most likely related to PNA XR spine normal Much improved Neutropenia 12/20/2011 08/23/2018 Overview: WBC count 1.08 on presentation on 12/20/11 Likely secondary to Imuran initiation about 3 weeks ago. Neutropenic precautions for ANC < 500 today. Discussed with Heme; they can see her as an outpatient. Resolved at time of discharge; thought secondary to Imuran. Repeat CBC 1 day after discharge. PNA (pneumonia) 12/20/2011 08/23/2018 Overview: CAP pna Initially treated with ceftriaxone / azithro, now on levofloxacin, as it is less likely to cause leukopenia. Treating for 10-14 days; CXR 4-6 weeks after discharge to document resolution. Anemia 12/16/2010 08/23/2018 Overview: Haptoglobin nl, ferritin high, LDH nl, retic count nl, Kingsley negative - unlikely hemolytic anemia Stable at time of discharge; labs to be rechecked and followed. Steroid long-term use 10/05/2010 08/23/2018 Proteinuria 03/16/2010 08/23/2018 Neutropenia associated with autoimmune disease 1 08/23/2018 Elevated antinuclear antibody (CHANA) level 200806/12/2014 Overview: 04/26/2009 CHANA by EIA: 5.3 (H) Polyarthralgia 04/27/2009 06/12/2014 Overview: CHANA 5.3 on 04/26/09 RF neg on 04/26/09 Depressive disorder, not elsewhere classified 06/12/2014 Chronic obstructive pulmonary disease (COPD) 08/23/2018 Fracture 08/23/2018 documented as of this encounter (statuses as of 07/03/2022) [facility] History of Past illness Narrative* Problem Noted Date Resolved Date Cough 02/20/2013 06/12/2014 Sinusitis, acute 02/20/2013 06/12/2014 Lupus disease of the lung 09/28/20122018 DISPOSITION AND FOLLOW-UP 09/27/20122012 Overview: Yuko Lino is single and lives in [place], [place]. At this time, we anticipate that the patient will be discharged home once clinically stable Plan: - Discuss needs with patient. - Collaborate with Case management to facilitate DC process - Will continue to evaluate during the post op period. . Depressive disorder 09/27/2012 08/23/2018 Overview: PMH of depressive disorder. Patient takes Lexapro 10mg daily Plan - resume Lexapro . SUMMARY 09/27/2012 06/12/2014 Overview: 52 year old female with SLE who came in for hemoptysis. Lung nodule 09/26/2012 09/27/2012 Overview: s/p Right VATS lung biopsy of nodules in RUL, RML, RLL. 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 Cr now 1.28 - 09/23: renal US negative - 09/23: pt states flank pain resolved - 09/24: UA 3+ blood, urine csx negative Plan: - pain control Hemoptysis 09/22/2012 06/12/2014 Overview: Right VATS lung biopsy, right VATS wedge resection x3. Plan: - continue Bactrim DS qMWF for PCP prophylaxis - Albuterol/ipratropium nebs prn - Regular diet - f/u bx results . Hemoptysis 09/22/2012 08/23/2018 Overview: Right VATS lung biopsy, right VATS wedge resection x3. Plan: - continue Bactrim DS qMWF for PCP prophylaxis - Albuterol/ipratropium nebs prn - Regular diet - f/u bx results . Glomerulitis 07/29/2012 08/23/2018 DVT prophylaxis 12/23/2011 09/27/2012 Overview: Heparin SC BID Skin lesion of left leg 12/21/2011 06/12/19 15 Overview: 1 cm hyperkeratotic plaque on left elias Derm does not believe this is related to SLE or infection SUMMARY 12/20/2011 09/27/2012 Overview: 51 yo F with recent diagnosis SLE who presents with 3 day hx of hemoptysis. Pt initally presented to OSH, CXR found bilat. Pneumonia, started on levoquin. Recent hx of travel with bilat LE edema. CT chest w/ contrast 09/22 showed no acute PE w/o exclusion of pulm infarct. Neutropenia 12/20/2011 06/12/2014 Overview: WBC count 1.08 on presentation on 12/20/11 Likely secondary to Imuran initiation about 3 weeks ago. Neutropenic precautions for ANC < 500 today. Discussed with Heme; they can see her as an outpatient. Resolved at time of discharge; thought secondary to Imuran. Repeat CBC 1 day after discharge. PNA (pneumonia) 12/20/2011 06/12/2014 Overview: CAP pna Initially treated with ceftriaxone / azithro, now on levofloxacin, as it is less likely to cause leukopenia. Treating for 10-14 days; CXR 4-6 weeks after discharge to document resolution. Urinary retention vs. urgency 12/20/2011 Overview: Bladder scan showed 65 cc of urine Pt voiding currently UA showed hematuria and proteinuria (chronic issue) U Cx NGTD Abdominal pain 12/20/2011 06/12/2014 Overview: Last BM 5 days ago. KUB shows large amount of stool in colon. Improved - Colace, lactulose Resolved at time of discharge. Back pain 12/20/2011 06/12/2014 Overview: Upper back pain/posterior shoulder pain Most likely related to PNA XR spine normal Much improved Neutropenia 12/20/2011 08/23/2018 Overview: WBC count 1.08 on presentation on 12/20/11 Likely secondary to Imuran initiation about 3 weeks ago. Neutropenic precautions for ANC < 500 today. Discussed with Heme; they can see her as an outpatient. Resolved at time of discharge; thought secondary to Imuran. Repeat CBC 1 day after discharge. PNA (pneumonia) 12/20/2011 08/23/2018 Overview: CAP pna Initially treated with ceftriaxone / azithro, now on levofloxacin, as it is less likely to cause leukopenia. Treating for 10-14 days; CXR 4-6 weeks after discharge to document resolution. Anemia 12/16/2010 08/23/2018 Overview: Haptoglobin nl, ferritin high, LDH nl, retic count nl, Kingsley negative - unlikely hemolytic anemia Stable at time of discharge; labs to be rechecked and followed. Steroid long-term use 10/05/2010 08/23/2018 Proteinuria 03/16/2010 08/23/2018 Neutropenia associated with autoimmune disease 1 08/23/2018 Elevated antinuclear antibody (CHANA) level 200806/12/2014 Overview: 04/26/2009 CHANA by EIA: 5.3 (H) Polyarthralgia 04/27/2009 06/12/2014 Overview: CHANA 5.3 on 04/26/09 RF neg on 04/26/09 Depressive disorder, not elsewhere classified 06/12/2014 Chronic obstructive pulmonary disease (COPD) 08/23/2018 Fracture 08/23/2018 documented as of this encounter (statuses as of 07/04/2022) [facility]10-24-2013 History of Past illness Narrative* Problem Noted Date Resolved Date Cough 02/20/2013 06/12/2014 Sinusitis, acute 02/20/2013 06/12/2014 Lupus disease of the lung 09/28/20122018 DISPOSITION AND FOLLOW-UP 09/27/20122012 Overview: Yuko Lino is single and lives in [place], [place]. At this time, we anticipate that the patient will be discharged home once clinically stable Plan: - Discuss needs with patient. - Collaborate with Case management to facilitate DC process - Will continue to evaluate during the post op period. . Depressive disorder 09/27/2012 08/23/2018 Overview: PMH of depressive disorder. Patient takes Lexapro 10mg daily Plan - resume Lexapro . SUMMARY 09/27/2012 06/12/2014 Overview: 52 year old female with SLE who came in for hemoptysis. Lung nodule 09/26/2012 09/27/2012 Overview: s/p Right VATS lung biopsy of nodules in RUL, RML, RLL. 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 Cr now 1.28 - 09/23: renal US negative - 09/23: pt states flank pain resolved - 09/24: UA 3+ blood, urine csx negative Plan: - pain control Hemoptysis 09/22/2012 06/12/2014 Overview: Right VATS lung biopsy, right VATS wedge resection x3. Plan: - continue Bactrim DS qMWF for PCP prophylaxis - Albuterol/ipratropium nebs prn - Regular diet - f/u bx results . Hemoptysis 09/22/2012 08/23/2018 Overview: Right VATS lung biopsy, right VATS wedge resection x3. Plan: - continue Bactrim DS qMWF for PCP prophylaxis - Albuterol/ipratropium nebs prn - Regular diet - f/u bx results . Glomerulitis 07/29/2012 08/23/2018 DVT prophylaxis 12/23/2011 09/27/2012 Overview: Heparin SC BID Skin lesion of left leg 12/21/2011 06/12/19 15 Overview: 1 cm hyperkeratotic plaque on left elias Derm does not believe this is related to SLE or infection SUMMARY 12/20/2011 09/27/2012 Overview: 51 yo F with recent diagnosis SLE who presents with 3 day hx of hemoptysis. Pt initally presented to OSH, CXR found bilat. Pneumonia, started on levoquin. Recent hx of travel with bilat LE edema. CT chest w/ contrast 09/22 showed no acute PE w/o exclusion of pulm infarct. Neutropenia 12/20/2011 06/12/2014 Overview: WBC count 1.08 on presentation on 12/20/11 Likely secondary to Imuran initiation about 3 weeks ago. Neutropenic precautions for ANC < 500 today. Discussed with Heme; they can see her as an outpatient. Resolved at time of discharge; thought secondary to Imuran. Repeat CBC 1 day after discharge. PNA (pneumonia) 12/20/2011 06/12/2014 Overview: CAP pna Initially treated with ceftriaxone / azithro, now on levofloxacin, as it is less likely to cause leukopenia. Treating for 10-14 days; CXR 4-6 weeks after discharge to document resolution. Urinary retention vs. urgency 12/20/2011 Overview: Bladder scan showed 65 cc of urine Pt voiding currently UA showed hematuria and proteinuria (chronic issue) U Cx NGTD Abdominal pain 12/20/2011 06/12/2014 Overview: Last BM 5 days ago. KUB shows large amount of stool in colon. Improved - Colace, lactulose Resolved at time of discharge. Back pain 12/20/2011 06/12/2014 Overview: Upper back pain/posterior shoulder pain Most likely related to PNA XR spine normal Much improved Neutropenia 12/20/2011 08/23/2018 Overview: WBC count 1.08 on presentation on 12/20/11 Likely secondary to Imuran initiation about 3 weeks ago. Neutropenic precautions for ANC < 500 today. Discussed with Heme; they can see her as an outpatient. Resolved at time of discharge; thought secondary to Imuran. Repeat CBC 1 day after discharge. PNA (pneumonia) 12/20/2011 08/23/2018 Overview: CAP pna Initially treated with ceftriaxone / azithro, now on levofloxacin, as it is less likely to cause leukopenia. Treating for 10-14 days; CXR 4-6 weeks after discharge to document resolution. Anemia 12/16/2010 08/23/2018 Overview: Haptoglobin nl, ferritin high, LDH nl, retic count nl, Kingsley negative - unlikely hemolytic anemia Stable at time of discharge; labs to be rechecked and followed. Steroid long-term use 10/05/2010 08/23/2018 Proteinuria 03/16/2010 08/23/2018 Neutropenia associated with autoimmune disease 1 08/23/2018 Elevated antinuclear antibody (CHANA) level 200806/12/2014 Overview: 04/26/2009 CHANA by EIA: 5.3 (H) Polyarthralgia 04/27/2009 06/12/2014 Overview: CHANA 5.3 on 04/26/09 RF neg on 04/26/09 Depressive disorder, not elsewhere classified 06/12/2014 Chronic obstructive pulmonary disease (COPD) 08/23/2018 Fracture 08/23/2018 documented as of this encounter (statuses as of 08/01/2022) [facility]10-24-2013 History of Past illness Narrative* Problem Noted Date Resolved Date Cough 02/20/2013 06/12/2014 Sinusitis, acute 02/20/2013 06/12/2014 Lupus disease of the lung 09/28/20122018 DISPOSITION AND FOLLOW-UP 09/27/20122012 Overview: Yuko Lino is single and lives in [place], [place]. At this time, we anticipate that the patient will be discharged home once clinically stable Plan: - Discuss needs with patient. - Collaborate with Case management to facilitate DC process - Will continue to evaluate during the post op period. . Depressive disorder 09/27/2012 08/23/2018 Overview: PMH of depressive disorder. Patient takes Lexapro 10mg daily Plan - resume Lexapro . SUMMARY 09/27/2012 06/12/2014 Overview: 52 year old female with SLE who came in for hemoptysis. Lung nodule 09/26/2012 09/27/2012 Overview: s/p Right VATS lung biopsy of nodules in RUL, RML, RLL. 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 Cr now 1.28 - 09/23: renal US negative - 09/23: pt states flank pain resolved - 09/24: UA 3+ blood, urine csx negative Plan: - pain control Hemoptysis 09/22/2012 06/12/2014 Overview: Right VATS lung biopsy, right VATS wedge resection x3. Plan: - continue Bactrim DS qMWF for PCP prophylaxis - Albuterol/ipratropium nebs prn - Regular diet - f/u bx results . Hemoptysis 09/22/2012 08/23/2018 Overview: Right VATS lung biopsy, right VATS wedge resection x3. Plan: - continue Bactrim DS qMWF for PCP prophylaxis - Albuterol/ipratropium nebs prn - Regular diet - f/u bx results . Glomerulitis 07/29/2012 08/23/2018 DVT prophylaxis 12/23/2011 09/27/2012 Overview: Heparin SC BID Skin lesion of left leg 12/21/2011 06/12/19 15 Overview: 1 cm hyperkeratotic plaque on left elias Derm does not believe this is related to SLE or infection SUMMARY 12/20/2011 09/27/2012 Overview: 51 yo F with recent diagnosis SLE who presents with 3 day hx of hemoptysis. Pt initally presented to OSH, CXR found bilat. Pneumonia, started on levoquin. Recent hx of travel with bilat LE edema. CT chest w/ contrast 09/22 showed no acute PE w/o exclusion of pulm infarct. Neutropenia 12/20/2011 06/12/2014 Overview: WBC count 1.08 on presentation on 12/20/11 Likely secondary to Imuran initiation about 3 weeks ago. Neutropenic precautions for ANC < 500 today. Discussed with Heme; they can see her as an outpatient. Resolved at time of discharge; thought secondary to Imuran. Repeat CBC 1 day after discharge. PNA (pneumonia) 12/20/2011 06/12/2014 Overview: CAP pna Initially treated with ceftriaxone / azithro, now on levofloxacin, as it is less likely to cause leukopenia. Treating for 10-14 days; CXR 4-6 weeks after discharge to document resolution. Urinary retention vs. urgency 12/20/2011 Overview: Bladder scan showed 65 cc of urine Pt voiding currently UA showed hematuria and proteinuria (chronic issue) U Cx NGTD Abdominal pain 12/20/2011 06/12/2014 Overview: Last BM 5 days ago. KUB shows large amount of stool in colon. Improved - Colace, lactulose Resolved at time of discharge. Back pain 12/20/2011 06/12/2014 Overview: Upper back pain/posterior shoulder pain Most likely related to PNA XR spine normal Much improved Neutropenia 12/20/2011 08/23/2018 Overview: WBC count 1.08 on presentation on 12/20/11 Likely secondary to Imuran initiation about 3 weeks ago. Neutropenic precautions for ANC < 500 today. Discussed with Heme; they can see her as an outpatient. Resolved at time of discharge; thought secondary to Imuran. Repeat CBC 1 day after discharge. PNA (pneumonia) 12/20/2011 08/23/2018 Overview: CAP pna Initially treated with ceftriaxone / azithro, now on levofloxacin, as it is less likely to cause leukopenia. Treating for 10-14 days; CXR 4-6 weeks after discharge to document resolution. Anemia 12/16/2010 08/23/2018 Overview: Haptoglobin nl, ferritin high, LDH nl, retic count nl, Kingsley negative - unlikely hemolytic anemia Stable at time of discharge; labs to be rechecked and followed. Steroid long-term use 10/05/2010 08/23/2018 Proteinuria 03/16/2010 08/23/2018 Neutropenia associated with autoimmune disease 1 08/23/2018 Elevated antinuclear antibody (CHANA) level 200806/12/2014 Overview: 04/26/2009 CHANA by EIA: 5.3 (H) Polyarthralgia 04/27/2009 06/12/2014 Overview: CHANA 5.3 on 04/26/09 RF neg on 04/26/09 Depressive disorder, not elsewhere classified 06/12/2014 Chronic obstructive pulmonary disease (COPD) 08/23/2018 Fracture 08/23/2018 documented as of this encounter (statuses as of 08/12/2022) [facility]10-[facility]2013 History of Past illness Narrative* Problem Noted Date Resolved Date Cough 02/20/2013 06/12/2014 Sinusitis, acute 02/20/2013 06/12/2014 Lupus disease of the lung 09/28/20122018 DISPOSITION AND FOLLOW-UP 09/27/20122012 Overview: Yuko Lino is single and lives in [place], [place]. At this time, we anticipate that the patient will be discharged home once clinically stable Plan: - Discuss needs with patient. - Collaborate with Case management to facilitate DC process - Will continue to evaluate during the post op period. . Depressive disorder 09/27/2012 08/23/2018 Overview: PMH of depressive disorder. Patient takes Lexapro 10mg daily Plan - resume Lexapro . SUMMARY 09/27/2012 06/12/2014 Overview: 52 year old female with SLE who came in for hemoptysis. Lung nodule 09/26/2012 09/27/2012 Overview: s/p Right VATS lung biopsy of nodules in RUL, RML, RLL. 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 Cr now 1.28 - 09/23: renal US negative - 09/23: pt states flank pain resolved - 09/24: UA 3+ blood, urine csx negative Plan: - pain control Hemoptysis 09/22/2012 06/12/2014 Overview: Right VATS lung biopsy, right VATS wedge resection x3. Plan: - continue Bactrim DS qMWF for PCP prophylaxis - Albuterol/ipratropium nebs prn - Regular diet - f/u bx results . Hemoptysis 09/22/2012 08/23/2018 Overview: Right VATS lung biopsy, right VATS wedge resection x3. Plan: - continue Bactrim DS qMWF for PCP prophylaxis - Albuterol/ipratropium nebs prn - Regular diet - f/u bx results . Glomerulitis 07/29/2012 08/23/2018 DVT prophylaxis 12/23/2011 09/27/2012 Overview: Heparin SC BID Skin lesion of left leg 12/21/2011 06/12/19 15 Overview: 1 cm hyperkeratotic plaque on left elias Derm does not believe this is related to SLE or infection SUMMARY 12/20/2011 09/27/2012 Overview: 51 yo F with recent diagnosis SLE who presents with 3 day hx of hemoptysis. Pt initally presented to OSH, CXR found bilat. Pneumonia, started on levoquin. Recent hx of travel with bilat LE edema. CT chest w/ contrast 09/22 showed no acute PE w/o exclusion of pulm infarct. Neutropenia 12/20/2011 06/12/2014 Overview: WBC count 1.08 on presentation on 12/20/11 Likely secondary to Imuran initiation about 3 weeks ago. Neutropenic precautions for ANC < 500 today. Discussed with Heme; they can see her as an outpatient. Resolved at time of discharge; thought secondary to Imuran. Repeat CBC 1 day after discharge. PNA (pneumonia) 12/20/2011 06/12/2014 Overview: CAP pna Initially treated with ceftriaxone / azithro, now on levofloxacin, as it is less likely to cause leukopenia. Treating for 10-14 days; CXR 4-6 weeks after discharge to document resolution. Urinary retention vs. urgency 12/20/2011 Overview: Bladder scan showed 65 cc of urine Pt voiding currently UA showed hematuria and proteinuria (chronic issue) U Cx NGTD Abdominal pain 12/20/2011 06/12/2014 Overview: Last BM 5 days ago. KUB shows large amount of stool in colon. Improved - Colace, lactulose Resolved at time of discharge. Back pain 12/20/2011 06/12/2014 Overview: Upper back pain/posterior shoulder pain Most likely related to PNA XR spine normal Much improved Neutropenia 12/20/2011 08/23/2018 Overview: WBC count 1.08 on presentation on 12/20/11 Likely secondary to Imuran initiation about 3 weeks ago. Neutropenic precautions for ANC < 500 today. Discussed with Heme; they can see her as an outpatient. Resolved at time of discharge; thought secondary to Imuran. Repeat CBC 1 day after discharge. PNA (pneumonia) 12/20/2011 08/23/2018 Overview: CAP pna Initially treated with ceftriaxone / azithro, now on levofloxacin, as it is less likely to cause leukopenia. Treating for 10-14 days; CXR 4-6 weeks after discharge to document resolution. Anemia 12/16/2010 08/23/2018 Overview: Haptoglobin nl, ferritin high, LDH nl, retic count nl, Kingsley negative - unlikely hemolytic anemia Stable at time of discharge; labs to be rechecked and followed. Steroid long-term use 10/05/2010 08/23/2018 Proteinuria 03/16/2010 08/23/2018 Neutropenia associated with autoimmune disease 1 08/23/2018 Elevated antinuclear antibody (CHANA) level 200806/12/2014 Overview: 04/26/2009 CHANA by EIA: 5.3 (H) Polyarthralgia 04/27/2009 06/12/2014 Overview: CHANA 5.3 on 04/26/09 RF neg on 04/26/09 Depressive disorder, not elsewhere classified 06/12/2014 Chronic obstructive pulmonary disease (COPD) 08/23/2018 Fracture 08/23/2018 documented as of this encounter (statuses as of 08/24/2022) [facility] History of Past illness Narrative* Problem Noted Date Resolved Date Cough 02/20/2013 06/12/2014 Sinusitis, acute 02/20/2013 06/12/2014 Lupus disease of the lung 09/28/20122018 DISPOSITION AND FOLLOW-UP 09/27/20122012 Overview: Yuko Lino is single and lives in [place], [place]. At this time, we anticipate that the patient will be discharged home once clinically stable Plan: - Discuss needs with patient. - Collaborate with Case management to facilitate DC process - Will continue to evaluate during the post op period. . Depressive disorder 09/27/2012 08/23/2018 Overview: PMH of depressive disorder. Patient takes Lexapro 10mg daily Plan - resume Lexapro . SUMMARY 09/27/2012 06/12/2014 Overview: 52 year old female with SLE who came in for hemoptysis. Lung nodule 09/26/2012 09/27/2012 Overview: s/p Right VATS lung biopsy of nodules in RUL, RML, RLL. 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 Cr now 1.28 - 09/23: renal US negative - 09/23: pt states flank pain resolved - 09/24: UA 3+ blood, urine csx negative Plan: - pain control Hemoptysis 09/22/2012 06/12/2014 Overview: Right VATS lung biopsy, right VATS wedge resection x3. Plan: - continue Bactrim DS qMWF for PCP prophylaxis - Albuterol/ipratropium nebs prn - Regular diet - f/u bx results . Hemoptysis 09/22/2012 08/23/2018 Overview: Right VATS lung biopsy, right VATS wedge resection x3. Plan: - continue Bactrim DS qMWF for PCP prophylaxis - Albuterol/ipratropium nebs prn - Regular diet - f/u bx results . Glomerulitis 07/29/2012 08/23/2018 DVT prophylaxis 12/23/2011 09/27/2012 Overview: Heparin SC BID Skin lesion of left leg 12/21/2011 06/12/19 15 Overview: 1 cm hyperkeratotic plaque on left elias Derm does not believe this is related to SLE or infection SUMMARY 12/20/2011 09/27/2012 Overview: 51 yo F with recent diagnosis SLE who presents with 3 day hx of hemoptysis. Pt initally presented to OSH, CXR found bilat. Pneumonia, started on levoquin. Recent hx of travel with bilat LE edema. CT chest w/ contrast 09/22 showed no acute PE w/o exclusion of pulm infarct. Neutropenia 12/20/2011 06/12/2014 Overview: WBC count 1.08 on presentation on 12/20/11 Likely secondary to Imuran initiation about 3 weeks ago. Neutropenic precautions for ANC < 500 today. Discussed with Heme; they can see her as an outpatient. Resolved at time of discharge; thought secondary to Imuran. Repeat CBC 1 day after discharge. PNA (pneumonia) 12/20/2011 06/12/2014 Overview: CAP pna Initially treated with ceftriaxone / azithro, now on levofloxacin, as it is less likely to cause leukopenia. Treating for 10-14 days; CXR 4-6 weeks after discharge to document resolution. Urinary retention vs. urgency 12/20/2011 Overview: Bladder scan showed 65 cc of urine Pt voiding currently UA showed hematuria and proteinuria (chronic issue) U Cx NGTD Abdominal pain 12/20/2011 06/12/2014 Overview: Last BM 5 days ago. KUB shows large amount of stool in colon. Improved - Colace, lactulose Resolved at time of discharge. Back pain 12/20/2011 06/12/2014 Overview: Upper back pain/posterior shoulder pain Most likely related to PNA XR spine normal Much improved Neutropenia 12/20/2011 08/23/2018 Overview: WBC count 1.08 on presentation on 12/20/11 Likely secondary to Imuran initiation about 3 weeks ago. Neutropenic precautions for ANC < 500 today. Discussed with Heme; they can see her as an outpatient. Resolved at time of discharge; thought secondary to Imuran. Repeat CBC 1 day after discharge. PNA (pneumonia) 12/20/2011 08/23/2018 Overview: CAP pna Initially treated with ceftriaxone / azithro, now on levofloxacin, as it is less likely to cause leukopenia. Treating for 10-14 days; CXR 4-6 weeks after discharge to document resolution. Anemia 12/16/2010 08/23/2018 Overview: Haptoglobin nl, ferritin high, LDH nl, retic count nl, Kingsley negative - unlikely hemolytic anemia Stable at time of discharge; labs to be rechecked and followed. Steroid long-term use 10/05/2010 08/23/2018 Proteinuria 03/16/2010 08/23/2018 Neutropenia associated with autoimmune disease 1 08/23/2018 Elevated antinuclear antibody (CHANA) level 200806/12/2014 Overview: 04/26/2009 CHANA by EIA: 5.3 (H) Polyarthralgia 04/27/2009 06/12/2014 Overview: CHANA 5.3 on 04/26/09 RF neg on 04/26/09 Depressive disorder, not elsewhere classified 06/12/2014 Chronic obstructive pulmonary disease (COPD) 08/23/2018 Fracture 08/23/2018 documented as of this encounter (statuses as of 08/29/2022) [facility] History of Past illness Narrative* Problem Noted Date Resolved Date Cough 02/20/2013 06/12/2014 Sinusitis, acute 02/20/2013 06/12/2014 Lupus disease of the lung 09/28/20122018 DISPOSITION AND FOLLOW-UP 09/27/20122012 Overview: Yuko Lino is single and lives in [place], [place]. At this time, we anticipate that the patient will be discharged home once clinically stable Plan: - Discuss needs with patient. - Collaborate with Case management to facilitate DC process - Will continue to evaluate during the post op period. . Depressive disorder 09/27/2012 08/23/2018 Overview: PMH of depressive disorder. Patient takes Lexapro 10mg daily Plan - resume Lexapro . SUMMARY 09/27/2012 06/12/2014 Overview: 52 year old female with SLE who came in for hemoptysis. Lung nodule 09/26/2012 09/27/2012 Overview: s/p Right VATS lung biopsy of nodules in RUL, RML, RLL. 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 Cr now 1.28 - 09/23: renal US negative - 09/23: pt states flank pain resolved - 09/24: UA 3+ blood, urine csx negative Plan: - pain control Hemoptysis 09/22/2012 06/12/2014 Overview: Right VATS lung biopsy, right VATS wedge resection x3. Plan: - continue Bactrim DS qMWF for PCP prophylaxis - Albuterol/ipratropium nebs prn - Regular diet - f/u bx results . Hemoptysis 09/22/2012 08/23/2018 Overview: Right VATS lung biopsy, right VATS wedge resection x3. Plan: - continue Bactrim DS qMWF for PCP prophylaxis - Albuterol/ipratropium nebs prn - Regular diet - f/u bx results . Glomerulitis 07/29/2012 08/23/2018 DVT prophylaxis 12/23/2011 09/27/2012 Overview: Heparin SC BID Skin lesion of left leg 12/21/2011 06/12/19 15 Overview: 1 cm hyperkeratotic plaque on left elias Derm does not believe this is related to SLE or infection SUMMARY 12/20/2011 09/27/2012 Overview: 51 yo F with recent diagnosis SLE who presents with 3 day hx of hemoptysis. Pt initally presented to OSH, CXR found bilat. Pneumonia, started on levoquin. Recent hx of travel with bilat LE edema. CT chest w/ contrast 09/22 showed no acute PE w/o exclusion of pulm infarct. Neutropenia 12/20/2011 06/12/2014 Overview: WBC count 1.08 on presentation on 12/20/11 Likely secondary to Imuran initiation about 3 weeks ago. Neutropenic precautions for ANC < 500 today. Discussed with Heme; they can see her as an outpatient. Resolved at time of discharge; thought secondary to Imuran. Repeat CBC 1 day after discharge. PNA (pneumonia) 12/20/2011 06/12/2014 Overview: CAP pna Initially treated with ceftriaxone / azithro, now on levofloxacin, as it is less likely to cause leukopenia. Treating for 10-14 days; CXR 4-6 weeks after discharge to document resolution. Urinary retention vs. urgency 12/20/2011 Overview: Bladder scan showed 65 cc of urine Pt voiding currently UA showed hematuria and proteinuria (chronic issue) U Cx NGTD Abdominal pain 12/20/2011 06/12/2014 Overview: Last BM 5 days ago. KUB shows large amount of stool in colon. Improved - Colace, lactulose Resolved at time of discharge. Back pain 12/20/2011 06/12/2014 Overview: Upper back pain/posterior shoulder pain Most likely related to PNA XR spine normal Much improved Neutropenia 12/20/2011 08/23/2018 Overview: WBC count 1.08 on presentation on 12/20/11 Likely secondary to Imuran initiation about 3 weeks ago. Neutropenic precautions for ANC < 500 today. Discussed with Heme; they can see her as an outpatient. Resolved at time of discharge; thought secondary to Imuran. Repeat CBC 1 day after discharge. PNA (pneumonia) 12/20/2011 08/23/2018 Overview: CAP pna Initially treated with ceftriaxone / azithro, now on levofloxacin, as it is less likely to cause leukopenia. Treating for 10-14 days; CXR 4-6 weeks after discharge to document resolution. Anemia 12/16/2010 08/23/2018 Overview: Haptoglobin nl, ferritin high, LDH nl, retic count nl, Kingsley negative - unlikely hemolytic anemia Stable at time of discharge; labs to be rechecked and followed. Steroid long-term use 10/05/2010 08/23/2018 Proteinuria 03/16/2010 08/23/2018 Neutropenia associated with autoimmune disease 1 08/23/2018 Elevated antinuclear antibody (CHANA) level 200806/12/2014 Overview: 04/26/2009 CHANA by EIA: 5.3 (H) Polyarthralgia 04/27/2009 06/12/2014 Overview: CHANA 5.3 on 04/26/09 RF neg on 04/26/09 Depressive disorder, not elsewhere classified 06/12/2014 Chronic obstructive pulmonary disease (COPD) 08/23/2018 Fracture 08/23/2018 documented as of this encounter (statuses as of 10/17/2022) [facility]10-24-2013 History of Past illness Narrative* Problem Noted Date Resolved Date Cough 02/20/2013 06/12/2014 Sinusitis, acute 02/20/2013 06/12/2014 Lupus disease of the lung 09/28/20122018 DISPOSITION AND FOLLOW-UP 09/27/20122012 Overview: Yuko Lino is single and lives in [place], [place]. At this time, we anticipate that the patient will be discharged home once clinically stable Plan: - Discuss needs with patient. - Collaborate with Case management to facilitate DC process - Will continue to evaluate during the post op period. . Depressive disorder 09/27/2012 08/23/2018 Overview: PMH of depressive disorder. Patient takes Lexapro 10mg daily Plan - resume Lexapro . SUMMARY 09/27/2012 06/12/2014 Overview: 52 year old female with SLE who came in for hemoptysis. Lung nodule 09/26/2012 09/27/2012 Overview: s/p Right VATS lung biopsy of nodules in RUL, RML, RLL. 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 Cr now 1.28 - 09/23: renal US negative - 09/23: pt states flank pain resolved - 09/24: UA 3+ blood, urine csx negative Plan: - pain control Hemoptysis 09/22/2012 06/12/2014 Overview: Right VATS lung biopsy, right VATS wedge resection x3. Plan: - continue Bactrim DS qMWF for PCP prophylaxis - Albuterol/ipratropium nebs prn - Regular diet - f/u bx results . Hemoptysis 09/22/2012 08/23/2018 Overview: Right VATS lung biopsy, right VATS wedge resection x3. Plan: - continue Bactrim DS qMWF for PCP prophylaxis - Albuterol/ipratropium nebs prn - Regular diet - f/u bx results . Glomerulitis 07/29/2012 08/23/2018 DVT prophylaxis 12/23/2011 09/27/2012 Overview: Heparin SC BID Skin lesion of left leg 12/21/2011 06/12/19 15 Overview: 1 cm hyperkeratotic plaque on left elias Derm does not believe this is related to SLE or infection SUMMARY 12/20/2011 09/27/2012 Overview: 51 yo F with recent diagnosis SLE who presents with 3 day hx of hemoptysis. Pt initally presented to OSH, CXR found bilat. Pneumonia, started on levoquin. Recent hx of travel with bilat LE edema. CT chest w/ contrast 09/22 showed no acute PE w/o exclusion of pulm infarct. Neutropenia 12/20/2011 06/12/2014 Overview: WBC count 1.08 on presentation on 12/20/11 Likely secondary to Imuran initiation about 3 weeks ago. Neutropenic precautions for ANC < 500 today. Discussed with Heme; they can see her as an outpatient. Resolved at time of discharge; thought secondary to Imuran. Repeat CBC 1 day after discharge. PNA (pneumonia) 12/20/2011 06/12/2014 Overview: CAP pna Initially treated with ceftriaxone / azithro, now on levofloxacin, as it is less likely to cause leukopenia. Treating for 10-14 days; CXR 4-6 weeks after discharge to document resolution. Urinary retention vs. urgency 12/20/2011 Overview: Bladder scan showed 65 cc of urine Pt voiding currently UA showed hematuria and proteinuria (chronic issue) U Cx NGTD Abdominal pain 12/20/2011 06/12/2014 Overview: Last BM 5 days ago. KUB shows large amount of stool in colon. Improved - Colace, lactulose Resolved at time of discharge. Back pain 12/20/2011 06/12/2014 Overview: Upper back pain/posterior shoulder pain Most likely related to PNA XR spine normal Much improved Neutropenia 12/20/2011 08/23/2018 Overview: WBC count 1.08 on presentation on 12/20/11 Likely secondary to Imuran initiation about 3 weeks ago. Neutropenic precautions for ANC < 500 today. Discussed with Heme; they can see her as an outpatient. Resolved at time of discharge; thought secondary to Imuran. Repeat CBC 1 day after discharge. PNA (pneumonia) 12/20/2011 08/23/2018 Overview: CAP pna Initially treated with ceftriaxone / azithro, now on levofloxacin, as it is less likely to cause leukopenia. Treating for 10-14 days; CXR 4-6 weeks after discharge to document resolution. Anemia 12/16/2010 08/23/2018 Overview: Haptoglobin nl, ferritin high, LDH nl, retic count nl, Kingsley negative - unlikely hemolytic anemia Stable at time of discharge; labs to be rechecked and followed. Steroid long-term use 10/05/2010 08/23/2018 Proteinuria 03/16/2010 08/23/2018 Neutropenia associated with autoimmune disease 1 08/23/2018 Elevated antinuclear antibody (CHANA) level 200806/12/2014 Overview: 04/26/2009 CHANA by EIA: 5.3 (H) Polyarthralgia 04/27/2009 06/12/2014 Overview: CHANA 5.3 on 04/26/09 RF neg on 04/26/09 Depressive disorder, not elsewhere classified 06/12/2014 Chronic obstructive pulmonary disease (COPD) 08/23/2018 Fracture 08/23/2018 documented as of this encounter (statuses as of 10/23/2022) [facility]10-[facility]-2013 History of Past illness Narrative* Problem Noted Date Diagnosed Date Resolved Date Cough 02/20/2013 06/12/2014 Sinusitis, acute 02/20/2013 06/12/2014 Lupus disease of the lung 09/28/2012 DISPOSITION AND FOLLOW-UP 09/27/2012 Overview: Yuko Lino is single and lives in [place], [place]. At this time, we anticipate that the patient will be discharged home once clinically stable Plan: - Discuss needs with patient. - Collaborate with Case management to facilitate DC process - Will continue to evaluate during the post op period. . Depressive disorder 09/27/2012 08/24/19 19 Overview: PMH of depressive disorder. Patient takes Lexapro 10mg daily Plan - resume Lexapro . SUMMARY 09/27/2012 06/12/2014 Overview: 52 year old female with SLE who came in for hemoptysis. Lung nodule 09/26/2012 09/27/2012 Overview: s/p Right VATS lung biopsy of nodules in RUL, RML, RLL. 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 Cr now 1.28 - 09/23: renal US negative - 09/23: pt states flank pain resolved - 09/24: UA 3+ blood, urine csx negative Plan: - pain control Hemoptysis 09/22/2012 06/12/2014 Overview: Right VATS lung biopsy, right VATS wedge resection x3. Plan: - continue Bactrim DS qMWF for PCP prophylaxis - Albuterol/ipratropium nebs prn - Regular diet - f/u bx results . Hemoptysis 09/22/2012 08/23/2018 Overview: Right VATS lung biopsy, right VATS wedge resection x3. Plan: - continue Bactrim DS qMWF for PCP prophylaxis - Albuterol/ipratropium nebs prn - Regular diet - f/u bx results . Glomerulitis 07/29/2012 08/23/2018 DVT prophylaxis 12/23/2011 09/27/2012 Overview: Heparin SC BID Skin lesion of left leg 12/21/201105/31 Overview: 1 cm hyperkeratotic plaque on left elias Derm does not believe this is related to SLE or infection SUMMARY 12/20/2011 09/27/2012 Overview: 51 yo F with recent diagnosis SLE who presents with 3 day hx of hemoptysis. Pt initally presented to OSH, CXR found bilat. Pneumonia, started on levoquin. Recent hx of travel with bilat LE edema. CT chest w/ contrast 09/22 showed no acute PE w/o exclusion of pulm infarct. Neutropenia 12/20/2011 06/12/2014 Overview: WBC count 1.08 on presentation on 12/20/11 Likely secondary to Imuran initiation about 3 weeks ago. Neutropenic precautions for ANC < 500 today. Discussed with Heme; they can see her as an outpatient. Resolved at time of discharge; thought secondary to Imuran. Repeat CBC 1 day after discharge. PNA (pneumonia) 12/20/2011 06/12/2014 Overview: CAP pna Initially treated with ceftriaxone / azithro, now on levofloxacin, as it is less likely to cause leukopenia. Treating for 10-14 days; CXR 4-6 weeks after discharge to document resolution. Urinary retention vs. urgency 12/20/2011 12/22/2011 Overview: Bladder scan showed 65 cc of urine Pt voiding currently UA showed hematuria and proteinuria (chronic issue) U Cx NGTD Abdominal pain 12/20/2011 06/12/2014 Overview: Last BM 5 days ago. KUB shows large amount of stool in colon. Improved - Colace, lactulose Resolved at time of discharge. Back pain 12/20/2011 06/12/2014 Overview: Upper back pain/posterior shoulder pain Most likely related to PNA XR spine normal Much improved Neutropenia 12/20/2011 08/23/2018 Overview: WBC count 1.08 on presentation on 12/20/11 Likely secondary to Imuran initiation about 3 weeks ago. Neutropenic precautions for ANC < 500 today. Discussed with Heme; they can see her as an outpatient. Resolved at time of discharge; thought secondary to Imuran. Repeat CBC 1 day after discharge. PNA (pneumonia) 12/20/2011 08/23/2018 Overview: CAP pna Initially treated with ceftriaxone / azithro, now on levofloxacin, as it is less likely to cause leukopenia. Treating for 10-14 days; CXR 4-6 weeks after discharge to document resolution. Anemia 12/16/2010 08/23/2018 Overview: Haptoglobin nl, ferritin high, LDH nl, retic count nl, Kingsley negative - unlikely hemolytic anemia Stable at time of discharge; labs to be rechecked and followed. Steroid long-term use 10/05/20102018 Proteinuria 03/16/2010 08/23/2018 Neutropenia associated with autoimmune disease 02/18/2010 08/23/2018 Elevated antinuclear antibody (CHANA) level 04/28/2009 06/12/2014 Overview: 04/26/2009 CHANA by EIA: 5.3 (H) Polyarthralgia 04/27/2009 06/12/2014 Overview: CHANA 5.3 on 04/26/09 RF neg on 04/26/09 Depressive disorder, not elsewhere classified 06/12/2014 Chronic obstructive pulmonary disease (COPD) 08/23/2018 Fracture 08/23/2018 documented as of this encounter (statuses as of 11/09/2022) [facility] History of Past illness Narrative* Problem Noted Date Diagnosed Date Resolved Date Cough 02/20/2013 06/12/2014 Sinusitis, acute 02/20/2013 06/12/2014 Lupus disease of the lung 09/28/2012 DISPOSITION AND FOLLOW-UP 09/27/2012 Overview: Yuko Lino is single and lives in [place], [place]. At this time, we anticipate that the patient will be discharged home once clinically stable Plan: - Discuss needs with patient. - Collaborate with Case management to facilitate DC process - Will continue to evaluate during the post op period. . Depressive disorder 09/27/2012 08/24/19 19 Overview: PMH of depressive disorder. Patient takes Lexapro 10mg daily Plan - resume Lexapro . SUMMARY 09/27/2012 06/12/2014 Overview: 52 year old female with SLE who came in for hemoptysis. Lung nodule 09/26/2012 09/27/2012 Overview: s/p Right VATS lung biopsy of nodules in RUL, RML, RLL. 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 Cr now 1.28 - 09/23: renal US negative - 09/23: pt states flank pain resolved - 09/24: UA 3+ blood, urine csx negative Plan: - pain control Hemoptysis 09/22/2012 06/12/2014 Overview: Right VATS lung biopsy, right VATS wedge resection x3. Plan: - continue Bactrim DS qMWF for PCP prophylaxis - Albuterol/ipratropium nebs prn - Regular diet - f/u bx results . Hemoptysis 09/22/2012 08/23/2018 Overview: Right VATS lung biopsy, right VATS wedge resection x3. Plan: - continue Bactrim DS qMWF for PCP prophylaxis - Albuterol/ipratropium nebs prn - Regular diet - f/u bx results . Glomerulitis 07/29/2012 08/23/2018 DVT prophylaxis 12/23/2011 09/27/2012 Overview: Heparin SC BID Skin lesion of left leg 12/21/201105/31 Overview: 1 cm hyperkeratotic plaque on left elias Derm does not believe this is related to SLE or infection SUMMARY 12/20/2011 09/27/2012 Overview: 51 yo F with recent diagnosis SLE who presents with 3 day hx of hemoptysis. Pt initally presented to OSH, CXR found bilat. Pneumonia, started on levoquin. Recent hx of travel with bilat LE edema. CT chest w/ contrast 09/22 showed no acute PE w/o exclusion of pulm infarct. Neutropenia 12/20/2011 06/12/2014 Overview: WBC count 1.08 on presentation on 12/20/11 Likely secondary to Imuran initiation about 3 weeks ago. Neutropenic precautions for ANC < 500 today. Discussed with Heme; they can see her as an outpatient. Resolved at time of discharge; thought secondary to Imuran. Repeat CBC 1 day after discharge. PNA (pneumonia) 12/20/2011 06/12/2014 Overview: CAP pna Initially treated with ceftriaxone / azithro, now on levofloxacin, as it is less likely to cause leukopenia. Treating for 10-14 days; CXR 4-6 weeks after discharge to document resolution. Urinary retention vs. urgency 12/20/2011 12/22/2011 Overview: Bladder scan showed 65 cc of urine Pt voiding currently UA showed hematuria and proteinuria (chronic issue) U Cx NGTD Abdominal pain 12/20/2011 06/12/2014 Overview: Last BM 5 days ago. KUB shows large amount of stool in colon. Improved - Colace, lactulose Resolved at time of discharge. Back pain 12/20/2011 06/12/2014 Overview: Upper back pain/posterior shoulder pain Most likely related to PNA XR spine normal Much improved Neutropenia 12/20/2011 08/23/2018 Overview: WBC count 1.08 on presentation on 12/20/11 Likely secondary to Imuran initiation about 3 weeks ago. Neutropenic precautions for ANC < 500 today. Discussed with Heme; they can see her as an outpatient. Resolved at time of discharge; thought secondary to Imuran. Repeat CBC 1 day after discharge. PNA (pneumonia) 12/20/2011 08/23/2018 Overview: CAP pna Initially treated with ceftriaxone / azithro, now on levofloxacin, as it is less likely to cause leukopenia. Treating for 10-14 days; CXR 4-6 weeks after discharge to document resolution. Anemia 12/16/2010 08/23/2018 Overview: Haptoglobin nl, ferritin high, LDH nl, retic count nl, Kingsley negative - unlikely hemolytic anemia Stable at time of discharge; labs to be rechecked and followed. Steroid long-term use 10/05/20102018 Proteinuria 03/16/2010 08/23/2018 Neutropenia associated with autoimmune disease 02/18/2010 08/23/2018 Elevated antinuclear antibody (CHANA) level 04/28/2009 06/12/2014 Overview: 04/26/2009 CHANA by EIA: 5.3 (H) Polyarthralgia 04/27/2009 06/12/2014 Overview: CHANA 5.3 on 04/26/09 RF neg on 04/26/09 Depressive disorder, not elsewhere classified 06/12/2014 Chronic obstructive pulmonary disease (COPD) 08/23/2018 Fracture 08/23/2018 documented as of this encounter (statuses as of 11/15/2022) [facility] History of Past illness Narrative* Problem Noted Date Diagnosed Date Resolved Date Cough 02/20/2013 06/12/2014 Sinusitis, acute 02/20/2013 06/12/2014 Lupus disease of the lung 09/28/2012 DISPOSITION AND FOLLOW-UP 09/27/2012 Overview: Yuko Lino is single and lives in [place], [place]. At this time, we anticipate that the patient will be discharged home once clinically stable Plan: - Discuss needs with patient. - Collaborate with Case management to facilitate DC process - Will continue to evaluate during the post op period. . Depressive disorder 09/27/2012 08/24/19 19 Overview: PMH of depressive disorder. Patient takes Lexapro 10mg daily Plan - resume Lexapro . SUMMARY 09/27/2012 06/12/2014 Overview: 52 year old female with SLE who came in for hemoptysis. Lung nodule 09/26/2012 09/27/2012 Overview: s/p Right VATS lung biopsy of nodules in RUL, RML, RLL. 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 Cr now 1.28 - 09/23: renal US negative - 09/23: pt states flank pain resolved - 09/24: UA 3+ blood, urine csx negative Plan: - pain control Hemoptysis 09/22/2012 06/12/2014 Overview: Right VATS lung biopsy, right VATS wedge resection x3. Plan: - continue Bactrim DS qMWF for PCP prophylaxis - Albuterol/ipratropium nebs prn - Regular diet - f/u bx results . Hemoptysis 09/22/2012 08/23/2018 Overview: Right VATS lung biopsy, right VATS wedge resection x3. Plan: - continue Bactrim DS qMWF for PCP prophylaxis - Albuterol/ipratropium nebs prn - Regular diet - f/u bx results . Glomerulitis 07/29/2012 08/23/2018 DVT prophylaxis 12/23/2011 09/27/2012 Overview: Heparin SC BID Skin lesion of left leg 12/21/201105/31 Overview: 1 cm hyperkeratotic plaque on left elias Derm does not believe this is related to SLE or infection SUMMARY 12/20/2011 09/27/2012 Overview: 51 yo F with recent diagnosis SLE who presents with 3 day hx of hemoptysis. Pt initally presented to OSH, CXR found bilat. Pneumonia, started on levoquin. Recent hx of travel with bilat LE edema. CT chest w/ contrast 09/22 showed no acute PE w/o exclusion of pulm infarct. Neutropenia 12/20/2011 06/12/2014 Overview: WBC count 1.08 on presentation on 12/20/11 Likely secondary to Imuran initiation about 3 weeks ago. Neutropenic precautions for ANC < 500 today. Discussed with Heme; they can see her as an outpatient. Resolved at time of discharge; thought secondary to Imuran. Repeat CBC 1 day after discharge. PNA (pneumonia) 12/20/2011 06/12/2014 Overview: CAP pna Initially treated with ceftriaxone / azithro, now on levofloxacin, as it is less likely to cause leukopenia. Treating for 10-14 days; CXR 4-6 weeks after discharge to document resolution. Urinary retention vs. urgency 12/20/2011 12/22/2011 Overview: Bladder scan showed 65 cc of urine Pt voiding currently UA showed hematuria and proteinuria (chronic issue) U Cx NGTD Abdominal pain 12/20/2011 06/12/2014 Overview: Last BM 5 days ago. KUB shows large amount of stool in colon. Improved - Colace, lactulose Resolved at time of discharge. Back pain 12/20/2011 06/12/2014 Overview: Upper back pain/posterior shoulder pain Most likely related to PNA XR spine normal Much improved Neutropenia 12/20/2011 08/23/2018 Overview: WBC count 1.08 on presentation on 12/20/11 Likely secondary to Imuran initiation about 3 weeks ago. Neutropenic precautions for ANC < 500 today. Discussed with Heme; they can see her as an outpatient. Resolved at time of discharge; thought secondary to Imuran. Repeat CBC 1 day after discharge. PNA (pneumonia) 12/20/2011 08/23/2018 Overview: CAP pna Initially treated with ceftriaxone / azithro, now on levofloxacin, as it is less likely to cause leukopenia. Treating for 10-14 days; CXR 4-6 weeks after discharge to document resolution. Anemia 12/16/2010 08/23/2018 Overview: Haptoglobin nl, ferritin high, LDH nl, retic count nl, Kingsley negative - unlikely hemolytic anemia Stable at time of discharge; labs to be rechecked and followed. Steroid long-term use 10/05/20102018 Proteinuria 03/16/2010 08/23/2018 Neutropenia associated with autoimmune disease 02/18/2010 08/23/2018 Elevated antinuclear antibody (CHANA) level 04/28/2009 06/12/2014 Overview: 04/26/2009 CHANA by EIA: 5.3 (H) Polyarthralgia 04/27/2009 06/12/2014 Overview: CHANA 5.3 on 04/26/09 RF neg on 04/26/09 Depressive disorder, not elsewhere classified 06/12/2014 Chronic obstructive pulmonary disease (COPD) 08/23/2018 Fracture 08/23/2018 documented as of this encounter (statuses as of 12/01/2022) [facility] History of Past illness Narrative* Problem Noted Date Diagnosed Date Resolved Date Cough 02/20/2013 06/12/2014 Sinusitis, acute 02/20/2013 06/12/2014 Lupus disease of the lung 09/28/2012 DISPOSITION AND FOLLOW-UP 09/27/2012 Overview: Yuko Lino is single and lives in [place], [place]. At this time, we anticipate that the patient will be discharged home once clinically stable Plan: - Discuss needs with patient. - Collaborate with Case management to facilitate DC process - Will continue to evaluate during the post op period. . Depressive disorder 09/27/2012 08/24/19 19 Overview: PMH of depressive disorder. Patient takes Lexapro 10mg daily Plan - resume Lexapro . SUMMARY 09/27/2012 06/12/2014 Overview: 52 year old female with SLE who came in for hemoptysis. Lung nodule 09/26/2012 09/27/2012 Overview: s/p Right VATS lung biopsy of nodules in RUL, RML, RLL. 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 Cr now 1.28 - 09/23: renal US negative - 09/23: pt states flank pain resolved - 09/24: UA 3+ blood, urine csx negative Plan: - pain control Hemoptysis 09/22/2012 06/12/2014 Overview: Right VATS lung biopsy, right VATS wedge resection x3. Plan: - continue Bactrim DS qMWF for PCP prophylaxis - Albuterol/ipratropium nebs prn - Regular diet - f/u bx results . Hemoptysis 09/22/2012 08/23/2018 Overview: Right VATS lung biopsy, right VATS wedge resection x3. Plan: - continue Bactrim DS qMWF for PCP prophylaxis - Albuterol/ipratropium nebs prn - Regular diet - f/u bx results . Glomerulitis 07/29/2012 08/23/2018 DVT prophylaxis 12/23/2011 09/27/2012 Overview: Heparin SC BID Skin lesion of left leg 12/21/201105/31 Overview: 1 cm hyperkeratotic plaque on left elias Derm does not believe this is related to SLE or infection SUMMARY 12/20/2011 09/27/2012 Overview: 51 yo F with recent diagnosis SLE who presents with 3 day hx of hemoptysis. Pt initally presented to OSH, CXR found bilat. Pneumonia, started on levoquin. Recent hx of travel with bilat LE edema. CT chest w/ contrast 09/22 showed no acute PE w/o exclusion of pulm infarct. Neutropenia 12/20/2011 06/12/2014 Overview: WBC count 1.08 on presentation on 8/22/12 Likely secondary to Imuran initiation about 3 weeks ago. Neutropenic precautions for ANC < 500 today. Discussed with Heme; they can see her as an outpatient. Resolved at time of discharge; thought secondary to Imuran. Repeat CBC 1 day after discharge. PNA (pneumonia) 12/20/2011 06/12/2014 Overview: CAP pna Initially treated with ceftriaxone / azithro, now on levofloxacin, as it is less likely to cause leukopenia. Treating for 10-14 days; CXR 4-6 weeks after discharge to document resolution. Urinary retention vs. urgency 12/20/2011 12/22/2011 Overview: Bladder scan showed 65 cc of urine Pt voiding currently UA showed hematuria and proteinuria (chronic issue) U Cx NGTD Abdominal pain 12/20/2011 06/12/2014 Overview: Last BM 5 days ago. KUB shows large amount of stool in colon. Improved - Colace, lactulose Resolved at time of discharge. Back pain 12/20/2011 06/12/2014 Overview: Upper back pain/posterior shoulder pain Most likely related to PNA XR spine normal Much improved Neutropenia 12/20/2011 08/23/2018 Overview: WBC count 1.08 on presentation on 12/20/11 Likely secondary to Imuran initiation about 3 weeks ago. Neutropenic precautions for ANC < 500 today. Discussed with Heme; they can see her as an outpatient. Resolved at time of discharge; thought secondary to Imuran. Repeat CBC 1 day after discharge. PNA (pneumonia) 12/20/2011 08/23/2018 Overview: CAP pna Initially treated with ceftriaxone / azithro, now on levofloxacin, as it is less likely to cause leukopenia. Treating for 10-14 days; CXR 4-6 weeks after discharge to document resolution. Anemia 12/16/2010 08/23/2018 Overview: Haptoglobin nl, ferritin high, LDH nl, retic count nl, Kingsley negative - unlikely hemolytic anemia Stable at time of discharge; labs to be rechecked and followed. Steroid long-term use 10/05/20102018 Proteinuria 03/16/2010 08/23/2018 Neutropenia associated with autoimmune disease 02/18/2010 08/23/2018 Elevated antinuclear antibody (CHANA) level 04/28/2009 06/12/2014 Overview: 04/26/2009 CHANA by EIA: 5.3 (H) Polyarthralgia 04/27/2009 06/12/2014 Overview: CHANA 5.3 on 04/26/09 RF neg on 04/26/09 Depressive disorder, not elsewhere classified 06/12/2014 Chronic obstructive pulmonary disease (COPD) 08/23/2018 Fracture 08/23/2018 documented as of this encounter (statuses as of 12/04/2022) [facility]10-24-2013 History of Past illness Narrative* Problem Noted Date Diagnosed Date Resolved Date Cough 02/20/2013 06/12/2014 Sinusitis, acute 02/20/2013 06/12/2014 Lupus disease of the lung 09/28/2012 DISPOSITION AND FOLLOW-UP 09/27/2012 Overview: Yuko Lino is single and lives in [place], [place]. At this time, we anticipate that the patient will be discharged home once clinically stable Plan: - Discuss needs with patient. - Collaborate with Case management to facilitate DC process - Will continue to evaluate during the post op period. . Depressive disorder 09/27/2012 08/24/19 19 Overview: PMH of depressive disorder. Patient takes Lexapro 10mg daily Plan - resume Lexapro . SUMMARY 09/27/2012 06/12/2014 Overview: 52 year old female with SLE who came in for hemoptysis. Lung nodule 09/26/2012 09/27/2012 Overview: s/p Right VATS lung biopsy of nodules in RUL, RML, RLL. 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 Cr now 1.28 - 09/23: renal US negative - 09/23: pt states flank pain resolved - 09/24: UA 3+ blood, urine csx negative Plan: - pain control Hemoptysis 09/22/2012 06/12/2014 Overview: Right VATS lung biopsy, right VATS wedge resection x3. Plan: - continue Bactrim DS qMWF for PCP prophylaxis - Albuterol/ipratropium nebs prn - Regular diet - f/u bx results . Hemoptysis 09/22/2012 08/23/2018 Overview: Right VATS lung biopsy, right VATS wedge resection x3. Plan: - continue Bactrim DS qMWF for PCP prophylaxis - Albuterol/ipratropium nebs prn - Regular diet - f/u bx results . Glomerulitis 07/29/2012 08/23/2018 DVT prophylaxis 12/23/2011 09/27/2012 Overview: Heparin SC BID Skin lesion of left leg 12/21/201105/31 Overview: 1 cm hyperkeratotic plaque on left elias Derm does not believe this is related to SLE or infection SUMMARY 12/20/2011 09/27/2012 Overview: 51 yo F with recent diagnosis SLE who presents with 3 day hx of hemoptysis. Pt initally presented to OSH, CXR found bilat. Pneumonia, started on levoquin. Recent hx of travel with bilat LE edema. CT chest w/ contrast 09/22 showed no acute PE w/o exclusion of pulm infarct. Neutropenia 12/20/2011 06/12/2014 Overview: WBC count 1.08 on presentation on 12/20/11 Likely secondary to Imuran initiation about 3 weeks ago. Neutropenic precautions for ANC < 500 today. Discussed with Heme; they can see her as an outpatient. Resolved at time of discharge; thought secondary to Imuran. Repeat CBC 1 day after discharge. PNA (pneumonia) 12/20/2011 06/12/2014 Overview: CAP pna Initially treated with ceftriaxone / azithro, now on levofloxacin, as it is less likely to cause leukopenia. Treating for 10-14 days; CXR 4-6 weeks after discharge to document resolution. Urinary retention vs. urgency 12/20/2011 12/22/2011 Overview: Bladder scan showed 65 cc of urine Pt voiding currently UA showed hematuria and proteinuria (chronic issue) U Cx NGTD Abdominal pain 12/20/2011 06/12/2014 Overview: Last BM 5 days ago. KUB shows large amount of stool in colon. Improved - Colace, lactulose Resolved at time of discharge. Back pain 12/20/2011 06/12/2014 Overview: Upper back pain/posterior shoulder pain Most likely related to PNA XR spine normal Much improved Neutropenia 12/20/2011 08/23/2018 Overview: WBC count 1.08 on presentation on 12/20/11 Likely secondary to Imuran initiation about 3 weeks ago. Neutropenic precautions for ANC < 500 today. Discussed with Heme; they can see her as an outpatient. Resolved at time of discharge; thought secondary to Imuran. Repeat CBC 1 day after discharge. PNA (pneumonia) 12/20/2011 08/23/2018 Overview: CAP pna Initially treated with ceftriaxone / azithro, now on levofloxacin, as it is less likely to cause leukopenia. Treating for 10-14 days; CXR 4-6 weeks after discharge to document resolution. Anemia 12/16/2010 08/23/2018 Overview: Haptoglobin nl, ferritin high, LDH nl, retic count nl, Kingsley negative - unlikely hemolytic anemia Stable at time of discharge; labs to be rechecked and followed. Steroid long-term use 10/05/20102018 Proteinuria 03/16/2010 08/23/2018 Neutropenia associated with autoimmune disease 02/18/2010 08/23/2018 Elevated antinuclear antibody (CHANA) level 04/28/2009 06/12/2014 Overview: 04/26/2009 CHANA by EIA: 5.3 (H) Polyarthralgia 04/27/2009 06/12/2014 Overview: CHANA 5.3 on 04/26/09 RF neg on 04/26/09 Depressive disorder, not elsewhere classified 06/12/2014 Chronic obstructive pulmonary disease (COPD) 08/23/2018 Fracture 08/23/2018 documented as of this encounter (statuses as of 12/08/2022) [facility]10-24-2013 History of Past illness Narrative* Problem Noted Date Diagnosed Date Resolved Date Cough 02/20/2013 06/12/2014 Sinusitis, acute 02/20/2013 06/12/2014 Lupus disease of the lung 09/28/2012 DISPOSITION AND FOLLOW-UP 09/27/2012 Overview: Yuko Lino is single and lives in [place], [place]. At this time, we anticipate that the patient will be discharged home once clinically stable Plan: - Discuss needs with patient. - Collaborate with Case management to facilitate DC process - Will continue to evaluate during the post op period. . Depressive disorder 09/27/2012 08/24/19 19 Overview: PMH of depressive disorder. Patient takes Lexapro 10mg daily Plan - resume Lexapro . SUMMARY 09/27/2012 06/12/2014 Overview: 52 year old female with SLE who came in for hemoptysis. Lung nodule 09/26/2012 09/27/2012 Overview: s/p Right VATS lung biopsy of nodules in RUL, RML, RLL. 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 Cr now 1.28 - 09/23: renal US negative - 09/23: pt states flank pain resolved - 09/24: UA 3+ blood, urine csx negative Plan: - pain control Hemoptysis 09/22/2012 06/12/2014 Overview: Right VATS lung biopsy, right VATS wedge resection x3. Plan: - continue Bactrim DS qMWF for PCP prophylaxis - Albuterol/ipratropium nebs prn - Regular diet - f/u bx results . Hemoptysis 09/22/2012 08/23/2018 Overview: Right VATS lung biopsy, right VATS wedge resection x3. Plan: - continue Bactrim DS qMWF for PCP prophylaxis - Albuterol/ipratropium nebs prn - Regular diet - f/u bx results . Glomerulitis 07/29/2012 08/23/2018 DVT prophylaxis 12/23/2011 09/27/2012 Overview: Heparin SC BID Skin lesion of left leg 12/21/201105/31 Overview: 1 cm hyperkeratotic plaque on left elias Derm does not believe this is related to SLE or infection SUMMARY 12/20/2011 09/27/2012 Overview: 51 yo F with recent diagnosis SLE who presents with 3 day hx of hemoptysis. Pt initally presented to OSH, CXR found bilat. Pneumonia, started on levoquin. Recent hx of travel with bilat LE edema. CT chest w/ contrast 09/22 showed no acute PE w/o exclusion of pulm infarct. Neutropenia 12/20/2011 06/12/2014 Overview: WBC count 1.08 on presentation on 12/20/11 Likely secondary to Imuran initiation about 3 weeks ago. Neutropenic precautions for ANC < 500 today. Discussed with Heme; they can see her as an outpatient. Resolved at time of discharge; thought secondary to Imuran. Repeat CBC 1 day after discharge. PNA (pneumonia) 12/20/2011 06/12/2014 Overview: CAP pna Initially treated with ceftriaxone / azithro, now on levofloxacin, as it is less likely to cause leukopenia. Treating for 10-14 days; CXR 4-6 weeks after discharge to document resolution. Urinary retention vs. urgency 12/20/2011 12/22/2011 Overview: Bladder scan showed 65 cc of urine Pt voiding currently UA showed hematuria and proteinuria (chronic issue) U Cx NGTD Abdominal pain 12/20/2011 06/12/2014 Overview: Last BM 5 days ago. KUB shows large amount of stool in colon. Improved - Colace, lactulose Resolved at time of discharge. Back pain 12/20/2011 06/12/2014 Overview: Upper back pain/posterior shoulder pain Most likely related to PNA XR spine normal Much improved Neutropenia 12/20/2011 08/23/2018 Overview: WBC count 1.08 on presentation on 12/20/11 Likely secondary to Imuran initiation about 3 weeks ago. Neutropenic precautions for ANC < 500 today. Discussed with Heme; they can see her as an outpatient. Resolved at time of discharge; thought secondary to Imuran. Repeat CBC 1 day after discharge. PNA (pneumonia) 12/20/2011 08/23/2018 Overview: CAP pna Initially treated with ceftriaxone / azithro, now on levofloxacin, as it is less likely to cause leukopenia. Treating for 10-14 days; CXR 4-6 weeks after discharge to document resolution. Anemia 12/16/2010 08/23/2018 Overview: Haptoglobin nl, ferritin high, LDH nl, retic count nl, Kingsley negative - unlikely hemolytic anemia Stable at time of discharge; labs to be rechecked and followed. Steroid long-term use 10/05/20102018 Proteinuria 03/16/2010 08/23/2018 Neutropenia associated with autoimmune disease 02/18/2010 08/23/2018 Elevated antinuclear antibody (CHANA) level 04/28/2009 06/12/2014 Overview: 04/26/2009 CHANA by EIA: 5.3 (H) Polyarthralgia 04/27/2009 06/12/2014 Overview: CHANA 5.3 on 04/26/09 RF neg on 04/26/09 Depressive disorder, not elsewhere classified 06/12/2014 Chronic obstructive pulmonary disease (COPD) 08/23/2018 Fracture 08/23/2018 documented as of this encounter (statuses as of 12/19/2022) [facility]10[facility] History of Past illness Narrative* Problem Noted Date Diagnosed Date Resolved Date Cough 02/20/2013 06/12/2014 Sinusitis, acute 02/20/2013 06/12/2014 Lupus disease of the lung 09/28/2012 DISPOSITION AND FOLLOW-UP 09/27/2012 Overview: Yuko Lino is single and lives in [place], [place]. At this time, we anticipate that the patient will be discharged home once clinically stable Plan: - Discuss needs with patient. - Collaborate with Case management to facilitate DC process - Will continue to evaluate during the post op period. . Depressive disorder 09/27/2012 08/24/19 19 Overview: PMH of depressive disorder. Patient takes Lexapro 10mg daily Plan - resume Lexapro . SUMMARY 09/27/2012 06/12/2014 Overview: 52 year old female with SLE who came in for hemoptysis. Lung nodule 09/26/2012 09/27/2012 Overview: s/p Right VATS lung biopsy of nodules in RUL, RML, RLL. 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 Cr now 1.28 - 09/23: renal US negative - 09/23: pt states flank pain resolved - 09/24: UA 3+ blood, urine csx negative Plan: - pain control Hemoptysis 09/22/2012 06/12/2014 Overview: Right VATS lung biopsy, right VATS wedge resection x3. Plan: - continue Bactrim DS qMWF for PCP prophylaxis - Albuterol/ipratropium nebs prn - Regular diet - f/u bx results . Hemoptysis 09/22/2012 08/23/2018 Overview: Right VATS lung biopsy, right VATS wedge resection x3. Plan: - continue Bactrim DS qMWF for PCP prophylaxis - Albuterol/ipratropium nebs prn - Regular diet - f/u bx results . Glomerulitis 07/29/2012 08/23/2018 DVT prophylaxis 12/23/2011 09/27/2012 Overview: Heparin SC BID Skin lesion of left leg 12/21/201105/31 Overview: 1 cm hyperkeratotic plaque on left elias Derm does not believe this is related to SLE or infection SUMMARY 12/20/2011 09/27/2012 Overview: 51 yo F with recent diagnosis SLE who presents with 3 day hx of hemoptysis. Pt initally presented to OSH, CXR found bilat. Pneumonia, started on levoquin. Recent hx of travel with bilat LE edema. CT chest w/ contrast 09/22 showed no acute PE w/o exclusion of pulm infarct. Neutropenia 12/20/2011 06/12/2014 Overview: WBC count 1.08 on presentation on 12/20/11 Likely secondary to Imuran initiation about 3 weeks ago. Neutropenic precautions for ANC < 500 today. Discussed with Heme; they can see her as an outpatient. Resolved at time of discharge; thought secondary to Imuran. Repeat CBC 1 day after discharge. PNA (pneumonia) 12/20/2011 06/12/2014 Overview: CAP pna Initially treated with ceftriaxone / azithro, now on levofloxacin, as it is less likely to cause leukopenia. Treating for 10-14 days; CXR 4-6 weeks after discharge to document resolution. Urinary retention vs. urgency 12/20/2011 12/22/2011 Overview: Bladder scan showed 65 cc of urine Pt voiding currently UA showed hematuria and proteinuria (chronic issue) U Cx NGTD Abdominal pain 12/20/2011 06/12/2014 Overview: Last BM 5 days ago. KUB shows large amount of stool in colon. Improved - Colace, lactulose Resolved at time of discharge. Back pain 12/20/2011 06/12/2014 Overview: Upper back pain/posterior shoulder pain Most likely related to PNA XR spine normal Much improved Neutropenia 12/20/2011 08/23/2018 Overview: WBC count 1.08 on presentation on 12/20/11 Likely secondary to Imuran initiation about 3 weeks ago. Neutropenic precautions for ANC < 500 today. Discussed with Heme; they can see her as an outpatient. Resolved at time of discharge; thought secondary to Imuran. Repeat CBC 1 day after discharge. PNA (pneumonia) 12/20/2011 08/23/2018 Overview: CAP pna Initially treated with ceftriaxone / azithro, now on levofloxacin, as it is less likely to cause leukopenia. Treating for 10-14 days; CXR 4-6 weeks after discharge to document resolution. Anemia 12/16/2010 08/23/2018 Overview: Haptoglobin nl, ferritin high, LDH nl, retic count nl, Kingsley negative - unlikely hemolytic anemia Stable at time of discharge; labs to be rechecked and followed. Steroid long-term use 10/05/20102018 Proteinuria 03/16/2010 08/23/2018 Neutropenia associated with autoimmune disease 02/18/2010 08/23/2018 Elevated antinuclear antibody (CHANA) level 04/28/2009 06/12/2014 Overview: 04/26/2009 CHANA by EIA: 5.3 (H) Polyarthralgia 04/27/2009 06/12/2014 Overview: CHANA 5.3 on 04/26/09 RF neg on 04/26/09 Depressive disorder, not elsewhere classified 06/12/2014 Chronic obstructive pulmonary disease (COPD) 08/23/2018 Fracture 08/23/2018 documented as of this encounter (statuses as of 12/25/2022) [facility] History of Past illness Narrative* Problem Noted Date Diagnosed Date Resolved Date Cough 02/20/2013 06/12/2014 Sinusitis, acute 02/20/2013 06/12/2014 Lupus disease of the lung 09/28/2012 DISPOSITION AND FOLLOW-UP 09/27/2012 Overview: Yuko Lino is single and lives in [place], [place]. At this time, we anticipate that the patient will be discharged home once clinically stable Plan: - Discuss needs with patient. - Collaborate with Case management to facilitate DC process - Will continue to evaluate during the post op period. . Depressive disorder 09/27/2012 08/24/19 19 Overview: PMH of depressive disorder. Patient takes Lexapro 10mg daily Plan - resume Lexapro . SUMMARY 09/27/2012 06/12/2014 Overview: 52 year old female with SLE who came in for hemoptysis. Lung nodule 09/26/2012 09/27/2012 Overview: s/p Right VATS lung biopsy of nodules in RUL, RML, RLL. 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 Cr now 1.28 - 09/23: renal US negative - 09/23: pt states flank pain resolved - 09/24: UA 3+ blood, urine csx negative Plan: - pain control Hemoptysis 09/22/2012 06/12/2014 Overview: Right VATS lung biopsy, right VATS wedge resection x3. Plan: - continue Bactrim DS qMWF for PCP prophylaxis - Albuterol/ipratropium nebs prn - Regular diet - f/u bx results . Hemoptysis 09/22/2012 08/23/2018 Overview: Right VATS lung biopsy, right VATS wedge resection x3. Plan: - continue Bactrim DS qMWF for PCP prophylaxis - Albuterol/ipratropium nebs prn - Regular diet - f/u bx results . Glomerulitis 07/29/2012 08/23/2018 DVT prophylaxis 12/23/2011 09/27/2012 Overview: Heparin SC BID Skin lesion of left leg 12/21/201105/31 Overview: 1 cm hyperkeratotic plaque on left elias Derm does not believe this is related to SLE or infection SUMMARY 12/20/2011 09/27/2012 Overview: 51 yo F with recent diagnosis SLE who presents with 3 day hx of hemoptysis. Pt initally presented to OSH, CXR found bilat. Pneumonia, started on levoquin. Recent hx of travel with bilat LE edema. CT chest w/ contrast 09/22 showed no acute PE w/o exclusion of pulm infarct. Neutropenia 12/20/2011 06/12/2014 Overview: WBC count 1.08 on presentation on 12/20/11 Likely secondary to Imuran initiation about 3 weeks ago. Neutropenic precautions for ANC < 500 today. Discussed with Heme; they can see her as an outpatient. Resolved at time of discharge; thought secondary to Imuran. Repeat CBC 1 day after discharge. PNA (pneumonia) 12/20/2011 06/12/2014 Overview: CAP pna Initially treated with ceftriaxone / azithro, now on levofloxacin, as it is less likely to cause leukopenia. Treating for 10-14 days; CXR 4-6 weeks after discharge to document resolution. Urinary retention vs. urgency 12/20/2011 12/22/2011 Overview: Bladder scan showed 65 cc of urine Pt voiding currently UA showed hematuria and proteinuria (chronic issue) U Cx NGTD Abdominal pain 12/20/2011 06/12/2014 Overview: Last BM 5 days ago. KUB shows large amount of stool in colon. Improved - Colace, lactulose Resolved at time of discharge. Back pain 12/20/2011 06/12/2014 Overview: Upper back pain/posterior shoulder pain Most likely related to PNA XR spine normal Much improved Neutropenia 12/20/2011 08/23/2018 Overview: WBC count 1.08 on presentation on 12/20/11 Likely secondary to Imuran initiation about 3 weeks ago. Neutropenic precautions for ANC < 500 today. Discussed with Heme; they can see her as an outpatient. Resolved at time of discharge; thought secondary to Imuran. Repeat CBC 1 day after discharge. PNA (pneumonia) 12/20/2011 08/23/2018 Overview: CAP pna Initially treated with ceftriaxone / azithro, now on levofloxacin, as it is less likely to cause leukopenia. Treating for 10-14 days; CXR 4-6 weeks after discharge to document resolution. Anemia 12/16/2010 08/23/2018 Overview: Haptoglobin nl, ferritin high, LDH nl, retic count nl, Kingsley negative - unlikely hemolytic anemia Stable at time of discharge; labs to be rechecked and followed. Steroid long-term use 10/05/20102018 Proteinuria 03/16/2010 08/23/2018 Neutropenia associated with autoimmune disease 02/18/2010 08/23/2018 Elevated antinuclear antibody (CHANA) level 04/28/2009 06/12/2014 Overview: 04/26/2009 CHANA by EIA: 5.3 (H) Polyarthralgia 04/27/2009 06/12/2014 Overview: CHANA 5.3 on 04/26/09 RF neg on 04/26/09 Depressive disorder, not elsewhere classified 06/12/2014 Chronic obstructive pulmonary disease (COPD) 08/23/2018 Fracture 08/23/2018 documented as of this encounter (statuses as of 12/26/2022) [facility] History of Past illness Narrative* Problem Noted Date Diagnosed Date Resolved Date Cough 02/20/2013 06/12/2014 Sinusitis, acute 02/20/2013 06/12/2014 Lupus disease of the lung 09/28/2012 DISPOSITION AND FOLLOW-UP 09/27/2012 Overview: Yuko Lino is single and lives in [place], [place]. At this time, we anticipate that the patient will be discharged home once clinically stable Plan: - Discuss needs with patient. - Collaborate with Case management to facilitate DC process - Will continue to evaluate during the post op period. . Depressive disorder 09/27/2012 08/24/19 19 Overview: PMH of depressive disorder. Patient takes Lexapro 10mg daily Plan - resume Lexapro . SUMMARY 09/27/2012 06/12/2014 Overview: 52 year old female with SLE who came in for hemoptysis. Lung nodule 09/26/2012 09/27/2012 Overview: s/p Right VATS lung biopsy of nodules in RUL, RML, RLL. 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 Cr now 1.28 - 09/23: renal US negative - 09/23: pt states flank pain resolved - 09/24: UA 3+ blood, urine csx negative Plan: - pain control Hemoptysis 09/22/2012 06/12/2014 Overview: Right VATS lung biopsy, right VATS wedge resection x3. Plan: - continue Bactrim DS qMWF for PCP prophylaxis - Albuterol/ipratropium nebs prn - Regular diet - f/u bx results . Hemoptysis 09/22/2012 08/23/2018 Overview: Right VATS lung biopsy, right VATS wedge resection x3. Plan: - continue Bactrim DS qMWF for PCP prophylaxis - Albuterol/ipratropium nebs prn - Regular diet - f/u bx results . Glomerulitis 07/29/2012 08/23/2018 DVT prophylaxis 12/23/2011 09/27/2012 Overview: Heparin SC BID Skin lesion of left leg 12/21/201105/31 Overview: 1 cm hyperkeratotic plaque on left elias Derm does not believe this is related to SLE or infection SUMMARY 12/20/2011 09/27/2012 Overview: 51 yo F with recent diagnosis SLE who presents with 3 day hx of hemoptysis. Pt initally presented to OSH, CXR found bilat. Pneumonia, started on levoquin. Recent hx of travel with bilat LE edema. CT chest w/ contrast 09/22 showed no acute PE w/o exclusion of pulm infarct. Neutropenia 12/20/2011 06/12/2014 Overview: WBC count 1.08 on presentation on 12/20/11 Likely secondary to Imuran initiation about 3 weeks ago. Neutropenic precautions for ANC < 500 today. Discussed with Heme; they can see her as an outpatient. Resolved at time of discharge; thought secondary to Imuran. Repeat CBC 1 day after discharge. PNA (pneumonia) 12/20/2011 06/12/2014 Overview: CAP pna Initially treated with ceftriaxone / azithro, now on levofloxacin, as it is less likely to cause leukopenia. Treating for 10-14 days; CXR 4-6 weeks after discharge to document resolution. Urinary retention vs. urgency 12/20/2011 12/22/2011 Overview: Bladder scan showed 65 cc of urine Pt voiding currently UA showed hematuria and proteinuria (chronic issue) U Cx NGTD Abdominal pain 12/20/2011 06/12/2014 Overview: Last BM 5 days ago. KUB shows large amount of stool in colon. Improved - Colace, lactulose Resolved at time of discharge. Back pain 12/20/2011 06/12/2014 Overview: Upper back pain/posterior shoulder pain Most likely related to PNA XR spine normal Much improved Neutropenia 12/20/2011 08/23/2018 Overview: WBC count 1.08 on presentation on 12/20/11 Likely secondary to Imuran initiation about 3 weeks ago. Neutropenic precautions for ANC < 500 today. Discussed with Heme; they can see her as an outpatient. Resolved at time of discharge; thought secondary to Imuran. Repeat CBC 1 day after discharge. PNA (pneumonia) 12/20/2011 08/23/2018 Overview: CAP pna Initially treated with ceftriaxone / azithro, now on levofloxacin, as it is less likely to cause leukopenia. Treating for 10-14 days; CXR 4-6 weeks after discharge to document resolution. Anemia 12/16/2010 08/23/2018 Overview: Haptoglobin nl, ferritin high, LDH nl, retic count nl, Kingsley negative - unlikely hemolytic anemia Stable at time of discharge; labs to be rechecked and followed. Steroid long-term use 10/05/20102018 Proteinuria 03/16/2010 08/23/2018 Neutropenia associated with autoimmune disease 02/18/2010 08/23/2018 Elevated antinuclear antibody (CHANA) level 04/28/2009 06/12/2014 Overview: 04/26/2009 CHANA by EIA: 5.3 (H) Polyarthralgia 04/27/2009 06/12/2014 Overview: CHANA 5.3 on 04/26/09 RF neg on 04/26/09 Depressive disorder, not elsewhere classified 06/12/2014 Chronic obstructive pulmonary disease (COPD) 08/23/2018 Fracture 08/23/2018 documented as of this encounter (statuses as of 01/19/2023) [facility]10-24-2013 History of Past illness Narrative* Problem Noted Date Diagnosed Date Resolved Date Cough 02/20/2013 06/12/2014 Sinusitis, acute 02/20/2013 06/12/2014 Lupus disease of the lung 09/28/2012 DISPOSITION AND FOLLOW-UP 09/27/2012 Overview: Yuko Lino is single and lives in [place], [place]. At this time, we anticipate that the patient will be discharged home once clinically stable Plan: - Discuss needs with patient. - Collaborate with Case management to facilitate DC process - Will continue to evaluate during the post op period. . Depressive disorder 09/27/2012 08/24/19 19 Overview: PMH of depressive disorder. Patient takes Lexapro 10mg daily Plan - resume Lexapro . SUMMARY 09/27/2012 06/12/2014 Overview: 52 year old female with SLE who came in for hemoptysis. Lung nodule 09/26/2012 09/27/2012 Overview: s/p Right VATS lung biopsy of nodules in RUL, RML, RLL. 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 Cr now 1.28 - 09/23: renal US negative - 09/23: pt states flank pain resolved - 09/24: UA 3+ blood, urine csx negative Plan: - pain control Hemoptysis 09/22/2012 06/12/2014 Overview: Right VATS lung biopsy, right VATS wedge resection x3. Plan: - continue Bactrim DS qMWF for PCP prophylaxis - Albuterol/ipratropium nebs prn - Regular diet - f/u bx results . Hemoptysis 09/22/2012 08/23/2018 Overview: Right VATS lung biopsy, right VATS wedge resection x3. Plan: - continue Bactrim DS qMWF for PCP prophylaxis - Albuterol/ipratropium nebs prn - Regular diet - f/u bx results . Glomerulitis 07/29/2012 08/23/2018 DVT prophylaxis 12/23/2011 09/27/2012 Overview: Heparin SC BID Skin lesion of left leg 12/21/201105/31 Overview: 1 cm hyperkeratotic plaque on left elias Derm does not believe this is related to SLE or infection SUMMARY 12/20/2011 09/27/2012 Overview: 51 yo F with recent diagnosis SLE who presents with 3 day hx of hemoptysis. Pt initally presented to OSH, CXR found bilat. Pneumonia, started on levoquin. Recent hx of travel with bilat LE edema. CT chest w/ contrast 09/22 showed no acute PE w/o exclusion of pulm infarct. Neutropenia 12/20/2011 06/12/2014 Overview: WBC count 1.08 on presentation on 12/20/11 Likely secondary to Imuran initiation about 3 weeks ago. Neutropenic precautions for ANC < 500 today. Discussed with Heme; they can see her as an outpatient. Resolved at time of discharge; thought secondary to Imuran. Repeat CBC 1 day after discharge. PNA (pneumonia) 12/20/2011 06/12/2014 Overview: CAP pna Initially treated with ceftriaxone / azithro, now on levofloxacin, as it is less likely to cause leukopenia. Treating for 10-14 days; CXR 4-6 weeks after discharge to document resolution. Urinary retention vs. urgency 12/20/2011 12/22/2011 Overview: Bladder scan showed 65 cc of urine Pt voiding currently UA showed hematuria and proteinuria (chronic issue) U Cx NGTD Abdominal pain 12/20/2011 06/12/2014 Overview: Last BM 5 days ago. KUB shows large amount of stool in colon. Improved - Colace, lactulose Resolved at time of discharge. Back pain 12/20/2011 06/12/2014 Overview: Upper back pain/posterior shoulder pain Most likely related to PNA XR spine normal Much improved Neutropenia 12/20/2011 08/23/2018 Overview: WBC count 1.08 on presentation on 12/20/11 Likely secondary to Imuran initiation about 3 weeks ago. Neutropenic precautions for ANC < 500 today. Discussed with Heme; they can see her as an outpatient. Resolved at time of discharge; thought secondary to Imuran. Repeat CBC 1 day after discharge. PNA (pneumonia) 12/20/2011 08/23/2018 Overview: CAP pna Initially treated with ceftriaxone / azithro, now on levofloxacin, as it is less likely to cause leukopenia. Treating for 10-14 days; CXR 4-6 weeks after discharge to document resolution. Anemia 12/16/2010 08/23/2018 Overview: Haptoglobin nl, ferritin high, LDH nl, retic count nl, Kingsley negative - unlikely hemolytic anemia Stable at time of discharge; labs to be rechecked and followed. Steroid long-term use 10/05/20102018 Proteinuria 03/16/2010 08/23/2018 Neutropenia associated with autoimmune disease 02/18/2010 08/23/2018 Elevated antinuclear antibody (CHANA) level 04/28/2009 06/12/2014 Overview: 04/26/2009 CHANA by EIA: 5.3 (H) Polyarthralgia 04/27/2009 06/12/2014 Overview: CHANA 5.3 on 04/26/09 RF neg on 04/26/09 Depressive disorder, not elsewhere classified 06/12/2014 Chronic obstructive pulmonary disease (COPD) 08/23/2018 Fracture 08/23/2018 documented as of this encounter (statuses as of 02/16/2023) [facility]10-[facility]-2013 History of Past illness Narrative* Problem Noted Date Diagnosed Date Resolved Date Cough 02/20/2013 06/12/2014 Sinusitis, acute 02/20/2013 06/12/2014 Lupus disease of the lung 09/28/2012 DISPOSITION AND FOLLOW-UP 09/27/2012 Overview: Yuko Lino is single and lives in [place], [place]. At this time, we anticipate that the patient will be discharged home once clinically stable Plan: - Discuss needs with patient. - Collaborate with Case management to facilitate DC process - Will continue to evaluate during the post op period. . Depressive disorder 09/27/2012 08/24/19 19 Overview: PMH of depressive disorder. Patient takes Lexapro 10mg daily Plan - resume Lexapro . SUMMARY 09/27/2012 06/12/2014 Overview: 52 year old female with SLE who came in for hemoptysis. Lung nodule 09/26/2012 09/27/2012 Overview: s/p Right VATS lung biopsy of nodules in RUL, RML, RLL. 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 Cr now 1.28 - 09/23: renal US negative - 09/23: pt states flank pain resolved - 09/24: UA 3+ blood, urine csx negative Plan: - pain control Hemoptysis 09/22/2012 06/12/2014 Overview: Right VATS lung biopsy, right VATS wedge resection x3. Plan: - continue Bactrim DS qMWF for PCP prophylaxis - Albuterol/ipratropium nebs prn - Regular diet - f/u bx results . Hemoptysis 09/22/2012 08/23/2018 Overview: Right VATS lung biopsy, right VATS wedge resection x3. Plan: - continue Bactrim DS qMWF for PCP prophylaxis - Albuterol/ipratropium nebs prn - Regular diet - f/u bx results . Glomerulitis 07/29/2012 08/23/2018 DVT prophylaxis 12/23/2011 09/27/2012 Overview: Heparin SC BID Skin lesion of left leg 12/21/201105/31 Overview: 1 cm hyperkeratotic plaque on left elias Derm does not believe this is related to SLE or infection SUMMARY 12/20/2011 09/27/2012 Overview: 51 yo F with recent diagnosis SLE who presents with 3 day hx of hemoptysis. Pt initally presented to OSH, CXR found bilat. Pneumonia, started on levoquin. Recent hx of travel with bilat LE edema. CT chest w/ contrast 09/22 showed no acute PE w/o exclusion of pulm infarct. Neutropenia 12/20/2011 06/12/2014 Overview: WBC count 1.08 on presentation on 12/20/11 Likely secondary to Imuran initiation about 3 weeks ago. Neutropenic precautions for ANC < 500 today. Discussed with Heme; they can see her as an outpatient. Resolved at time of discharge; thought secondary to Imuran. Repeat CBC 1 day after discharge. PNA (pneumonia) 12/20/2011 06/12/2014 Overview: CAP pna Initially treated with ceftriaxone / azithro, now on levofloxacin, as it is less likely to cause leukopenia. Treating for 10-14 days; CXR 4-6 weeks after discharge to document resolution. Urinary retention vs. urgency 12/20/2011 12/22/2011 Overview: Bladder scan showed 65 cc of urine Pt voiding currently UA showed hematuria and proteinuria (chronic issue) U Cx NGTD Abdominal pain 12/20/2011 06/12/2014 Overview: Last BM 5 days ago. KUB shows large amount of stool in colon. Improved - Colace, lactulose Resolved at time of discharge. Back pain 12/20/2011 06/12/2014 Overview: Upper back pain/posterior shoulder pain Most likely related to PNA XR spine normal Much improved Neutropenia 12/20/2011 08/23/2018 Overview: WBC count 1.08 on presentation on 12/20/11 Likely secondary to Imuran initiation about 3 weeks ago. Neutropenic precautions for ANC < 500 today. Discussed with Heme; they can see her as an outpatient. Resolved at time of discharge; thought secondary to Imuran. Repeat CBC 1 day after discharge. PNA (pneumonia) 12/20/2011 08/23/2018 Overview: CAP pna Initially treated with ceftriaxone / azithro, now on levofloxacin, as it is less likely to cause leukopenia. Treating for 10-14 days; CXR 4-6 weeks after discharge to document resolution. Anemia 12/16/2010 08/23/2018 Overview: Haptoglobin nl, ferritin high, LDH nl, retic count nl, Kingsley negative - unlikely hemolytic anemia Stable at time of discharge; labs to be rechecked and followed. Steroid long-term use 10/05/20102018 Proteinuria 03/16/2010 08/23/2018 Neutropenia associated with autoimmune disease 02/18/2010 08/23/2018 Elevated antinuclear antibody (CHANA) level 04/28/2009 06/12/2014 Overview: 04/26/2009 CHANA by EIA: 5.3 (H) Polyarthralgia 04/27/2009 06/12/2014 Overview: CHANA 5.3 on 04/26/09 RF neg on 04/26/09 Depressive disorder, not elsewhere classified 06/12/2014 Chronic obstructive pulmonary disease (COPD) 08/23/2018 Fracture 08/23/2018 documented as of this encounter (statuses as of 04/03/2023) [facility]10[facility] History of Past illness Narrative* Problem Noted Date Diagnosed Date Resolved Date Cough 02/20/2013 06/12/2014 Sinusitis, acute 02/20/2013 06/12/2014 Lupus disease of the lung 09/28/2012 DISPOSITION AND FOLLOW-UP 09/27/2012 Overview: Yuko Lino is single and lives in [place], [place]. At this time, we anticipate that the patient will be discharged home once clinically stable Plan: - Discuss needs with patient. - Collaborate with Case management to facilitate DC process - Will continue to evaluate during the post op period. . Depressive disorder 09/27/2012 08/24/19 19 Overview: PMH of depressive disorder. Patient takes Lexapro 10mg daily Plan - resume Lexapro . SUMMARY 09/27/2012 06/12/2014 Overview: 52 year old female with SLE who came in for hemoptysis. Lung nodule 09/26/2012 09/27/2012 Overview: s/p Right VATS lung biopsy of nodules in RUL, RML, RLL. 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 Cr now 1.28 - 09/23: renal US negative - 09/23: pt states flank pain resolved - 09/24: UA 3+ blood, urine csx negative Plan: - pain control Hemoptysis 09/22/2012 06/12/2014 Overview: Right VATS lung biopsy, right VATS wedge resection x3. Plan: - continue Bactrim DS qMWF for PCP prophylaxis - Albuterol/ipratropium nebs prn - Regular diet - f/u bx results . Hemoptysis 09/22/2012 08/23/2018 Overview: Right VATS lung biopsy, right VATS wedge resection x3. Plan: - continue Bactrim DS qMWF for PCP prophylaxis - Albuterol/ipratropium nebs prn - Regular diet - f/u bx results . Glomerulitis 07/29/2012 08/23/2018 DVT prophylaxis 12/23/2011 09/27/2012 Overview: Heparin SC BID Skin lesion of left leg 12/21/201105/31 Overview: 1 cm hyperkeratotic plaque on left elias Derm does not believe this is related to SLE or infection SUMMARY 12/20/2011 09/27/2012 Overview: 51 yo F with recent diagnosis SLE who presents with 3 day hx of hemoptysis. Pt initally presented to OSH, CXR found bilat. Pneumonia, started on levoquin. Recent hx of travel with bilat LE edema. CT chest w/ contrast 09/22 showed no acute PE w/o exclusion of pulm infarct. Neutropenia 12/20/2011 06/12/2014 Overview: WBC count 1.08 on presentation on 12/20/11 Likely secondary to Imuran initiation about 3 weeks ago. Neutropenic precautions for ANC < 500 today. Discussed with Heme; they can see her as an outpatient. Resolved at time of discharge; thought secondary to Imuran. Repeat CBC 1 day after discharge. PNA (pneumonia) 12/20/2011 06/12/2014 Overview: CAP pna Initially treated with ceftriaxone / azithro, now on levofloxacin, as it is less likely to cause leukopenia. Treating for 10-14 days; CXR 4-6 weeks after discharge to document resolution. Urinary retention vs. urgency 12/20/2011 12/22/2011 Overview: Bladder scan showed 65 cc of urine Pt voiding currently UA showed hematuria and proteinuria (chronic issue) U Cx NGTD Abdominal pain 12/20/2011 06/12/2014 Overview: Last BM 5 days ago. KUB shows large amount of stool in colon. Improved - Colace, lactulose Resolved at time of discharge. Back pain 12/20/2011 06/12/2014 Overview: Upper back pain/posterior shoulder pain Most likely related to PNA XR spine normal Much improved Neutropenia 12/20/2011 08/23/2018 Overview: WBC count 1.08 on presentation on 12/20/11 Likely secondary to Imuran initiation about 3 weeks ago. Neutropenic precautions for ANC < 500 today. Discussed with Heme; they can see her as an outpatient. Resolved at time of discharge; thought secondary to Imuran. Repeat CBC 1 day after discharge. PNA (pneumonia) 12/20/2011 08/23/2018 Overview: CAP pna Initially treated with ceftriaxone / azithro, now on levofloxacin, as it is less likely to cause leukopenia. Treating for 10-14 days; CXR 4-6 weeks after discharge to document resolution. Anemia 12/16/2010 08/23/2018 Overview: Haptoglobin nl, ferritin high, LDH nl, retic count nl, Kingsley negative - unlikely hemolytic anemia Stable at time of discharge; labs to be rechecked and followed. Steroid long-term use 10/05/20102018 Proteinuria 03/16/2010 08/23/2018 Neutropenia associated with autoimmune disease 02/18/2010 08/23/2018 Elevated antinuclear antibody (CHANA) level 04/28/2009 06/12/2014 Overview: 04/26/2009 CHANA by EIA: 5.3 (H) Polyarthralgia 04/27/2009 06/12/2014 Overview: CHANA 5.3 on 04/26/09 RF neg on 04/26/09 Depressive disorder, not elsewhere classified 06/12/2014 Chronic obstructive pulmonary disease (COPD) 08/23/2018 Fracture 08/23/2018 documented as of this encounter (statuses as of 04/03/2023) [facility] History of Past illness Narrative* Problem Noted Date Diagnosed Date Resolved Date Cough 02/20/2013 06/12/2014 Sinusitis, acute 02/20/2013 06/12/2014 Lupus disease of the lung 09/28/2012 DISPOSITION AND FOLLOW-UP 09/27/2012 Overview: Yuko Lino is single and lives in [place], [place]. At this time, we anticipate that the patient will be discharged home once clinically stable Plan: - Discuss needs with patient. - Collaborate with Case management to facilitate DC process - Will continue to evaluate during the post op period. . Depressive disorder 09/27/2012 08/24/19 19 Overview: PMH of depressive disorder. Patient takes Lexapro 10mg daily Plan - resume Lexapro . SUMMARY 09/27/2012 06/12/2014 Overview: 52 year old female with SLE who came in for hemoptysis. Lung nodule 09/26/2012 09/27/2012 Overview: s/p Right VATS lung biopsy of nodules in RUL, RML, RLL. 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 Cr now 1.28 - 09/23: renal US negative - 09/23: pt states flank pain resolved - 09/24: UA 3+ blood, urine csx negative Plan: - pain control Hemoptysis 09/22/2012 06/12/2014 Overview: Right VATS lung biopsy, right VATS wedge resection x3. Plan: - continue Bactrim DS qMWF for PCP prophylaxis - Albuterol/ipratropium nebs prn - Regular diet - f/u bx results . Hemoptysis 09/22/2012 08/23/2018 Overview: Right VATS lung biopsy, right VATS wedge resection x3. Plan: - continue Bactrim DS qMWF for PCP prophylaxis - Albuterol/ipratropium nebs prn - Regular diet - f/u bx results . Glomerulitis 07/29/2012 08/23/2018 DVT prophylaxis 12/23/2011 09/27/2012 Overview: Heparin SC BID Skin lesion of left leg 12/21/201105/31 Overview: 1 cm hyperkeratotic plaque on left elias Derm does not believe this is related to SLE or infection SUMMARY 12/20/2011 09/27/2012 Overview: 51 yo F with recent diagnosis SLE who presents with 3 day hx of hemoptysis. Pt initally presented to OSH, CXR found bilat. Pneumonia, started on levoquin. Recent hx of travel with bilat LE edema. CT chest w/ contrast 09/22 showed no acute PE w/o exclusion of pulm infarct. Neutropenia 12/20/2011 06/12/2014 Overview: WBC count 1.08 on presentation on 12/20/11 Likely secondary to Imuran initiation about 3 weeks ago. Neutropenic precautions for ANC < 500 today. Discussed with Heme; they can see her as an outpatient. Resolved at time of discharge; thought secondary to Imuran. Repeat CBC 1 day after discharge. PNA (pneumonia) 12/20/2011 06/12/2014 Overview: CAP pna Initially treated with ceftriaxone / azithro, now on levofloxacin, as it is less likely to cause leukopenia. Treating for 10-14 days; CXR 4-6 weeks after discharge to document resolution. Urinary retention vs. urgency 12/20/2011 12/22/2011 Overview: Bladder scan showed 65 cc of urine Pt voiding currently UA showed hematuria and proteinuria (chronic issue) U Cx NGTD Abdominal pain 12/20/2011 06/12/2014 Overview: Last BM 5 days ago. KUB shows large amount of stool in colon. Improved - Colace, lactulose Resolved at time of discharge. Back pain 12/20/2011 06/12/2014 Overview: Upper back pain/posterior shoulder pain Most likely related to PNA XR spine normal Much improved Neutropenia 12/20/2011 08/23/2018 Overview: WBC count 1.08 on presentation on 12/20/11 Likely secondary to Imuran initiation about 3 weeks ago. Neutropenic precautions for ANC < 500 today. Discussed with Heme; they can see her as an outpatient. Resolved at time of discharge; thought secondary to Imuran. Repeat CBC 1 day after discharge. PNA (pneumonia) 12/20/2011 08/23/2018 Overview: CAP pna Initially treated with ceftriaxone / azithro, now on levofloxacin, as it is less likely to cause leukopenia. Treating for 10-14 days; CXR 4-6 weeks after discharge to document resolution. Anemia 12/16/2010 08/23/2018 Overview: Haptoglobin nl, ferritin high, LDH nl, retic count nl, Kingsley negative - unlikely hemolytic anemia Stable at time of discharge; labs to be rechecked and followed. Steroid long-term use 10/05/20102018 Proteinuria 03/16/2010 08/23/2018 Neutropenia associated with autoimmune disease 02/18/2010 08/23/2018 Elevated antinuclear antibody (CHANA) level 04/28/2009 06/12/2014 Overview: 04/26/2009 CHANA by EIA: 5.3 (H) Polyarthralgia 04/27/2009 06/12/2014 Overview: CHANA 5.3 on 04/26/09 RF neg on 04/26/09 Depressive disorder, not elsewhere classified 06/12/2014 Chronic obstructive pulmonary disease (COPD) 08/23/2018 Fracture 08/23/2018 documented as of this encounter (statuses as of 06/01/2023) [facility] History of Past illness Narrative* Problem Noted Date Diagnosed Date Resolved Date Cough 02/20/2013 06/12/2014 Sinusitis, acute 02/20/2013 06/12/2014 Lupus disease of the lung 09/28/2012 DISPOSITION AND FOLLOW-UP 09/27/2012 Overview: Yuko Lino is single and lives in [place], [place]. At this time, we anticipate that the patient will be discharged home once clinically stable Plan: - Discuss needs with patient. - Collaborate with Case management to facilitate DC process - Will continue to evaluate during the post op period. . Depressive disorder 09/27/2012 08/24/19 19 Overview: PMH of depressive disorder. Patient takes Lexapro 10mg daily Plan - resume Lexapro . SUMMARY 09/27/2012 06/12/2014 Overview: 52 year old female with SLE who came in for hemoptysis. Lung nodule 09/26/2012 09/27/2012 Overview: s/p Right VATS lung biopsy of nodules in RUL, RML, RLL. 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 Cr now 1.28 - 09/23: renal US negative - 09/23: pt states flank pain resolved - 09/24: UA 3+ blood, urine csx negative Plan: - pain control Hemoptysis 09/22/2012 06/12/2014 Overview: Right VATS lung biopsy, right VATS wedge resection x3. Plan: - continue Bactrim DS qMWF for PCP prophylaxis - Albuterol/ipratropium nebs prn - Regular diet - f/u bx results . Hemoptysis 09/22/2012 08/23/2018 Overview: Right VATS lung biopsy, right VATS wedge resection x3. Plan: - continue Bactrim DS qMWF for PCP prophylaxis - Albuterol/ipratropium nebs prn - Regular diet - f/u bx results . Glomerulitis 07/29/2012 08/23/2018 DVT prophylaxis 12/23/2011 09/27/2012 Overview: Heparin SC BID Skin lesion of left leg 12/21/201105/31 Overview: 1 cm hyperkeratotic plaque on left elias Derm does not believe this is related to SLE or infection SUMMARY 12/20/2011 09/27/2012 Overview: 51 yo F with recent diagnosis SLE who presents with 3 day hx of hemoptysis. Pt initally presented to OSH, CXR found bilat. Pneumonia, started on levoquin. Recent hx of travel with bilat LE edema. CT chest w/ contrast 09/22 showed no acute PE w/o exclusion of pulm infarct. Neutropenia 12/20/2011 06/12/2014 Overview: WBC count 1.08 on presentation on 12/20/11 Likely secondary to Imuran initiation about 3 weeks ago. Neutropenic precautions for ANC < 500 today. Discussed with Heme; they can see her as an outpatient. Resolved at time of discharge; thought secondary to Imuran. Repeat CBC 1 day after discharge. PNA (pneumonia) 12/20/2011 06/12/2014 Overview: CAP pna Initially treated with ceftriaxone / azithro, now on levofloxacin, as it is less likely to cause leukopenia. Treating for 10-14 days; CXR 4-6 weeks after discharge to document resolution. Urinary retention vs. urgency 12/20/2011 12/22/2011 Overview: Bladder scan showed 65 cc of urine Pt voiding currently UA showed hematuria and proteinuria (chronic issue) U Cx NGTD Abdominal pain 12/20/2011 06/12/2014 Overview: Last BM 5 days ago. KUB shows large amount of stool in colon. Improved - Colace, lactulose Resolved at time of discharge. Back pain 12/20/2011 06/12/2014 Overview: Upper back pain/posterior shoulder pain Most likely related to PNA XR spine normal Much improved Neutropenia 12/20/2011 08/23/2018 Overview: WBC count 1.08 on presentation on 12/20/11 Likely secondary to Imuran initiation about 3 weeks ago. Neutropenic precautions for ANC < 500 today. Discussed with Heme; they can see her as an outpatient. Resolved at time of discharge; thought secondary to Imuran. Repeat CBC 1 day after discharge. PNA (pneumonia) 12/20/2011 08/23/2018 Overview: CAP pna Initially treated with ceftriaxone / azithro, now on levofloxacin, as it is less likely to cause leukopenia. Treating for 10-14 days; CXR 4-6 weeks after discharge to document resolution. Anemia 12/16/2010 08/23/2018 Overview: Haptoglobin nl, ferritin high, LDH nl, retic count nl, Kingsley negative - unlikely hemolytic anemia Stable at time of discharge; labs to be rechecked and followed. Steroid long-term use 10/05/20102018 Proteinuria 03/16/2010 08/23/2018 Neutropenia associated with autoimmune disease 02/18/2010 08/23/2018 Elevated antinuclear antibody (CHANA) level 04/28/2009 06/12/2014 Overview: 04/26/2009 CHANA by EIA: 5.3 (H) Polyarthralgia 04/27/2009 06/12/2014 Overview: CHANA 5.3 on 04/26/09 RF neg on 04/26/09 Depressive disorder, not elsewhere classified 06/12/2014 Chronic obstructive pulmonary disease (COPD) 08/23/2018 Fracture 08/23/2018 documented as of this encounter (statuses as of 06/03/2023) [facility] History of Past illness Narrative* Problem Noted Date Diagnosed Date Resolved Date Cough 02/20/2013 06/12/2014 Sinusitis, acute 02/20/2013 06/12/2014 Lupus disease of the lung 09/28/2012 DISPOSITION AND FOLLOW-UP 09/27/2012 Overview: Yuko Lino is single and lives in [place], [place]. At this time, we anticipate that the patient will be discharged home once clinically stable Plan: - Discuss needs with patient. - Collaborate with Case management to facilitate DC process - Will continue to evaluate during the post op period. . Depressive disorder 09/27/2012 08/24/19 19 Overview: PMH of depressive disorder. Patient takes Lexapro 10mg daily Plan - resume Lexapro . SUMMARY 09/27/2012 06/12/2014 Overview: 52 year old female with SLE who came in for hemoptysis. Lung nodule 09/26/2012 09/27/2012 Overview: s/p Right VATS lung biopsy of nodules in RUL, RML, RLL. 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 Cr now 1.28 - 09/23: renal US negative - 09/23: pt states flank pain resolved - 09/24: UA 3+ blood, urine csx negative Plan: - pain control Hemoptysis 09/22/2012 06/12/2014 Overview: Right VATS lung biopsy, right VATS wedge resection x3. Plan: - continue Bactrim DS qMWF for PCP prophylaxis - Albuterol/ipratropium nebs prn - Regular diet - f/u bx results . Hemoptysis 09/22/2012 08/23/2018 Overview: Right VATS lung biopsy, right VATS wedge resection x3. Plan: - continue Bactrim DS qMWF for PCP prophylaxis - Albuterol/ipratropium nebs prn - Regular diet - f/u bx results . Glomerulitis 07/29/2012 08/23/2018 DVT prophylaxis 12/23/2011 09/27/2012 Overview: Heparin SC BID Skin lesion of left leg 12/21/201105/31 Overview: 1 cm hyperkeratotic plaque on left elias Derm does not believe this is related to SLE or infection SUMMARY 12/20/2011 09/27/2012 Overview: 51 yo F with recent diagnosis SLE who presents with 3 day hx of hemoptysis. Pt initally presented to OSH, CXR found bilat. Pneumonia, started on levoquin. Recent hx of travel with bilat LE edema. CT chest w/ contrast 09/22 showed no acute PE w/o exclusion of pulm infarct. Neutropenia 12/20/2011 06/12/2014 Overview: WBC count 1.08 on presentation on 12/20/11 Likely secondary to Imuran initiation about 3 weeks ago. Neutropenic precautions for ANC < 500 today. Discussed with Heme; they can see her as an outpatient. Resolved at time of discharge; thought secondary to Imuran. Repeat CBC 1 day after discharge. PNA (pneumonia) 12/20/2011 06/12/2014 Overview: CAP pna Initially treated with ceftriaxone / azithro, now on levofloxacin, as it is less likely to cause leukopenia. Treating for 10-14 days; CXR 4-6 weeks after discharge to document resolution. Urinary retention vs. urgency 12/20/2011 12/22/2011 Overview: Bladder scan showed 65 cc of urine Pt voiding currently UA showed hematuria and proteinuria (chronic issue) U Cx NGTD Abdominal pain 12/20/2011 06/12/2014 Overview: Last BM 5 days ago. KUB shows large amount of stool in colon. Improved - Colace, lactulose Resolved at time of discharge. Back pain 12/20/2011 06/12/2014 Overview: Upper back pain/posterior shoulder pain Most likely related to PNA XR spine normal Much improved Neutropenia 12/20/2011 08/23/2018 Overview: WBC count 1.08 on presentation on 12/20/11 Likely secondary to Imuran initiation about 3 weeks ago. Neutropenic precautions for ANC < 500 today. Discussed with Heme; they can see her as an outpatient. Resolved at time of discharge; thought secondary to Imuran. Repeat CBC 1 day after discharge. PNA (pneumonia) 12/20/2011 08/23/2018 Overview: CAP pna Initially treated with ceftriaxone / azithro, now on levofloxacin, as it is less likely to cause leukopenia. Treating for 10-14 days; CXR 4-6 weeks after discharge to document resolution. Anemia 12/16/2010 08/23/2018 Overview: Haptoglobin nl, ferritin high, LDH nl, retic count nl, Kingsley negative - unlikely hemolytic anemia Stable at time of discharge; labs to be rechecked and followed. Steroid long-term use 10/05/20102018 Proteinuria 03/16/2010 08/23/2018 Neutropenia associated with autoimmune disease 02/18/2010 08/23/2018 Elevated antinuclear antibody (CHANA) level 04/28/2009 06/12/2014 Overview: 04/26/2009 CHANA by EIA: 5.3 (H) Polyarthralgia 04/27/2009 06/12/2014 Overview: CHANA 5.3 on 04/26/09 RF neg on 04/26/09 Depressive disorder, not elsewhere classified 06/12/2014 Chronic obstructive pulmonary disease (COPD) 08/23/2018 Fracture 08/23/2018 documented as of this encounter (statuses as of 06/22/2023) [facility] History of Past illness Narrative* Problem Noted Date Diagnosed Date Resolved Date Cough 02/20/2013 06/12/2014 Sinusitis, acute 02/20/2013 06/12/2014 Lupus disease of the lung 09/28/2012 DISPOSITION AND FOLLOW-UP 09/27/2012 Overview: Yuko Lino is single and lives in [place], [place]. At this time, we anticipate that the patient will be discharged home once clinically stable Plan: - Discuss needs with patient. - Collaborate with Case management to facilitate DC process - Will continue to evaluate during the post op period. . Depressive disorder 09/27/2012 08/24/19 Overview: PMH of depressive disorder. Patient takes Lexapro 10mg daily Plan - resume Lexapro . SUMMARY 09/27/2012 06/12/2014 Overview: 52 year old female with SLE who came in for hemoptysis. Lung nodule 09/26/2012 09/27/2012 Overview: s/p Right VATS lung biopsy of nodules in RUL, RML, RLL. 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 Cr now 1.28 - 09/23: renal US negative - 09/23: pt states flank pain resolved - 09/24: UA 3+ blood, urine csx negative Plan: - pain control Hemoptysis 09/22/2012 06/12/2014 Overview: Right VATS lung biopsy, right VATS wedge resection x3. Plan: - continue Bactrim DS qMWF for PCP prophylaxis - Albuterol/ipratropium nebs prn - Regular diet - f/u bx results . Hemoptysis 09/22/2012 08/23/2018 Overview: Right VATS lung biopsy, right VATS wedge resection x3. Plan: - continue Bactrim DS qMWF for PCP prophylaxis - Albuterol/ipratropium nebs prn - Regular diet - f/u bx results . Glomerulitis 07/29/2012 08/23/2018 DVT prophylaxis 12/23/2011 09/27/2012 Overview: Heparin SC BID Skin lesion of left leg 12/21/201105/31 Overview: 1 cm hyperkeratotic plaque on left elias Derm does not believe this is related to SLE or infection SUMMARY 12/20/2011 09/27/2012 Overview: 51 yo F with recent diagnosis SLE who presents with 3 day hx of hemoptysis. Pt initally presented to OSH, CXR found bilat. Pneumonia, started on levoquin. Recent hx of travel with bilat LE edema. CT chest w/ contrast 09/22 showed no acute PE w/o exclusion of pulm infarct. Neutropenia 12/20/2011 06/12/2014 Overview: WBC count 1.08 on presentation on 12/20/11 Likely secondary to Imuran initiation about 3 weeks ago. Neutropenic precautions for ANC < 500 today. Discussed with Heme; they can see her as an outpatient. Resolved at time of discharge; thought secondary to Imuran. Repeat CBC 1 day after discharge. PNA (pneumonia) 12/20/2011 06/12/2014 Overview: CAP pna Initially treated with ceftriaxone / azithro, now on levofloxacin, as it is less likely to cause leukopenia. Treating for 10-14 days; CXR 4-6 weeks after discharge to document resolution. Urinary retention vs. urgency 12/20/2011 12/22/2011 Overview: Bladder scan showed 65 cc of urine Pt voiding currently UA showed hematuria and proteinuria (chronic issue) U Cx NGTD Abdominal pain 12/20/2011 06/12/2014 Overview: Last BM 5 days ago. KUB shows large amount of stool in colon. Improved - Colace, lactulose Resolved at time of discharge. Back pain 12/20/2011 06/12/2014 Overview: Upper back pain/posterior shoulder pain Most likely related to PNA XR spine normal Much improved Neutropenia 12/20/2011 08/23/2018 Overview: WBC count 1.08 on presentation on 12/20/11 Likely secondary to Imuran initiation about 3 weeks ago. Neutropenic precautions for ANC < 500 today. Discussed with Heme; they can see her as an outpatient. Resolved at time of discharge; thought secondary to Imuran. Repeat CBC 1 day after discharge. PNA (pneumonia) 12/20/2011 08/23/2018 Overview: CAP pna Initially treated with ceftriaxone / azithro, now on levofloxacin, as it is less likely to cause leukopenia. Treating for 10-14 days; CXR 4-6 weeks after discharge to document resolution. Anemia 12/16/2010 08/23/2018 Overview: Haptoglobin nl, ferritin high, LDH nl, retic count nl, Kingsley negative - unlikely hemolytic anemia Stable at time of discharge; labs to be rechecked and followed. Steroid long-term use 10/05/20102018 Proteinuria 03/16/2010 08/23/2018 Neutropenia associated with autoimmune disease 02/18/2010 08/23/2018 Elevated antinuclear antibody (CHANA) level 04/28/2009 06/12/2014 Overview: 04/26/2009 CHANA by EIA: 5.3 (H) Polyarthralgia 04/27/2009 06/12/2014 Overview: CHANA 5.3 on 04/26/09 RF neg on 04/26/09 Depressive disorder, not elsewhere classified 06/12/2014 Chronic obstructive pulmonary disease (COPD) 08/23/2018 Fracture 08/23/2018 documented as of this encounter (statuses as of 07/09/2023) [facility] Other systemic lupus erythematosus with other organ involvement (HCC) [facility] Diagnosis Lupus (HCC)- Primary Systemic lupus erythematosus [facility] Diagnosis Other systemic lupus erythematosus with other organ involvement (HCC)- Primary Long-term use of Plaquenil Encounter for long-term (current) use of other medications Acquired hypothyroidism Unspecified hypothyroidism Transient elevated blood pressure Elevated blood pressure reading without diagnosis of hypertension Osteopenia of left hip [facility] Diagnosis Positive urine drug screen- Primary Nonspecific abnormal toxicological findings [facility] Diagnosis Other systemic lupus erythematosus with other organ involvement (HCC)- Primary [facility]* Diagnosis Hyperlipidemia LDL goal <70- Primary Other and unspecified hyperlipidemia Essential hypertension Unspecified essential hypertension Mixed hyperlipidemia Systemic lupus erythematosus with glomerular disease, unspecified SLE type (HCC) documented in this encounter [facility] note* Diagnosis Lupus (HCC)- Primary Systemic lupus erythematosus [facility]* Diagnosis Lupus (HCC) Systemic lupus erythematosus [facility]* Diagnosis Other forms of systemic lupus erythematosus, unspecified organ involvement status (HCC)- Primary Long-term current use of belimumab Long-term use of Plaquenil Encounter for long-term (current) use of other medications Antineutrophil cytoplasmic antibody (ANCA) positive Chronic pain syndrome Essential hypertension Unspecified essential hypertension Perinuclear anti-neutrophil cytoplasmic antibodies (P-ANCA) positive Other and unspecified nonspecific immunological findings Seasonal allergies Allergic rhinitis, cause unspecified TAVON (generalized anxiety disorder) Generalized anxiety disorder [facility] Diagnosis Other forms of systemic lupus erythematosus, unspecified organ involvement status (HCC)- Primary [facility] Diagnosis Hyperlipidemia, unspecified hyperlipidemia type- Primary [facility] Diagnosis Other systemic lupus erythematosus with other organ involvement (HCC) [facility] Diagnosis Hyperlipidemia LDL goal <70- Primary Other and unspecified hyperlipidemia [facility]* Diagnosis Lupus (HCC)- Primary Systemic lupus erythematosus [facility] Diagnosis Other systemic lupus erythematosus with other organ involvement (HCC)- Primary Long-term current use of belimumab Perinuclear anti-neutrophil cytoplasmic antibodies (P-ANCA) positive Other and unspecified nonspecific immunological findings Long-term use of Plaquenil Encounter for long-term (current) use of other medications TAVON (generalized anxiety disorder) Generalized anxiety disorder Lupus (HCC) Systemic lupus erythematosus Chronic obstructive pulmonary disease, unspecified COPD type (HCC) Essential hypertension Unspecified essential hypertension Chronic pain syndrome Migraine without status migrainosus, not intractable, unspecified migraine type [facility]* Diagnosis Lupus (HCC) Systemic lupus erythematosus [facility]* Diagnosis Essential hypertension- Primary Unspecified essential hypertension [facility]* Diagnosis Lupus (HCC)- Primary Systemic lupus erythematosus documented in this encounter [facility] note* Diagnosis Hyperlipidemia LDL goal <70- Primary Other and unspecified hyperlipidemia Hypertension, unspecified type Hypertriglyceridemia Pure hyperglyceridemia Systemic lupus erythematosus with glomerular disease, unspecified SLE type (HCC) Obesity (BMI 30.0-34.9) Obesity, unspecified Depression, unspecified depression type documented in this encounter [facility] note* Diagnosis Hypertension, unspecified type- Primary documented in this encounter [facility] note* Diagnosis Lupus (HCC)- Primary Systemic lupus erythematosus documented in this encounter [facility] note* Diagnosis Hypertension, unspecified type- Primary Ankle edema, bilateral Weight gain Abnormal weight gain documented in this encounter [facility] note* Diagnosis Lupus (HCC)- Primary Systemic lupus erythematosus documented in this encounter [facility] note* Diagnosis Lupus (HCC)- Primary Systemic lupus erythematosus documented in this encounter [facility] note* Diagnosis Lupus (HCC)- Primary Systemic lupus erythematosus documented in this encounter [facility] note* Diagnosis Other systemic lupus erythematosus with other organ involvement (HCC)- Primary documented in this encounter [facility] note* Diagnosis History of systemic lupus erythematosus (HCC)- Primary Personal history of other endocrine, metabolic, and immunity disorders Other systemic lupus erythematosus with other organ involvement (HCC) Cocaine abuse (HCC) Cocaine abuse, unspecified Perinuclear anti-neutrophil cytoplasmic antibodies (P-ANCA) positive Other and unspecified nonspecific immunological findings Long-term use of Plaquenil Encounter for long-term (current) use of other medications On belimumab therapy Essential hypertension Unspecified essential hypertension Chronic obstructive pulmonary disease, unspecified COPD type (HCC) TAVON (generalized anxiety disorder) Generalized anxiety disorder Chronic pain syndrome documented in this encounter [facility] note* Diagnosis Other systemic lupus erythematosus with other organ involvement (HCC)- Primary documented in this encounter [facility] for referral (narrative)* Outpatient Procedure (Routine) - Pending Review Specialty Diagnoses / Procedures Referred By Contac t [facility] To [facility] Diagnoses Hypertension, unspecified type Ankle edema, bilateral Weight gain Procedures ECHO ECHO TTHRC R-T 2D W/WOM-MODE COMPL SPEC&COLR D Susanna Gresham APRN.CNP [address] [place] [address] [facility] [place] [address] [place] [address] Referral ID Status Reason Start Date Expiration Date Visits Requested Visits Authorized [id number] Pending Review Auto-Generat ed Referral 12/25/2022 12/25/2023 1 1 [facility] Summary Purpose Family History No Family History Records FoundNo Family History Records FoundNo Family History Records Found Advance Directives No Advanced Directives Records FoundNo Advanced Directives Records FoundNo Advanced Directives Records Found Reason for Referral Specialty Diagnoses / Procedures Referred By Contolivia t Referred To Contact Diagnoses Lupus disease of lung (HCC) Other systemic lupus erythematosus with other organ involvement (HCC) Procedures CONSULT TO PREVENTIVE CARD OFFICE[facility]IENT [facility]-74 [facility] Yohana Clarke MD [address] [facility] [place] [id number] Referral ID Status Reason Start Date Expiration Date Visits Requested Visits Authorized [id number] Authorized PCP Requested Referral 08/28/2022 08/28/2023 1 1 Specialty Diagnoses / Procedures Referred By Contolivia t Referred To Contact Diagnoses Hyperlipidemia LDL goal <70 Procedures CARD PREV EXERCISE PRESCRIPTION OFFICE/OUTPATIENT NEW HIGH MDM 60-74 MINUTES Susanna Gresham APRN.CNP [address] [place] [address] Referral ID Status Reason Start Date Expiration Date Visits Requested Visits Authorized [id number] Authorized PCP Requested Referral 12/04/2022 12/04/2023 1 1 Additional Source Comments INFORMATION SOURCE (unrecogn ized section and content) DATE CREATED AUTHOR AUTHOR'S ORGANIZ ATION 02/02/2021 [facility] DATE CREATED AUTHOR AUTHOR'S ORGANIZ ATION 07/12/2023 [facility] Source Comments (unrecognize d section and content) In the event this informatio n is protected by the Federal Confidentiality of Alcohol and Drug Abuse Patient Records regulations: The Federal rules restrict any use of the information to criminally investigate or prosecute any alcohol or drug abuse patient.[facility] the event this information is protected by the Federal Confidentiality of Alcohol and Drug Abuse Patient Records regulations: The Federal rules restrict any use of the information to criminally investigate or prosecute any alcohol or drug abuse patient.[facility] the event this information is protected by the Federal Confidentiality of Alcohol and Drug Abuse Patient Records regulations: The Federal rules restrict any use of the information to criminally investigate or prosecute any alcohol or drug abuse patient.[facility] the event this information is protected by the Federal Confidentiality of Alcohol and Drug Abuse Patient Records regulations: The Federal rules restrict any use of the information to criminally investigate or prosecute any alcohol or drug abuse patient.[facility] HospitalIn the event this information is protected by the Federal Confidentiality of Alcohol and Drug Abuse Patient Records regulations: The Federal rules restrict any use of the information to criminally investigate or prosecute any alcohol or drug abuse patient.[facility] HospitalIn the event this information is protected by the Federal Confidentiality of Alcohol and Drug Abuse Patient Records regulations: The Federal rules restrict any use of the information to criminally investigate or prosecute any alcohol or drug abuse patient.[facility] HospitalIn the event this information is protected by the Federal Confidentiality of Alcohol and Drug Abuse Patient Records regulations: The Federal rules restrict any use of the information to criminally investigate or prosecute any alcohol or drug abuse patient.[facility] HospitalIn the event this information is protected by the Federal Confidentiality of Alcohol and Drug Abuse Patient Records regulations: The Federal rules restrict any use of the information to criminally investigate or prosecute any alcohol or drug abuse patient.[facility] HospitalIn the event this information is protected by the Federal Confidentiality of Alcohol and Drug Abuse Patient Records regulations: The Federal rules restrict any use of the information to criminally investigate or prosecute any alcohol or drug abuse patient.[facility] HospitalIn the event this information is protected by the Federal Confidentiality of Alcohol and Drug Abuse Patient Records regulations: The Federal rules restrict any use of the information to criminally investigate or prosecute any alcohol or drug abuse patient.[facility] HospitalIn the event this information is protected by the Federal Confidentiality of Alcohol and Drug Abuse Patient Records regulations: The Federal rules restrict any use of the information to criminally investigate or prosecute any alcohol or drug abuse patient.[facility] HospitalIn the event this information is protected by the Federal Confidentiality of Alcohol and Drug Abuse Patient Records regulations: The Federal rules restrict any use of the information to criminally investigate or prosecute any alcohol or drug abuse patient.[facility] HospitalIn the event this information is protected by the Federal Confidentiality of Alcohol and Drug Abuse Patient Records regulations: The Federal rules restrict any use of the information to criminally investigate or prosecute any alcohol or drug abuse patient.[facility] HospitalIn the event this information is protected by the Federal Confidentiality of Alcohol and Drug Abuse Patient Records regulations: The Federal rules restrict any use of the information to criminally investigate or prosecute any alcohol or drug abuse patient.[facility] HospitalIn the event this information is protected by the Federal Confidentiality of Alcohol and Drug Abuse Patient Records regulations: The Federal rules restrict any use of the information to criminally investigate or prosecute any alcohol or drug abuse patient.[facility] HospitalIn the event this information is protected by the Federal Confidentiality of Alcohol and Drug Abuse Patient Records regulations: The Federal rules restrict any use of the information to criminally investigate or prosecute any alcohol or drug abuse patient.[facility] HospitalIn the event this information is protected by the Federal Confidentiality of Alcohol and Drug Abuse Patient Records regulations: The Federal rules restrict any use of the information to criminally investigate or prosecute any alcohol or drug abuse patient.[facility] HospitalIn the event this information is protected by the Federal Confidentiality of Alcohol and Drug Abuse Patient Records regulations: The Federal rules restrict any use of the information to criminally investigate or prosecute any alcohol or drug abuse patient.[facility] HospitalIn the event this information is protected by the Federal Confidentiality of Alcohol and Drug Abuse Patient Records regulations: The Federal rules restrict any use of the information to criminally investigate or prosecute any alcohol or drug abuse patient.[facility] HospitalIn the event this information is protected by the Federal Confidentiality of Alcohol and Drug Abuse Patient Records regulations: The Federal rules restrict any use of the information to criminally investigate or prosecute any alcohol or drug abuse patient.[facility] HospitalIn the event this information is protected by the Federal Confidentiality of Alcohol and Drug Abuse Patient Records regulations: The Federal rules restrict any use of the information to criminally investigate or prosecute any alcohol or drug abuse patient.[facility] HospitalIn the event this information is protected by the Federal Confidentiality of Alcohol and Drug Abuse Patient Records regulations: The Federal rules restrict any use of the information to criminally investigate or prosecute any alcohol or drug abuse patient.[facility] HospitalIn the event this information is protected by the Federal Confidentiality of Alcohol and Drug Abuse Patient Records regulations: The Federal rules restrict any use of the information to criminally investigate or prosecute any alcohol or drug abuse patient.[facility] HospitalIn the event this information is protected by the Federal Confidentiality of Alcohol and Drug Abuse Patient Records regulations: The Federal rules restrict any use of the information to criminally investigate or prosecute any alcohol or drug abuse patient.[facility] HospitalIn the event this information is protected by the Federal Confidentiality of Alcohol and Drug Abuse Patient Records regulations: The Federal rules restrict any use of the information to criminally investigate or prosecute any alcohol or drug abuse patient.[facility] HospitalIn the event this information is protected by the Federal Confidentiality of Alcohol and Drug Abuse Patient Records regulations: The Federal rules restrict any use of the information to criminally investigate or prosecute any alcohol or drug abuse patient.[facility] HospitalIn the event this information is protected by the Federal Confidentiality of Alcohol and Drug Abuse Patient Records regulations: The Federal rules restrict any use of the information to criminally investigate or prosecute any alcohol or drug abuse patient.[facility] HospitalIn the event this information is protected by the Federal Confidentiality of Alcohol and Drug Abuse Patient Records regulations: The Federal rules restrict any use of the information to criminally investigate or prosecute any alcohol or drug abuse patient.[facility] HospitalIn the event this information is protected by the Federal Confidentiality of Alcohol and Drug Abuse Patient Records regulations: The Federal rules restrict any use of the information to criminally investigate or prosecute any alcohol or drug abuse patient.[facility] HospitalIn the event this information is protected by the Federal Confidentiality of Alcohol and Drug Abuse Patient Records regulations: The Federal rules restrict any use of the information to criminally investigate or prosecute any alcohol or drug abuse patient.[facility] HospitalIn the event this information is protected by the Federal Confidentiality of Alcohol and Drug Abuse Patient Records regulations: The Federal rules restrict any use of the information to criminally investigate or prosecute any alcohol or drug abuse patient.[facility] HospitalIn the event this information is protected by the Federal Confidentiality of Alcohol and Drug Abuse Patient Records regulations: The Federal rules restrict any use of the information to criminally investigate or prosecute any alcohol or drug abuse patient.[facility] HospitalIn the event this information is protected by the Federal Confidentiality of Alcohol and Drug Abuse Patient Records regulations: The Federal rules restrict any use of the information to criminally investigate or prosecute any alcohol or drug abuse patient.[facility] HospitalIn the event this information is protected by the Federal Confidentiality of Alcohol and Drug Abuse Patient Records regulations: The Federal rules restrict any use of the information to criminally investigate or prosecute any alcohol or drug abuse patient.[facility] HospitalIn the event this information is protected by the Federal Confidentiality of Alcohol and Drug Abuse Patient Records regulations: The Federal rules restrict any use of the information to criminally investigate or prosecute any alcohol or drug abuse patient.[facility] HospitalIn the event this information is protected by the Federal Confidentiality of Alcohol and Drug Abuse Patient Records regulations: The Federal rules restrict any use of the information to criminally investigate or prosecute any alcohol or drug abuse patient.[facility] HospitalIn the event this information is protected by the Federal Confidentiality of Alcohol and Drug Abuse Patient Records regulations: The Federal rules restrict any use of the information to criminally investigate or prosecute any alcohol or drug abuse patient.[facility] HospitalIn the event this information is protected by the Federal Confidentiality of Alcohol and Drug Abuse Patient Records regulations: The Federal rules restrict any use of the information to criminally investigate or prosecute any alcohol or drug abuse patient.[facility] HospitalIn the event this information is protected by the Federal Confidentiality of Alcohol and Drug Abuse Patient Records regulations: The Federal rules restrict any use of the information to criminally investigate or prosecute any alcohol or drug abuse patient.[facility] HospitalIn the event this information is protected by the Federal Confidentiality of Alcohol and Drug Abuse Patient Records regulations: The Federal rules restrict any use of the information to criminally investigate or prosecute any alcohol or drug abuse patient.[facility] HospitalIn the event this information is protected by the Federal Confidentiality of Alcohol and Drug Abuse Patient Records regulations: The Federal rules restrict any use of the information to criminally investigate or prosecute any alcohol or drug abuse patient.[facility] HospitalIn the event this information is protected by the Federal Confidentiality of Alcohol and Drug Abuse Patient Records regulations: The Federal rules restrict any use of the information to criminally investigate or prosecute any alcohol or drug abuse patient.[facility] HospitalIn the event this information is protected by the Federal Confidentiality of Alcohol and Drug Abuse Patient Records regulations: The Federal rules restrict any use of the information to criminally investigate or prosecute any alcohol or drug abuse patient.[facility] HospitalIn the event this information is protected by the Federal Confidentiality of Alcohol and Drug Abuse Patient Records regulations: The Federal rules restrict any use of the information to criminally investigate or prosecute any alcohol or drug abuse patient.[facility] HospitalIn the event this information is protected by the Federal Confidentiality of Alcohol and Drug Abuse Patient Records regulations: The Federal rules restrict any use of the information to criminally investigate or prosecute any alcohol or drug abuse patient.[facility] HospitalIn the event this information is protected by the Federal Confidentiality of Alcohol and Drug Abuse Patient Records regulations: The Federal rules restrict any use of the information to criminally investigate or prosecute any alcohol or drug abuse patient.[facility] HospitalIn the event this information is protected by the Federal Confidentiality of Alcohol and Drug Abuse Patient Records regulations: The Federal rules restrict any use of the information to criminally investigate or prosecute any alcohol or drug abuse patient.[facility] HospitalIn the event this information is protected by the Federal Confidentiality of Alcohol and Drug Abuse Patient Records regulations: The Federal rules restrict any use of the information to criminally investigate or prosecute any alcohol or drug abuse patient.[facility] Reason for Visit (unrecogniz ed section and content) Reason Onset Date Comments SPP Inflammatory Conditions - Medication Refill 08/31/2021 [facility] Reason Onset Date Comments Refill Request 08/31/2021 Reason Onset Date Comments SPP Inflammatory Conditions - Medication Refill 09/29/2021 [facility] Reason Comments Blood Pressure Reason Onset Date Comments SPP Inflammatory Conditions - Medication Refill 10/27/2021 [facility]sta Reason Comments Follow Up Reason Onset Date Comments SPP Inflammatory Conditions - Medication Refill 11/24/2021 [facility] Reason Comments Refill Request Reason Onset Date Comments SPP Inflammatory Conditions - Medication Refill 12/21/2021 [facility] Reason Onset Date Comments Refill Request 01/09/2022 Reason Onset Date Comments SPP Inflammatory Conditions - Medication Refill 01/18/2022 [facility] Reason Onset Date Comments SPP Inflammatory Conditions - Medication Refill 03/15/2022 [facility]sta Reason Onset Date Comments SPP Inflammatory Conditions - Medication Refill 04/07/2022 [facility]sta Reason Onset Date Comments SPP Inflammatory Conditions - Medication Refill 06/07/2022 [facility]sta Reason Onset Date Comments SPP Inflammatory Conditions - Medication Refill 07/03/2022 [facility] Reason Onset Date Comments Refill Request 07/04/2022 Reason Onset Date Comments SPP Inflammatory Conditions - Medication Refill 08/01/2022 [facility] Reason Onset Date Comments Refill Request 08/11/2022 Reason Onset Date Comments SPP Inflammatory Conditions - Medication Refill 08/24/2022 [facility] Reason Onset Date Comments SPP Inflammatory Conditions - Medication Refill 10/23/2022 [facility] Reason Onset Date Comments SPP Inflammatory Conditions - Medication Refill 11/15/2022 [facility] Insurance Authorization 11/15/2022 [place] renew al submission pending Reason Comments Follow Up Hyperlipidemia High blood pressure Reason Onset Date Comments Refill Request 12/18/2022 Reason Onset Date Comments SPP Inflammatory Conditions - Medication Refill 12/25/2022 [facility]sta Reason Comments Follow Up High blood pressure Reason Onset Date Comments SPP Inflammatory Conditions - Medication Refill 01/18/2023 Ben[facility]sta Reason Onset Date Comments SPP Inflammatory Conditions - Medication Refill 02/16/2023 [facility] Reason Onset Date Comments SPP Inflammatory Conditions - Medication Refill 04/03/2023 Ben[facility]sta Reason Onset Date Comments SPP Inflammatory Conditions - Medication Refill 06/01/2023 [facility] ([facility] 03/2024) Specialty Diagnoses / Procedures Referred By Jesus landis Referred To Contact Rheumatology / RHEUMATOLOGY Diagnoses Follow-up exam Lupus f/u 6 mo per worklist / appt rescheduled on 09/15/22 due to dianes work schedule conflict Procedures OFFICE/OUTPATIENT ESTABLISHED SF MDM 10 MIN OFFICE/OUTPATIENT ESTABLISHED LOW MDM 20 MIN OFFICE/OUTPATIENT ESTABLISHED MOD MDM 30 MIN OFFICE/OUTPATIENT ESTABLISHED HIGH MDM 40 MIN [place] EST [facility] CALI Brooks, Jacey Wheeler, CLOTH PRESSER [address] [place] [address] Yohana Clarke MD [address] [place] [address] Referral ID Status Reason Start Date Expiration Date V isits Requested Visits Authorized [id number] Authorized 05/25/2023 04/29/2024 99 99 Reason Comments Medication Authorization Ben[facility]sta Reason Onset Date Comments SPP Inflammatory Conditions - Medication Refill 07/09/2023 [facility] Care Teams (unrecognized sec tion and content) Butt Maker Relationship Specialty Start Date End Date Lorna Odell MD [address] [facility] [address] [place] [address] PCP - General Family Practice 11/10/16 Yohana Clarke MD [address] [place] [address] Package Dyer Rheumatology 03/14/16 Butt Maker Relationship Specialty Start Date End Date Lorna Odell MD 1945 [facility] [address] [place] [address] PCP - General Family Practice 11/10/16 Yohana Clarke MD [address] [place] [address] Package Dyer Rheumatology 03/14/16 Butt Maker Relationship Specialty Start Date End Date Lorna Odell MD 1945 [facility] [address] [place] [address] PCP - General Family Practice 11/10/16 Yohana Clarke MD [address] [place] [address] Package Dyer Rheumatology 03/14/16 Butt Maker Relationship Specialty Start Date End Date Lorna Odell MD [address] [facility] [address] [place] [address] PCP - General Family Practice 11/10/16 Yohana Clarke MD [address] [place] [address] Package Dyer Rheumatology 03/14/16 Janet Duke MD [address] [place] [address] Primary Staff Physician Cardiology 09/14/21 Butt Maker Relationship Specialty Start Date End Date Lorna Odell MD [address] [facility] [address] [place] [address] PCP - General Family Practice 11/10/16 Yohana Clarke MD [address] [facility] [place] [place] [address] Package Dyer Rheumatology 03/14/16 Janet Duke MD [address] [facility] [place] [address] Primary Staff Physician Cardiology 09/14/21 Butt Maker Relationship Specialty Start Date End Date Lorna Odell MD [address] [facility] [address] [place] [address] PCP - General Family Practice 11/10/16 Yohana Clarke MD [address] [place] [address] Package Dyer Rheumatology 03/14/16 Janet Duke MD [address] [place] [address] Primary Staff Physician Cardiology 09/14/21 Butt Maker Relationship Specialty Start Date End Date Lorna Odell MD [address] [facility] [address] [place] [address] PCP - General Family Practice 11/10/16 Yohana Clarke MD [address] [place] [address] Package Dyer Rheumatology 03/14/16 Janet Duke MD [address] [place] [address] Primary Staff Physician Cardiology 09/14/21 Butt Maker Relationship Specialty Start Date End Date Lorna Odell MD [address] [facility] [address] [place] [address] PCP - General Family Practice 11/10/16 Yohana Clarke MD [address] [place] [address] Package Dyer Rheumatology 03/14/16 Janet Duke MD [address] [place] [address] Primary Staff Physician Cardiology 09/14/21 Butt Maker Relationship Specialty Start Date End Date Lorna Odell MD [address] [facility] [address] [place] [address] PCP - General Family Practice 11/10/16 Yohana Clarke MD [address] [place] [address] Package Dyer Rheumatology 03/14/16 Janet Duke MD [address] [place] [address] Primary Staff Physician Cardiology 09/14/21 Butt Maker Relationship Specialty Start Date End Date Lorna Odell MD [address] [facility] [address] [place] [address] PCP - General Family Practice 11/10/16 Yohana Clarke MD [address] [place] [address] Package Dyer Rheumatology 03/14/16 Janet Duke MD [address] [place] [address] Primary Staff Physician Cardiology 09/14/21 Butt Maker Relationship Specialty Start Date End Date Jacey Brooks, CLOTH PRESSER [address] [place] [address] PCP - General Internal Medicine 12/26/21 Yohana Clarke MD [address] [place], [place] [id number] Package Dyer Rheumatology 03/14/16 Janet Duke MD [address] [place] [address] Primary Staff Physician Cardiology 09/14/21 Butt Maker Relationship Specialty Start Date End Date Lorna Odell MD [address] [id number] PCP - General Family Medicine 11/10/16 12/25/21 Jacey Brooks, CLOTH PRESSER [address] [place] [address] PCP - General Internal Medicine 12/26/21 Yohana Clarke MD [address] [place] [address] Package Dyer Rheumatology 03/14/16 Janet Duke MD [address] [place], [place] [id number] Primary Staff Physician Cardiology 09/14/21 Butt Maker Relationship Specialty Start Date End Date Jacey Brooks CLOTH PRESSER [address] [place] [address] PCP - General Internal Medicine 12/26/21 Yohana Clarke MD [address] [place] [address] Package Dyer Rheumatology 03/14/16 Janet Duke MD [address] [place] [address] Primary Staff Physician Cardiology 09/14/21 Butt Maker Relationship Specialty Start Date End Date Jacey Brooks, BRENDAN [address] [place] [address] PCP - General Internal Medicine 12/26/21 Yohana Clarke MD [address] [place] [address] Package Dyer Rheumatology 03/14/16 Janet Duke MD [address] [place] [address] Primary Staff Physician Cardiology 09/14/21 Butt Maker Relationship Specialty Start Date End Date Jacey Brooks CNP [address] [place] [address] PCP - General Internal Medicine 12/26/21 Yohana Clarke MD [address] [place] [address] Package Dyer Rheumatology 03/14/16 Janet Duke MD [address] [place] [address] Primary Staff Physician Cardiology 09/14/21 Butt Maker Relationship Specialty Start Date End Date Jacey Brooks CNP [address] [place] [address] PCP - General Internal Medicine 12/26/21 Yohana Clarke MD [address] [place] [address] Package Dyer Rheumatology 03/14/16 Janet Duke MD [address] [place] [address] Primary Staff Physician Cardiology 09/14/21 Butt Maker Relationship Specialty Start Date End Date Jacey Brooks CNP [address] [place] [address] PCP - General Internal Medicine 12/26/21 Yohana Clarke MD [address] [place] [address] Package Dyer Rheumatology 03/14/16 Janet Duke MD [address] [place] [address] Primary Staff Physician Cardiology 09/14/21 Butt Maker Relationship Specialty Start Date End Date Jacey Brooks CNP [address] [place] [address] PCP - General Internal Medicine 12/26/21 Yoahna Clarke MD [address] [place] [address] Package Dyer Rheumatology 03/14/16 Janet Duke MD [address] [place] [address] Primary Staff Physician Cardiology 09/14/21 Butt Maker Relationship Specialty Start Date End Date Jacey Brooks CNP [address] [place] [address] PCP - General Internal Medicine 12/26/21 Yohana Clarke MD [address] [place] [address] Package Dyer Rheumatology 03/14/16 Janet Duke MD [address] [place] [address] Primary Staff Physician Cardiology 09/14/21 Butt Maker Relationship Specialty Start Date End Date Jacey Brooks CNP [address] [place] [address] PCP - General Internal Medicine 12/26/21 Yohana Clarke MD [address] [place] [address] Package Dyer Rheumatology 03/14/16 Janet Duke MD [address] [place] [address] Primary Staff Physician Cardiology 09/14/21 Butt Maker Relationship Specialty Start Date End Date Jacey Brooks CNP [address] [place] [address] PCP - General Internal Medicine 12/26/21 Yohana Clarke MD [address] [place], [place] [id number] Package Dyer Rheumatology 03/14/16 Janet Duke MD [address] [place], [place] [id number] Primary Staff Physician Cardiology 09/14/21 Butt Maker Relationship Specialty Start Date End Date Jacey Brooks CNP [address] [place] [address] PCP - General Internal Medicine 12/26/21 Yohana Clarke MD [address] [place] [address] Package Dyer Rheumatology 03/14/16 Janet Duke MD [address] [place] [address] Primary Staff Physician Cardiology 09/14/21 Butt Maker Relationship Specialty Start Date End Date Jacey Brooks CNP [address] [place] [address] PCP - General Internal Medicine 12/26/21 Yohana Clarke MD [address] [place] [address] Package Dyer Rheumatology 03/14/16 Janet Duke MD [address] [place] [address] Primary Staff Physician Cardiology 09/14/21 Butt Maker Relationship Specialty Start Date End Date Jacey Brooks CNP [facility] [place] [address] PCP - General Internal Medicine 12/26/21 Yohana Clarke MD [address] [place] [address] Package Dyer Rheumatology 03/14/16 Janet Duke MD [address] [place] [address] Primary Staff Physician Cardiology 09/14/21 Butt Maker Relationship Specialty Start Date End Date Jacey Brooks CNP [facility] [place] [address] PCP - General Internal Medicine 12/26/21 Yohana Clarke MD [address] [place], [place] [id number] Package Dyer Rheumatology 03/14/16 Janet Duke MD [address] [place], [place] [id number] Primary Staff Physician Cardiology 09/14/21 Butt Maker Relationship Specialty Start Date End Date Jacey Brooks CNP [address] [place] [address] PCP - General Internal Medicine 12/26/21 Yohana Clarke MD [address] [place], [place] [id number] Package Dyer Rheumatology 03/14/16 Janet Duke MD [address] [place], [place] [id number] Primary Staff Physician Cardiology 09/14/21 Butt Maker Relationship Specialty Start Date End Date Jacey Brooks CNP [facility] [place] [address] PCP - General Internal Medicine 12/26/21 Yohana Clarke MD [address] [place], [place] [id number] Package Dyer Rheumatology 03/14/16 Janet Duke MD [address] [place], [place] [phone] Primary Staff Physician Cardiology 09/14/21 Erica Chandler NP [facility] [place] [phone] Referring Family Medicine 03/28/23 Butt Maker Relationship Specialty Start Date End Date Jacey Brooks CNP [address] [place] [address] PCP - General Internal Medicine 12/26/21 Yohana Clarke MD [address] [place] [address] Package Dyer Rheumatology 03/14/16 Janet Duke MD [address] [place] [address] Primary Staff Physician Cardiology 09/14/21 Erica Chandler NP [facility] [place] [phone] Referring Family Medicine 03/28/23 Butt Maker Relationship Specialty Start Date End Date Jacey Brooks CNP [address] [place] [id number] PCP - General Internal Medicine 12/26/21 Yohana Clarke MD [address] [place] [id number] Package Dyer Rheumatology 03/14/16 Janet Duke MD [address] [place] [address] Primary Staff Physician Cardiology 09/14/21 Erica Chandler NP [address] [place] [phone] Referring Family Medicine 03/28/23 Butt Maker Relationship Specialty Start Date End Date Jacey Brooks CNP [address] [place] [address] [phone] PCP - General Internal Medicine 12/26/21 Yohana Clarke MD [address] [place], [place] [id number] Package Dyer Rheumatology 03/14/16 Janet Duke MD [address] [place], [place] [phone] Primary Staff Physician Cardiology 09/14/21 Erica Chandler NP [address] [place] [phone] Referring Family Medicine 03/28/23 Butt Maker Relationship Specialty Start Date End Date Jacey Brooks CNP [address] [place], [place] [phone] PCP - General Internal Medicine 12/26/21 Yohana Clarke MD [address] [place] [address] Package Dyer Rheumatology 03/14/16 Janet Duke MD [address] [place], [place] [phone] Primary Staff Physician Cardiology 09/14/21 Erica Chandler NP [address] [place] [phone] Referring Family Medicine 03/28/23 FOR RECORDS PERTAINING TO PATIENTS WHO ARE OR HAVE BEEN ENROLLED IN A CHEMICAL DEPENDENCY/SUBSTANCEABUSE PROGRAM, SOME INFORMATION MAY BE OMITTED. This clinical summary was aggregated from multiple sources. Caution should be exercised in using it in the provision of clinical care. This summary normalizes information from multiple sources, and as a consequence, information in this document may materially change the coding, format and clinical context of patient data. In addition, data may be omitted in some cases. CLINICAL DECISIONS SHOULD BE BASED ON THE PRIMARY CLINICAL RECORDS. [facility]. provides no warranty or guarantee of the accuracy or completeness of information in this document.
== END | disposition home or self-care (01) ==
LOC: SL 19:46
PROVIDERS: Referring Provider Nurse Practitioner Family; Visit Provider Nurse Practitioner Family
DX: G47.10 Hypersomnia, unspecified (principal); R09.02 Hypoxemia
CPT/HCPCS: 95810

== ENCOUNTER 2023-08-04 16:42 | Emergency (ER) | payer MEDICARE, MEDICAID, SELFPAY ==
[2023-08-04 16:43] VITALS: BP 157/92; PULSE 89; RESP 20; TEMP 36.3; O2SAT 96; BMI 32.4
[2023-08-04 16:45] VITALS: BP 157/92; PULSE 89; RESP 20; TEMP 36.3; O2SAT 96
[2023-08-04 16:57] VITALS: O2SAT 96
--- NOTE | 2023-08-04 16:57 | EKG12_ITS ---
Test Reason : SOB Blood Pressure : / mmHG Vent. Rate : 084 BPM Atrial Rate : 084 BPM P-R Int : 138 ms QRS Dur : 080 ms QT Int : 398 ms P-R-T Axes : 015 013 045 degrees QTc Int : 470 ms Normal sinus rhythm Normal ECG Confirmed by Buddy Gutierrez ([id number]), acquisition editor CARA ZUÑIGA ([id number]) on 08/06/2023 10:50:31 AM Referred By: Confirmed By:Buddy Gutierrez
--- NOTE | 2023-08-04 16:58 | EDS_ITS ---
HPI History of Present Illness Chief Complaint: Shortness of Breath Detail of Chief Complaint: Shortness of breath Informant: patient Narrative Narrative: Patient presents with shortness of breath that started about 2 days ago. Last evening she had 1 episode where she coughed up small amount of blood. Patient states that years ago she had a similar episode and needed cautery in her lungs. Patient has history of COPD but does not currently smoke. Does not wear home O2. She denies fever or cough. She complains of eczema exertional dyspnea and some mild pressure in the lower chest. Patient has history of lupus. [facility] Medical History (Updated 08/04/23 @ 18:[address] Terri Silva, DO) Acute exacerbation of chronic obstructive airways disease Alcohol use Arthritis Bladder disease Cardiology follow-up encounter Chronic kidney disease, stage 3 COPD (chronic obstructive pulmonary disease) Depression Easy bruising Former smoker History of echocardiogram History of edema History of pain when walking History of stress test Hx of lung disease Hyperlipidemia, unspecified Hypertension Hypoxemia Leg cramps Lupus Migraine headache Post-menopausal Restless legs Rheumatoid arthritis Shortness of breath on exertion Systemic lupus erythematosus, unspecified Wears glasses Home Medications hydroxychloroquine 200 mg tablet 200 mg PO DAILYCM 11/01/17 [History Last Taken Unknown] albuterol sulfate 90 mcg/actuation aerosol inhaler 2 puff inhalation Q6H PRN shortness of breath or wheezing 10/03/22 [History Last Taken Unknown] buspirone 5 mg tablet 5 mg PO DAILY 10/03/22 [History Last Taken Unknown] cetirizine 10 mg tablet 10 mg PO DAILY 10/03/22 [History Last Taken Unknown] fluticasone fur. 100 mcg-umeclid 62.5 mcg-vilant 25 mcg inhalat.powder (Trelegy Ellipta) 1 inh inhalation DAILY 10/03/22 [History Last Taken Unknown] amlodipine 2.5 mg tablet 2.5 mg PO DAILY 08/03/23 [History Last Taken Unknown] belimumab 200 mg/mL subcutaneous auto-injector (Benlysta) mg subcut 08/03/23 [History Last Taken Unknown] fluticasone propionate 50 mcg/actuation nasal spray,suspension intranasal 08/03/23 [History Last Taken Unknown] icosapent ethyl 1 gram capsule g PO 08/03/23 [History Last Taken Unknown] cholecalciferol (vitamin D3) 25 mcg (1,000 unit) tablet 25 mcg PO DAILY 08/04/23 [History Last Taken Unknown] duloxetine 60 mg capsule,delayed release 60 mg PO DAILY 08/04/23 [History Last Taken Unknown] fluocinonide 0.05 % topical gel topical 08/04/23 [History Last Taken Unknown] irbesartan 300 mg tablet 300 mg PO DAILY 08/04/23 [History Last Taken Unknown] levothyroxine 75 mcg tablet 75 mcg PO DAILY 08/04/23 [History Last Taken Unknown] prednisone 20 mg tablet 20 mg PO BID #10 tabs 08/04/23 [Rx Last Taken Unknown] rosuvastatin 10 mg tablet 10 mg PO QHS 08/04/23 [History Last Taken Unknown] Allergy/AdvReac Type Severity Reaction Status Date / Time prednisone Allergy Anxiety, Verified 08/04/23 16:45 high doses Surgical History Hx of colonoscopy Hx of hysterectomy Social History (Updated 08/03/23 @ 12:46 by Jaz Yu) Smoking Status: Former smoker how long ago did patient quit smokin ROS ROS ED Review of Systems ROS Unobtainable: other Constitutional Constitutional ED: Reports lethargy; Denies chills, fever(s), sweats or weight loss Eyes Eyes: Denies blurry vision, change in vision or diplopia ENT ENT ED: Denies rhinorrhea or sore throat Cardiovascular Cardiovascular: Reports chest pain; Denies orthopnea or racing heartbeat Respiratory/Chest Respiratory/Chest: Reports dyspnea and dyspnea on exertion; Denies cough, orthopnea or sputum Gastrointestinal Gastrointestinal: Denies abdominal pain, diarrhea, nausea or vomiting Genitourinary Genitourinary ED: Denies dysuria, hematuria or urinary frequency Musculoskeletal Musculoskeletal: Denies arthralgias, back pain, myalgias or neck pain Integumentary Denies abscess, Abrasions or rash Neurologic Neurologic: Denies headache(s) or weakness Psychiatric Psychiatric: Denies anxiety, depression or suicidal thoughts Endocrine Endocrinology: Denies polydipsia, polyphagia or polyuria Hematologic/Lymphatic Hematologic/Lymphatic: Denies easy bleeding, easy bruising or lymphadenopathy Allergic/Immunologic Allergic/Immunologic ED: Denies mouth swelling, tongue swelling or urticaria EXAM Physical Exam Const Vital Signs: 08/04/23 16:43 08/04/23 16:43 08/04/23 16:45 Temperature 97.4 F L 97.4 F L 97.4 F L Temperature Source Temporal Temporal Temporal Pulse Rate 89 89 89 Respiratory Rate 20 H 20 H 20 H Respiratory Effort Respiratory Depth Respiratory Pattern Blood Pressure 157/92 H 157/92 H 157/92 H Blood Pressure Mean 113 113 113 Pulse Ox 96 96 96 Oxygen Delivery Method Room Air Room Air Room Air 08/04/23 16:57 08/04/23 17:28 08/04/23 17:47 Temperature Temperature Source Pulse Rate 81 Respiratory Rate 14 Respiratory Effort Short of Breath Respiratory Depth Normal Respiratory Pattern Tachypnea Normal Blood Pressure Blood Pressure Mean Pulse Ox Oxygen Delivery Method Room Air Room Air 08/04/23 17:45 Temperature 98.5 F Temperature Source Temporal Pulse Rate 86 Respiratory Rate 18 Respiratory Effort Respiratory Depth Respiratory Pattern Blood Pressure 131/77 H Blood Pressure Mean 95 Pulse Ox 95 Oxygen Delivery Method Room Air Positive well nourished and well developed General Appearance ED: well developed and NAD HEENT Reports TM's clear and moist mucous membranes normocephalic and atraumatic; Negative for trauma or tenderness Tympanic Membrane ED: Yes TM's clear Eyes PERRL and EOMs intact bilaterally General Eye ED: Negative for pale conjunctiva or scleral icterus Neck no lymphadenopathy, supple and no JVD General: Negative for tenderness Chest Wall inspection of chest normal and palpation of chest normal Chest: Negative for tenderness Resp normal respiratory effort and clear to auscultation bilaterally Resp Narrative: Mild tachypnea. No accessory muscle use or retractions. No conversational dyspnea. Mild faint and expiratory wheezes. Effort and Inspection: Negative for respiratory distress or pain with movement Auscultation: wheezes; Negative for rhonchi or diminished lung sounds Cardio regular rate, regular rhythm, S1 normal heart sound, S2 normal heart sound and no murmurs Peripheral Pulses: pulses 2+ throughout GI normal to inspection, nondistended, normoactive bowel sounds, soft to palpation, non-tender, non-distended and no masses Back/Spine no CVA tenderness and no thoracic nor lumbar tenderness Extremity normal to inspection General Extremety ED: Negative for edema General Extremity: Negative for edema Neuro oriented x3, CN's II-XII intact bilaterally, no sensory deficits noted and gait normal Sensorium / Orientation: awake, alert, oriented to person, oriented to place and oriented to time Motor Exam: strength 5/5 throughout and strength abnormal Psych mental status grossly normal Skin no rashes or lesions noted and no wounds MDM MDM MDM Narrative Medical decision making narrative: Patient presents with dyspnea ongoing for 2 days. History of COPD. History of lupus. Clinically she looks well. In the differential would be viral URI versus pneumonia versus PE or CHF. COPD exacerbation in the differential. Acute coronary syndrome in the differential. IV line established. Patient placed on residential monitor. EKG obtained showed a sinus rhythm with a rate of 84 bpm with no acute ST segment changes. CBC with differential showed a white count of 6.0 with hemoglobin 13.8 and platelet count 200. Chemistries unremarkable. BUN 25 and creatinine 1.14. BNP was normal at 59 and troponin was normal at 17. 1 view chest x-ray was unremarkable. While in department she received a DuoNeb aerosol and felt markedly improved. Patient was given a dose of prednisone 40 mg p.o. This point suspect COPD exacerbation. Patient will be started on prednisone and she is using her inhaler as needed. She is advised to follow-up with her nuclear medicine specialist within the next 3 to 5 days. Advised to return if increasing shortness of breath, persistent hemoptysis, Lab Data Attestation: I reviewed the patient's lab results. Labs: Laboratory Results - last 24 hr 08/04/23 17:01 WBC 6.0 RBC 4.53 Hgb 13.8 Hct 41.0 MCV 90.5 MCH 30.5 MCHC 33.7 RDW Std Deviation 40.8 RDW Coeff of Felix 12.4 Plt Count 200 MPV 8.9 Immature Gran % (Auto) 0.800 Neut % (Auto) 53.0 Lymph % (Auto) 22.5 [place] % (Auto) 11.3 H Eos % (Auto) 11.1 H Baso % (Auto) 1.3 H Absolute Neuts (auto) 3.2 Absolute Lymphs (auto) 1.35 Nucleated RBC % 0 D-Dimer Quant (PE/DVT) 0.28 Sodium 142 Potassium 4.2 Chloride 115 H Carbon Dioxide 22.0 Anion Gap 5 BUN 25 H Creatinine 1.14 H Estim Creat Clear Calc 52.22 Est GFR (MDRD) Af Amer 62 Est GFR (MDRD) Non-Af 51 L BUN/Creatinine Ratio 21.9 H Glucose 91 Calcium 8.8 Troponin I High Sens 17 B-Natriuretic Peptide 59.2 Radiography Diagnostic Testing: Clinical Impression(s) from Imaging Studies Chest X-Ray 08/04/23 17:10 IMPRESSION: There are no acute findings. Electronically Signed: Bryan Car MD at 17:23 EDT Reading Location ID and State: [facility] / [place] , Service support , 1 view chest x-ray obtained interpreted by myself as no evidence of infiltrate or pneumothorax or acute disease process. Radiology in agreement. EKG Initial EKG: Attestation: I personally reviewed and interpreted this EKG as follows: Comments: Sinus rhythm with rate of 84 bpm with no acute ST segment changes Discharge Plan Triage Chief Complaint: Shortness of Breath ED Provider: Terri Silva Dx/Rx/DC Orders Clinical Impression: Acute dyspnea, COPD exacerbation Instructions: Discharge Instructions: COPD, ED Dyspnea Prescriptions: New prednisone 20 mg tablet 20 mg PO BID Qty: 10 0RF No Action albuterol sulfate 90 mcg/actuation HFA aerosol inhaler 2 puff inhalation Q6H PRN (Reason: shortness of breath or wheezing) buspirone 5 mg tablet 5 mg PO DAILY cetirizine 10 mg tablet 10 mg PO DAILY Trelegy Ellipta 100-62.5-25 mcg blister with device 1 inh inhalation DAILY fluticasone propionate 50 mcg/actuation spray,suspension intranasal Benlysta 200 mg/mL auto-injector subcut amlodipine 2.5 mg tablet 2.5 mg PO DAILY icosapent ethyl 1 gram capsule PO hydroxychloroquine 200 MG tablet 200 mg PO DAILYCM fluocinonide 0.05 % gel topical levothyroxine 75 mcg tablet 75 mcg PO DAILY irbesartan 300 mg tablet 300 mg PO DAILY rosuvastatin 10 mg tablet 10 mg PO QHS duloxetine 60 mg capsule,delayed release(DR/EC) 60 mg PO DAILY cholecalciferol (vitamin D3) 25 mcg (1,000 unit) tablet 25 mcg PO DAILY Primary Care Provider: [facility] Bl[facility] Referrals: [facility] [Primary Care Provider] - Activity Restrictions/Additional Instructions: Follow-up with your nuclear medicine specialist within the next 3 to 5 days. Disposition Disposition: Home, Self Care
[2023-08-04 17:09] LABS: Absolute Lymphocyte Count 1.35 X10^3/uL (0.83-4.51); Absolute Neutrophil Count 3.2 X10^3/uL (2.0-7.7); Basophil# 0.08 X10^3/uL; Basophil% 1.3 % (0-1); Eosinophil# 0.67 X10^3/uL; Eosinophils% 11.1 % (0-5); Hemoglobin 13.8 g/dL (12.0-15.0); Lymphocyte # 1.35 X10^3/ul (0.83-4.51); Lymphocyte % 22.5 % (19-41); Mean Corp Hgb Conc 33.7 g/dL (32-36); Mean Corpuscular Hgb 30.5 pg (27.0-32.0); Mean Corpuscular Volume 90.5 fL (81-99); Mean Platelet Vol. 8.9 fl (6.2-12.0); Monocyte# 0.68 X10^3/uL; Monocyte% 11.3 % (0-10); NRBC Flagged by Analyzer 0 % (0-5); Neutrophil # 3.18 X10^3/uL (2.7-7.7); Platelet Count 200 K/mm3 (150-450); RBC Distribution Width CV 12.4 % (11.6-14.6); RBC Distribution Width SD 40.8 fl (35.1-43.9); Red Blood Count 4.53 M/mm3 (4.2-5.4)
--- NOTE | 2023-08-04 17:10 | RAD_ITS ---
STUDY: XR Chest 1 View 08/04/2023 5:10 PM REASON FOR EXAM: Female, 62 years old. dyspnea COMPARISON: 07/02/2023 TECHNIQUE: XR Chest 1 View FINDINGS: There is no demonstrated pleural abnormality. Normal heart size. Normal mediastinum. Normal brenda. Prominent appearing increased interstitial lung markings. Normal visualized pulmonary arteries. There is atherosclerotic calcification of the aortic arch with tortuosity. There are diffuse degenerative changes of the visualized thoracic spine. There is degenerative osteoarthritis of the bilateral shoulders. There are no acute findings of the upper abdomen. RAD/Chest 1 View (Portable) IMPRESSION: There are no acute findings. Electronically Signed: Bryan Car MD at 17:23 EDT ,
[2023-08-04 17:25] LABS: D-Dimer Quantitative (DVT/PE) 0.28 FEU/ug/m (0.27-0.49)
[2023-08-04] MEDS: Ipratropium/Albuterol Sulfate 3 ML AMPUL.NEB INHALATION (17:27)
[2023-08-04 17:28] VITALS: PULSE 81; RESP 14
[2023-08-04 17:28] LABS: Anion Gap 5 (5-15); BUN 25 mg/dL (7-18); BUN/Creat Ratio 21.9 RATIO (10-20); Calcium,Total 8.8 mg/dL (8.5-10.1); Chloride 115 mmol/L (98-107); Creatinine, Serum 1.14 mg/dL (0.55-1.02); EST Glomerular Filtration Rate 51 mL/min (>60); Est Glom Filt Rate - Afr Amer 62 mL/min (>60); Estimated Creatinine Clearance 52.22 ml/min; Glucose 91 mg/dL (74-106); Potassium 4.2 mmol/L (3.5-5.1); Sodium Level 142 mmol/L (136-145); Troponin-I HS 17 pg/mL (3.0-54.0)
[2023-08-04 17:31] LABS: BNP,B-Type NATRIURETIC PEPTIDE 59.2 pg/mL (0-100)
[2023-08-04 17:45] VITALS: BP 131/77; PULSE 86; RESP 18; TEMP 36.9; O2SAT 95
[2023-08-04] MEDS: predniSONE 20 MG Tablet 40 MG PO (17:46)
[2023-08-04 18:00] VITALS: BP 123/91; PULSE 81; RESP 18; TEMP 36.7; O2SAT 96
== END 2023-08-04 18:30 | disposition home or self-care (01) ==
PROVIDERS: Emergency Provider Emergency Medicine; Visit Provider Emergency Medicine
DX: R06.00 Dyspnea, unspecified (principal); J44.1 Chronic obstructive pulmonary disease with (acute) exacerbation; N18.30 Chronic kidney disease, stage 3 unspecified; Z87.891 Personal history of nicotine dependence
CPT/HCPCS: 71045; 80048; 83880; 84484; 85025; 85379; 87631; 93005; 94640; 99284; A4216

== ENCOUNTER → 2023-08-22 | Outpatient (CLI) | payer MEDICARE, MEDICAID, SELFPAY | END | disposition home or self-care (01) | PROVIDERS: Referring Provider Nurse Practitioner Family; Visit Provider Nurse Practitioner Family | DX: G47.33 Obstructive sleep apnea (adult) (pediatric) (principal); G47.31 Primary central sleep apnea | CPT/HCPCS: 95811 ==

== ENCOUNTER → 2023-08-29 | Outpatient (CLI) | payer MEDICARE, MEDICAID, SELFPAY ==
--- NOTE | 2023-08-29 06:48 | CT_ITS ---
STUDY: LOW DOSE CT LUNG CANCER SCREENING REASON FOR EXAM: Female, 63 years old. Smoker RADIATION DOSAGE (If Supplied By Facility): CTDIvol = ( 3.02 ) mGy, DLP = ( 105.71 ) mGycm TECHNIQUE: No contrast was administered. Low dose technique was utilized (average mAS-38 and kVp 120). 1.25 mm axial source images with a slice interval of 1.25-mm were reconstructed in lung windows. 2.5 mm axial source images with a slice interval of 2.5-mm were reconstructed in lung windows. 5.0 mm axial source images with a slice interval of 5.0-mm were reconstructed in soft tissue windows. COMPARISON: Comparison is made with prior chest radiograph dated August 04, 2023. NODULES: 3 mm calcified granuloma in the peripheral lateral aspect of the superior segment of the right lower lobe. Calcified linear scar in the right middle lobe. Emphysema: Scarring at the lung apices more prominent at the left lung apex. Mild degree of emphysema. Endobronchial lesion: Unremarkable Aorta: Unremarkable CORONARY ARTERIES: Coronary artery calcification is seen. Heart: Unremarkable Pulmonary artery: Unremarkable Mediastinal nodes: Small mediastinal lymph nodes. Other chest and abdominal findings: CT/Low Dose CT Lung Screening IMPRESSION: Lung-RADS category 2 - Continue annual screening with LDCT in 12 months. IMPORTANT NOTES FOR USE: ACR Lung-RADS Version 1.1 Assessment Categories Release Date: 2018 Category: Coded 0-4 bases on nodule(s) with highest degree of suspicion. Negative screen is defined as categories 1 and 2; a positive screen is defined as categories 3 and 4. Category 3 and 4A nodules that are unchanged on interval CT should be coded as category 2, and individuals returned to screening in 12 months. Category 4X: Category 3 or 4 nodules with additional imaging findings that increase the suspicion of lung cancer, such as spiculation, GGN that doubles in size in 1 year, enlarged lymph notes, etc. Category Modifiers: S (significant finding unrelated to lung cancer) Electronically Signed: Ulices Quiroz MD at 14:14 EDT ,
== END | disposition home or self-care (01) ==
LOC: CT 06:46
PROVIDERS: Referring Provider Nurse Practitioner Acute Care; Visit Provider Nurse Practitioner Acute Care
DX: Z12.2 Encounter for screening for malignant neoplasm of respiratory organs (principal); F17.210 Nicotine dependence, cigarettes, uncomplicated
CPT/HCPCS: 71271

== ENCOUNTER → 2023-12-11 | Outpatient (CLI) | payer MEDICARE, MEDICAID, SELFPAY ==
--- NOTE | 2023-12-11 07:59 | ECHOD_ITS ---
Reason For Study: RADHIKA Procedure This was a 2D Doppler, Color Flow transthoracic echocardiogram. Exam performed in department. Left Ventricle Normal LV size. The left ventricular ejection fraction is 65 %. Stage 1 diastolic dysfunction. No regional wall motion abnormalities noted. Right Ventricle Normal RV size. Normal systolic function. Atria Normal left atrium. Normal right atrium. Bubble contrast study negative for right to left interatrial shunt. Mitral Valve Normal mitral valve. Tricuspid Valve Normal tricuspid valve. Mild (1+) tricuspid valve insufficiency. Pulmonary artery systolic pressure is 30 mmHg. Aortic Valve Normal aortic valve. Pulmonic Valve Normal pulmonic valve. Great Vessels Normal aortic root. The pulmonary artery is normal size. Normal inferior vena cava. Pericardium/Pleural No pericardial effusion. Medication Performed a rapid injection of agitated mix of 9 cc saline and 1cc air to assess for atrial septal defect. MMode/2D Measurements & Calculations LVIDd: 4.3 cm IVSd: 1.1 cm Ao root diam: 3.2 cm LVIDs: 3.0 cm LVPWd: 1.1 cm RVDd: 3.2 cm FS: 29.5 % LAV(MOD-bp): 32.3 ml LVAd ap4: 26.7 cm2 SV(MOD-sp4): 48.9 ml LAV(MOD-bp) Indexed: 16.9 ml/m2 LVLd ap4: 7.8 cm LAV(MOD-sp2): 43.1 ml EDV(MOD-sp4): 75.4 ml LAV(MOD-sp4): 22.7 ml EDV(sp4-el): 77.5 ml LVAs ap4: 13.9 cm2 LVLs ap4: 6.1 cm ESV(MOD-sp4): 26.6 ml ESV(sp4-el): 26.8 ml EF(MOD-sp4): 64.8 % EF(sp4-el): 65.5 % SV(sp4-el): 50.7 ml LA A4 area: 11.9 cm2 LA dimension(2D): 3.2 cm RA A4 area: 9.3 cm2 TAPSE: 1.9 cm Time Measurements MV dec time: 0.27 sec Doppler Measurements & Calculations MV E max bandar: 73.8 cm/sec Lat Peak E' Bandar: 10.9 cm/sec Med Peak E' Bandar: 6.6 cm/sec MV A max bandar: 97.9 cm/sec E/E' lat: 6.7 E/E' med: 11.1 MV E/A: 0.75 MV V2 max: 97.5 cm/sec MV dec slope: 272.2 cm/sec2 Ao V2 max: 191.0 cm/sec MV max P.8 mmHg Ao max P.6 mmHg MV V2 mean: 52.2 cm/sec Ao V2 mean: 130.9 cm/sec MV mean P.3 mmHg Ao mean P.8 mmHg MV V2 VTI: 22.9 cm Ao V2 VTI: 42.2 cm LV V1 max: 114.2 cm/sec PA V2 max: 101.1 cm/sec TR max bandar: 249.8 cm/sec LV V1 max P.2 mmHg TR max P.0 mmHg ECHO/Echo Complete Interpretation Summary Normal LV size. The left ventricular ejection fraction is 65 %. Stage 1 diastolic dysfunction. Pulmonary artery systolic pressure is 30 mmHg. Bubble contrast study negative for right to left interatrial shunt. Ordering Physician: Eva Hernandes Referring Physician: [facility] Performed By: Erin Aj, ROSHAN, RVT
== END | disposition home or self-care (01) ==
LOC: CVS 07:57
PROVIDERS: Referring Provider Nurse Practitioner Acute Care; Visit Provider Nurse Practitioner Acute Care
DX: R06.02 Shortness of breath (principal)
CPT/HCPCS: 93306; A4216

== ENCOUNTER → 2023-12-25 | Outpatient (CLI) | payer MEDICARE, MEDICAID, SELFPAY ==
[2023-12-25 17:17] LABS: Absolute Lymphocyte Count 1.28 X10^3/uL (0.83-4.51); Absolute Neutrophil Count 3.6 X10^3/uL (2.0-7.7); Basophil# 0.12 X10^3/uL; Eosinophil# 0.41 X10^3/uL; Eosinophils% 6.8 % (0-5); Hematocrit 42.7 % (37-47); Lymphocyte # 1.28 X10^3/ul (0.83-4.51); Lymphocyte % 21.4 % (19-41); Mean Corp Hgb Conc 32.8 g/dL (32-36); Mean Corpuscular Hgb 29.5 pg (27.0-32.0); Mean Corpuscular Volume 89.9 fL (81-99); Mean Platelet Vol. 9.4 fl (6.2-12.0); Monocyte# 0.59 X10^3/uL; Monocyte% 9.8 % (0-10); NRBC Flagged by Analyzer 0 % (0-5); Neutrophil # 3.55 X10^3/uL (2.7-7.7); Neutrophil % 59.3 % (47-70); Platelet Count 216 K/mm3 (150-450); RBC Distribution Width CV 12.3 % (11.6-14.6); RBC Distribution Width SD 40.5 fl (35.1-43.9); Red Blood Count 4.75 M/mm3 (4.2-5.4)
[2023-12-25 17:50] LABS: ALB/GLOB Ratio 1.1 RATIO (0.9-2.4); AST(SGOT) 20 U/L (15-37); Alanine Aminotransfer ALT/SGPT 30 U/L (13-56); Alkaline Phosphatase 98 U/L (45-117); Anion Gap 8 (5-15); BUN 26 mg/dL (7-18); BUN/Creat Ratio 18.6 RATIO (10-20); Calcium,Total 9.5 mg/dL (8.5-10.1); Chloride 111 mmol/L (98-107); EST Glomerular Filtration Rate 40 mL/min (>60); Est Glom Filt Rate - Afr Amer 49 mL/min (>60); Globulin 3.5 g/dL (2.2-4.2); Glucose 96 mg/dL (74-106); Potassium 4.2 mmol/L (3.5-5.1); Protein, Total 7.5 g/dL (6.4-8.2); Sodium Level 142 mmol/L (136-145); T4 Free Direct 1.07 ng/dL (0.76-1.46)
== END | disposition home or self-care (01) ==
LOC: VSLAB 13:47
PROVIDERS: PCP Nurse Practitioner Family; Visit Provider Nurse Practitioner Family
DX: I10 Essential (primary) hypertension (principal); E03.9 Hypothyroidism, unspecified
CPT/HCPCS: 36415; 80053; 84439; 84443; 85025

== ENCOUNTER → 2024-01-08 | Outpatient (CLI) | payer MEDICARE, MEDICAID, SELFPAY | END | disposition home or self-care (01) | LOC: SL 19:58 | PROVIDERS: Referring Provider Nurse Practitioner Acute Care; Visit Provider Nurse Practitioner Acute Care | DX: G47.30 Sleep apnea, unspecified (principal) | CPT/HCPCS: 95811 ==

== ENCOUNTER → 2024-01-10 | Outpatient (CLI) | payer MEDICARE, MEDICAID, SELFPAY ==
--- NOTE | 2024-01-10 14:58 | BI_ITS ---
MAMMOGRAPHY - BILATERAL SCREENING REASON FOR EXAM: Female, 63 years old. Routine annual screening examination. PERTINENT HISTORY: Non-contributory. History of prior right stereotactic breast biopsy. TECHNIQUE: Digital bilateral breast dilan (3D mammographic acquisition) in the CC and MLO projections. 2-D mediolateral oblique (MLO) and craniocaudad (CC) views of both breasts were obtained. CAD: Full Field Digital Mammography with Computer Added Detection was performed. COMPARISON: Comparison is made with prior study dated October 04, 2022. FINDINGS: Breast Composition: There are scattered areas of fibroglandular density. There are no dominant masses or suspicious calcifications. Stable densely calcified nodule in the deep upper lateral aspect of the left breast. A tissue clip marker is once again seen in the slightly inferior central portion of the right breast. No other significant abnormalities are identified. There has been no significant change since the prior study. BI/SCRN MAMM (CAD)W/DILAN BILAT IMPRESSION: Stable bilateral screening mammogram. Yearly follow-up mammogram recommended. (A) ASSESSMENT CATEGORY: BIRADS Category 2: Benign. A letter regarding these results will be sent to the patient by the facility within 30 days. Approximately 10% of breast cancers are not detected by mammography. A normal mammogram should not delay biopsy of a clinically suspicious abnormality. [id number] Electronically Signed: Ulices Quiroz MD at 15:48 EDT ,
== END | disposition home or self-care (01) ==
LOC: OPBI 14:56
PROVIDERS: PCP Nurse Practitioner Family; Referring Provider Nurse Practitioner Family; Visit Provider Nurse Practitioner Family
DX: Z12.31 Encounter for screening mammogram for malignant neoplasm of breast (principal)
CPT/HCPCS: 77063; 77067

== ENCOUNTER → 2024-06-25 | Outpatient (CLI) | payer MEDICAID, MEDICARE, SELFPAY ==
[2024-06-25 13:05] LABS: Absolute Lymphocyte Count 0.42 X10^3/uL (0.83-4.51); Absolute Neutrophil Count 6.5 X10^3/uL (2.0-7.7); Basophil# 0.11 X10^3/uL; Basophil% 1.4 % (0-1); Eosinophil# 0.33 X10^3/uL; Eosinophils% 4.2 % (0-5); Hematocrit 44.7 % (37-47); Hemoglobin 14.5 g/dL (12.0-15.0); Lymphocyte # 0.42 X10^3/ul (0.83-4.51); Lymphocyte % 5.3 % (19-41); Mean Corp Hgb Conc 32.4 g/dL (32-36); Mean Corpuscular Hgb 29.8 pg (27.0-32.0); Mean Corpuscular Volume 91.8 fL (81-99); Mean Platelet Vol. 9.7 fl (6.2-12.0); Monocyte# 0.51 X10^3/uL; Monocyte% 6.4 % (0-10); NRBC Flagged by Analyzer 0 % (0-5); Neutrophil # 6.51 X10^3/uL (2.7-7.7); Neutrophil % 82.3 % (47-70); POSITIVE DIFFERENTIAL YES; Platelet Count 179 K/mm3 (150-450); RBC Distribution Width CV 12.2 % (11.6-14.6); Red Blood Count 4.87 M/mm3 (4.2-5.4); White Blood Count 7.9 K/mm3 (4.4-11.0)
[2024-06-25 14:17] LABS: AST(SGOT) 23 U/L (<=31); Alanine Aminotransfer ALT/SGPT 22 U/L (<=34); Albumin, Serum 4.6 g/dL (3.4-4.8); Alkaline Phosphatase 97 U/L (35-104); Anion Gap 13 (5-15); BUN 19 mg/dL (4-19); BUN/Creat Ratio 16.2 RATIO (10-20); Calcium 9.8 mg/dL (7.6-11.0); Carbon Dioxide 23.3 mmol/L (22.0-29.0); Chloride 105 mmol/L (96-108); Cholesterol 120 mg/dL (<=200); Creatinine, Serum 1.2 mg/dL (0.6-1.0); EST Glomerular Filtration Rate 52 (>60); Globulin 2.4 g/dL (2.2-4.2); Glucose 100 mg/dL (70-99); High Density Lipoprotein 53 mg/dL; Low Density Lipoprotein Calc. 42 mg/dL; Potassium 4.2 mmol/L (3.3-5.1); Sodium Level 142 mmol/L (133-145); Total Bilirubin 0.53 mg/dL (0.00-1.30); Triglycerides 128 mg/dL; Very Low Density Lipoprotein 26 mg/dL (5-40); Vitamin D,25 Hydroxy 56.2 ng/mL (30-100); cholesterol:hdl ratio screen 2.27
== END | disposition home or self-care (01) ==
LOC: VSLAB 08:29
PROVIDERS: PCP Nurse Practitioner Family; Visit Provider Nurse Practitioner Family
DX: E55.9 Vitamin D deficiency, unspecified (principal); N18.30 Chronic kidney disease, stage 3 unspecified; E03.9 Hypothyroidism, unspecified; E78.5 Hyperlipidemia, unspecified
CPT/HCPCS: 36415; 80053; 80061; 82306; 84443; 85025

== ENCOUNTER → 2024-08-29 | Outpatient (CLI) | payer MEDICARE, MEDICAID, SELFPAY ==
--- NOTE | 2024-08-29 12:53 | CT_ITS ---
PROCEDURE: LOW DOSE CT LUNG SCREENING 08/29/2024 REASON FOR EXAM: SMOKER TECHNIQUE: Low Dose CT Lung screening without contrast. Coronal and Sagittal reconstruction series were provided. One or more dose reduction techniques were used (e.g., Automated exposure control, adjustment of the mA and/or kV according to patient size, use of iterative reconstruction technique). REFERENCE LINK: [email or web address] Lung-RADS RADIATION DOSE SUMMARY: CTDlvol: 3.0 mGy DLP: 95.5 mGycm COMPARISON: CT chest on 08/29/2023 FINDINGS: PULMONARY NODULES: (Only nodules >3mm are reported) Pulmonary Nodules: No suspicious pulmonary nodule. Lymph Nodes:Unremarkable Heart and Vasculature:Normal heart size. Minimal coronary calcifications. Lungs and Airways: Trace nonobstructing debris in the trachea. Mild centrilobular and paraseptal emphysema, worst at the lung apices. There are linear areas of calcification throughout the right lung, to include in the right upper, middle, and lower lobes. These findings are unchanged and may be post procedural. Pleura:Unremarkable Upper Abdomen:Unremarkable Bones:Degenerative changes and rightward curvature of the thoracic spine. CT/Low Dose CT Lung Screening IMPRESSION: Lung-RADS Category: 1 NEGATIVE. RECOMMEND 12-MONTH SCREENING LDCT. Other Significant Findings: None. Reading Location: [facility]
== END | disposition home or self-care (01) ==
PROVIDERS: PCP Nurse Practitioner Family; Referring Provider Nurse Practitioner Acute Care; Visit Provider Nurse Practitioner Acute Care
DX: F17.210 Nicotine dependence, cigarettes, uncomplicated (principal)
CPT/HCPCS: 71271

== ENCOUNTER 2024-09-19 17:09 | Emergency (ER) | payer MEDICARE, MEDICAID, SELFPAY ==
[2024-09-19 17:11] VITALS: BP 107/56; PULSE 74; RESP 18; TEMP 36.6; O2SAT 98
--- NOTE | 2024-09-19 17:30 | EKG12_ITS ---
Test Reason : CP Blood Pressure : */* mmHG Vent. Rate : 74 BPM Atrial Rate : 74 BPM P-R Int : 144 ms QRS Dur : 84 ms QT Int : 414 ms P-R-T Axes : 19 51 71 degrees QTcB Int : 459 ms Normal sinus rhythm Nonspecific T wave abnormality Abnormal ECG Confirmed by MARINA PRASAD, BENTLEY ([id number]), film and video editor CARA ZUÑIGA ([id number]) on 09/23/2024 7:04:18 AM Referred By: Confirmed By: BENTLEY GRAY MD
--- NOTE | 2024-09-19 17:33 | EX.ED.DYSGE1 ---
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 She describes it as lightheadedness and spinning. She fell like she was can fall, not like she was going to pass out. She states this happened before when her blood pressure crashed related to her blood pressure medications, she states she is on irbesartan and HCTZ, this is the only combination that her doctors have found that works for her blood pressure. She has stage III kidney problems. She states about 20 minutes after the dizziness started today, she started having tight heavy discomfort in her left parascapular area over toward her neck. She thought maybe she was having a heart attack so she called EMS, they put a tourniquet on her to start an IV and subsequently started having tingling down her left arm. She had no chest discomfort or dyspnea. The tingling and periscapular discomfort is gone right now but she still feels dizzy. She states is worse when she sits up or stands up. It feels like spinning. She denies any nausea or vomiting. No recent URIs. No ringing or pain in her ears or changes in her hearing or vision. According to EMS, her blood pressure was in the 80s and they gave her some IV fluids and now it is better. [facility] Medical History Osteoarthritis of right knee Strain of right knee Right knee pain Systemic lupus erythematosus, unspecified Hyperlipidemia, unspecified Acute exacerbation of chronic obstructive airways disease Hypoxemia Wears glasses Post-menopausal Depression Alcohol use Arthritis Rheumatoid arthritis Bladder disease Easy bruising Restless legs Migraine headache Former smoker Shortness of breath on exertion Leg cramps History of pain when walking History of edema History of echocardiogram History of stress test Cardiology follow-up encounter Hx of lung disease Chronic kidney disease, stage 3 COPD (chronic obstructive pulmonary disease) Hypertension Lupus Home Medications ?Medication ?Instructions ?Recorded ?Last Taken ?Type hydroxychloroquine 200 mg tablet 200 mg PO DAILYCM 11/01/17 Unknown History albuterol sulfate 90 mcg/actuation 2 puff inhalation Q6H PRN 10/03/22 Unknown History aerosol inhaler shortness of breath or wheezing cetirizine 10 mg tablet 10 mg PO DAILY 10/03/22 Unknown History fluticasone fur. 100 mcg-umeclid 1 inh inhalation DAILY 10/03/22 Unknown History 62.5 mcg-vilant 25 mcg inhalat.powder (Trelegy Ellipta) belimumab 200 mg/mL subcutaneous mg subcut 08/03/23 Unknown History auto-injector (Benlysta) fluticasone propionate 50 intranasal 08/03/23 Unknown History mcg/actuation nasal spray,suspension icosapent ethyl 1 gram capsule g PO 08/03/23 Unknown History cholecalciferol (vitamin D3) 25 25 mcg PO DAILY 08/04/23 Unknown History mcg (1,000 unit) tablet duloxetine 60 mg capsule,delayed 60 mg PO DAILY 08/04/23 Unknown History release fluocinonide 0.05 % topical gel topical 08/04/23 Unknown History irbesartan 300 mg tablet 300 mg PO DAILY 08/04/23 Unknown History levothyroxine 75 mcg tablet 75 mcg PO DAILY 08/04/23 Unknown History prednisone 20 mg tablet 20 mg PO BID #10 tabs 08/04/23 Unknown Rx rosuvastatin 10 mg tablet 10 mg PO QHS 08/04/23 Unknown History indapamide 1.25 mg tablet 1.25 mg PO QDAY 08/10/23 Unknown History meclizine 25 mg tablet 25 mg PO TID PRN dizziness #20 tabs 09/19/24 Unknown Rx Allergy/AdvReac Type Severity Reaction Status Date / Time cefuroxime (From Ceftin) Allergy Hives Verified 09/19/24 17:17 prednisone Allergy Anxiety, Verified 09/19/24 17:17 high doses Surgical History Hx of hysterectomy Hx of colonoscopy Social History household members: family Smoking Status: Former smoker how long ago did patient quit smokin ROS ROS ED Constitutional Constitutional ED: Reports sweats; Denies chills or fever(s) Eyes Eyes: Denies change in vision or diplopia ENT ENT ED: Denies rhinorrhea or sore throat Cardiovascular Cardiovascular: Denies chest pain or palpitations Respiratory/Chest Respiratory/Chest: Denies cough or dyspnea Gastrointestinal Gastrointestinal: Denies abdominal pain, diarrhea, nausea or vomiting Genitourinary Genitourinary ED: Denies dysuria or hematuria Musculoskeletal Musculoskeletal: Reports as per HPI and back pain; Denies neck pain Integumentary Denies abscess or rash Neurologic Neurologic: Reports dizziness; Denies headache(s), paresthesias or weakness Psychiatric Psychiatric: Denies suicidal thoughts EXAM Physical Exam Const Vital Signs: 09/19/24 17:11 09/19/24 17:18 09/19/24 17:35 Temperature 97.8 F Temperature Source Oral Pulse Rate 74 Pulse Rate [Lying] Pulse Rate [Sitting (for 1 minute prior to obtaining)] Pulse Rate [Standing (for 1 minute prior to obtaining)] Respiratory Rate 18 Respiratory Effort Normal Non-Labored Respiratory Pattern Normal Blood Pressure 107/56 L Blood Pressure [Lying] Blood Pressure [Sitting (for 1 minute prior to obtaining)] Blood Pressure [Standing (for 1 minute prior to obtaining)] Blood Pressure Mean 73 Blood Pressure Mean [Lying] Blood Pressure Mean [Sitting (for 1 minute prior to obtaining)] Blood Pressure Mean [Standing (for 1 minute prior to obtaining)] Pulse Ox 98 Oxygen Delivery Method Room Air Room Air 09/19/24 18:08 09/19/24 19:00 Temperature Temperature Source Pulse Rate 66 Pulse Rate [Lying] 66 Pulse Rate [Sitting (for 1 minute prior to obtaining)] 70 Pulse Rate [Standing (for 1 minute prior to obtaining)] 73 Respiratory Rate 22 H Respiratory Effort Respiratory Pattern Blood Pressure 110/73 Blood Pressure [Lying] 99/65 Blood Pressure [Sitting (for 1 minute prior to obtaining)] 110/71 Blood Pressure [Standing (for 1 minute prior to obtaining)] 116/73 Blood Pressure Mean 85 Blood Pressure Mean [Lying] 76 Blood Pressure Mean [Sitting (for 1 minute prior to obtaining)] 84 Blood Pressure Mean [Standing (for 1 minute prior to obtaining)] 87 Pulse Ox 97 Oxygen Delivery Method Room Air Positive well nourished and well developed General Appearance ED: well developed and NAD HEENT Reports moist mucous membranes normocephalic and atraumatic Eyes PERRL and EOMs intact bilaterally Neck full ROM and supple Resp normal respiratory effort and clear to auscultation bilaterally Cardio regular rate, regular rhythm and no murmurs Rate: Negative for tachycardic GI non-tender and non-distended Auscultation: normoactive bowel sounds Palpation: soft Back/Spine no CVA tenderness General Back: other FROM Extremity normal to inspection General Extremety ED: Negative for edema, pulses abnormal or tenderness General Extremity: Negative for edema or pulses abnormal Neuro oriented x3, CN's II-XII intact bilaterally and no sensory deficits noted Neuro Narrative: Normal speech. Visual lynn all intact. No dysmetria. With Tray-Hallpike, patient is dizzy with maneuver to both sides. With sitting upright, and then performing jolt test, it is normal but patient states her dizziness resolved very quickly. There is no direction changing nystagmus, she had some horizontal nystagmus to the right, no vertical or rotatory nystagmus. Sensorium / Orientation: awake and alert Motor Exam: strength 5/5 throughout Skin no rashes or lesions noted and no wounds MDM MDM MDM Narrative Medical decision making narrative: I am going to have nursing do some orthostatics and a chest pain workup, but this sounds more like vertigo. 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 She does not remember exactly what she did right before this started, but agrees she moves around and could have triggered it with movement but she just does not remember 1 where the other. She states as a result of this dizziness she was walking and she felt like a pinball and a pinball machine, feeling off balance and like she was going to fall but not pass out. Her orthostatics are negative. Upon sitting she feels dizzy like things are moving. I think this is more likely to be peripheral vertigo. With remaining still for a while her dizziness resolves. Her blood pressure gradually came up hours after we finished giving her the EMS bag of IV fluid, currently 118/78. She states she feels better. She does have LACIE compared to her renal function in May but she already knows she has stage III kidney disease. Follow-up advised. Her initial troponin is 28 with her repeat 2 hours later actually trending down at 21. Her EKG and chest x-ray I reviewed, 1 view on my interpretation is normal and her EKG shows nothing acute, essentially normal. Given all this I am comfortable with her being discharged home with a prescription for meclizine and if she has persistent symptoms next week, I advised follow-up with ENT. Lab Data Attestation: I reviewed the patient's lab results. Labs: Laboratory Results - last 24 hr 09/19/24 09/19/24 17:00 18:54 WBC 6.8 RBC 4.87 Hgb 14.7 Hct 43.2 MCV 88.7 MCH 30.2 MCHC 34.0 RDW Std Deviation 40.7 RDW Coeff of Felix 12.5 Plt Count 266 MPV 9.6 Immature Gran % (Auto) 0.600 Neut % (Auto) 59.3 Lymph % (Auto) 20.9 Coke % (Auto) 9.3 Eos % (Auto) 8.7 H Baso % (Auto) 1.2 H Absolute Neuts (auto) 4.0 Absolute Lymphs (auto) 1.42 Nucleated RBC % 0 Sodium 140 Potassium 4.1 Chloride 102 Carbon Dioxide 20.2 L Anion Gap 18 H BUN 37 H Creatinine 2.22 H Estim Creat Clear Calc 33.71 L Est GFR (MDRD) Non-Af 24 L BUN/Creatinine Ratio 16.6 Glucose 115 H Calcium 10.0 Troponin T High Sens 28 H Troponin T Hi Sens 2 Hr 21 H Radiography Diagnostic Testing: Clinical Impression(s) from Imaging Studies Chest X-Ray 09/19/24 17:34 IMPRESSION: No acute cardiopulmonary abnormality. Reading Location: [facility] Rhythm Strip Rhythm Strip: Sinus Rhythm Rate: 75 Ectopy: None EKG Initial EKG: Attestation: I personally reviewed and interpreted this EKG as follows: Interpretation: Sinus Rhythm and No Acute Injury Pattern Comments: Nml axis & intervals; nml EKG Prior EKG tracings: available for review Prior: Unchanged Discharge Plan Triage Chief Complaint: Chest Pain Other Complaint: Hypotension ED Provider: Ronnell Maier Dx/Rx/DC Orders Clinical Impression: Acute upper back pain, Transient hypotension, Chronic kidney disease (CKD), Vertigo, peripheral Instructions: ED Vertigo, Unspecified Prescriptions: New meclizine 25 mg tablet 25 mg PO TID PRN (Reason: dizziness) Qty: 20 0RF No Action albuterol sulfate 90 mcg/actuation HFA aerosol inhaler 2 puff inhalation Q6H PRN (Reason: shortness of breath or wheezing) cetirizine 10 mg tablet 10 mg PO DAILY Trelegy Ellipta 100-62.5-25 mcg blister with device 1 inh inhalation DAILY fluticasone propionate 50 mcg/actuation spray,suspension intranasal Benlysta 200 mg/mL auto-injector subcut icosapent ethyl 1 gram capsule PO indapamide 1.25 mg tablet 1.25 mg PO QDAY hydroxychloroquine 200 MG tablet 200 mg PO DAILYCM fluocinonide 0.05 % gel topical levothyroxine 75 mcg tablet 75 mcg PO DAILY irbesartan 300 mg tablet 300 mg PO DAILY rosuvastatin 10 mg tablet 10 mg PO QHS duloxetine 60 mg capsule,delayed release(DR/EC) 60 mg PO DAILY cholecalciferol (vitamin D3) 25 mcg (1,000 unit) tablet 25 mcg PO DAILY prednisone 20 mg tablet 20 mg PO BID Qty: 10 0RF Primary Care Provider: Erica Chandler Referrals: Alhaji Collado MD [Med Staff - Active Staff] - 1 Week if not improving (with regards to dizziness) Erica Chandler, LOAN AND CREDIT MANAGER-C [Primary Care Provider] - As soon as possible Activity Restrictions/Additional Instructions: Today your creatinine is 2.22, it was 1.4 last November and 1.2 this past May. Currently, it is consistent with stage IIIb. Follow-up with your doctor to have this followed closely. Print Language: Japanese Disposition Disposition: Home, Self Care
--- NOTE | 2024-09-19 17:34 | RAD_ITS ---
PROCEDURE: CHEST 1 VIEW (PORTABLE) 09/19/2024 REASON FOR EXAM: CHEST PAIN TECHNIQUE: Frontal view of the chest. COMPARISON: Chest radiograph 08/04/2023, CT chest 08/29/2024 FINDINGS: Hardware: None Heart: Cardiac and mediastinal contours are stable. Lungs: The lungs are clear. Surgical irchy in the right lung. No pleural effusion. Bones: Degenerative changes are identified within the thoracic spine. RAD/Chest 1 View (Portable) IMPRESSION: No acute cardiopulmonary abnormality. Reading Location: [id number]
[2024-09-19 18:03] LABS: Absolute Lymphocyte Count 1.42 X10^3/uL (0.83-4.51); Basophil# 0.08 X10^3/uL; Basophil% 1.2 % (0-1); Eosinophil# 0.59 X10^3/uL; Eosinophils% 8.7 % (0-5); Hematocrit 43.2 % (37-47); Hemoglobin 14.7 g/dL (12.0-15.0); Lymphocyte # 1.42 X10^3/ul (0.83-4.51); Lymphocyte % 20.9 % (19-41); Mean Corpuscular Hgb 30.2 pg (27.0-32.0); Mean Corpuscular Volume 88.7 fL (81-99); Mean Platelet Vol. 9.6 fl (6.2-12.0); Monocyte# 0.63 X10^3/uL; Monocyte% 9.3 % (0-10); NRBC Flagged by Analyzer 0 % (0-5); Neutrophil # 4.02 X10^3/uL (2.7-7.7); Neutrophil % 59.3 % (47-70); Platelet Count 266 K/mm3 (150-450); RBC Distribution Width CV 12.5 % (11.6-14.6); RBC Distribution Width SD 40.7 fl (35.1-43.9); Red Blood Count 4.87 M/mm3 (4.2-5.4); White Blood Count 6.8 K/mm3 (4.4-11.0)
[2024-09-19 18:07] LABS: Anion Gap 18 (5-15); BUN 37 mg/dL (4-19); BUN/Creat Ratio 16.6 RATIO (10-20); Carbon Dioxide 20.2 mmol/L (21.0-32.0); Chloride 102 mmol/L (98-108); Creatinine, Serum 2.22 mg/dL (0.70-1.20); EST Glomerular Filtration Rate 24 (>60); Estimated Creatinine Clearance 33.71 ml/min (50-250); Glucose 115 mg/dL (70-99); Potassium 4.1 mmol/L (3.3-5.1); Sodium Level 140 mmol/L (133-145); Troponin T High Sensitivity 28 ng/L (<=14)
[2024-09-19 18:08] VITALS: BP 110/71; BP 116/73; BP 99/65; PULSE 66; PULSE 70; PULSE 73
[2024-09-19 19:00] VITALS: BP 110/73; PULSE 66; RESP 22; O2SAT 97
--- NOTE | 2024-09-19 19:12 | ED.RN ---
1000 ml Normal saline given, started by EMS
[2024-09-19 19:13] LABS: Troponin T High Sens 2 HR 21 ng/L (<=14)
[2024-09-19 19:45] VITALS: BP 125/62; PULSE 81; RESP 18; TEMP 36.7; O2SAT 98
[2024-09-19] MEDS: Meclizine HCl 25 MG Tablet PO (19:56)
== END 2024-09-19 19:58 | disposition home or self-care (01) ==
PROVIDERS: Emergency Provider Emergency Medicine; PCP Nurse Practitioner Family; Visit Provider Emergency Medicine
DX: H81.399 Other peripheral vertigo, unspecified ear (principal); M06.9 Rheumatoid arthritis, unspecified; J44.9 Chronic obstructive pulmonary disease, unspecified; M32.9 Systemic lupus erythematosus, unspecified; N18.30 Chronic kidney disease, stage 3 unspecified; R07.89 Other chest pain; M54.9 Dorsalgia, unspecified; I95.9 Hypotension, unspecified; I12.9 Hypertensive chronic kidney disease with stage 1 through stage 4 chronic kidney disease, or unspecified chronic kidney disease; F32.A Depression, unspecified; Z79.52 Long term (current) use of systemic steroids; Z79.51 Long term (current) use of inhaled steroids; Z79.899 Other long term (current) drug therapy; Z87.891 Personal history of nicotine dependence
CPT/HCPCS: 71045; 80048; 84484; 85025; 93005; 99285; A4216

== ENCOUNTER → 2024-10-08 | Outpatient (CLI) | payer MEDICARE, MEDICAID, SELFPAY ==
[2024-10-08 17:10] LABS: Absolute Lymphocyte Count 1.01 X10^3/uL (0.83-4.51); Absolute Neutrophil Count 3.2 X10^3/uL (2.0-7.7); Basophil# 0.08 X10^3/uL; Basophil% 1.5 % (0-1); Eosinophil# 0.44 X10^3/uL; Eosinophils% 8.3 % (0-5); Hematocrit 41.3 % (37-47); Hemoglobin 13.7 g/dL (12.0-15.0); Lymphocyte # 1.01 X10^3/ul (0.83-4.51); Lymphocyte % 19.1 % (19-41); Mean Corp Hgb Conc 33.2 g/dL (32-36); Mean Corpuscular Hgb 29.8 pg (27.0-32.0); Mean Corpuscular Volume 89.8 fL (81-99); Mean Platelet Vol. 9.5 fl (6.2-12.0); Monocyte# 0.57 X10^3/uL; Monocyte% 10.8 % (0-10); NRBC Flagged by Analyzer 0 % (0-5); Neutrophil # 3.17 X10^3/uL (2.7-7.7); Neutrophil % 59.7 % (47-70); Platelet Count 222 K/mm3 (150-450); RBC Distribution Width CV 12.4 % (11.6-14.6); RBC Distribution Width SD 40.7 fl (35.1-43.9); White Blood Count 5.3 K/mm3 (4.4-11.0)
[2024-10-08 17:41] LABS: Microalbumin,Random Urine 52.6 mg/L (NO RANGE EST.)
[2024-10-08 17:51] LABS: ALB/GLOB Ratio 1.9 RATIO (0.9-2.4); AST(SGOT) 19 U/L (<=31); Alanine Aminotransfer ALT/SGPT 18 U/L (<=34); Albumin, Serum 4.6 g/dL (3.4-4.8); Alkaline Phosphatase 98 U/L (35-104); Anion Gap 12 (5-15); BUN 28 mg/dL (4-19); BUN/Creat Ratio 20.2 RATIO (10-20); Calcium,Total 9.6 mg/dL (7.6-11.0); Carbon Dioxide 22.1 mmol/L (21.0-32.0); Chloride 108 mmol/L (98-108); Cholesterol 136 mg/dL (<=200); EST Glomerular Filtration Rate 42 (>60); Globulin 2.4 g/dL (2.2-4.2); Glucose 102 mg/dL (70-99); High Density Lipoprotein 44 mg/dL; Low Density Lipoprotein Calc. 61 mg/dL; Potassium 4.2 mmol/L (3.3-5.1); Sodium Level 142 mmol/L (133-145); Total Bilirubin 0.38 mg/dL (0.00-1.30); Triglycerides 155 mg/dL; Very Low Density Lipoprotein 31 mg/dL (5-40); cholesterol:hdl ratio screen 3.09
== END | disposition home or self-care (01) ==
LOC: VSLAB 13:58
PROVIDERS: PCP Nurse Practitioner Family; Visit Provider Nurse Practitioner Family
DX: I10 Essential (primary) hypertension (principal); E03.9 Hypothyroidism, unspecified; E78.5 Hyperlipidemia, unspecified
CPT/HCPCS: 36415; 80053; 80061; 82043; 84439; 84443; 85025

== ENCOUNTER 2025-02-06 18:38 | Emergency (ER) | payer MEDICARE, MEDICAID, SELFPAY ==
[2025-02-06 18:39] VITALS: BP 145/81; PULSE 91; RESP 16; TEMP 36.8; O2SAT 98; BMI 32.5
[2025-02-06] MEDS: Lidocaine 1% (20 ml mdv) 20 ML Vial 10 ML INFILT (18:59)
--- NOTE | 2025-02-06 20:00 | EX.ED.DYSGE1 ---
HPI History of Present Illness Chief Complaint: Laceration Narrative Narrative: Patient is a 64-year-old female with a history of lupus, HTN, and thyroid issues, presenting with a laceration on the left fifth digit. - Sustained a laceration to the left fifth digit approximately 30-40 minutes prior to arrival, caused by a box brander. - Reports persistent bleeding despite applying pressure; unable to determine depth of the laceration. - Denies current pain in the affected finger. - Denies use of anticoagulants. - Last tetanus vaccination was many years ago. [facility], [facility] Medical History Osteoarthritis of right knee Strain of right knee Right knee pain Systemic lupus erythematosus, unspecified Hyperlipidemia, unspecified Acute exacerbation of chronic obstructive airways disease Hypoxemia Wears glasses Post-menopausal Depression Alcohol use Arthritis Rheumatoid arthritis Bladder disease Easy bruising Restless legs Migraine headache Former smoker Shortness of breath on exertion Leg cramps History of pain when walking History of edema History of echocardiogram History of stress test Cardiology follow-up encounter Hx of lung disease Chronic kidney disease, stage 3 COPD (chronic obstructive pulmonary disease) Hypertension Lupus Home Medications ?Medication ?Instructions ?Recorded ?Last Taken ?Type hydroxychloroquine 200 mg tablet 200 mg PO DAILYCM 11/01/17 Unknown History albuterol sulfate 90 mcg/actuation 2 puff inhalation Q6H PRN 10/03/22 Unknown History aerosol inhaler shortness of breath or wheezing cetirizine 10 mg tablet 10 mg PO DAILY 10/03/22 Unknown History fluticasone fur. 100 mcg-umeclid 1 inh inhalation DAILY 10/03/22 Unknown History 62.5 mcg-vilant 25 mcg inhalat.powder (Trelegy Ellipta) belimumab 200 mg/mL subcutaneous mg subcut 08/03/23 Unknown History auto-injector (Benlysta) fluticasone propionate 50 intranasal 08/03/23 Unknown History mcg/actuation nasal spray,suspension icosapent ethyl 1 gram capsule g PO 08/03/23 Unknown History cholecalciferol (vitamin D3) 25 25 mcg PO DAILY 08/04/23 Unknown History mcg (1,000 unit) tablet duloxetine 60 mg capsule,delayed 60 mg PO DAILY 08/04/23 Unknown History release fluocinonide 0.05 % topical gel topical 08/04/23 Unknown History irbesartan 300 mg tablet 300 mg PO DAILY 08/04/23 Unknown History levothyroxine 75 mcg tablet 75 mcg PO DAILY 08/04/23 Unknown History prednisone 20 mg tablet 20 mg PO BID #10 tabs 08/04/23 Unknown Rx rosuvastatin 10 mg tablet 10 mg PO QHS 08/04/23 Unknown History indapamide 1.25 mg tablet 1.25 mg PO QDAY 08/10/23 Unknown History meclizine 25 mg tablet 25 mg PO TID PRN dizziness #20 tabs 09/19/24 Unknown Rx Allergy/AdvReac Type Severity Reaction Status Date / Time cefuroxime (From Ceftin) Allergy Hives Verified 02/06/25 18:40 prednisone Allergy Anxiety, Verified 02/06/25 18:40 high doses Surgical History Hx of hysterectomy Hx of colonoscopy Social History household members: family Smoking Status: Former smoker how long ago did patient quit smokin ROS ROS ED ROS Narrative Musculoskeletal: (-) left pinky finger pain Skin: (+) bleeding left pinky finger Neurological: (+) numbness left pinky finger EXAM Physical Exam Narrative Exam Narrative: General: No acute distress. Skin: Approximately 1 centimeter laceration to the left fifth digit with active bleeding, non-pulsatile. Neuro: Sensation intact to median, ulnar, and radial nerve distributions bilaterally. MSK/Ext: Full flexion and extension of left fifth digit. Const Vital Signs: 02/06/25 18:39 Temperature 98.2 F Temperature Source Oral Pulse Rate 91 Respiratory Rate 16 Blood Pressure 145/81 H Blood Pressure Mean 102 Pulse Ox 98 Oxygen Delivery Method Room Air MDM MDM MDM Narrative Medical decision making narrative: Assessment: The patient is a 64-year-old female with PMH of systemic lupus erythematosus, hypertension, and hypothyroidism presenting for a left pinky finger laceration that continues to bleed despite pressure. Differential considered includes finger laceration, arterial bleeding, venous injury, and abrasion; arterial bleeding is less likely given the absence of pulsatile bleeding on exam. The laceration was repaired in the ED without complication, bleeding controlled, and neurovascular status of the finger remains intact. Plan: - Simple interrupted sutures placed to 1 cm left little finger laceration; procedure tolerated well. - Provided wound care instructions: keep dry, do not soak, monitor for erythema, pus, or increased pain/swelling. - Advised suture removal in 7 days by PCP or return to ED if unable. - Return precautions reviewed; patient verbalized understanding. - Discharged home in stable condition. -Tetanus updated Reevaluations: - Bleeding controlled after repair; patient comfortable and neurovascularly intact, suitable for discharge. - Arrange to have your sutures removed in about 7 days by your primary care doctor; if you can?t get an appointment, return here to have them taken out. - Do not soak the sutures; keep the wound area clean and dry. - Watch for signs of infection, including pus or drainage, redness of the finger, or increased pain or swelling. - Return to the emergency department immediately if you notice any of these infection signs. Procedure note Procedure name: Laceration repair Indication: Reduce risk of infection Location: 1 cm left pinky finger laceration simple Preprocedure diagnosis: Laceration Postprocedure diagnosis: Repaired laceration Informed consent was obtained prior to procedure started. Procedure: The appropriate timeout was taken. The area was prepped and draped in usual sterile fashion. Local anesthesia was achieved using 2 cc of lidocaine 1% without epinephrine. Wound was copiously irrigated. 3 4-0 Ethilon interrupted sutures were placed. Estimated blood loss was less than 0.5 mL. Dressing was applied to the area and anticipatory guidance, as well as standard postprocedure care was explained. Return precautions are given. Patient tolerated procedure well without any complications. Follow-up visit for suture removal and evaluation of laceration. Discharge Plan Triage Chief Complaint: Laceration ED Provider: Delfino Callahan Dx/Rx/DC Orders Clinical Impression: Finger laceration, History of lupus, Hypothyroidism Prescriptions: No Action albuterol sulfate 90 mcg/actuation HFA aerosol inhaler 2 puff inhalation Q6H PRN (Reason: shortness of breath or wheezing) cetirizine 10 mg tablet 10 mg PO DAILY Trelegy Ellipta 100-62.5-25 mcg blister with device 1 inh inhalation DAILY fluticasone propionate 50 mcg/actuation spray,suspension intranasal Benlysta 200 mg/mL auto-injector subcut icosapent ethyl 1 gram capsule PO indapamide 1.25 mg tablet 1.25 mg PO QDAY hydroxychloroquine 200 MG tablet 200 mg PO DAILYCM meclizine 25 mg tablet 25 mg PO TID PRN (Reason: dizziness) Qty: 20 0RF fluocinonide 0.05 % gel topical levothyroxine 75 mcg tablet 75 mcg PO DAILY irbesartan 300 mg tablet 300 mg PO DAILY rosuvastatin 10 mg tablet 10 mg PO QHS duloxetine 60 mg capsule,delayed release(DR/EC) 60 mg PO DAILY cholecalciferol (vitamin D3) 25 mcg (1,000 unit) tablet 25 mcg PO DAILY prednisone 20 mg tablet 20 mg PO BID Qty: 10 0RF Primary Care Provider: Erica Chandler Referrals: Erica Chandler, ELECTRIC SPOT WELDER-C [Primary Care Provider, Family Practice] Activity Restrictions/Additional Instructions: Follow-up with your doctor in the outpatient setting. You may shower and let warm soapy water run over these do not scrub them do not soak them. Watch out for signs infection such as surrounding redness, purulent drainage if this is to occur you should return to the emergency department immediately. Have your sutures removed in approximately 7 days. Return with worsening symptoms or any other concerns. Your tetanus shot was updated today. Print Language: Kazakh Disposition Disposition: Home, Self Care
[2025-02-06 20:41] VITALS: BP 138/70; PULSE 91; RESP 16; TEMP 36.8; O2SAT 98
== END 2025-02-06 20:41 | disposition home or self-care (01) ==
PROVIDERS: Emergency Provider Emergency Medicine; PCP Nurse Practitioner Family; Visit Provider Emergency Medicine
DX: S61.217A Laceration without foreign body of left little finger without damage to nail, initial encounter (principal); M06.9 Rheumatoid arthritis, unspecified; J44.9 Chronic obstructive pulmonary disease, unspecified; M32.9 Systemic lupus erythematosus, unspecified; N18.30 Chronic kidney disease, stage 3 unspecified; W26.8XXA Contact with other sharp object(s), not elsewhere classified, initial encounter; I12.9 Hypertensive chronic kidney disease with stage 1 through stage 4 chronic kidney disease, or unspecified chronic kidney disease; E03.9 Hypothyroidism, unspecified; E78.5 Hyperlipidemia, unspecified; F32.A Depression, unspecified; Z79.51 Long term (current) use of inhaled steroids; Z79.890 Hormone replacement therapy; Z79.899 Other long term (current) drug therapy; Z87.891 Personal history of nicotine dependence
CPT/HCPCS: 12001; 90715; 99282

== ENCOUNTER → 2025-04-07 | Outpatient (CLI) | payer MEDICARE, MEDICAID, SELFPAY ==
[2025-04-07 11:41] LABS: Hematocrit 42.8 % (37-47); Hemoglobin 14.1 g/dL (12.0-15.0); Immature Granulocytes Count 0.050 X10^3/uL (0.0-0.0); Mean Corp Hgb Conc 32.9 g/dL (32-36); Mean Corpuscular Volume 90.1 fL (81-99); Mean Platelet Vol. 9.3 fl (6.2-12.0); NRBC Flagged by Analyzer 0 % (0-5); Platelet Count 216 K/mm3 (150-450); RBC Distribution Width CV 12.3 % (11.6-14.6); RBC Distribution Width SD 40.7 fl (35.1-43.9); Red Blood Count 4.75 M/mm3 (4.2-5.4); White Blood Count 6.2 K/mm3 (4.4-11.0)
[2025-04-07 12:17] LABS: AST(SGOT) 21 U/L (<=31); Alanine Aminotransfer ALT/SGPT 20 U/L (<=34); Albumin, Serum 4.5 g/dL (3.4-4.8); Alkaline Phosphatase 93 U/L (35-104); Anion Gap 12 (5-15); BUN 23 mg/dL (4-19); BUN/Creat Ratio 18.4 RATIO (10-20); Calcium,Total 9.5 mg/dL (7.6-11.0); Carbon Dioxide 22.4 mmol/L (21.0-32.0); Chloride 106 mmol/L (98-108); Cholesterol 131 mg/dL (<=200); Globulin 2.4 g/dL (2.2-4.2); Glucose 99 mg/dL (70-99); Low Density Lipoprotein Calc. 52 mg/dL; Potassium 4.6 mmol/L (3.3-5.1); Triglycerides 158 mg/dL; Very Low Density Lipoprotein 32 mg/dL (5-40); Vitamin D,25 Hydroxy 46.3 ng/mL (30-100); cholesterol:hdl ratio screen 2.48
== END | disposition home or self-care (01) ==
LOC: VSLAB 10:10
PROVIDERS: PCP Nurse Practitioner Family; Visit Provider Nurse Practitioner Family
DX: I10 Essential (primary) hypertension (principal); E03.9 Hypothyroidism, unspecified; E78.5 Hyperlipidemia, unspecified; E55.9 Vitamin D deficiency, unspecified
CPT/HCPCS: 36415; 80053; 80061; 82306; 84443; 85025